=== PATIENT | male | born 1940 | race Caucasian/White ===

== ENCOUNTER 2019-01-26 14:21 | Observation (INO) | payer MEDICARE, OTHER, SELFPAY ==
[2019-01-26 14:22] VITALS: BP 138/77; PULSE 77; RESP 20; TEMP 36.6; O2SAT 98; BMI 31.6
--- NOTE | 2019-01-26 15:14 | EKG12_ITS ---
Test Reason : CP Blood Pressure : / mmHG Vent. Rate : 077 BPM Atrial Rate : 277 BPM P-R Int : 000 ms QRS Dur : 106 ms QT Int : 386 ms P-R-T Axes : 000 043 -46 degrees QTc Int : 436 ms Atrial fibrillation Nonspecific T wave abnormality Abnormal ECG Confirmed by JUANITA DIMAS, MAT ([id number]), editor in chief BRISSA WILLIS ([id number] on 01/30/2019 6:33:05 AM Referred By: CORA/WALTER Confirmed By:MAT GRANT MD
--- NOTE | 2019-01-26 15:14 | RAD_ITS ---
STUDY: X-RAY CHEST REASON FOR EXAM: Male, 78 years old. Chest pain. TECHNIQUE: Single frontal view of the chest. COMPARISON: None. FINDINGS: The lungs are hyperexpanded with bullous disease compatible with COPD. There is no demonstrated pleural abnormality. There is borderline cardiomegaly. Normal mediastinum and allison. Normal visualized pulmonary arteries. There is atherosclerotic calcification of the aortic arch with tortuosity. Normal visualized thoracic spine. Normal visualized ribs, clavicles, and shoulders. There is no demonstrated abnormality of the visualized soft tissue structures of the upper abdomen. RAD/Chest 1 View (Portable) IMPRESSION: Borderline cardiomegaly with COPD. No acute or active cardiopulmonary disease. Electronically Signed: Charles Alegre MD at 15:32 EDT , Service support ,
[2019-01-26 15:23] VITALS: BP 126/80; PULSE 86; RESP 17; O2SAT 99
[2019-01-26 15:24] LABS: Absolute Lymphocyte Count 1.61 X10^3/ul (0.83-4.51); Absolute Neutrophil Count 7.3 X10^3/uL (2.0-7.7); Basophil# 0.03 X10^3/uL; Basophil% 0.3 % (0-1); Eosinophil# 0.32 X10^3/uL; Eosinophils% 3.2 % (0-5); Hematocrit 41.9 % (40-54); Lymphocyte # 1.61 X10^3/ul (4.0); Lymphocyte % 15.9 % (19-41); Mean Corp Hgb Conc 33.4 g/gl (32-36); Mean Corpuscular Hgb 31.1 pg (27.0-32.0); Mean Corpuscular Volume 93.1 fL (80-94); Mean Platelet Vol. 10.5 fl (6.2-12.0); Monocyte# 0.87 X10^3/uL; Monocyte% 8.6 % (0-10); Neutrophil # 7.27 X10^3/uL (2.7-7.7); Neutrophil % 71.8 % (47-70); Platelet Count 200 K/mm3 (150-450); RBC Distribution Width CV 13.1 % (11.6-14.6); RBC Distribution Width SD 44.2 fl (35.1-43.9); White Blood Count 10.1 K/mm3 (4.4-11.0)
[2019-01-26 15:37] LABS: Anion Gap 7 (5-15); BUN 20 mg/dL (7-18); BUN/Creat Ratio 16.4 RATIO (10-20); Calcium,Total 8.9 mg/dL (8.5-10.1); Chloride 103 mmol/L (98-107); Creatinine, Serum 1.22 mg/dL (0.70-1.30); EST Glomerular Filtration Rate 61 mL/min (>60); Est Glom Filt Rate - Afr Amer 74 mL/min (>60); Estimated Creatinine Clearance 48.29 ml/min; Glucose 106 mg/dL (74-106); Sodium Level 141 mmol/L (136-145)
[2019-01-26 15:46] LABS: POSITIVE COUNT NO; POSITIVE DIFFERENTIAL NO; POSITIVE MORPHOLOGY NO
--- NOTE | 2019-01-26 16:13 | ED.DCSUM_ITS ---
- ER Visit Summary Date of Service: 01/26/19 Chief Complaint: Chest pain History of Present Illness: The patient is a 78 M with chest pain for the past 4 hours. It is intermittent last 30 seconds but even after they are gone he still feels like there is some ache in his chest, he took nitroglycerin and his pain improved he got aspirin in the squad and his pain is now gone. It was described as sharp stabbing but there is an aching component to. He has no shortness of breath no back pain or tearing sensation. Physical Examination: Not appear in acute distress. Moist mucous membranes, no obvious facial deformity No C-spine tenderness supple neck. Regular rate and rhythm without any obvious murmurs Clear lungs bilaterally speaking in full sentences without any obvious respiratory distress Abdomen soft and nontender no guarding or rebound Moves all extremities without any difficulty or pain. Skin does not show any obvious rashes or lesions, no trauma. Alert oriented ?3 with no gross focal deficit Emergency Department Course and Treatment: Patient has an unremarkable troponin, EKG is nonspecific atrial fibrillation. His heart score is 4-5 I will admit for further diagnostic testing. Disposition: Admit stable condition Impression: [Chest pain] This note was generated with [employer] dictation software. It may contain incorrect words, spelling, and punctuation that were not noted in review of the chart prior to signing ED Disposition - Plan for ED Patient: Referrals: Lefty Samson [Primary Care Provider] -
[2019-01-26 16:55] VITALS: BMI 30.6
[2019-01-26 16:55] LABS: International Normalized Ratio 2.6; Prothrombin Time (Protime)PT. 28.2 SECONDS (11.7-14.9)
[2019-01-26 17:00] VITALS: BP 145/76; PULSE 75; PULSE 77; RESP 16; TEMP 36.4; O2SAT 95
--- NOTE | 2019-01-26 17:12 | HP.PCM_ITS ---
<Rob Valencia - Last Filed: 01/26/19 17:07> Problem List (1) Chest pain Status: Acute (2) CAD (coronary artery disease) Status: Chronic (3) Atrial fibrillation Status: Chronic (4) HTN (hypertension) Status: Chronic (5) HLD (hyperlipidemia) Status: Chronic (6) Obesity (BMI 30.0-34.9) Status: Chronic History of Present Illness Date of Admission: 01/26/19 Chief Complaint: chest pain The patient is a 78 year old M with pmhx of CAD with a stent placed in 1995 and a reocclusion and subsequent re stenting in 2005, hx of pAfib, HTN, HLD, stage 1 colon cancer s/p resection of colon in remission, and obesity who presents to the ER with c/o chest pain. This began while driving at about 11 am. He had a sudden onset of about a minute and a half of moderate midsternal aching. No radiation, no aggrevating or alleviating factors at that time. It suddenly resolved, however it recurred in a similar fashion 2 more times. The last time he called the squad and took nitro which relieved his pain, then he was given 4 baby aspirin by EMS and had full relief of his pain. He currently has no pain. He also denies any SOB, LH, dizziness, LE edema, diaphoresis. He refuses to consider a stress test as his last one in 2005 was a false negative and insists that if he ever needs a cath again it will not be done by a electrical research engineer but by a surgeon with a surgical backup team at the [facility]. He is not sure what he wants us to do while here. His EKG shows Afib with no ischemic changes, troponin is negative, and CXR is negative. Former patient of Dr. Sheldon.[] Past Medical History Past Medical History (Chronic Problems): Chronic Problems CAD (coronary artery disease) (Chronic) Atrial fibrillation (Chronic) HTN (hypertension) (Chronic) HLD (hyperlipidemia) (Chronic) Obesity (BMI 30.0-34.9) (Chronic) Allergies No Known Allergies Allergy (Verified 01/26/19 14:29) Home Medications: Ambulatory Orders Medication Instructions Recorded Hydrochlorothiazide 12.5 mg PO DAILY 01/26/19 Lisinopril 20 mg PO DAILY 01/26/19 Melatonin/Pyridoxine HCl (B6) 1 each PO QHS 01/26/19 [Melatonin 3 mg Tablet] Metoprolol Succinate 12.5 mg PO DAILY 01/26/19 Simvastatin 20 mg PO DAILY 01/26/19 Warfarin Sodium 5 mg PO DAILY 01/26/19 Warfarin Sodium 6 mg PO QODAY 01/26/19 Surgical History: - - colon resection Psychiatric History: No pertinent psych hx Lives: Alone Smoking Status: Former smoker Tobacco Use: Non-smoker Alcohol: Occasional Drugs: None - *Family History Maternal History Items: No pertinent history Paternal History Items: No pertinent history Review of Systems Constitutional: Denies: Chills, Fever, Weight Change HEENT: Denies: Head Aches, Sinus Congestion, Sinus Drainage Cardiovascular: Reports: Chest Pain. Denies: Chest Pressure, Chest Tightness, Edema, Heaviness, Light Headedness, Orthopnea, Palpitations, Paroxysmal Noc. Dyspnea, Syncope Respiratory: Denies: Cough, Shortness of breath at rest, Sputum production Gastrointestinal: Denies: Abdominal Pain, Nausea, Vomiting Genitourinary: Denies: Dysuria Musculoskeletal: Denies: Joint Pain, Joint Tenderness Skin: Denies: Rash, Wounds Neurological: Denies: Numbness, Tingling, Focal weakness Psychiatric: Denies: Anxiety, Depression, Homicidal Ideations, Suicidal Ideations Hematologic/ Lymphatic: Denies: Easy Bruising, Easy Bleeding VTE Information - Inpt Only VTE Present on Admission: No VTE Mechan Device Prophylaxis: None VTE Pharm Prophylaxis ordered?: Yes Patient Problems: Active and Suspected Problems Chest pain (Acute) - Physical Exam General: Alert, Oriented x3, Cooperative HEENT: Atraumatic, PERRLA, EOMI, Normocephalic Neck: Supple, No JVD, Negative Carotid Bruits Lungs: Clear to auscultation, Normal air movement Cardiovascular: No murmurs, Irregular Rate Abdomen: Bowel Sounds Present, Soft, Non Tender Extremities: No edema, Capillary Refill Less than 3 Seconds Skin: No rashes, No breakdown Musculoskeletal: No Tenderness to Palpation of Joints or Extremities Neurological: Cranial nerves II-XII grossly intact Psych/Mental Status: Normal Affect, Appropriate Vital Signs Temp Pulse Resp BP Pulse Ox 97.8 F 86 17 126/80 H 99 01/26/19 14:22 01/26/19 15:23 01/26/19 15:23 01/26/19 15:23 01/26/19 15:23 Oxygen Flow Rate (L/min) 2 Oxygen Delivery Method Nasal Cannula Weight: 214 lb 8.156 oz Body Mass Index (BMI) 31.6 Laboratory Tests Past 24 Hrs 01/26/19 01/26/19 01/26/19 14:36 14:36 14:36 WBC 10.1 RBC 4.50 L Hgb 14.0 Hct 41.9 MCV 93.1 MCH 31.1 MCHC 33.4 RDW 13.1 RDW Differential 44.2 H Plt Count 200 MPV 10.5 Immature Gran % (Auto) 0.200 Neut % (Auto) 71.8 H Lymph % (Auto) 15.9 L Calloway % (Auto) 8.6 Eos % (Auto) 3.2 Baso % (Auto) 0.3 Absolute Neuts (auto) 7.3 Absolute Lymphs (auto) 1.61 Total Counted Not Reportable PT 28.2 H INR 2.6 Sodium 141 Potassium 4.0 Chloride 103 Carbon Dioxide 31.0 Anion Gap 7 BUN 20 H Creatinine 1.22 Estim Creat Clear Calc 48.29 Est GFR (MDRD) Af Amer 74 Est GFR (MDRD) Non-Af 61 BUN/Creatinine Ratio 16.4 Glucose 106 Calcium 8.9 Troponin I < 0.015 Assessment/Plan All Active Problems Chest pain (Acute) 1. Chest pain with hx CAD and prior stents - cycle enzymes, serial EKGs, maintain tele. Pt does not want stress as noted. He also states if he needs a cath he does not want it here but at [facility] by a surgeon. Trop, EKG, CXR, vitals, and routine labs appear without acute process. 2 prior stents. 2. pAfib - EKG with afib non tachy no ischemic changes. On warfarin and metoprolol. 3. HTN/HLD - home meds 4. hx colorectal cancer - in remission s/p colon resection 5. Psoriasis - no acute flare. DVT ppx: lovenox This patient was seen by Rob Valencia PA-C under the supervision of Dr. Chavez. <Venkat Chavez - Last Filed: 01/26/19 19:47> History of Present Illness The patient is a 78 year old M [] Past Medical History Allergies No Known Allergies Allergy (Verified 01/26/19 14:29) - Physical Exam Vital Signs Temp Pulse Resp BP Pulse Ox 97.6 F L 77 16 145/76 H 95 01/26/19 17:00 01/26/19 17:00 01/26/19 17:00 01/26/19 17:00 01/26/19 17:00 Oxygen Flow Rate (L/min) 2 Oxygen Delivery Method Room Air Weight: 207 lb 7.28 oz Body Mass Index (BMI) 30.6 Intake and Output for Last 24 Hours 01/24/19 01/25/19 01/26/19 23:59 23:59 23:59 Intake Total 300 / 300 Balance 300 / 300 Laboratory Tests Past 24 Hrs 01/26/19 01/26/19 01/26/19 14:36 14:36 14:36 WBC 10.1 RBC 4.50 L Hgb 14.0 Hct 41.9 MCV 93.1 MCH 31.1 MCHC 33.4 RDW 13.1 RDW Differential 44.2 H Plt Count 200 MPV 10.5 Immature Gran % (Auto) 0.200 Neut % (Auto) 71.8 H Lymph % (Auto) 15.9 L Calloway % (Auto) 8.6 Eos % (Auto) 3.2 Baso % (Auto) 0.3 Absolute Neuts (auto) 7.3 Absolute Lymphs (auto) 1.61 Total Counted Not Reportable PT 28.2 H INR 2.6 Sodium 141 Potassium 4.0 Chloride 103 Carbon Dioxide 31.0 Anion Gap 7 BUN 20 H Creatinine 1.22 Estim Creat Clear Calc 48.29 Est GFR (MDRD) Af Amer 74 Est GFR (MDRD) Non-Af 61 BUN/Creatinine Ratio 16.4 Glucose 106 Calcium 8.9 Troponin I < 0.015 01/26/19 18:10 WBC RBC Hgb Hct MCV MCH MCHC RDW RDW Differential Plt Count MPV Immature Gran % (Auto) Neut % (Auto) Lymph % (Auto) Calloway % (Auto) Eos % (Auto) Baso % (Auto) Absolute Neuts (auto) Absolute Lymphs (auto) Total Counted PT INR Sodium Potassium Chloride Carbon Dioxide Anion Gap BUN Creatinine Estim Creat Clear Calc Est GFR (MDRD) Af Amer Est GFR (MDRD) Non-Af BUN/Creatinine Ratio Glucose Calcium Troponin I < 0.015 Code Visit Addendum: Dr. Chavez I personally examined the patient and reviewed the chart. I agree with the above. 78-year-old male with a history of a 2 stents before 2005 presents with chest pain. He states this began when he was driving at around 11 AM he had a sudden onset of midsternal aching that did not radiate anywhere. In the ER his EKG was unremarkable other than his known A. fib and his initial troponin was negative. His chest x-ray was normal. He states that he does not want to have a stress test because the last time he had a stress test 3 weeks later he need to have a stent. Also if he were to need a cath he does not want to have it done here he would rather have it done at [facility] because he wants to have a cath done if necessary at a place that has surgical back-up in case something went wrong during the procedure. Therefore we discussed that if his troponins remain negative then tomorrow morning he can be discharged home and he can find a new electrical research engineer since his just retired on Saturday. OBSV E&M: [id number] Initial observation care L3
--- NOTE | 2019-01-26 17:23 | EKG12_ITS ---
Test Reason : CP ADMISSION Blood Pressure : / mmHG Vent. Rate : 065 BPM Atrial Rate : 093 BPM P-R Int : 000 ms QRS Dur : 098 ms QT Int : 404 ms P-R-T Axes : 000 035 -40 degrees QTc Int : 420 ms Atrial fibrillation Low voltage QRS Nonspecific T wave abnormality Abnormal ECG Confirmed by JUANITA DIMAS, MAT ([id number]), editor map BRISSA WILLIS ([id number]) on 01/30/2019 7:06:09 AM Referred By: KASI Confirmed By:MAT GRANT MD
[2019-01-26 18:17] VITALS: BMI 30.6
[2019-01-26 18:57] VITALS: PULSE 76
[2019-01-26 21:23] VITALS: BP 129/77; PULSE 83; RESP 16; TEMP 36.7; O2SAT 97
[2019-01-26] MEDS: Metoprolol(XL)Succ 25 MG Tablet 12.5 MG PO (21:23)
[2019-01-26] MEDS: Lisinopril 20 MG Tablet PO (21:23)
[2019-01-26] MEDS: Atorvastatin Calcium 10 MG Tablet PO (21:23)
[2019-01-26 23:00] VITALS: PULSE 75
[2019-01-27 03:07] VITALS: PULSE 73
[2019-01-27 03:20] VITALS: BP 117/57; PULSE 63; RESP 16; TEMP 36.4; O2SAT 92
[2019-01-27 05:59] LABS: Absolute Lymphocyte Count 1.46 X10^3/ul (0.83-4.51); Absolute Neutrophil Count 4.9 X10^3/uL (2.0-7.7); Basophil# 0.03 X10^3/uL; Basophil% 0.4 % (0-1); Eosinophil# 0.48 X10^3/uL; Eosinophils% 6.1 % (0-5); Hematocrit 41.8 % (40-54); Hemoglobin 13.9 g/dl (13.0-16.5); Lymphocyte # 1.46 X10^3/ul (4.0); Lymphocyte % 18.7 % (19-41); Mean Corp Hgb Conc 33.3 g/gl (32-36); Mean Corpuscular Hgb 30.5 pg (27.0-32.0); Mean Corpuscular Volume 91.9 fL (80-94); Mean Platelet Vol. 10.3 fl (6.2-12.0); Monocyte# 0.92 X10^3/uL; Monocyte% 11.8 % (0-10); Neutrophil # 4.92 X10^3/uL (2.7-7.7); Neutrophil % 62.9 % (47-70); Platelet Count 184 K/mm3 (150-450); Red Blood Count 4.55 M/mm3 (4.6-6.2); White Blood Count 7.8 K/mm3 (4.4-11.0)
[2019-01-27 06:06] LABS: POSITIVE COUNT NO; POSITIVE DIFFERENTIAL NO; POSITIVE MORPHOLOGY NO
[2019-01-27 06:13] LABS: International Normalized Ratio 2.7; Prothrombin Time (Protime)PT. 29.1 SECONDS (11.7-14.9)
[2019-01-27 06:15] LABS: Anion Gap 9 (5-15); BUN 18 mg/dL (7-18); BUN/Creat Ratio 15.7 RATIO (10-20); Calcium,Total 8.9 mg/dL (8.5-10.1); Chloride 106 mmol/L (98-107); Creatinine, Serum 1.15 mg/dL (0.70-1.30); EST Glomerular Filtration Rate 65 mL/min (>60); Est Glom Filt Rate - Afr Amer 79 mL/min (>60); Estimated Creatinine Clearance 51.23 ml/min; Glucose 112 mg/dL (74-106); Potassium 4.2 mmol/L (3.5-5.1); Sodium Level 144 mmol/L (136-145)
[2019-01-27 07:21] VITALS: PULSE 74
--- NOTE | 2019-01-27 09:17 | DCINST_ITS ---
- Discharge Diagnoses Current Active Problems: Current Active and Chronic Problems Chest pain (Acute) CAD (coronary artery disease) (Chronic) Atrial fibrillation (Chronic) HTN (hypertension) (Chronic) HLD (hyperlipidemia) (Chronic) Obesity (BMI 30.0-34.9) (Chronic) You will use the following diet at home:: Cardiac Your food should be the consistency of: Regular Your liquids should be the consistency of: Regular/Thin Discharge Activity: Return to Normal Activity Allergies/Adverse Reactions: Allergies No Known Allergies Allergy (Verified 01/26/19 14:29) Medications to take at Discharge Hydrochlorothiazide 12.5 mg PO DAILY 01/26/19 Lisinopril 20 mg PO DAILY 01/26/19 Melatonin/Pyridoxine HCl (B6) [Melatonin 3 mg Tablet] 1 each PO QHS 01/26/19 Metoprolol Succinate 12.5 mg PO DAILY 01/26/19 Simvastatin 20 mg PO DAILY 01/26/19 Warfarin Sodium 5 mg PO DAILY 01/26/19 Warfarin Sodium 6 mg PO QODAY 01/26/19 Primary Care Physician: Lefty Samson [Primary Care Provider] - Please follow up with your Primary Care Physician in: 1-2 weeks Test Results: Test results from this visit will be discussed in further detail at your follow- up appointment, if applicable. Please Follow Up With: Cardiology When: 1 week Proposed Discharge Date: 01/27/19
--- NOTE | 2019-01-27 09:32 | PHA.DC.MR ---
Pharmacy Service has performed discharge medication reconciliation for this patient. The patient's discharge medication list was reviewed for discrepancies and discrepancies were resolved. Home Medications Hydrochlorothiazide 12.5 mg PO DAILY 01/26/19 Lisinopril 20 mg PO DAILY 01/26/19 Melatonin/Pyridoxine HCl (B6) [Melatonin 3 mg Tablet] 1 each PO QHS 01/26/19 Metoprolol Succinate 12.5 mg PO DAILY 01/26/19 Simvastatin 20 mg PO DAILY 01/26/19 Warfarin Sodium 1 mg PO QODAY 01/26/19 Warfarin Sodium 5 mg PO DAILY 01/26/19
[2019-01-27] MEDS: hydroCHLOROthiazide 12.5mg 12.5 MG PO (09:51)
[2019-01-27 10:00] VITALS: BP 131/69; PULSE 71; RESP 16; TEMP 36.8; O2SAT 94
--- NOTE | 2019-01-27 15:22 | PCM.DC.SUM ---
<Rob Valencia - Last Filed: 01/27/19 15:22> Discharge Date and Diagnosis Date of Admission: 01/26/19 Date of Discharge: 01/27/19 - Primary Discharge Diagnosis Chest pain-musculoskeletal History of CAD with prior stent x2 Hypertension Hyperlipidemia Obesity pAfib/flutter - Secondary Discharge Diagnosis Chronic Problems CAD (coronary artery disease) (Chronic) Atrial fibrillation (Chronic) HTN (hypertension) (Chronic) HLD (hyperlipidemia) (Chronic) Obesity (BMI 30.0-34.9) (Chronic) Hospital Course and Treatment Imaging Results: RAD/Chest 1 View (Portable) IMPRESSION: Borderline cardiomegaly with COPD. No acute or active cardiopulmonary disease. Operations: None Procedures: None Summary of Care Provided: Hospital course: The patient is a 78 year old M with past medical history of CAD with stents placed in 1995 in 2005, formerly patient of Dr. Christian Carmen, who presented to the emergency room with complaints of chest pain. This pain began while he was driving suddenly the day of presentation. It was about a minute half of moderate midsternal aching with no radiation, no aggravating or alleviating factors. It recurred 2 more times in a similar fashion. He did take a nitroglycerin at home and did have relief of his chest pain. He came to the emergency room and was found to have a negative troponin, negative chest x-ray, negative EKG-for ischemic changes, did show his underlying paroxysmal atrial fibrillation. The patient was not interested in having a stress test as in the past he had a false negative stress test and he does not trust them. He also stated that if he were to need any sort of cardiac intervention that he would only do it somewhere where there was surgical back-up like the [facility]. He was not interested in seeing any board filler here, and was planning on finding a new [facility] board filler as an outpatient. We strongly advised him to consider a stress test, however he would not do this. We did get him to agree to staying overnight for monitoring on telemetry in the PCU, cycling enzymes, and repeating EKGs. This was done, he had no acute issues overnight, his repeat troponins were negative, and his repeat EKGs were negative. I advised him to follow-up with a board filler in 1 week. The patient felt that his symptoms were related to musculoskeletal pain and attributed it to recently changing his sleeping position as his had a surgery and had to switch sides of the bed with him. He has been sleeping on his left side and feels that this is similar to where his pain is. Regardless I advised him to take his chest pain seriously, and that he would likely need a stress test or further cardiac work-up to definitively rule out a cardiac etiology. Advised him to follow-up with his PCP in 1 to 2 weeks. This patient was seen by Rob Valencia PA-C under the supervision of Doctor Lety. [] - Physical Exam General: Alert, Oriented x3, Cooperative HEENT: Atraumatic, PERRLA, EOMI, Normocephalic Neck: Supple, No JVD, Negative Carotid Bruits Lungs: Clear to auscultation, Normal air movement Cardiovascular: Regular rate, No murmurs Abdomen: Bowel Sounds Present, Soft, Non Tender, Obese Extremities: No edema, Capillary Refill Less than 3 Seconds Skin: No rashes, No breakdown Musculoskeletal: No Tenderness to Palpation of Joints or Extremities Neurological: Cranial nerves II-XII grossly intact Psych/Mental Status: Normal Affect, Appropriate, Alert and oriented to time, place, person, mood and affect Vital Signs Temp Pulse Resp BP Pulse Ox 98.3 F 71 16 131/69 H 94 01/27/19 10:00 01/27/19 10:00 01/27/19 10:00 01/27/19 10:00 01/27/19 10:00 Oxygen Flow Rate (L/min) 2 Oxygen Delivery Method Room Air Weight: 207 lb 7.28 oz Body Mass Index (BMI) 30.6 Intake and Output for Last 24 Hours 01/25/19 01/26/19 01/27/19 23:59 23:59 23:59 Intake Total 540 / 540 120 / 120 Balance 540 / 540 120 / 120 Laboratory Tests Past 24 Hrs 01/26/19 01/26/19 01/26/19 14:36 14:36 14:36 WBC 10.1 RBC 4.50 L Hgb 14.0 Hct 41.9 MCV 93.1 MCH 31.1 MCHC 33.4 RDW 13.1 RDW Differential 44.2 H Plt Count 200 MPV 10.5 Immature Gran % (Auto) 0.200 Neut % (Auto) 71.8 H Lymph % (Auto) 15.9 L [place] % (Auto) 8.6 Eos % (Auto) 3.2 Baso % (Auto) 0.3 Absolute Neuts (auto) 7.3 Absolute Lymphs (auto) 1.61 Total Counted Not Reportable PT 28.2 H INR 2.6 Sodium 141 Potassium 4.0 Chloride 103 Carbon Dioxide 31.0 Anion Gap 7 BUN 20 H Creatinine 1.22 Estim Creat Clear Calc 48.29 Est GFR (MDRD) Af Amer 74 Est GFR (MDRD) Non-Af 61 BUN/Creatinine Ratio 16.4 Glucose 106 Calcium 8.9 Troponin I < 0.015 01/26/19 01/26/19 01/27/19 18:10 20:30 05:40 WBC 7.8 RBC 4.55 L Hgb 13.9 Hct 41.8 MCV 91.9 MCH 30.5 MCHC 33.3 RDW 13.0 RDW Differential 43.0 Plt Count 184 MPV 10.3 Immature Gran % (Auto) 0.100 Neut % (Auto) 62.9 Lymph % (Auto) 18.7 L [place] % (Auto) 11.8 H Eos % (Auto) 6.1 H Baso % (Auto) 0.4 Absolute Neuts (auto) 4.9 Absolute Lymphs (auto) 1.46 Total Counted Not Reportable PT INR Sodium Potassium Chloride Carbon Dioxide Anion Gap BUN Creatinine Estim Creat Clear Calc Est GFR (MDRD) Af Amer Est GFR (MDRD) Non-Af BUN/Creatinine Ratio Glucose Calcium Troponin I < 0.015 < 0.015 01/27/19 01/27/19 05:40 05:40 WBC RBC Hgb Hct MCV MCH MCHC RDW RDW Differential Plt Count MPV Immature Gran % (Auto) Neut % (Auto) Lymph % (Auto) [place] % (Auto) Eos % (Auto) Baso % (Auto) Absolute Neuts (auto) Absolute Lymphs (auto) Total Counted PT 29.1 H INR 2.7 Sodium 144 Potassium 4.2 Chloride 106 Carbon Dioxide 29.0 Anion Gap 9 BUN 18 Creatinine 1.15 Estim Creat Clear Calc 51.23 Est GFR (MDRD) Af Amer 79 Est GFR (MDRD) Non-Af 65 BUN/Creatinine Ratio 15.7 Glucose 112 H Calcium 8.9 Troponin I Discharge Diet: Low fat/ Low Cholesterol, 2000 mg Sodium Diet Discharge Activity: Return to Normal Activity Home Medications: Medications to take at Discharge Hydrochlorothiazide 12.5 mg PO DAILY 01/26/19 Lisinopril 20 mg PO DAILY 01/26/19 Melatonin/Pyridoxine HCl (B6) [Melatonin 3 mg Tablet] 1 each PO QHS 01/26/19 Metoprolol Succinate 12.5 mg PO DAILY 01/26/19 Simvastatin 20 mg PO DAILY 01/26/19 Warfarin Sodium 1 mg PO QODAY 01/26/19 Warfarin Sodium 5 mg PO DAILY 01/26/19 Primary Care Physician: Lefty Samson [Primary Care Provider] - Please follow up with your Primary Care Physician in: 1-2 weeks Please Follow Up With: Cardiology When: 1 week Disposition: Home Minutes spent on discharge:: 35 Patient Condition:: Stable Medical Necessity - Tobacco Use Smoking Status: Former smoker Tobacco Use: Non-smoker Meaningful Use Info Meaningful Use Diagnoses (Choose all that apply): None applicable <Isabel Davidson - Last Filed: 01/27/19 16:21> Discharge Date and Diagnosis - Secondary Discharge Diagnosis Chronic Problems CAD (coronary artery disease) (Chronic) Atrial fibrillation (Chronic) HTN (hypertension) (Chronic) HLD (hyperlipidemia) (Chronic) Obesity (BMI 30.0-34.9) (Chronic) Hospital Course and Treatment Summary of Care Provided: Patient seen by Rob Valencia PA-C under my supervision The patient is a 78 year old M with a past medical history as listed was admitted with a complaint of chest pain while driving. Troponins x3 were negative and EKG showed no acute ST changes. 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 Patient did not want any form of cardiac work-up done [facility] as he said he wanted to be in the [facility] system. He had been following up with his board filler at [facility] but board filler retired about 4 days ago. Patient has not establish care with any board filler since and states he does not know when [facility] will bring a board filler to [place]. Patient was also not willing to consider seeing a board filler either in [place] or any other town and wanted to see a board filler in [place] but would only prefer a [facility] physician. Patient was counseled strongly that in light of his cardiac history and chest pain, it was imperative that he would need follow-up with a board filler as soon as possible to establish care and also for continuity of care. Patient was not willing to consider seeing a board filler in [facility] and would not do a stress test either as he said if needed any procedure he would want to done in [facility] or any other [facility] because he wanted surgical facilities to be available in case he needed open heart surgery. Despite reassurances that he could have a cardiac intervention done here and could be safely transferred as needed, patient was not willing to entertain this and said he did not have confidence in the system in [place]. He therefore wanted to be discharged home to await posting of board filler by [facility] to start to establish follow-up. Patient was discharged home on 01/27/19, to follow up with his PCP. Patient seen and examined prior to discharge. Chest pain had resolved. Review of systems otherwise negative. Labs and vitals reviewed. o/e: Vital Signs Height 5 ft 9 in Weight: 207 lb 7.28 oz Weight in Pounds 207.5 lbs Pulse Ox 94 Temperature 98.3 F Pulse Rate 71 Respiratory Rate 16 Blood Pressure 131/69 Blood Pressure Position Sitting []General: Alert, Oriented x3, Cooperative HEENT: Atraumatic, PERRLA, EOMI, Normocephalic Neck: Supple, No JVD, Negative Carotid Bruits Lungs: Clear to auscultation, Normal air movement Cardiovascular: No murmurs, Irregular Rate Abdomen: Bowel Sounds Present, Soft, Non Tender Extremities: No edema, Capillary Refill Less than 3 Seconds Skin: No rashes, No breakdown Musculoskeletal: No Tenderness to Palpation of Joints or Extremities Neurological: Cranial nerves II-XII grossly intact Psych/Mental Status: Normal Affect, Appropriate Plan is to discharge home. Rest of management as per Rob Valencia PA-C's note, which I have reviewed and endorsed. - Physical Exam Vital Signs Temp Pulse Resp BP Pulse Ox 98.3 F 71 16 131/69 H 94 01/27/19 10:00 01/27/19 10:00 01/27/19 10:00 01/27/19 10:00 01/27/19 10:00 Oxygen Flow Rate (L/min) 2 Oxygen Delivery Method Room Air Weight: 207 lb 7.28 oz Body Mass Index (BMI) 30.6 Intake and Output for Last 24 Hours 01/25/19 01/26/19 01/27/19 23:59 23:59 23:59 Intake Total 540 / 540 120 / 120 Balance 540 / 540 120 / 120 Laboratory Tests Past 24 Hrs 01/26/19 01/26/19 01/26/19 14:36 18:10 20:30 WBC RBC Hgb Hct MCV MCH MCHC RDW RDW Differential Plt Count MPV Immature Gran % (Auto) Neut % (Auto) Lymph % (Auto) [place] % (Auto) Eos % (Auto) Baso % (Auto) Absolute Neuts (auto) Absolute Lymphs (auto) Total Counted PT 28.2 H INR 2.6 Sodium Potassium Chloride Carbon Dioxide Anion Gap BUN Creatinine Estim Creat Clear Calc Est GFR (MDRD) Af Amer Est GFR (MDRD) Non-Af BUN/Creatinine Ratio Glucose Calcium Troponin I < 0.015 < 0.015 01/27/19 01/27/19 01/27/19 05:40 05:40 05:40 WBC 7.8 RBC 4.55 L Hgb 13.9 Hct 41.8 MCV 91.9 MCH 30.5 MCHC 33.3 RDW 13.0 RDW Differential 43.0 Plt Count 184 MPV 10.3 Immature Gran % (Auto) 0.100 Neut % (Auto) 62.9 Lymph % (Auto) 18.7 L [place] % (Auto) 11.8 H Eos % (Auto) 6.1 H Baso % (Auto) 0.4 Absolute Neuts (auto) 4.9 Absolute Lymphs (auto) 1.46 Total Counted Not Reportable PT 29.1 H INR 2.7 Sodium 144 Potassium 4.2 Chloride 106 Carbon Dioxide 29.0 Anion Gap 9 BUN 18 Creatinine 1.15 Estim Creat Clear Calc 51.23 Est GFR (MDRD) Af Amer 79 Est GFR (MDRD) Non-Af 65 BUN/Creatinine Ratio 15.7 Glucose 112 H Calcium 8.9 Troponin I Code Visit Inpatient E&M: 66446 Disch Hosp
--- NOTE | 2019-01-27 15:26 | DS.PCM_ITS ---
<Rob Valencia - Last Filed: 01/27/19 15:22> Discharge Date and Diagnosis Date of Admission: 01/26/19 Date of Discharge: 01/27/19 - Primary Discharge Diagnosis Chest pain-musculoskeletal History of CAD with prior stent x2 Hypertension Hyperlipidemia Obesity pAfib/flutter - Secondary Discharge Diagnosis Chronic Problems CAD (coronary artery disease) (Chronic) Atrial fibrillation (Chronic) HTN (hypertension) (Chronic) HLD (hyperlipidemia) (Chronic) Obesity (BMI 30.0-34.9) (Chronic) Hospital Course and Treatment Imaging Results: RAD/Chest 1 View (Portable) IMPRESSION: Borderline cardiomegaly with COPD. No acute or active cardiopulmonary disease. Operations: None Procedures: None Summary of Care Provided: Hospital course: The patient is a 78 year old M with past medical history of CAD with stents placed in 1995 in 2005, formerly patient of Dr. Christian Carmen, who presented to the emergency room with complaints of chest pain. This pain began while he was driving suddenly the day of presentation. It was about a minute half of moderate midsternal aching with no radiation, no aggravating or alleviating factors. It recurred 2 more times in a similar fashion. He did take a nitroglycerin at home and did have relief of his chest pain. He came to the emergency room and was found to have a negative troponin, negative chest x-ray, negative EKG-for ischemic changes, did show his underlying paroxysmal atrial fibrillation. The patient was not interested in having a stress test as in the past he had a false negative stress test and he does not trust them. He also stated that if he were to need any sort of cardiac intervention that he would only do it somewhere where there was surgical back-up like the [facility]. He was not interested in seeing any life skills worker here, and was planning on finding a new [facility] life skills worker as an outpatient. We strongly advised him to consider a stress test, however he would not do this. We did get him to agree to staying overnight for monitoring on telemetry in the PCU, cycling enzymes, and repeating EKGs. This was done, he had no acute issues overnight, his repeat troponins were negative, and his repeat EKGs were negative. I advised him to follow-up with a life skills worker in 1 week. The eric guallpa felt that his symptoms were related to musculoskeletal pain and attributed it to recently changing his sleeping position as his had a surgery and had to switch sides of the bed with him. He has been sleeping on his left side and feels that this is similar to where his pain is. Regardless I advised him to take his chest pain seriously, and that he would likely need a stress test or further cardiac work-up to definitively rule out a cardiac etiology. Advised him to follow-up with his PCP in 1 to 2 weeks. This patient was seen by Rob Valencia PA-C under the supervision of Doctor Lety. [] - Physical Exam General: Alert, Oriented x3, Cooperative HEENT: Atraumatic, PERRLA, EOMI, Normocephalic Neck: Supple, No JVD, Negative Carotid Bruits Lungs: Clear to auscultation, Normal air movement Cardiovascular: Regular rate, No murmurs Abdomen: Bowel Sounds Present, Soft, Non Tender, Obese Extremities: No edema, Capillary Refill Less than 3 Seconds Skin: No rashes, No breakdown Musculoskeletal: No Tenderness to Palpation of Joints or Extremities Neurological: Cranial nerves II-XII grossly intact Psych/Mental Status: Normal Affect, Appropriate, Alert and oriented to time, place, person, mood and affect Vital Signs Temp Pulse Resp BP Pulse Ox 98.3 F 71 16 131/69 H 94 01/27/19 10:00 01/27/19 10:00 01/27/19 10:00 01/27/19 10:00 01/27/19 10:00 Oxygen Flow Rate (L/min) 2 Oxygen Delivery Method Room Air Weight: 207 lb 7.28 oz Body Mass Index (BMI) 30.6 Intake and Output for Last 24 Hours 01/25/19 01/26/19 01/27/19 23:59 23:59 23:59 Intake Total 540 / 540 120 / 120 Balance 540 / 540 120 / 120 Laboratory Tests Past 24 Hrs 01/26/19 01/26/19 01/26/19 14:36 14:36 14:36 WBC 10.1 RBC 4.50 L Hgb 14.0 Hct 41.9 MCV 93.1 MCH 31.1 MCHC 33.4 RDW 13.1 RDW Differential 44.2 H Plt Count 200 MPV 10.5 Immature Gran % (Auto) 0.200 Neut % (Auto) 71.8 H Lymph % (Auto) 15.9 L [place] % (Auto) 8.6 Eos % (Auto) 3.2 Baso % (Auto) 0.3 Absolute Neuts (auto) 7.3 Absolute Lymphs (auto) 1.61 Total Counted Not Reportable PT 28.2 H INR 2.6 Sodium 141 Potassium 4.0 Chloride 103 Carbon Dioxide 31.0 Anion Gap 7 BUN 20 H Creatinine 1.22 Estim Creat Clear Calc 48.29 Est GFR (MDRD) Af Amer 74 Est GFR (MDRD) Non-Af 61 BUN/Creatinine Ratio 16.4 Glucose 106 Calcium 8.9 Troponin I < 0.015 01/26/19 01/26/19 01/27/19 18:10 20:30 05:40 WBC 7.8 RBC 4.55 L Hgb 13.9 Hct 41.8 MCV 91.9 MCH 30.5 MCHC 33.3 RDW 13.0 RDW Differential 43.0 Plt Count 184 MPV 10.3 Immature Gran % (Auto) 0.100 Neut % (Auto) 62.9 Lymph % (Auto) 18.7 L [place] % (Auto) 11.8 H Eos % (Auto) 6.1 H Baso % (Auto) 0.4 Absolute Neuts (auto) 4.9 Absolute Lymphs (auto) 1.46 Total Counted Not Reportable PT INR Sodium Potassium Chloride Carbon Dioxide Anion Gap BUN Creatinine Estim Creat Clear Calc Est GFR (MDRD) Af Amer Est GFR (MDRD) Non-Af BUN/Creatinine Ratio Glucose Calcium Troponin I < 0.015 < 0.015 01/27/19 01/27/19 05:40 05:40 WBC RBC Hgb Hct MCV MCH MCHC RDW RDW Differential Plt Count MPV Immature Gran % (Auto) Neut % (Auto) Lymph % (Auto) [place] % (Auto) Eos % (Auto) Baso % (Auto) Absolute Neuts (auto) Absolute Lymphs (auto) Total Counted PT 29.1 H INR 2.7 Sodium 144 Potassium 4.2 Chloride 106 Carbon Dioxide 29.0 Anion Gap 9 BUN 18 Creatinine 1.15 Estim Creat Clear Calc 51.23 Est GFR (MDRD) Af Amer 79 Est GFR (MDRD) Non-Af 65 BUN/Creatinine Ratio 15.7 Glucose 112 H Calcium 8.9 Troponin I Discharge Diet: Low fat/ Low Cholesterol, 2000 mg Sodium Diet Discharge Activity: Return to Normal Activity Home Medications: Medications to take at Discharge Hydrochlorothiazide 12.5 mg PO DAILY 01/26/19 Lisinopril 20 mg PO DAILY 01/26/19 Melatonin/Pyridoxine HCl (B6) [Melatonin 3 mg Tablet] 1 each PO QHS 01/26/19 Metoprolol Succinate 12.5 mg PO DAILY 01/26/19 Simvastatin 20 mg PO DAILY 01/26/19 Warfarin Sodium 1 mg PO QODAY 01/26/19 Warfarin Sodium 5 mg PO DAILY 01/26/19 Primary Care Physician: Lefty Samson [Primary Care Provider] - Please follow up with your Primary Care Physician in: 1-2 weeks Please Follow Up With: Cardiology When: 1 week Disposition: Home Minutes spent on discharge:: 35 Patient Condition:: Stable Medical Necessity - Tobacco Use Smoking Status: Former smoker Tobacco Use: Non-smoker Meaningful Use Info Meaningful Use Diagnoses (Choose all that apply): None applicable <Isabel Davidson - Last Filed: 01/27/19 16:21> Discharge Date and Diagnosis - Secondary Discharge Diagnosis Chronic Problems CAD (coronary artery disease) (Chronic) Atrial fibrillation (Chronic) HTN (hypertension) (Chronic) HLD (hyperlipidemia) (Chronic) Obesity (BMI 30.0-34.9) (Chronic) Hospital Course and Treatment Summary of Care Provided: Patient seen by Rob Valencia PA-C under my supervision The patient is a 78 year old M with a past medical history as listed was admitted with a complaint of chest pain while driving. Troponins x3 were negative and EKG showed no acute ST changes. 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 Patient did not want any form of cardiac work-up done [facility] as he said he wanted to be in the [facility] system. He had been following up with his life skills worker at [facility] but life skills worker retired about 4 days ago. Patient has not establish care with any life skills worker since and states he does not know when [facility] will bring a life skills worker to [place]. Patient was also not willing to consider seeing a life skills worker either in [place] or any [facility] and wanted to see a life skills worker in [place] but would only prefer a [facility] physician. Patient was counseled strongly that in light of his cardiac history and chest pain, it was imperative that he would need follow-up with a life skills worker as soon as possible to establish care and also for continuity of care. Patient was not willing to consider seeing a life skills worker in [facility] and would not do a stress test either as he said if needed any procedure he would want to done in [facility] or any other [facility] because he wanted surgical facilities to be available in case he needed open heart surgery. Despite reassurances that he could have a cardiac intervention done here and could be safely transferred as needed, patient was not willing to entertain this and said he did not have confidence in the system in [place]. He therefore wanted to be discharged home to await posting of life skills worker by [facility] to start to establish follow-up. Patient was discharged home on 01/27/19, to follow up with his PCP. Patient seen and examined prior to discharge. Chest pain had resolved. Review of systems otherwise negative. Labs and vitals reviewed. o/e: Vital Signs Height 5 ft 9 in Weight: 207 lb 7.28 oz Weight in Pounds 207.5 lbs Pulse Ox 94 Temperature 98.3 F Pulse Rate 71 Respiratory Rate 16 Blood Pressure 131/69 Blood Pressure Position Sitting []General: Alert, Oriented x3, Cooperative HEENT: Atraumatic, PERRLA, EOMI, Normocephalic Neck: Supple, No JVD, Negative Carotid Bruits Lungs: Clear to auscultation, Normal air movement Cardiovascular: No murmurs, Irregular Rate Abdomen: Bowel Sounds Present, Soft, Non Tender Extremities: No edema, Capillary Refill Less than 3 Seconds Skin: No rashes, No breakdown Musculoskeletal: No Tenderness to Palpation of Joints or Extremities Neurological: Cranial nerves II-XII grossly intact Psych/Mental Status: Normal Affect, Appropriate Plan is to discharge home. Rest of management as per Rob Valencia PA-C's note, which I have reviewed and endorsed. - Physical Exam Vital Signs Temp Pulse Resp BP Pulse Ox 98.3 F 71 16 131/69 H 94 01/27/19 10:00 01/27/19 10:00 01/27/19 10:00 01/27/19 10:00 01/27/19 10:00 Oxygen Flow Rate (L/min) 2 Oxygen Delivery Method Room Air Weight: 207 lb 7.28 oz Body Mass Index (BMI) 30.6 Intake and Output for Last 24 Hours 01/25/19 01/26/19 01/27/19 23:59 23:59 23:59 Intake Total 540 / 540 120 / 120 Balance 540 / 540 120 / 120 Laboratory Tests Past 24 Hrs 01/26/19 01/26/19 01/26/19 14:36 18:10 20:30 WBC RBC Hgb Hct MCV MCH MCHC RDW RDW Differential Plt Count MPV Immature Gran % (Auto) Neut % (Auto) Lymph % (Auto) [place] % (Auto) Eos % (Auto) Baso % (Auto) Absolute Neuts (auto) Absolute Lymphs (auto) Total Counted PT 28.2 H INR 2.6 Sodium Potassium Chloride Carbon Dioxide Anion Gap BUN Creatinine Estim Creat Clear Calc Est GFR (MDRD) Af Amer Est GFR (MDRD) Non-Af BUN/Creatinine Ratio Glucose Calcium Troponin I < 0.015 < 0.015 01/27/19 01/27/19 01/27/19 05:40 05:40 05:40 WBC 7.8 RBC 4.55 L Hgb 13.9 Hct 41.8 MCV 91.9 MCH 30.5 MCHC 33.3 RDW 13.0 RDW Differential 43.0 Plt Count 184 MPV 10.3 Immature Gran % (Auto) 0.100 Neut % (Auto) 62.9 Lymph % (Auto) 18.7 L [place] % (Auto) 11.8 H Eos % (Auto) 6.1 H Baso % (Auto) 0.4 Absolute Neuts (auto) 4.9 Absolute Lymphs (auto) 1.46 Total Counted Not Reportable PT 29.1 H INR 2.7 Sodium 144 Potassium 4.2 Chloride 106 Carbon Dioxide 29.0 Anion Gap 9 BUN 18 Creatinine 1.15 Estim Creat Clear Calc 51.23 Est GFR (MDRD) Af Amer 79 Est GFR (MDRD) Non-Af 65 BUN/Creatinine Ratio 15.7 Glucose 112 H Calcium 8.9 Troponin I Code Visit Inpatient E&M: [id number] Disch Hosp
== END 2019-01-27 09:16 | disposition home or self-care (01) ==
LOC: ED 15:31 → PCU 16:20
PROVIDERS: Admitting Provider Family Medicine; Emergency Provider Emergency Medicine; Family Provider Family Medicine; Visit Provider Student in an Organized Health Care Education/Training Program
DX: R07.89 Other chest pain (principal); I25.10 Atherosclerotic heart disease of native coronary artery without angina pectoris; I10 Essential (primary) hypertension; E78.5 Hyperlipidemia, unspecified; I48.0 Paroxysmal atrial fibrillation; E66.9 Obesity, unspecified; Z68.30 Body mass index [BMI] 30.0-30.9, adult; Z71.3 Dietary counseling and surveillance; Z95.5 Presence of coronary angioplasty implant and graft; Z79.899 Other long term (current) drug therapy; Z79.01 Long term (current) use of anticoagulants; Z85.038 Personal history of other malignant neoplasm of large intestine; Z87.891 Personal history of nicotine dependence
CPT/HCPCS: 36415; 71045; 80048; 84484; 85025; 85610; 93005; 99218; 99285; J7030; A4216; G0378

== ENCOUNTER → 2019-04-28 12:49 | Outpatient (CLI) | payer MEDICARE, OTHER, SELFPAY | PROVIDERS: Family Provider Family Medicine; Referring Provider Physician Assistant; Visit Provider Physician Assistant | DX: Z95.5 Presence of coronary angioplasty implant and graft (principal); I20.8 Other forms of angina pectoris ==

== ENCOUNTER → 2019-05-26 08:24 | Outpatient (CLI) | payer MEDICARE, OTHER, SELFPAY ==
[2019-05-26 12:36] LABS: Absolute Lymphocyte Count 1.41 X10^3/uL (0.83-4.51); Absolute Neutrophil Count 4.8 X10^3/uL (2.0-7.7); Basophil# 0.06 X10^3/uL; Basophil% 0.8 % (0-1); Eosinophil# 0.38 X10^3/uL; Eosinophils% 5.1 % (0-5); Hematocrit 44.9 % (40-54); Hemoglobin 14.3 g/dL (13.0-16.5); Lymphocyte # 1.41 X10^3/ul (4.0); Mean Corp Hgb Conc 31.8 g/dL (32-36); Mean Corpuscular Hgb 30.6 pg (27.0-32.0); Mean Corpuscular Volume 96.1 fL (80-94); Mean Platelet Vol. 10.9 fl (6.2-12.0); Monocyte# 0.77 X10^3/uL; Monocyte% 10.4 % (0-10); NRBC Flagged by Analyzer 0 % (0-5); Neutrophil # 4.77 X10^3/uL (2.7-7.7); Neutrophil % 64.4 % (47-70); Platelet Count 183 K/mm3 (150-450); RBC Distribution Width CV 12.6 % (11.6-14.6); RBC Distribution Width SD 45.2 fl (35.1-43.9); Red Blood Count 4.67 M/mm3 (4.6-6.2); White Blood Count 7.4 K/mm3 (4.4-11.0)
[2019-05-26 12:57] LABS: AST(SGOT) 25 U/L (15-37); Alanine Aminotransfer ALT/SGPT 31 U/L (16-61); Albumin, Serum 3.9 g/dL (3.2-5.0); Alkaline Phosphatase 60 U/L (45-117); Bilirubin, Direct 0.17 mg/dL (0.00-0.30); Globulin 3.3 g/dL (2.2-4.2); Protein, Total 7.2 g/dL (6.4-8.2)
[2019-05-26 13:38] LABS: HIV - WCH Non-Reactive (Nonreactive); Hepatitis B Surface Antibody Non-Reactive; Hepatitis B Surface Antigen Non-Reactive (Nonreactive); Hepatitis C Antibody Non-Reactive (Nonreactive)
[2019-05-29 03:06] LABS: QNTFERON TB Mitogen Value > 10.00 IU/mL (.); QNTFERON TB Nil Value 0.02 IU/mL (.); QNTFERON TB1+ Ag Value 0.04 IU/mL (.)
[2019-05-29 12:47] LABS: Hepatitis B Core Ab Total Negative (Negative); QNTIFERON TB Positive Criteria Negative (Negative)
== END ==
PROVIDERS: Family Provider Family Medicine; Referring Provider Dermatology; Visit Provider Dermatology
DX: Z79.899 Other long term (current) drug therapy (principal); L40.0 Psoriasis vulgaris; D69.2 Other nonthrombocytopenic purpura; L57.8 Other skin changes due to chronic exposure to nonionizing radiation
CPT/HCPCS: 36415; 80076; 85025; 86480; 86703; 86704; 86706; 86803; 87340

== ENCOUNTER → 2019-10-20 13:31 | Outpatient (CLI) | payer MEDICARE, OTHER, SELFPAY ==
[2019-10-20 15:17] LABS: Absolute Lymphocyte Count 1.88 X10^3/uL (0.83-4.51); Absolute Neutrophil Count 5.3 X10^3/uL (2.0-7.7); Basophil# 0.06 X10^3/uL; Basophil% 0.7 % (0-1); Eosinophil# 0.45 X10^3/uL; Eosinophils% 5.2 % (0-5); Hematocrit 45.3 % (40-54); Hemoglobin 14.9 g/dL (13.0-16.5); Lymphocyte # 1.88 X10^3/ul (4.0); Lymphocyte % 21.7 % (19-41); Mean Corp Hgb Conc 32.9 g/dL (32-36); Mean Corpuscular Hgb 31.3 pg (27.0-32.0); Mean Corpuscular Volume 95.2 fL (80-94); Mean Platelet Vol. 10.7 fl (6.2-12.0); Monocyte# 0.89 X10^3/uL; Monocyte% 10.3 % (0-10); NRBC Flagged by Analyzer 0 % (0-5); Neutrophil # 5.33 X10^3/uL (2.7-7.7); Neutrophil % 61.6 % (47-70); Platelet Count 181 K/mm3 (150-450); RBC Distribution Width CV 12.6 % (11.6-14.6); RBC Distribution Width SD 44.2 fl (35.1-43.9); Red Blood Count 4.76 M/mm3 (4.6-6.2); White Blood Count 8.7 K/mm3 (4.4-11.0)
[2019-10-20 15:40] LABS: AST(SGOT) 27 U/L (15-37); Alanine Aminotransfer ALT/SGPT 36 U/L (16-61); Alkaline Phosphatase 60 U/L (45-117); Bilirubin, Direct 0.17 mg/dL (0.00-0.30); Globulin 3.4 g/dL (2.2-4.2); Protein, Total 7.4 g/dL (6.4-8.2)
== END ==
PROVIDERS: Referring Provider Dermatology; Visit Provider Dermatology
DX: Z79.899 Other long term (current) drug therapy (principal); L40.0 Psoriasis vulgaris; L29.8 Other pruritus
CPT/HCPCS: 36415; 80076; 85025

== ENCOUNTER 2020-04-13 09:22 | Emergency (ER) | payer MEDICARE, OTHER, SELFPAY ==
[2020-04-13 09:22] VITALS: BP 166/103; PULSE 82; RESP 20; TEMP 36.2; O2SAT 98; BMI 31.3
--- NOTE | 2020-04-13 10:13 | ED.VISSUMM ---
- ER Visit Summary Date of Service: 04/13/20 Chief Complaint: [Blood in the urine] History of Present Illness: The patient is a 79 M [ presents to the emergency department with blood in the urine that started yesterday. Patient had dysuria 2 days ago. He denies any back or abdomen pain. Has had no nausea or vomiting. Denies any fever. Patient had some blood work done yesterday. He had an INR performed this morning but does not have his results. Patient is on Coumadin for history of atrial fibrillation. He does not have history of hematuria. Patient has remote history of colon cancer with partial colectomy.] Physical Examination: [HEENT-PERRLA, EOMI. Cranial nerves II through XII grossly intact. TMs clear. Mucous membranes moist. No adenopathy. Cardiovascular-regular rate and rhythm without murmur or ectopy Lungs-clear to auscultation, chest wall stable without crepitus or subcu emphysema Abdomen-normoactive bowel sounds, soft, nontender, no rebound or rigidity, no peritoneal signs. exam-patient does have some blood on the front of his underwear. Patient was noted to have small amount of blood at the urethral meatus. No obvious tears noted. Extremities-intact ?4, normal range of motion, normal pulses, atraumatic] Test Results: [CBC with differential showed a white of 8.1, hemoglobin 14.6, hematocrit 44, plates 173. INR was 3.0. Urinalysis was normal.] CT scan of the abdomen pelvis with IV contrast showed a 1. 9 cm nodule in the right lung base for which they recommended follow-up CT. Emergency Department Course and Treatment: [Line was established on arrival.] Case was discussed with urology who asked that patient call the office for further follow-up. Treatment Plan: [Patient will discuss with Coumadin clinic holding his Coumadin for a couple of days. Patient will follow-up with urology. Patient advised to return if difficulty urinating, persistent hematuria, dizziness, or condition should worsen anyway.] Disposition: [Discharged home in stable condition] Impression: [Hematuria] This note was generated with i4.ms dictation software. It may contain incorrect words, spelling, and punctuation that were not noted in review of the chart prior to signing ED Disposition - Plan for ED Patient: Referrals: Lefty Samson [Primary Care Provider] -
[2020-04-13 10:46] LABS: Bacteria 0 SEEN /hpf (None Seen); Mucous, Urine 0 SEEN /hpf (<or=2+); Red Blood Cells-Urine 0 SEEN /hpf (0-5); White Blood Cells 0 SEEN /hpf (0-5)
[2020-04-13 10:52] LABS: Color, Urine Yellow (Yellow); Glucose, Dipstick Normal (Normal); Ketone-Dipstick Negative (Negative); Leukocyte Esterase-Dipstick Negative /ul (Negative); Nitrite-Dipstick Negative (Negative); Occult Blood-Urine Negative /ul (Negative); Protein-Dipstick Negative (Negative); Urine Bilirubin Dipstick Negative (Negative); Urine Clarity Sl. Cloudy (Clear); Urine Urobilinogen Normal (Normal)
[2020-04-13 10:57] LABS: Absolute Lymphocyte Count 1.33 X10^3/uL (0.83-4.51); Absolute Neutrophil Count 5.4 X10^3/uL (2.0-7.7); Basophil# 0.04 X10^3/uL; Basophil% 0.5 % (0-1); Eosinophil# 0.33 X10^3/uL; Eosinophils% 4.1 % (0-5); Hematocrit 43.8 % (40-54); Hemoglobin 14.6 g/dL (13.0-16.5); Lymphocyte # 1.33 X10^3/ul (4.0); Lymphocyte % 16.5 % (19-41); Mean Corp Hgb Conc 33.3 g/dL (32-36); Mean Corpuscular Hgb 31.7 pg (27.0-32.0); Mean Platelet Vol. 10.4 fl (6.2-12.0); Monocyte# 0.91 X10^3/uL; Monocyte% 11.3 % (0-10); NRBC Flagged by Analyzer 0 % (0-5); Neutrophil # 5.43 X10^3/uL (2.7-7.7); Neutrophil % 67.5 % (47-70); Platelet Count 173 K/mm3 (150-450); RBC Distribution Width CV 12.6 % (11.6-14.6); Red Blood Count 4.61 M/mm3 (4.6-6.2); White Blood Count 8.1 K/mm3 (4.4-11.0)
[2020-04-13 11:08] LABS: Prothrombin Time (Protime)PT. 30.9 SECONDS (11.7-14.9)
[2020-04-13 11:08] LABS: Squamous Epithelial Cells - UA 0-5 SEEN /hpf (0-5)
--- NOTE | 2020-04-13 12:32 | CT_ITS ---
STUDY: CT ABDOMEN AND PELVIS WITHOUT CONTRAST REASON FOR EXAM: Male, 79 years old. HEMATURIA SEVERAL DAYS, HX COLON CANCER RADIATION DOSAGE (If Supplied By Facility): CTDIvol = ( 20.72 ) mGy, DLP = ( 1094.49 ) mGycm TECHNIQUE: Transaxial images were obtained from the dome of the diaphragm to the symphysis pubis without oral contrast, and without intravenous contrast. Sagittal and coronal images were reconstructed. Individualized dose optimization techniques were used for this CT. COMPARISON: None. FINDINGS: There is a nonspecific subpleural nodule in the right lung base measures 1.[address] scan of the chest is recommended for better characterization. The visualized portions of the heart are within normal limits. Multiple cysts are seen about the largest measures 1.5 cm there is an segment #7. Normal gallbladder and extrahepatic biliary system. Normal spleen. Normal pancreas. Normal bilateral adrenal glands. Normal right kidney. There is left renal cyst measures 2.5 cm. Normal visualized stomach. Normal small intestine. Partial colectomy with ileocolic anastomosis. There is no evidence of bowel obstruction. There is diffuse atherosclerotic calcification of the abdominal aorta, without a demonstrated aneurysm. Normal inferior vena cava. Normal retroperitoneum. Normal urinary bladder. Normal abdominal wall. There are diffuse degenerative changes of the visualized lumbar spine. CT/Abdomen/Pelvis W IV Cont ONLY IMPRESSION: There is a nonspecific subpleural nodule in the right lung base measures 1.[address] scan of the chest is recommended for better characterization. There is no acute abnormality in the abdomen or the pelvis. Electronically Signed: Margarito Verdugo, at 14:16 EDT Tel , Service support ,
--- NOTE | 2020-04-13 14:42 | ED.DEP ---
ED Disposition - Plan for ED Patient: Instructions: ED Hematuria Referrals: Lefty Samson [Primary Care Provider] - Henrik Zaldivar MD [STAFF PHYSICIAN] - 3-5 Days
[2020-04-13 14:58] VITALS: BP 133/83
== END 2020-04-13 14:59 | disposition home or self-care (01) ==
LOC: ED 11:55
PROVIDERS: Emergency Provider Emergency Medicine
DX: R31.9 Hematuria, unspecified (principal); I48.91 Unspecified atrial fibrillation; Z79.01 Long term (current) use of anticoagulants
CPT/HCPCS: 74177; 81001; 85025; 85610; 99283; Q9967; A4216

== ENCOUNTER → 2020-07-07 20:49 | Outpatient (CLI) | payer MEDICARE, OTHER, SELFPAY | DX: G47.33 Obstructive sleep apnea (adult) (pediatric) (principal) | CPT/HCPCS: 95810 ==

== ENCOUNTER → 2020-08-23 14:23 | Outpatient (CLI) | payer MEDICARE, OTHER, SELFPAY ==
--- NOTE | 2020-08-23 14:00 | PET_ITS ---
EXAMINATION: FDG PET/CT INDICATIONS: An 79-year-old male with reported history of pulmonary nodularity. COMPARISON EXAMINATION: CT of the chest report dated 08/08/2020 INDEX LESION SIZE SUV INTERPRETATION Lower pelvis, rectum-rectal vault 35.8-mm (frame 34) 9.8 Warrants further investigation with digital examination-direct visualization Right lower posterior lung-right lower lobe 1.1 Quantitative criteria for viable neoplasm are not fulfilled, sequential radiologic investigation recommended NON-INDEX LESION SIZE SUV INTERPRETATION Right infrahilar region 1.4 Quantitative criteria for viable neoplasm are not fulfilled TECHNIQUE: Following the intravenous administration of 11.04 mCi of F-18 deoxyglucose via the left antecubital fossa, multiplanar image acquisitions of the neck, chest, abdomen and pelvis to level of mid thigh, obtained at one hour post radiopharmaceutical administration contemporaneously interpreted with the current CT of the neck, chest, abdomen and pelvis to level of mid thigh, dated 08/23/[address] of the chest report dated 08/08/2020 reveal: SERUM GLUCOSE LEVEL: 107 mg/dl. HEIGHT: 69 inches. WEIGHT: 205 lbs. FINDINGS: 1. Barely discernible increased FDG uptake is noted in the right lower posterior lung-right lower lobe generating a calculated maximal standard uptake value of 1.1. Quantitative criteria for viable neoplasm are not fulfilled. 2. Mild increased radiopharmaceutical concentration is defined in the right infrahilar region generating a calculated maximal standard uptake value of 1.4. Quantitative criteria for viable neoplasm are not fulfilled. 3. An intense focus of increased glucose metabolism is demonstrated in the lower pelvis, caudal to the urinary bladder in the distribution of the distal rectal vault approaching the anal verge. The calculated maximal standard uptake value is 9.8. The maximal axial diameter of the corresponding metabolic abnormality on review of CT of the abdomen and pelvis dated 08/23/2020 is 35.8-mm (AP). 4. Normal physiologic distribution of the radiopharmaceutical is apparent in the hepatic (2.9) and splenic parenchyma, both renal units, bladder and otherwise remaining visualized intestinal tract. The visualized portion of the cerebral cortex demonstrate symmetric and preserved glucose metabolism. Diffuse radiopharmaceutical concentration is noted in the remaining intestinal tract. There is prominent tracer uptake defined in the left ventricular myocardium commensurate with the [place]. Pertinent CT findings are as follows: CHEST: There is atherosclerotic calcification defined in the thoracic aorta without evidence of dilatation-aneurysm formation. Coronary arterial calcification is observed. Bilateral axillary and scattered mediastinal soft tissue is ametabolic. Emphysematous changes are noted in the bilateral upper-mid lung zones. ABDOMEN AND PELVIS: There is atherosclerotic calcification defined in the abdominal aorta without evidence of dilatation-aneurysm formation. Abdominal-pelvic arterial calcification is observed. A soft tissue nodule defined in the left upper abdomen in the posterior pararenal space reveals no evidence of increased tracer uptake. Dystrophic calcification is manifest within the prostate gland without evidence of increased tracer uptake. Right and left inguinal soft tissue densities with fatty hilus are ametabolic. Postsurgical changes appear evident in the anterior abdominal and pelvic wall. Calcified granuloma formation is observed in the splenic parenchyma. SKELETAL: Degenerative changes are noted in the cervical, thoracic and lumbar spine. PET/PET/CT Tumor Base -Thigh Init IMPRESSION: 1. The increase in FDG distribution noted in the distal rectal vault warrants further evaluation with direct visualization and/or digital examination secondary to the quantitative degree of uptake. (Dosaige et al, Journal of Nuclear Medicine, 30:S276, 2003). 2. Enhanced glucose metabolism manifest in the right lower posterior lung-right lower lobe does not fulfill quantitative criteria for viable neoplasm. (Finch et al, Annals of Internal Medicine, 138:724, 2003). 3. Metabolic and/or anatomic stability may be ensured in the right lower posterior lung-right lower lobe abnormality with repeat FDG PET study and/or CT of the thorax in 3-6 months. (Xiu, Journal of Nuclear Medicine 45:88, P2004 [facility], Seminars in Thoracic and Cardiovascular Surgery 14:292, 2002). 4. The increase in tracer uptake observed in the right infrahilar region does not fulfill quantitative criteria for malignant transformation. (Tashi et al, Journal of Clinical Oncology 16:2142, 1998). Electronic Signature Oscar Villanueva D.O. Accurate Quantification of SUVs for this report are calculated using the exclusive [employer]? Technology.??Exclusive [place].S. Patent [employer]uquan? Technology (U.S. Patent No. [phone] [phone]). Electronically Signed: Oscar Villanueva DO at 10:14 EST Tel , Service support ,
== END ==
PROVIDERS: Referring Provider Internal Medicine Pulmonary Disease; Visit Provider Internal Medicine Pulmonary Disease
DX: R91.1 Solitary pulmonary nodule (principal)
CPT/HCPCS: 78815; A9552

== ENCOUNTER → 2020-09-06 | Outpatient (CLI) | payer MEDICARE, OTHER, SELFPAY ==
--- NOTE | 2020-09-06 | MISC_PTH ---
PATIENT: TAO CLARK [facility] U[facility][id number] AGE/SX: 79/M ROOM: RE09/06/[address]: Dr. 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 See comment. GERMAN:kendell 09/07/2020 COMMENT Clinical correlation and appropriate follow up are necessary. Case has been reviewed in consultation with Dr. De Leon who concurs with the above diagnosis. IDC:AM MICROSCOPIC DESCRIPTION Slides are reviewed. GROSS DESCRIPTION Received in fixative is one container labeled with the patient's name and designated urethral biopsy. The specimen consists of a fragment of lawrence soft tissue measuring 0.5 x 0.3 x 0.1 cm. The specimen is totally submitted in one cassette. / SJ:kendell 09/06/20 TC:1 CPT: 58139
== END | disposition home or self-care (01) ==
LOC: LABSPEC 10:45
PROVIDERS: Referring Provider Urology; Visit Provider Urology
DX: R31.0 Gross hematuria (principal)
CPT/HCPCS: 88305

== ENCOUNTER 2020-09-15 11:00 | Outpatient (RCR) | payer MEDICARE, OTHER, SELFPAY | END 2020-09-15 23:59 | LOC: IMMUN 11:00 | PROVIDERS: Visit Provider Family Medicine | DX: Z23 Encounter for immunization (principal) | CPT/HCPCS: 0011A; 0012A; 91301 ==

== ENCOUNTER → 2020-10-17 15:57 | Outpatient (CLI) | payer MEDICARE, OTHER, SELFPAY ==
[2020-10-17 18:00] LABS: Absolute Lymphocyte Count 1.54 X10^3/uL (0.83-4.51); Absolute Neutrophil Count 5.3 X10^3/uL (2.0-7.7); Basophil# 0.07 X10^3/uL; Basophil% 0.8 % (0-1); Eosinophil# 0.57 X10^3/uL; Eosinophils% 6.7 % (0-5); Hematocrit 45.5 % (40-54); Hemoglobin 14.6 g/dL (13.0-16.5); Lymphocyte # 1.54 X10^3/ul (4.0); Mean Corp Hgb Conc 32.1 g/dL (32-36); Mean Corpuscular Volume 96.6 fL (80-94); Mean Platelet Vol. 10.8 fl (6.2-12.0); Monocyte# 1.07 X10^3/uL; Monocyte% 12.5 % (0-10); NRBC Flagged by Analyzer 0 % (0-5); Neutrophil % 61.9 % (47-70); Platelet Count 174 K/mm3 (150-450); RBC Distribution Width CV 12.9 % (11.6-14.6); RBC Distribution Width SD 46.3 fl (35.1-43.9); Red Blood Count 4.71 M/mm3 (4.6-6.2); White Blood Count 8.6 K/mm3 (4.4-11.0)
[2020-10-17 18:52] LABS: AST(SGOT) 37 U/L (15-37); Alanine Aminotransfer ALT/SGPT 41 U/L (16-61); Albumin, Serum 3.8 g/dL (3.2-5.0); Alkaline Phosphatase 66 U/L (45-117); Bilirubin, Direct 0.19 mg/dL (0.00-0.30); Globulin 3.4 g/dL (2.2-4.2); Protein, Total 7.2 g/dL (6.4-8.2)
[2020-10-20 20:07] LABS: QNTFERON TB Mitogen Value > 10.00 IU/mL (.); QNTFERON TB Nil Value 0.07 IU/mL (.); QNTFERON TB1+ Ag Value 0.07 IU/mL (.); QNTFERON TB2+ Ag Value 0.08 IU/mL (.)
[2020-10-20 20:22] LABS: QNTIFERON TB Positive Criteria Negative (Negative)
== END ==
PROVIDERS: Referring Provider Dermatology; Visit Provider Dermatology
DX: Z79.899 Other long term (current) drug therapy (principal); L40.0 Psoriasis vulgaris; L29.8 Other pruritus
CPT/HCPCS: 36415; 80076; 85025; 86480

== ENCOUNTER 2021-11-17 13:15 | Outpatient (CLI) | payer MEDICARE, OTHER, SELFPAY ==
[2021-11-17 15:33] LABS: Absolute Lymphocyte Count 1.34 X10^3/uL (0.83-4.51); Absolute Neutrophil Count 4.9 X10^3/uL (2.0-7.7); Basophil# 0.05 X10^3/uL; Basophil% 0.7 % (0-1); Eosinophil# 0.26 X10^3/uL; Eosinophils% 3.6 % (0-5); Hematocrit 43.3 % (40-54); Hemoglobin 15.1 g/dL (13.0-16.5); Lymphocyte # 1.34 X10^3/ul (0.83-4.51); Lymphocyte % 18.5 % (19-41); Mean Corp Hgb Conc 34.9 g/dL (32-36); Mean Corpuscular Hgb 32.8 pg (27.0-32.0); Mean Corpuscular Volume 93.9 fL (80-94); Mean Platelet Vol. 10.6 fl (6.2-12.0); Monocyte# 0.63 X10^3/uL; Monocyte% 8.7 % (0-10); NRBC Flagged by Analyzer 0 % (0-5); Neutrophil # 4.92 X10^3/uL (2.7-7.7); Neutrophil % 67.9 % (47-70); Platelet Count 178 K/mm3 (150-450); RBC Distribution Width CV 12.7 % (11.6-14.6); Red Blood Count 4.61 M/mm3 (4.6-6.2); White Blood Count 7.2 K/mm3 (4.4-11.0)
[2021-11-17 15:48] LABS: AST(SGOT) 29 U/L (15-37); Alanine Aminotransfer ALT/SGPT 30 U/L (16-61); Alkaline Phosphatase 80 U/L (45-117); Bilirubin, Direct 0.29 mg/dL (0.00-0.30); Globulin 2.8 g/dL (2.2-4.2); Protein, Total 6.8 g/dL (6.4-8.2)
[2021-11-19 21:07] LABS: QNTFERON TB Mitogen Value > 10.00 IU/mL (.); QNTFERON TB Nil Value 0.04 IU/mL (.); QNTFERON TB1+ Ag Value 0.05 IU/mL (.); QNTFERON TB2+ Ag Value 0.05 IU/mL (.)
[2021-11-20 08:21] LABS: QNTIFERON TB Positive Criteria Negative (Negative)
== END 2021-11-17 23:59 | disposition home or self-care (01) ==
LOC: MTLAB 13:17
PROVIDERS: Referring Provider Dermatology; Visit Provider Dermatology
DX: L40.0 Psoriasis vulgaris (principal); L29.8 Other pruritus; Z79.899 Other long term (current) drug therapy
CPT/HCPCS: 36415; 80076; 85025; 86480

== ENCOUNTER → 2022-08-24 | Outpatient (CLI) | payer MEDICARE, OTHER, SELFPAY ==
[2022-08-24 15:32] LABS: Absolute Lymphocyte Count 1.38 X10^3/uL (0.83-4.51); Absolute Neutrophil Count 5.2 X10^3/uL (2.0-7.7); Basophil# 0.06 X10^3/uL; Basophil% 0.8 % (0-1); Eosinophil# 0.25 X10^3/uL; Eosinophils% 3.2 % (0-5); Hemoglobin 14.6 g/dL (13.0-16.5); Lymphocyte # 1.38 X10^3/ul (0.83-4.51); Lymphocyte % 17.6 % (19-41); Mean Corp Hgb Conc 32.4 g/dL (32-36); Mean Corpuscular Hgb 31.5 pg (27.0-32.0); Mean Corpuscular Volume 97.2 fL (80-94); Mean Platelet Vol. 10.4 fl (6.2-12.0); Monocyte# 0.89 X10^3/uL; Monocyte% 11.4 % (0-10); NRBC Flagged by Analyzer 0 % (0-5); Neutrophil # 5.22 X10^3/uL (2.7-7.7); Neutrophil % 66.6 % (47-70); Platelet Count 187 K/mm3 (150-450); RBC Distribution Width CV 12.9 % (11.6-14.6); RBC Distribution Width SD 46.3 fl (35.1-43.9); Red Blood Count 4.63 M/mm3 (4.6-6.2); White Blood Count 7.8 K/mm3 (4.4-11.0)
[2022-08-24 16:09] LABS: AST(SGOT) 26 U/L (15-37); Alanine Aminotransfer ALT/SGPT 30 U/L (16-61); Albumin, Serum 3.8 g/dL (3.2-5.0); Alkaline Phosphatase 58 U/L (45-117); Bilirubin, Direct 0.23 mg/dL (0.00-0.30); Globulin 2.8 g/dL (2.2-4.2); Protein, Total 6.6 g/dL (6.4-8.2)
[2022-08-28 14:08] LABS: QNTFERON TB Mitogen Value > 10.00 IU/mL (.); QNTFERON TB Nil Value 0.03 IU/mL (.); QNTFERON TB1+ Ag Value 0.02 IU/mL (.); QNTFERON TB2+ Ag Value 0.04 IU/mL (.)
[2022-08-28 16:30] LABS: QNTIFERON TB Positive Criteria Negative (Negative)
== END | disposition home or self-care (01) ==
LOC: MTLAB 14:22
PROVIDERS: Referring Provider Dermatology; Visit Provider Dermatology
DX: Z79.899 Other long term (current) drug therapy (principal)
CPT/HCPCS: 36415; 80076; 85025; 86480

== ENCOUNTER 2022-09-16 05:13 | Emergency (ER) | payer MEDICARE, OTHER, SELFPAY ==
[2022-09-16 05:14] VITALS: BP 188/87; PULSE 60; RESP 16; TEMP 36.4; O2SAT 94; BMI 30.1
[2022-09-16 05:23] VITALS: O2SAT 93
--- NOTE | 2022-09-16 05:27 | EKG12_ITS ---
Test Reason : SOB Blood Pressure : / mmHG Vent. Rate : 075 BPM Atrial Rate : 000 BPM P-R Int : 000 ms QRS Dur : 094 ms QT Int : 396 ms P-R-T Axes : 000 034 -45 degrees QTc Int : 442 ms Atrial fibrillation Low voltage QRS ST & T wave abnormality, consider inferior ischemia Abnormal ECG Confirmed by HEBER DIMAS, RONNIE ([id number]), supervising editor news reel YONIS KINCAID ([id number]) on 09/17/2022 10:51:32 AM Referred By: Confirmed By:RONNIE BUCK MD
--- NOTE | 2022-09-16 05:28 | ED.VIS.DYS ---
HPI History of Present Illness Chief Complaint: Shortness of Breath Informant: patient Narrative Narrative: Brought in by EMS from home reports dyspnea worse with laying down for the past 4 days. He states with laying down he would cough. But not cough with sitting. Denies history of CHF. Denies any leg swelling. History of coronary disease no chest pains. He is on warfarin history of paroxysmal A. fib. Recent diagnosis adenocarcinoma right lower lung remote tobacco. States lesion found 2 years ago enlarging and changing last 6 months. He had a biopsy. Reported 4 days ago before symptoms had bronchoscopy at [facility] by Dr. Baker. He is followed by Dr. De Leon locally. He states worsening symptoms at night unable to sleep. He is use inhaler. He states he was wheezing. COVID vaccinated with boosters. EMS reported 90% room air on their arrival. No medications or treatments given. PFSH PFSH Home Medications hydrochlorothiazide 12.5 mg capsule 12.5 mg PO DAILY Blood Pressure 01/26/19 [History Last Taken 01/26/19] lisinopril 20 mg tablet 20 mg PO DAILY blood pressure 01/26/19 [History Last Taken 01/25/19] melatonin-pyridoxine HCl (vitamin B6) 3 mg-10 mg tablet 1 ea PO QHS sleep 01/26/19 [History Last Taken 01/25/19] metoprolol succinate 25 mg tablet,extended release 24 hr 12.5 mg PO DAILY blood pressure 01/26/19 [History Last Taken 01/25/19] simvastatin 20 mg tablet 20 mg PO DAILY Cholesterol 01/26/19 [History Last Taken 01/25/19] warfarin 1 mg tablet 1 mg PO QODAY blood thinner 01/26/19 [History Last Taken 01/25/19] warfarin 5 mg tablet 5 mg PO DAILY blood thinner 01/26/19 [History Last Taken 01/24/19] acidophilus 100 million cell-pectin, citrus 10 mg capsule 2 ea PO DAILY 04/13/20 [History Last Taken Unknown] apple cider vinegar 600 mg capsule 600 mg PO MOWEFR 04/13/20 [History Last Taken Unknown] ascorbic acid (vitamin C) 1,000 mg tablet,extended release 1,000 mg PO DAILY 04/13/20 [History Last Taken Unknown] bee pollen 550 mg capsule 1 tab PO DAILY 04/13/20 [History Last Taken Unknown] calcium citrate 315 mg calcium-vitamin D3 6.25 mcg (250 unit) tablet 1 ea PO DAILY 04/13/20 [History Last Taken Unknown] cinnamon bark 500 mg capsule 500 mg PO BID 04/13/20 [History Last Taken Unknown] coenzyme Q10 200 mg capsule 200 mg PO DAILY 04/13/20 [History Last Taken Unknown] cyanocobalamin (vitamin B-12) 1,000 mcg capsule 1,000 mcg PO DAILY 04/13/20 [History Last Taken Unknown] docosahexaenoic acid 450 mg capsule 450 mg PO BID 04/13/20 [History Last Taken Unknown] folic acid 1 mg tablet 1 mg PO DAILY 04/13/20 [History Last Taken Unknown] glucosamine 750 [id number] no1 644 mg-C 30 mg-dionte 1 mg tablet 2 ea PO DAILY 04/13/20 [History Last Taken Unknown] magnesium oxide 400 mg (241.3 mg magnesium) tablet 400 mg PO DAILY 04/13/20 [History Last Taken Unknown] multivitamin 1 ea PO MOWEFR 04/13/20 [History Last Taken Unknown] nitroglycerin 0.4 mg sublingual tablet 0.4 mg sublingual Q5M PRN Chest Pain 04/13/20 [History Last Taken Unknown] psyllium husk 3.4 gram/5.4 gram oral powder 660 gm PO DAILY 04/13/20 [History Last Taken Unknown] secukinumab 150 mg/mL subcutaneous syringe 300 mg SQ QMONTH 04/13/20 [History Last Taken Unknown] cefdinir 300 mg capsule 300 mg PO BID #13 caps 09/16/22 [Rx Last Taken Unknown] furosemide 20 mg tablet (Lasix) 20 mg PO DAILY #4 tabs 09/16/22 [Rx Last Taken Unknown] prednisone 20 mg tablet 40 mg PO DAILY #8 tabs 09/16/22 [Rx Last Taken Unknown] Allergy/AdvReac Type Severity Reaction Status Date / Time No Known Allergies Allergy Verified 01/26/19 14:29 Surgical History History of bronchoscopy Social History Smoking Status: Former smoker ROS ROS ED Constitutional Constitutional ED: Denies chills, fever(s) or sweats Eyes Eyes: Denies change in vision ENT ENT ED: Denies dysphagia or sore throat Cardiovascular Cardiovascular: Reports orthopnea; Denies chest pain, leg edema, palpitations or racing heartbeat Respiratory/Chest Respiratory/Chest: Reports cough, dyspnea and orthopnea; Denies dyspnea on exertion Gastrointestinal Gastrointestinal: Denies abdominal pain, diarrhea, nausea or vomiting Genitourinary Genitourinary ED: Denies dysuria, hematuria or urinary frequency Musculoskeletal Musculoskeletal: Denies back pain, extremity pain or neck pain Integumentary Denies rash or wounds Neurologic Neurologic: Denies headache(s), paresthesias or weakness EXAM Physical Exam Const Vital Signs: 09/16/22 05:14 09/16/22 05:23 Temperature 97.6 F L Temperature Source Temporal Pulse Rate 60 Respiratory Rate 16 Respiratory Effort Short of Breath Respiratory Depth Normal Respiratory Pattern Normal Blood Pressure 188/87 H Blood Pressure Mean 120 Pulse Ox 94 Oxygen Delivery Method Room Air Room Air Positive well nourished and well developed General Appearance ED: well developed and NAD HEENT Reports moist mucous membranes normocephalic and atraumatic Eyes PERRL, EOMs intact bilaterally and conjunctivae normal General Eye ED: Yes normal appearance of both eyes Neck no lymphadenopathy and supple General: Negative for tenderness Chest Wall Chest: Negative for tenderness Resp normal respiratory effort and normal air movement Effort and Inspection: symmetric chest movement; Negative for respiratory distress Cardio regular rate and no murmurs Rhythm: abnormal rhythm Peripheral Pulses: pulses 2+ throughout GI normal to inspection, nondistended, normoactive bowel sounds and non-tender Palpation: Negative for guarding or rebound tenderness present Back/Spine no CVA tenderness and no thoracic nor lumbar tenderness Extremity normal to inspection Extremity Narrative: Minimal lower extremity edema. General Extremety ED: Yes edema; Negative for tenderness General Extremity: edema Neuro oriented x3 and no sensory deficits noted Sensorium / Orientation: awake and alert Skin no rashes or lesions noted and no wounds MDM MDM MDM Narrative Medical decision making narrative: Patient presenting with dyspnea and orthopnea. Differential CHF, reports cough there for potential pneumonia. Also reports wheezing with reported history of COPD. Therefore COPD exacerbation also on the differential. He is status post bronchoscopy and clear biopsy he has symmetric breath sound therefore lower suspicion for pneumothorax. No chest pains for concerns for ACS. 94% on room air on arrival. No respiratory distress. There is minimal leg swelling. EKG is rate controlled A. fib with a chronic history of this. Labs obtained hemoglobin 14 white count 8.8 creatinine 1.05 potassium 3.6. BNP returned at 250. INR subtherapeutic at 1.4. Patient reports he is not on bridge therapy currently. He had his Coumadin held 5 days prior to procedure. D-dimer added for low risk Wells criteria for PE. Two-view chest x-ray interpreted by myself negative for pneumothorax, no pleural effusions. Infiltrative changes right lower lobe. In the interim I was able obtain records from [facility] through [employer], 4 days ago bronchoscopy with endobronchial ultrasound with transbronchial needle aspiration of lymph nodes. Confirm history of right lower lobe adenocarcinoma. Multiple biopsies of lymph nodes, BAL with brushing performed the right lower lobe. 0635: D-dimer negative for lower suspicion for PE. Elevated BNP of 250. Also report of wheezing. Could be multifactorial dyspnea with CHF and COPD exacerbation. Per radiology read concerns for superimposed patchy infiltrate. He does have a cough. Antibiotics will be started. He will be ambulated with a pulse ox prior to disposition. 0645: Patient ambulated down the horta and back, brief drop to 90% however not any lower no increasing dyspnea. Considered hospitalization however pulse ox above 90%. Patient will be treated with Lasix 20 mg, prednisone 40 mg and Omnicef 300 mg. Return precaution discussed. Otherwise follow-up with his PCP. All questions were answered. Lab Data Attestation: I reviewed the patient's lab results. Labs: Laboratory Results - last 24 hr 09/16/22 09/16/22 09/16/22 05:30 05:30 05:30 WBC 8.8 RBC 4.39 L Hgb 14.0 Hct 42.0 MCV 95.7 H MCH 31.9 MCHC 33.3 RDW Std Deviation 45.7 H RDW Coeff of Roslyn 12.9 Plt Count 173 MPV 9.9 Immature Gran % (Auto) 0.300 Neut % (Auto) 67.8 Lymph % (Auto) 15.3 L [place] % (Auto) 12.8 H Eos % (Auto) 3.2 Baso % (Auto) 0.6 Absolute Neuts (auto) 6.0 Absolute Lymphs (auto) 1.34 Nucleated RBC % 0 PT 16.9 H INR 1.4 D-Dimer Quant (PE/DVT) Sodium 141 Potassium 3.6 Chloride 106 Carbon Dioxide 27.0 Anion Gap 8 BUN 14 Creatinine 1.05 Estim Creat Clear Calc 53.31 Est GFR (MDRD) Af Amer 87 Est GFR (MDRD) Non-Af 72 BUN/Creatinine Ratio 13.3 Glucose 122 H Calcium 9.1 B-Natriuretic Peptide 09/16/22 09/16/22 05:30 05:30 WBC RBC Hgb Hct MCV MCH MCHC RDW Std Deviation RDW Coeff of Roslyn Plt Count MPV Immature Gran % (Auto) Neut % (Auto) Lymph % (Auto) [place] % (Auto) Eos % (Auto) Baso % (Auto) Absolute Neuts (auto) Absolute Lymphs (auto) Nucleated RBC % PT INR D-Dimer Quant (PE/DVT) 0.48 Sodium Potassium Chloride Carbon Dioxide Anion Gap BUN Creatinine Estim Creat Clear Calc Est GFR (MDRD) Af Amer Est GFR (MDRD) Non-Af BUN/Creatinine Ratio Glucose Calcium B-Natriuretic Peptide 250.1 H Radiography Diagnostic Testing: Clinical Impression(s) from Imaging Studies Chest X-Ray 09/16/22 05:40 IMPRESSION: Pulmonary emphysema. Superimposed patchy pneumonia in the right lower lobe. Electronically Signed: Jose Manuel Elizondo MD at 6:38 EST , EKG Initial EKG: Attestation: I personally reviewed and interpreted this EKG as follows: Comments: Rate controlled A. fib at 75, no ST changes. T wave version inferior leads. Similar from January 2019 Discharge Plan Triage Chief Complaint: Shortness of Breath ED Provider: Magen Braswell Dx/Rx/DC Orders Clinical Impression: Atrial fibrillation, CHF (congestive heart failure), RLL pneumonia, COPD exacerbation Instructions: ED AFIB, ED COPD Flare, ED Pneumonia (Adult), Heart Failure Prescriptions: New furosemide [Lasix] 20 mg tablet 20 mg PO DAILY Qty: 4 0RF Rx Instructions: Next dose 09/17/2022 prednisone 20 mg tablet 40 mg PO DAILY Qty: 8 0RF Rx Instructions: Next dose 09/17/2022 cefdinir 300 mg capsule 300 mg PO BID Qty: 13 0RF Rx Instructions: Next dose evening 09/16/2022 No Action lisinopril 20 MG tablet 20 mg PO DAILY simvastatin 20 MG tablet 20 mg PO DAILY warfarin 5 MG tablet 5 mg PO DAILY hydrochlorothiazide 12.5 MG capsule 12.5 mg PO DAILY metoprolol succinate 25 MG tablet extended release 24 hr 12.5 mg PO DAILY warfarin 1 MG tablet 1 mg PO QODAY Rx Instructions: take with 5mg to equal 6mg melatonin-pyridoxine HCl (B6) 1 EACH tablet 1 ea PO QHS multivitamin 1 EACH tablet 1 ea PO MOWEFR ascorbic acid (vitamin C) 1,000 MG tablet extended release 1,000 mg PO DAILY magnesium oxide 400 MG tablet 400 mg PO DAILY apple cider vinegar 600 MG capsule 600 mg PO MOWEFR nitroglycerin 0.4 MG tablet, sublingual 0.4 mg sublingual Q5M PRN (Reason: Chest Pain) folic acid 1 MG tablet 1 mg PO DAILY cinnamon bark 500 MG capsule 500 mg PO BID coenzyme Q10 200 MG capsule 200 mg PO DAILY calcium citrate-vitamin D3 1 EACH tablet 1 ea PO DAILY acidophilus-pectin, citrus 1 EACH capsule 2 ea PO DAILY docosahexaenoic acid 450 MG capsule 450 mg PO BID [id number] 1 EACH tablet 2 ea PO DAILY bee pollen 550 MG capsule 1 tab PO DAILY secukinumab 150 MG/ML syringe 300 mg SQ QMONTH psyllium husk 660 GM powder 660 gm PO DAILY cyanocobalamin (vitamin B-12) 1,000 MCG capsule 1,000 mcg PO DAILY Primary Care Provider: Lefty Samson Referrals: Lefty Samson MD [Primary Care Provider] - 3-5 Days Activity Restrictions/Additional Instructions: Chest x-ray right lower lobe infiltrate. Elevated BNP of 250. Subtherapeutic INR 1.4. Negative D-dimer. Take medications as prescribed, return if any worsening symptoms. Disposition Disposition: Home, Self Care
--- NOTE | 2022-09-16 05:40 | RAD_ITS ---
EXAM: XR CHEST, 2 VIEWS CLINICAL INDICATION: orthopnea TECHNIQUE: Frontal and lateral views of the chest. This report was created using [employer] report generation technology. COMPARISON: Previous chest radiograph of 01/26/2019. FINDINGS: LUNGS AND PLEURAL SPACES: Findings of pulmonary emphysema again noted with hyperlucency of the upper lungs and pruning of peripheral pulmonary vascular markings. Pulmonary interstitial markings remain mildly prominent in the lower lungs. The diffusion-weighted There is been development of patchy airspace disease in the right lower lobe, consistent with pneumonia. No pneumothorax or pleural effusion. HEART: Heart size is upper normal. Coronary artery stent material is present. There is pruning of the peripheral pulmonary vascular markings due to pulmonary emphysema. No pulmonary venous hypertension. MEDIASTINUM: Thoracic aorta remains calcific and minimally elongated. Trachea is midline. No mediastinal widening. BONES/JOINTS: Thoracic degenerative spurring. No acute osseous abnormality. SOFT TISSUES: Unremarkable. RAD/Chest PA and Lateral IMPRESSION: Pulmonary emphysema. Superimposed patchy pneumonia in the right lower lobe. Electronically Signed: Jose Manuel Elizondo MD at 6:38 EST ,
[2022-09-16 05:45] LABS: Absolute Lymphocyte Count 1.34 X10^3/uL (0.83-4.51); Basophil# 0.05 X10^3/uL; Basophil% 0.6 % (0-1); Eosinophil# 0.28 X10^3/uL; Eosinophils% 3.2 % (0-5); Lymphocyte # 1.34 X10^3/ul (0.83-4.51); Lymphocyte % 15.3 % (19-41); Mean Corp Hgb Conc 33.3 g/dL (32-36); Mean Corpuscular Hgb 31.9 pg (27.0-32.0); Mean Corpuscular Volume 95.7 fL (80-94); Mean Platelet Vol. 9.9 fl (6.2-12.0); Monocyte# 1.12 X10^3/uL; Monocyte% 12.8 % (0-10); NRBC Flagged by Analyzer 0 % (0-5); Neutrophil # 5.96 X10^3/uL (2.7-7.7); Neutrophil % 67.8 % (47-70); Platelet Count 173 K/mm3 (150-450); RBC Distribution Width CV 12.9 % (11.6-14.6); RBC Distribution Width SD 45.7 fl (35.1-43.9); Red Blood Count 4.39 M/mm3 (4.6-6.2); White Blood Count 8.8 K/mm3 (4.4-11.0)
[2022-09-16 05:58] LABS: Anion Gap 8 (5-15); BUN 14 mg/dL (7-18); BUN/Creat Ratio 13.3 RATIO (10-20); Calcium,Total 9.1 mg/dL (8.5-10.1); Chloride 106 mmol/L (98-107); Creatinine, Serum 1.05 mg/dL (0.70-1.30); EST Glomerular Filtration Rate 72 mL/min (>60); Est Glom Filt Rate - Afr Amer 87 mL/min (>60); Estimated Creatinine Clearance 53.31 ml/min; Glucose 122 mg/dL (74-106); Potassium 3.6 mmol/L (3.5-5.1); Sodium Level 141 mmol/L (136-145)
[2022-09-16 05:59] LABS: International Normalized Ratio 1.4; Prothrombin Time (Protime)PT. 16.9 SECONDS (11.7-14.9)
[2022-09-16 06:05] LABS: BNP,B-Type NATRIURETIC PEPTIDE 250.1 pg/mL (0-100)
[2022-09-16 06:26] LABS: D-Dimer Quantitative (DVT/PE) 0.48 FEU/ug/m (0.27-0.49)
[2022-09-16 06:28] VITALS: O2SAT 94
[2022-09-16] MEDS: Furosemide 20 MG Tablet PO (07:20)
[2022-09-16] MEDS: Cefdinir 300 MG Capsule PO (07:20)
[2022-09-16] MEDS: predniSONE 20 MG Tablet 40 MG PO (07:20)
[2022-09-16 07:25] VITALS: BP 158/76; PULSE 67; RESP 16; O2SAT 99
== END 2022-09-16 07:27 | disposition home or self-care (01) ==
PROVIDERS: Emergency Provider Emergency Medicine; PCP Family Medicine; Visit Provider Emergency Medicine
DX: I48.91 Unspecified atrial fibrillation (principal); J44.1 Chronic obstructive pulmonary disease with (acute) exacerbation; I50.9 Heart failure, unspecified; J18.9 Pneumonia, unspecified organism; Z87.891 Personal history of nicotine dependence
CPT/HCPCS: 71046; 80048; 83880; 85025; 85379; 85610; 87811; 93005; 99285; A4216

== ENCOUNTER 2023-01-24 08:43 | Emergency (ER) | payer MEDICARE, OTHER, SELFPAY ==
[2023-01-24 08:45] VITALS: BP 156/90; PULSE 73; RESP 25; TEMP 36.4; O2SAT 95; BMI 29.0
--- NOTE | 2023-01-24 09:22 | EDS_ITS ---
HPI History of Present Illness Chief Complaint: General Illness Informant: patient and friend Narrative Narrative: Patient just did not feel right this morning. Patient comes in. He he just did not feel right this morning. He states he has some coughing and mucus but that is chronic and completely unchanged. He does wonder if he has had it being more congestive heart failure but he denies being more short of breath than normal. He wonders if he is anemic. But he has not noticed any bleeding. He admits that he is really does not eating and drinking much. He states it is because he is lazy and does not like prepping food. His just a month ago and she used to do all the food prep. He admits to some depression. He states when he stood up quickly this morning he felt momentarily dizzy but it lasted for a's short moment and then resolved and he has been able to walk around and do what he needs to do. He did drink some coffee this morning but just did not bother to make food. He just feels a little bit tired. He has not had a fever. No abdominal pain chest pain. No weight change that he knows of. No urinary symptoms. PFSH PFSH Home Medications hydrochlorothiazide 12.5 mg capsule 12.5 mg PO DAILY Blood Pressure 01/26/19 [History Last Taken 01/26/19] lisinopril 20 mg tablet 20 mg PO DAILY blood pressure 01/26/19 [History Last Taken 01/25/19] melatonin-pyridoxine HCl (vitamin B6) 3 mg-10 mg tablet 1 ea PO QHS sleep 01/26/19 [History Last Taken 01/25/19] metoprolol succinate 25 mg tablet,extended release 24 hr 12.5 mg PO DAILY blood pressure 01/26/19 [History Last Taken 01/25/19] simvastatin 20 mg tablet 20 mg PO DAILY Cholesterol 01/26/19 [History Last Taken 01/25/19] warfarin 1 mg tablet 1 mg PO QODAY blood thinner 01/26/19 [History Last Taken 01/25/19] warfarin 5 mg tablet 5 mg PO DAILY blood thinner 01/26/19 [History Last Taken 01/24/19] acidophilus 100 million cell-pectin, citrus 10 mg capsule 2 ea PO DAILY 04/13/20 [History Last Taken Unknown] apple cider vinegar 600 mg capsule 600 mg PO MOWEFR 04/13/20 [History Last Taken Unknown] ascorbic acid (vitamin C) 1,000 mg tablet,extended release 1,000 mg PO DAILY 04/13/20 [History Last Taken Unknown] bee pollen 550 mg capsule 1 tab PO DAILY 04/13/20 [History Last Taken Unknown] calcium citrate 315 mg calcium-vitamin D3 6.25 mcg (250 unit) tablet 1 ea PO DAILY 04/13/20 [History Last Taken Unknown] cinnamon bark 500 mg capsule 500 mg PO BID 04/13/20 [History Last Taken Unknown] coenzyme Q10 200 mg capsule 200 mg PO DAILY 04/13/20 [History Last Taken Unknown] cyanocobalamin (vitamin B-12) 1,000 mcg capsule 1,000 mcg PO DAILY 04/13/20 [History Last Taken Unknown] docosahexaenoic acid 450 mg capsule 450 mg PO BID 04/13/20 [History Last Taken Unknown] folic acid 1 mg tablet 1 mg PO DAILY 04/13/20 [History Last Taken Unknown] glucosamine 750 [id number] no1 644 mg-C 30 mg-dionte 1 mg tablet 2 ea PO DAILY 04/13/20 [History Last Taken Unknown] magnesium oxide 400 mg (241.3 mg magnesium) tablet 400 mg PO DAILY 04/13/20 [History Last Taken Unknown] multivitamin 1 ea PO MOWEFR 04/13/20 [History Last Taken Unknown] nitroglycerin 0.4 mg sublingual tablet 0.4 mg sublingual Q5M PRN Chest Pain 04/13/20 [History Last Taken Unknown] psyllium husk 3.4 gram/5.4 gram oral powder 660 gm PO DAILY 04/13/20 [History Last Taken Unknown] secukinumab 150 mg/mL subcutaneous syringe 300 mg SQ QMONTH 04/13/20 [History Last Taken Unknown] cefdinir 300 mg capsule 300 mg PO BID #13 caps 09/16/22 [Rx Last Taken Unknown] furosemide 20 mg tablet (Lasix) 20 mg PO DAILY #4 tabs 09/16/22 [Rx Last Taken Unknown] prednisone 20 mg tablet 40 mg PO DAILY #8 tabs 09/16/22 [Rx Last Taken Unknown] Allergy/AdvReac Type Severity Reaction Status Date / Time No Known Allergies Allergy Verified 01/24/23 08:44 Surgical History History of bronchoscopy Social History Smoking Status: Former smoker ROS ROS ED ROS Narrative A complete review of systems was performed and is negative except as documented in the history of present illness. Some specific details below. Constitutional: No recent fevers or chills. Positive malaise. EYE: No discharge, visual complaints, or pain. ENT: No difficulty swallowing. No swelling. No pain. No reflux symptoms. CV: No chest pain or palpitations. He does have chronic A-fib. Respiratory: See history of present illness. No change in his baseline of symptoms though. GI: No abdominal pain. No nausea vomiting diarrhea. No blood in stool. : No frequency dysuria or hematuria. Musculoskeletal: No recent trauma. No pains. No swelling. Skin: No rash. Nondiaphoretic. Neuro: No weakness or numbness. Endocrine: No polyuria or polydipsia. EXAM Physical Exam Narrative Exam Narrative: CONSTITUTIONAL: Patient is nontoxic in appearance. The patient looks comfortable. Work of breathing looks normal. HEENT: No notable trauma. Mucous membranes are still moist. No sinus tenderness. No indication of pain with swallowing. EYES: No conjunctival injection. No proptosis. NECK:No JVD. No stridor. CARDIOVASCULAR: Regular rate. Irregular rhythm. No notable murmur. No JVD. RESPIRATORY: No respiratory distress. Breathing is unlabored. No wheezing. He may have a few dry crackles more toward his right base. But his saturations are normal at 95% on room air showing no hypoxia. GASTROINTESTINAL: Not distended. Bowel sounds are normal. No tenderness. No guarding. No rebound. No palpable mass. No bruit is heard. GENITOURINARY: No tenderness over the bladder. No CVA tenderness. MUSCULOSKELETAL: Atraumatic. No peripheral edema at all. No cord. No tenderness along the deep venous system. No asymmetry. No distended veins. NEUROLOGICAL: Patient is alert and appropriate. No focal deficit noted. SKIN: No noted rashes. No diaphoresis. PSYCHIATRIC: Patient is calm. Mood is appropriate. Const Vital Signs: 01/24/23 08:45 01/24/23 08:49 01/24/23 10:44 Temperature 97.6 F L Temperature Source Temporal Pulse Rate 73 Respiratory Rate 25 H Respiratory Effort Normal Non-Labored Respiratory Pattern Normal Blood Pressure 156/90 H 153/85 H Blood Pressure Mean 112 107 Pulse Ox 95 Oxygen Delivery Method Room Air MDM MDM MDM Narrative Medical decision making narrative: Patient CBC shows no acute abnormality. Patient's INR is therapeutic at 2.1. Patient's electrolytes show no marked abnormality. Patient's troponin is negative at 16 Patient's BNP is not significantly elevated at 206.9. My independent interpretation of his chest x-ray shows chronic appearing changes at the base but no sign of acute infiltrate pneumothorax. Final reading does show concern for left lower lobe infiltrate but he has no clinical symptoms of this. He is not febrile nor does he have a white count. He has no change in his chronic cough. We will hold antibiotics. Since dates his lungs everything looks normal he would like to go home. He thinks his symptoms are likely due to the loss of his and just not eating as much because he is lazy to make food. He and his friend are comfortable with him going home. I do not think this patient has any indication of being suicidal. He does have some mild depression which they are aware of. Lab Data Labs: Laboratory Results - last 24 hr 01/24/23 01/24/23 01/24/23 08:30 08:30 08:30 WBC 8.4 RBC 4.89 Hgb 16.1 Hct 47.2 MCV 96.5 H MCH 32.9 H MCHC 34.1 RDW Std Deviation 46.4 H RDW Coeff of Roslyn 13.0 Plt Count 181 MPV 10.1 Immature Gran % (Auto) 0.400 Neut % (Auto) 70.2 H Lymph % (Auto) 15.9 L [place] % (Auto) 10.3 H Eos % (Auto) 2.6 Baso % (Auto) 0.6 Absolute Neuts (auto) 5.9 Absolute Lymphs (auto) 1.33 Nucleated RBC % 0 PT 23.5 H INR 2.1 Sodium 140 Potassium 4.0 Chloride 105 Carbon Dioxide 28.0 Anion Gap 7 BUN 14 Creatinine 1.06 Estim Creat Clear Calc 51.88 Est GFR (MDRD) Af Amer 86 Est GFR (MDRD) Non-Af 71 BUN/Creatinine Ratio 13.2 Glucose 115 H Calcium 9.2 Troponin I High Sens 16 B-Natriuretic Peptide 01/24/23 08:30 WBC RBC Hgb Hct MCV MCH MCHC RDW Std Deviation RDW Coeff of [place] Plt Count MPV Immature Gran % (Auto) Neut % (Auto) Lymph % (Auto) [place] % (Auto) Eos % (Auto) Baso % (Auto) Absolute Neuts (auto) Absolute Lymphs (auto) Nucleated RBC % PT INR Sodium Potassium Chloride Carbon Dioxide Anion Gap BUN Creatinine Estim Creat Clear Calc Est GFR (MDRD) Af Amer Est GFR (MDRD) Non-Af BUN/Creatinine Ratio Glucose Calcium Troponin I High Sens B-Natriuretic Peptide 206.9 H Radiography Diagnostic Testing: Clinical Impression(s) from Imaging Studies Chest X-Ray 01/24/23 09:55 IMPRESSION: Early left lower lobe infiltrate should be ruled out. Mild residual increased markings at the right lung base suggestive of scarring. Findings suggestive of emphysematous changes of the upper lobes. Electronically Signed: Jermaine Garcia MD at 10:25 EDT , EKG Initial EKG: Comments: My independent interpretation the patient's EKG done for generalized malaise shows a atrial fibrillation which is chronic. Rate is controlled at 68. No ventricular ectopy. No acute ST elevation or depression. QRS duration and QTc normal. Discharge Plan Triage Chief Complaint: General Illness ED Provider: Govind Ag Dx/Rx/DC Orders Clinical Impression: Malaise and fatigue, History of CHF (congestive heart failure), History of atrial fibrillation, Warfarin-induced coagulopathy Instructions: ED Weakness (Uncertain Cause) Prescriptions: No Action lisinopril 20 MG tablet 20 mg PO DAILY simvastatin 20 MG tablet 20 mg PO DAILY warfarin 5 MG tablet 5 mg PO DAILY hydrochlorothiazide 12.5 MG capsule 12.5 mg PO DAILY metoprolol succinate 25 MG tablet extended release 24 hr 12.5 mg PO DAILY warfarin 1 MG tablet 1 mg PO QODAY Rx Instructions: take with 5mg to equal 6mg melatonin-pyridoxine HCl (B6) 1 EACH tablet 1 ea PO QHS multivitamin 1 EACH tablet 1 ea PO MOWEFR ascorbic acid (vitamin C) 1,000 MG tablet extended release 1,000 mg PO DAILY magnesium oxide 400 MG tablet 400 mg PO DAILY apple cider vinegar 600 MG capsule 600 mg PO MOWEFR nitroglycerin 0.4 MG tablet, sublingual 0.4 mg sublingual Q5M PRN (Reason: Chest Pain) folic acid 1 MG tablet 1 mg PO DAILY cinnamon bark 500 MG capsule 500 mg PO BID coenzyme Q10 200 MG capsule 200 mg PO DAILY calcium citrate-vitamin D3 1 EACH tablet 1 ea PO DAILY acidophilus-pectin, citrus 1 EACH capsule 2 ea PO DAILY docosahexaenoic acid 450 MG capsule 450 mg PO BID [id number] 1 EACH tablet 2 ea PO DAILY bee pollen 550 MG capsule 1 tab PO DAILY secukinumab 150 MG/ML syringe 300 mg SQ QMONTH psyllium husk 660 GM powder 660 gm PO DAILY cyanocobalamin (vitamin B-12) 1,000 MCG capsule 1,000 mcg PO DAILY furosemide [Lasix] 20 mg tablet 20 mg PO DAILY Qty: 4 0RF Rx Instructions: Next dose 09/17/2022 prednisone 20 mg tablet 40 mg PO DAILY Qty: 8 0RF Rx Instructions: Next dose 09/17/2022 cefdinir 300 mg capsule 300 mg PO BID Qty: 13 0RF Rx Instructions: Next dose evening 09/16/2022 Primary Care Provider: Lefty Samson Referrals: Lefty Samson MD [Primary Care Provider] - 3-5 Days Disposition Disposition: Home, Self Care Discharge Date/Time: 01/24/23 12:23
[2023-01-24 09:33] LABS: Absolute Lymphocyte Count 1.33 X10^3/uL (0.83-4.51); Absolute Neutrophil Count 5.9 X10^3/uL (2.0-7.7); Basophil# 0.05 X10^3/uL; Basophil% 0.6 % (0-1); Eosinophil# 0.22 X10^3/uL; Eosinophils% 2.6 % (0-5); Hematocrit 47.2 % (40-54); Hemoglobin 16.1 g/dL (13.0-16.5); Lymphocyte # 1.33 X10^3/ul (0.83-4.51); Lymphocyte % 15.9 % (19-41); Mean Corp Hgb Conc 34.1 g/dL (32-36); Mean Corpuscular Hgb 32.9 pg (27.0-32.0); Mean Corpuscular Volume 96.5 fL (80-94); Mean Platelet Vol. 10.1 fl (6.2-12.0); Monocyte# 0.86 X10^3/uL; Monocyte% 10.3 % (0-10); NRBC Flagged by Analyzer 0 % (0-5); Neutrophil # 5.88 X10^3/uL (2.7-7.7); Neutrophil % 70.2 % (47-70); Platelet Count 181 K/mm3 (150-450); RBC Distribution Width SD 46.4 fl (35.1-43.9); Red Blood Count 4.89 M/mm3 (4.6-6.2); White Blood Count 8.4 K/mm3 (4.4-11.0)
[2023-01-24 09:46] LABS: International Normalized Ratio 2.1; Prothrombin Time (Protime)PT. 23.5 SECONDS (11.7-14.9)
[2023-01-24 09:49] LABS: Anion Gap 7 (5-15); BUN 14 mg/dL (7-18); BUN/Creat Ratio 13.2 RATIO (10-20); Calcium,Total 9.2 mg/dL (8.5-10.1); Chloride 105 mmol/L (98-107); Creatinine, Serum 1.06 mg/dL (0.70-1.30); EST Glomerular Filtration Rate 71 mL/min (>60); Est Glom Filt Rate - Afr Amer 86 mL/min (>60); Estimated Creatinine Clearance 51.88 ml/min; Glucose 115 mg/dL (74-106); Sodium Level 140 mmol/L (136-145); Troponin-I HS 16 pg/mL (3.0-78.0)
[2023-01-24 09:55] LABS: BNP,B-Type NATRIURETIC PEPTIDE 206.9 pg/mL (0-100)
--- NOTE | 2023-01-24 09:55 | RAD_ITS ---
STUDY: X-RAY CHEST REASON FOR EXAM: Male, 82 years old. Cough and generalized illness. TECHNIQUE: Single AP portable view of the chest. COMPARISON: Comparison is made with prior study dated September 16, 2022. FINDINGS: EKG electrodes are seen. Mild increase in interstitial markings at the lung bases with areas of confluence in the left lower lobe. Early left lower lobe infiltrate should be ruled out. Decreased bronchovascular markings in the upper lobes suggestive of emphysematous changes. There is no demonstrated pleural abnormality. There is mild cardiac enlargement. Normal mediastinum and allison. Normal visualized pulmonary arteries. There is atherosclerotic calcification of the aortic arch with tortuosity. There are diffuse degenerative changes of the visualized thoracic spine. Normal visualized ribs, clavicles, and shoulders. There is no demonstrated abnormality of the visualized soft tissue structures of the upper abdomen. RAD/Chest 1 View (Portable) IMPRESSION: Early left lower lobe infiltrate should be ruled out. Mild residual increased markings at the right lung base suggestive of scarring. Findings suggestive of emphysematous changes of the upper lobes. Electronically Signed: Jermaine Garcia MD at 10:25 EDT ,
[2023-01-24 10:44] VITALS: BP 153/85
--- NOTE | 2023-01-24 11:09 | CM.ED ---
Social Work SW introduced self and role. SW discussed Advance Directives with patient who reports he has a HCPOA/Living will. SW requested patient bring in documents when able. Hannah Guthrie MSW, EPIC TRAINER
== END 2023-01-24 12:23 | disposition home or self-care (01) ==
PROVIDERS: Emergency Provider Emergency Medicine; PCP Family Medicine; Visit Provider Emergency Medicine
DX: R53.81 Other malaise (principal); I50.9 Heart failure, unspecified; I48.91 Unspecified atrial fibrillation; Z63.4 Disappearance and death of family member; Z79.01 Long term (current) use of anticoagulants; Z79.899 Other long term (current) drug therapy; Z87.891 Personal history of nicotine dependence
CPT/HCPCS: 71045; 80048; 83880; 84484; 85025; 85610; 87428; 93005; 99285

== ENCOUNTER 2023-08-05 11:07 | Inpatient (IN) | payer MEDICARE, OTHER, SELFPAY ==
[2023-08-05] VITALS (11 sets, daily range): BP systolic 107–140; BP diastolic 50–90; PULSE 76–148; RESP 15–25; TEMP 36.4–36.9; O2SAT 89–96; BMI 27.6; BMI 26.2
--- NOTE | 2023-08-05 11:24 | EKG12_ITS ---
Test Reason : Blood Pressure : / mmHG Vent. Rate : 093 BPM Atrial Rate : 000 BPM P-R Int : 000 ms QRS Dur : 084 ms QT Int : 352 ms P-R-T Axes : 000 010 -48 degrees QTc Int : 437 ms Atrial fibrillation T wave abnormality, consider inferior ischemia Abnormal ECG Confirmed by JERSON DIMAS, YA ([id number]), international editorial producer PENNIE COLIN ([id number]) on 08/12/2023 6:53:09 AM Referred By: Ken Mathew Confirmed By:MARTHA ARTHUR MD
--- NOTE | 2023-08-05 11:34 | CT_ITS ---
STUDY: CTA CHEST REASON FOR EXAM: Male, 82 years old. Hypoxia, rule out pe RADIATION DOSAGE (If Supplied By Facility): CTDIvol = ( 12.86 ) mGy, DLP = ( 400.64 ) mGycm TECHNIQUE: The examination was performed with the intravenous administration of IV 100mL [id number]-[id number]. Post-processing of the angiographic images was performed, with multiplanar reformation and 3D reconstruction. Individualized dose optimization techniques were used for this CT. COMPARISON: None. FINDINGS: Normal enhancement of the main pulmonary artery and right and left pulmonary arteries. Normal enhancement of the bilateral peripheral pulmonary arteries. There is no demonstrated pulmonary embolism. There is atherosclerotic calcification of the aortic arch with tortuosity. There is no demonstrated aortic dissection. There are calcifications of the coronary arteries. Normal mediastinum. Normal hilar regions. Normal visualized trachea and bronchi. Hyperinflation. Diffuse emphysematous changes with bullous formation worse in the upper lobes. Infiltration with bronchiectasis and multiple cystic changes in the peripheral aspect of the right upper lobe. Small right pleural effusion with right basilar infiltrate. Normal chest wall structures. There are degenerative changes of thoracic spine. There is a 4.2 mm calcified granuloma in the upper aspect of the spleen. 1.3 cm well-defined hypodensity in the posterior aspect of the inferior aspect of the right lobe of the liver. This is not a typical cyst. Correlation with ultrasound is recommended. CT/CTA Chest W/WO Contrast IMPRESSION: Diffuse emphysematous changes in the upper lobes worse on the right side with infiltration in the right upper lobe as well as at the right lung base with a small right pleural effusion. 4.2 mm calcified granuloma in the spleen. 1.3 cm well-defined hypodensity in the posterior aspect of the inferior aspect of the right lobe of the liver. Correlation with ultrasound is recommended. Electronically Signed: Jermaine Garcia MD at 13:11 EST ,
--- NOTE | 2023-08-05 11:36 | EX.ED.DYSGE1 ---
HPI <ROSA Morel - Last Filed: 08/05/23 13:46> History of Present Illness Chief Complaint: Shortness of Breath Narrative Narrative: 82-year-old male with PMH of HTN, HLD, CAD with stents, A-fib on Coumadin, history of lung cancer presents with shortness of breath that started this morning. He felt too short of breath and used Trelegy and albuterol checked his pulse ox and it was 84%. He does not wear home oxygen and was brought in by EMS. He reports 3 weeks of right-sided chest pain with taking a deep breath. He has a history of right-sided lung cancer and states he completed radiation in March 2023 and had a follow-up scan but does not know the results. He has had a minor cough recently. No fever or chills. No nausea, vomiting, abdominal pain or black or bloody stools PFSH <ROSA Morel - Last Filed: 08/05/23 13:46> [facility] Medical History (Updated 08/05/23 @ 14:[address] Kaylin Leonardo MD) Afib Atrial fibrillation CAD (coronary artery disease) CAD (coronary artery disease) HLD (hyperlipidemia) Lung cancer Home Medications hydrochlorothiazide 12.5 mg capsule 12.5 mg PO DAILY Blood Pressure 01/26/19 [History Last Taken 08/05/23] lisinopril 20 mg tablet 20 mg PO DAILY blood pressure 01/26/19 [History Last Taken 08/05/23] metoprolol succinate 25 mg tablet,extended release 24 hr 12.5 mg PO DAILY blood pressure 01/26/19 [History Last Taken 08/05/23] simvastatin 20 mg tablet 20 mg PO DAILY Cholesterol 01/26/19 [History Last Taken 08/05/23] warfarin 5 mg tablet 5 mg PO DAILY blood thinner 01/26/19 [History Last Taken 08/05/23] acidophilus 100 million cell-pectin, citrus 10 mg capsule 2 ea PO DAILY 04/13/20 [History Last Taken 08/05/23] apple cider vinegar 600 mg capsule 600 mg PO MOWEFR 04/13/20 [History Last Taken 08/02/23] ascorbic acid (vitamin C) 1,000 mg tablet,extended release 1,000 mg PO DAILY 04/13/20 [History Last Taken 08/05/23] bee pollen 550 mg capsule 1 tab PO DAILY 04/13/20 [History Last Taken 08/05/23] calcium citrate 315 mg calcium-vitamin D3 6.25 mcg (250 unit) tablet 1 ea PO DAILY 04/13/20 [History Last Taken 08/05/23] cinnamon bark 500 mg capsule 500 mg PO BID 04/13/20 [History Last Taken 08/05/23] coenzyme Q10 200 mg capsule 200 mg PO DAILY 04/13/20 [History Last Taken 08/05/23] cyanocobalamin (vitamin B-12) 1,000 mcg capsule 1,000 mcg PO DAILY 04/13/20 [History Last Taken 08/05/23] docosahexaenoic acid 450 mg capsule 450 mg PO BID 04/13/20 [History Last Taken 08/05/23] folic acid 1 mg tablet 1 mg PO DAILY 04/13/20 [History Last Taken 08/05/23] glucosamine 750 [id number] no1 644 mg-C 30 mg-dionte 1 mg tablet 2 ea PO DAILY 04/13/20 [History Last Taken 08/05/23] magnesium oxide 400 mg (241.3 mg magnesium) tablet 400 mg PO DAILY 04/13/20 [History Last Taken 08/05/23] multivitamin 1 ea PO MOWEFR 04/13/20 [History Last Taken 08/02/23] nitroglycerin 0.4 mg sublingual tablet 0.4 mg sublingual Q5M PRN Chest Pain 04/13/20 [History Last Taken Unknown] psyllium husk 3.4 gram/5.4 gram oral powder 660 gm PO DAILY 04/13/20 [History Last Taken 08/05/23] fluticasone fur. 100 mcg-umeclid 62.5 mcg-vilant 25 mcg inhalat.powder (Trelegy Ellipta) 1 inh inhalation BID 08/05/23 [History Last Taken 08/05/23] Allergy/AdvReac Type Severity Reaction Status Date / Time No Known Allergies Allergy Verified 08/05/23 11:12 Surgical History History of bronchoscopy Social History Smoking Status: Former smoker ROS <ROSA Morel - Last Filed: 08/05/23 13:46> ROS ED ROS Narrative Constitutional: Negative for fever, chills, malaise. CVS: Positive for chest pain. Negative for palpitations, syncope. Respiratory: Positive for shortness of breath, cough. GI: Negative for abdominal pain, nausea, vomiting, melena, hematochezia. EXAM <ROSA Morel - Last Filed: 08/05/23 13:46> Physical Exam Narrative Exam Narrative: CONST: Patient sitting in no acute distress. EYES: Normal inspection. NECK: Normal inspection. RESP: No respiratory distress, slight expiratory wheeze throughout.. CVS: Regular rate and rhythm, no murmur, no gallop. ABD: Soft and nontender, no guarding or rebound, nondistended. SKIN: Color normal, no rash, warm, dry, intact. EXTREMITIES: Normal appearance, no pedal edema. NEURO: Oriented x4. PSYCH: Normal affect. Const Vital Signs: 08/05/23 11:08 08/05/23 11:14 08/05/23 11:14 Temperature 97.6 F L Temperature Source Temporal Pulse Rate 88 Respiratory Rate 16 Respiratory Effort Short of Breath Respiratory Depth Normal Respiratory Pattern Tachypnea Blood Pressure 140/89 H Blood Pressure Mean 106 Pulse Ox 89 92 Oxygen Delivery Method Room Air Nasal Cannula Nasal Cannula Oxygen Flow Rate (L/min) 2 2 08/05/23 11:51 08/05/23 11:51 08/05/23 14:15 Temperature 98.2 F Temperature Source Pulse Rate 109 H 100 Respiratory Rate 19 H 19 H Respiratory Effort Respiratory Depth Respiratory Pattern Normal Blood Pressure 110/90 H Blood Pressure Mean 96 Pulse Ox 96 96 Oxygen Delivery Method Nasal Cannula Oxygen Flow Rate (L/min) 2 08/05/23 14:15 Temperature 98.2 F Temperature Source Oral Pulse Rate 101 H Respiratory Rate 19 H Respiratory Effort Respiratory Depth Respiratory Pattern Blood Pressure 122/69 H Blood Pressure Mean 86 Pulse Ox 96 Oxygen Delivery Method Nasal Cannula Oxygen Flow Rate (L/min) 3 <Dr. Ken Mathew MD - Last Filed: 08/06/23 07:21> Physical Exam Const Vital Signs: 08/05/23 11:08 08/05/23 11:14 08/05/23 11:14 Temperature 97.6 F L Temperature Source Temporal Pulse Rate 88 Respiratory Rate 16 Respiratory Effort Short of Breath Respiratory Depth Normal Respiratory Pattern Tachypnea Blood Pressure 140/89 H Blood Pressure Mean 106 Pulse Ox 89 92 Oxygen Delivery Method Room Air Nasal Cannula Nasal Cannula Oxygen Flow Rate (L/min) 2 2 08/05/23 11:51 08/05/23 11:51 08/05/23 14:15 Temperature 98.2 F Temperature Source Pulse Rate 109 H 100 Respiratory Rate 19 H 19 H Respiratory Effort Respiratory Depth Respiratory Pattern Normal Blood Pressure 110/90 H Blood Pressure Mean 96 Pulse Ox 96 96 Oxygen Delivery Method Nasal Cannula Oxygen Flow Rate (L/min) 2 08/05/23 14:15 Temperature 98.2 F Temperature Source Oral Pulse Rate 101 H Respiratory Rate 19 H Respiratory Effort Respiratory Depth Respiratory Pattern Blood Pressure 122/69 H Blood Pressure Mean 86 Pulse Ox 96 Oxygen Delivery Method Nasal Cannula Oxygen Flow Rate (L/min) 3 [facility] <ROSA Morel - Last Filed: 08/05/23 13:46> [facility] Narrative Medical decision making narrative: History gathered from: Patient and family member Patient has 3 weeks of right-sided chest pain and became short of breath this morning and was hypoxic and placed on 2 L O2. He does not wear home oxygen. The rest of his vital signs are stable. He is in chronic A-fib in the 80s. On exam he has faint expiratory wheezing I ordered a DuoNeb. White count is 15.8. Normal hemoglobin and platelets. Electrolytes and renal function are WNL. BNP 208. INR therapeutic at 2.6. EKG is A-fib with no acute ischemic changes and troponin is 17. Since he has a history of cancer and new hypoxia a CTA was ordered to assess for worsening neoplasm, pneumonia, or PE. CTA shows diffuse emphysematous changes in the right lung as well as a small right pleural effusion. No PE or pneumonia. There is a 1.3 cm hypodensity in the right lobe of the liver that will need further evaluation. COVID/influenza test is negative. To me his right side his CT changes look more like pneumonia and with a white count of 15.8 he was treated with IV Rocephin and Zithromax. Since he is requiring 2 L O2 will discuss the case with hospitalist for admission. I have personally performed a face to face assessment of the patient and have reviewed the JORGE Note. I performed a substantive portion of the visit including all aspects of the following. My brannon findings include: History is remarkable for right-sided chest pain and shortness of breath for the past 3 weeks. He does have a cough productive of white sputum. He denies hemoptysis. Denies history of PE or DVT. He denies leg pain, swelling discoloration. He denies headache, visual, ocular auditory symptoms. He denies pleuritic pain. He states she had a nodule right lower lobe. He declined surgery. He underwent radiation therapy. He is not on home oxygen. He is on Coumadin for atrial fibrillation. He denies orthopnea or PND. He denies leg pain or discoloration. Exam is remarkable for hypoxia, tachycardia and tachypnea. He is not febrile. Head is atraumatic normocephalic. Ears normal. Nares patent. Posterior pharynx is normal. Trachea is midline. There is no stridor. Patient has wheezing bilaterally. Wheezing is greater on the right. There is rales right base. Expiratory phase is slightly increased. Heart is rapid and irregular. Mild swelling of the feet. Radial pulses palpable and 2+ and symmetric. Abdomen is benign. Medical Decision Making differential diagnosis would include acute bronchitis with hyperactive airway disease, pneumonia, pulmonary embolus, CHF. EKG, imaging and appropriate blood work was obtained. Other additions or changes: [None] Lab Data Attestation: I reviewed the patient's lab results. Labs: Laboratory Results - last 24 hr 08/05/23 11:32 WBC 15.8 H RBC 4.27 L Hgb 13.4 Hct 42.1 MCV 98.6 H MCH 31.4 MCHC 31.8 L RDW Std Deviation 46.9 H RDW Coeff of Roslyn 13.1 Plt Count 288 MPV 9.2 Immature Gran % (Auto) 0.600 Neut % (Auto) 82.9 H Lymph % (Auto) 3.4 L Barton % (Auto) 11.7 H Eos % (Auto) 1.1 Baso % (Auto) 0.3 Absolute Neuts (auto) 13.1 H Absolute Lymphs (auto) 0.53 L Nucleated RBC % 0 Differential Comment SCANNED Diff Path Review December foll PT 28.2 H INR 2.6 Sodium 139 Potassium 3.8 Chloride 103 Carbon Dioxide 29.0 Anion Gap 7 BUN 24 H Creatinine 1.07 Estim Creat Clear Calc 51.39 Est GFR (MDRD) Af Amer 85 Est GFR (MDRD) Non-Af 70 BUN/Creatinine Ratio 22.4 H Glucose 120 H Calcium 9.0 Total Bilirubin 1.00 AST 22 ALT 23 Alkaline Phosphatase 66 Troponin I High Sens 17 B-Natriuretic Peptide 208.0 H Total Protein 6.6 Albumin 2.6 L Globulin 4.0 Albumin/Globulin Ratio 0.6 L Radiography Diagnostic Testing: Clinical Impression(s) from Imaging Studies Chest CTA 08/05/23 11:34 IMPRESSION: Diffuse emphysematous changes in the upper lobes worse on the right side with infiltration in the right upper lobe as well as at the right lung base with a small right pleural effusion. 4.2 mm calcified granuloma in the spleen. 1.3 cm well-defined hypodensity in the posterior aspect of the inferior aspect of the right lobe of the liver. Correlation with ultrasound is recommended. Electronically Signed: Jermaine Garcia MD at 13:11 EST , EKG Initial EKG: Attestation: I personally reviewed and interpreted this EKG as follows: Interpretation: No Acute Injury Pattern and Atrial Fibrillation Comments: A-fib at 93 bpm, no STEMI criteria <Dr. Ken Mathew MD - Last Filed: 08/06/23 07:21> [facility] Narrative Medical decision making narrative: History gathered from: Patient and family member Patient has 3 weeks of right-sided chest pain and became short of breath this morning and was hypoxic and placed on 2 L O2. He does not wear home oxygen. The rest of his vital signs are stable. He is in chronic A-fib in the 80s. On exam he has faint expiratory wheezing I ordered a DuoNeb. White count is 15.8. Normal hemoglobin and platelets. Electrolytes and renal function are WNL. BNP 208. INR therapeutic at 2.6. EKG is A-fib with no acute ischemic changes and troponin is 17. Since he has a history of cancer and new hypoxia a CTA was ordered to assess for worsening neoplasm, pneumonia, or PE. CTA shows diffuse emphysematous changes in the right lung as well as a small right pleural effusion. No PE or pneumonia. There is a 1.3 cm hypodensity in the right lobe of the liver that will need further evaluation. COVID/influenza test is negative. To me his right side his CT changes look more like pneumonia and with a white count of 15.8 he was treated with IV Rocephin and Zithromax. Since he is requiring 2 L O2 will discuss the case with hospitalist for admission. I have personally performed a face to face assessment of the patient and have reviewed the JORGE Note. I performed a substantive portion of the visit including all aspects of the following. My brannon findings include: History is remarkable for right-sided chest pain and shortness of breath for the past 3 weeks. He does have a cough productive of white sputum. He denies hemoptysis. Denies history of PE or DVT. He denies leg pain, swelling discoloration. He denies headache, visual, ocular auditory symptoms. He denies pleuritic pain. He states she had a nodule right lower lobe. He declined surgery. He underwent radiation therapy. He is not on home oxygen. He is on Coumadin for atrial fibrillation. He denies orthopnea or PND. He denies leg pain or discoloration. Exam is remarkable for hypoxia, tachycardia and tachypnea. He is not febrile. Head is atraumatic normocephalic. Ears normal. Nares patent. Posterior pharynx is normal. Trachea is midline. There is no stridor. Patient has wheezing bilaterally. Wheezing is greater on the right. There is rales right base. Expiratory phase is slightly increased. Heart is rapid and irregular. Mild swelling of the feet. Radial pulses palpable and 2+ and symmetric. Abdomen is benign. Medical Decision Making differential diagnosis would include acute bronchitis with hyperactive airway disease, pneumonia, pulmonary embolus, CHF. EKG, imaging and appropriate blood work was obtained. Other additions or changes: CT reveals pneumonia and COPD. Hospitalist been paged for admission. Lab Data Labs: Laboratory Results - last 24 hr 08/05/23 11:32 WBC 15.8 H RBC 4.27 L Hgb 13.4 Hct 42.1 MCV 98.6 H MCH 31.4 MCHC 31.8 L RDW Std Deviation 46.9 H RDW Coeff of Roslyn 13.1 Plt Count 288 MPV 9.2 Immature Gran % (Auto) 0.600 Neut % (Auto) 82.9 H Lymph % (Auto) 3.4 L Barton % (Auto) 11.7 H Eos % (Auto) 1.1 Baso % (Auto) 0.3 Absolute Neuts (auto) 13.1 H Absolute Lymphs (auto) 0.53 L Nucleated RBC % 0 Differential Comment SCANNED Diff Path Review December foll PT 28.2 H INR 2.6 Sodium 139 Potassium 3.8 Chloride 103 Carbon Dioxide 29.0 Anion Gap 7 BUN 24 H Creatinine 1.07 Estim Creat Clear Calc 51.39 Est GFR (MDRD) Af Amer 85 Est GFR (MDRD) Non-Af 70 BUN/Creatinine Ratio 22.4 H Glucose 120 H Calcium 9.0 Total Bilirubin 1.00 AST 22 ALT 23 Alkaline Phosphatase 66 Troponin I High Sens 17 B-Natriuretic Peptide 208.0 H Total Protein 6.6 Albumin 2.6 L Globulin 4.0 Albumin/Globulin Ratio 0.6 L Radiography Diagnostic Testing: Clinical Impression(s) from Imaging Studies Chest CTA 08/05/23 11:34 IMPRESSION: Diffuse emphysematous changes in the upper lobes worse on the right side with infiltration in the right upper lobe as well as at the right lung base with a small right pleural effusion. 4.2 mm calcified granuloma in the spleen. 1.3 cm well-defined hypodensity in the posterior aspect of the inferior aspect of the right lobe of the liver. Correlation with ultrasound is recommended. 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
[2023-08-05 11:41] LABS: Absolute Lymphocyte Count 0.53 X10^3/uL (0.83-4.51); Absolute Neutrophil Count 13.1 X10^3/uL (2.0-7.7); Basophil# 0.05 X10^3/uL; Basophil% 0.3 % (0-1); Eosinophil# 0.17 X10^3/uL; Eosinophils% 1.1 % (0-5); Hematocrit 42.1 % (40-54); Hemoglobin 13.4 g/dL (13.0-16.5); Lymphocyte # 0.53 X10^3/ul (0.83-4.51); Lymphocyte % 3.4 % (19-41); Mean Corp Hgb Conc 31.8 g/dL (32-36); Mean Corpuscular Hgb 31.4 pg (27.0-32.0); Mean Corpuscular Volume 98.6 fL (80-94); Mean Platelet Vol. 9.2 fl (6.2-12.0); Monocyte# 1.85 X10^3/uL; Monocyte% 11.7 % (0-10); NRBC Flagged by Analyzer 0 % (0-5); Neutrophil # 13.09 X10^3/uL (2.7-7.7); Neutrophil % 82.9 % (47-70); POSITIVE DIFFERENTIAL YES; Platelet Count 288 K/mm3 (150-450); RBC Distribution Width CV 13.1 % (11.6-14.6); RBC Distribution Width SD 46.9 fl (35.1-43.9); Red Blood Count 4.27 M/mm3 (4.6-6.2); White Blood Count 15.8 K/mm3 (4.4-11.0)
[2023-08-05] MEDS: Ipratropium/Albuterol Sulfate 3 ML AMPUL.NEB INHALATION ×3 (11:45→23:55)
[2023-08-05 11:47] LABS: Differential Indicated SCAN CRITERIA MET
[2023-08-05 11:53] LABS: International Normalized Ratio 2.6; Prothrombin Time (Protime)PT. 28.2 SECONDS (11.7-14.9)
[2023-08-05 11:57] LABS: ALB/GLOB Ratio 0.6 RATIO (0.9-2.4); AST(SGOT) 22 U/L (15-37); Alanine Aminotransfer ALT/SGPT 23 U/L (16-61); Albumin, Serum 2.6 g/dL (3.2-5.0); Alkaline Phosphatase 66 U/L (45-117); Anion Gap 7 (5-15); BUN 24 mg/dL (7-18); BUN/Creat Ratio 22.4 RATIO (10-20); Chloride 103 mmol/L (98-107); Creatinine, Serum 1.07 mg/dL (0.70-1.30); EST Glomerular Filtration Rate 70 mL/min (>60); Est Glom Filt Rate - Afr Amer 85 mL/min (>60); Estimated Creatinine Clearance 51.39 ml/min; Glucose 120 mg/dL (74-106); Potassium 3.8 mmol/L (3.5-5.1); Protein, Total 6.6 g/dL (6.4-8.2); Sodium Level 139 mmol/L (136-145); Troponin-I HS 17 pg/mL (3.0-78.0)
[2023-08-05 12:17] LABS: Differential Comment SCANNED
[2023-08-05] MEDS: Acetaminophen 325 MG Tablet 650 MG PO ×2 (12:53→23:04)
[2023-08-05] MEDS: Ceftriaxone 1 GM/50 ML BAG IV (14:12)
--- NOTE | 2023-08-05 14:26 | PCM.HP.STD ---
HPI - General General Date of Admission: 08/05/23 Date of Service: 08/05/23 Chief Complaint: Increased SOB and fatigue HPI Narrative TAO CLARK, is a 82-year-old male history of A-fib, lung cancer, coronary artery disease, COPD, hypertension presented to [facility] 08/05/2023 with shortness of breath since this morning. He used his trilogy and checked his pulse ox and it was 84% and does not wear home O2 so he presented to the ED. He additionally endorsed 3 weeks of right-sided inspiratory chest pain, has history of right-sided lung cancer and completed radiation March 2023. Minor cough. In ED patient 89% on room air at rest and 96% on 2 L, respiratory rate 19 with a heart rate of 109 as well as white blood cell count of 15.8. CTA in ED w/ diffuse emphasematous changes in upper lobes worse on right side with infiltration in right upper lobe as well as right lung base with small right pleural effusion. Patient was given neb treatment and CAP coverage and hospitalist contacted for admission due to his hypoxia. Patient evaluated at bedside, he reports of right-sided inspiratory sharp chest pain for 3 weeks and reports otherwise in his usual health and slept well last night but woke up and has been very tired and sluggish and more short of breath and was not able to use his incentive spirometer as well this morning. He did not improve through the day despite inhalers and had an oxygen saturation in the 80s at home prompting his visit to the ED. Reports he has felt some chills today, has intermittent cough off and on and denies hemoptysis, no new stuffy nose or sore throat, no swelling in extremities. Feels a little bit better in the ED after receiving nebs and antibiotics, O2 sat 93% on 3 L at time of exam. [facility] Medical History (Updated 08/05/23 @ 14:[address] Kaylin Leonardo MD) Afib Atrial fibrillation CAD (coronary artery disease) CAD (coronary artery disease) HLD (hyperlipidemia) Lung cancer Home Medications hydrochlorothiazide 12.5 mg capsule 12.5 mg PO DAILY Blood Pressure 01/26/19 [History Last Taken 08/05/23] lisinopril 20 mg tablet 20 mg PO DAILY blood pressure 01/26/19 [History Last Taken 08/05/23] metoprolol succinate 25 mg tablet,extended release 24 hr 12.5 mg PO DAILY blood pressure 01/26/19 [History Last Taken 08/05/23] simvastatin 20 mg tablet 20 mg PO DAILY Cholesterol 01/26/19 [History Last Taken 08/05/23] warfarin 5 mg tablet 5 mg PO DAILY blood thinner 01/26/19 [History Last Taken 08/05/23] acidophilus 100 million cell-pectin, citrus 10 mg capsule 2 ea PO DAILY 04/13/20 [History Last Taken 08/05/23] apple cider vinegar 600 mg capsule 600 mg PO MOWEFR 04/13/20 [History Last Taken 08/02/23] ascorbic acid (vitamin C) 1,000 mg tablet,extended release 1,000 mg PO DAILY 04/13/20 [History Last Taken 08/05/23] bee pollen 550 mg capsule 1 tab PO DAILY 04/13/20 [History Last Taken 08/05/23] calcium citrate 315 mg calcium-vitamin D3 6.25 mcg (250 unit) tablet 1 ea PO DAILY 04/13/20 [History Last Taken 08/05/23] cinnamon bark 500 mg capsule 500 mg PO BID 04/13/20 [History Last Taken 08/05/23] coenzyme Q10 200 mg capsule 200 mg PO DAILY 04/13/20 [History Last Taken 08/05/23] cyanocobalamin (vitamin B-12) 1,000 mcg capsule 1,000 mcg PO DAILY 04/13/20 [History Last Taken 08/05/23] docosahexaenoic acid 450 mg capsule 450 mg PO BID 04/13/20 [History Last Taken 08/05/23] folic acid 1 mg tablet 1 mg PO DAILY 04/13/20 [History Last Taken 08/05/23] glucosamine 750 [id number] no1 644 mg-C 30 mg-dionte 1 mg tablet 2 ea PO DAILY 04/13/20 [History Last Taken 08/05/23] magnesium oxide 400 mg (241.3 mg magnesium) tablet 400 mg PO DAILY 04/13/20 [History Last Taken 08/05/23] multivitamin 1 ea PO MOWEFR 04/13/20 [History Last Taken 08/02/23] nitroglycerin 0.4 mg sublingual tablet 0.4 mg sublingual Q5M PRN Chest Pain 04/13/20 [History Last Taken Unknown] psyllium husk 3.4 gram/5.4 gram oral powder 660 gm PO DAILY 04/13/20 [History Last Taken 08/05/23] fluticasone fur. 100 mcg-umeclid 62.5 mcg-vilant 25 mcg inhalat.powder (Trelegy Ellipta) 1 inh inhalation BID 08/05/23 [History Last Taken 08/05/23] Allergy/AdvReac Type Severity Reaction Status Date / Time No Known Allergies Allergy Verified 08/05/23 11:12 Surgical History History of bronchoscopy Social History (Reviewed 01/24/23 @ 09: by Dr. Govind Ag MD) Smoking Status: Former smoker ROS ROS Narrative General: [place] like he had some chills earlier today, very tired today HENT: Denies headache, denies stuffy nose, denies sore throat EYES: Denies changes in vision Resp: Intermittent cough, increased shortness of breath Cardiac: Denies chest pain GI: Denies abdominal pain, denies changes in bowel, denies nausea/vomiting : Denies changes in urination Extremity: Denies swelling MSK: [place] somewhat diffusely weak Neuro: Denies any numbness/tingling Heme: Denies any bleeding or bruising Skin: Denies rashes Psychiatric: No complaints voiced Vital Signs Vital Signs Vital Signs: 08/05/23 11:08 08/05/23 11:14 08/05/23 11:14 Temperature 97.6 F L Temperature Source Temporal Pulse Rate 88 Respiratory Rate 16 Respiratory Effort Short of Breath Respiratory Depth Normal Respiratory Pattern Tachypnea Blood Pressure 140/89 H Blood Pressure Mean 106 Pulse Ox 89 92 Oxygen Delivery Method Room Air Nasal Cannula Nasal Cannula Oxygen Flow Rate (L/min) 2 2 08/05/23 11:51 08/05/23 11:51 08/05/23 14:15 Temperature 98.2 F Temperature Source Pulse Rate 109 H 100 Respiratory Rate 19 H 19 H Respiratory Effort Respiratory Depth Respiratory Pattern Normal Blood Pressure 110/90 H Blood Pressure Mean 96 Pulse Ox 96 96 Oxygen Delivery Method Nasal Cannula Oxygen Flow Rate (L/min) 2 08/05/23 14:15 Temperature 98.2 F Temperature Source Oral Pulse Rate 101 H Respiratory Rate 19 H Respiratory Effort Respiratory Depth Respiratory Pattern Blood Pressure 122/69 H Blood Pressure Mean 86 Pulse Ox 96 Oxygen Delivery Method Nasal Cannula Oxygen Flow Rate (L/min) 3 Weight Weight: 85 kg Body Mass Index (BMI) 27.6 Physical Exam Narrative General: Alert, oriented, no apparent distress HEENT: Atraumatic, normocephalic Eyes: Anicteric, normal conjunctiva, extraocular movements grossly intact Neck: Supple Respiratory: Slight increased respiratory effort, scattered wheezes, right some coarse breath sounds greater than left Cardiovascular: Irregularly irregular GI: Soft, nontender, nondistended Extremities: No edema Musculoskeletal: Moving all extremities Neuro: No overt focal neurological deficits Skin: No rashes appreciated Psych: Cooperative Results Lab / Micro Data 08/05/23 11:32 08/05/23 11:32 Labs: Laboratory Results - last 24 hr 08/05/23 11:32: WBC 15.8 H, RBC 4.27 L, Hgb 13.4, Hct 42.1, MCV 98.6 H, MCH 31.4, MCHC 31.8 L, RDW Std Deviation 46.9 H, RDW Coeff of [place] 13.1, Plt Count 288, MPV 9.2, Immature Gran % (Auto) 0.600, Neut % (Auto) 82.9 H, Lymph % (Auto) 3.4 L, [place] % (Auto) 11.7 H, Eos % (Auto) 1.1, Baso % (Auto) 0.3, Absolute Neuts (auto) 13.1 H, Absolute Lymphs (auto) 0.53 L, Nucleated RBC % 0, Differential Comment SCANNED, Diff Path Review December, PT 28.2 H, INR 2.6, Sodium 139, Potassium 3.8, Chloride 103, Carbon Dioxide 29.0, Anion Gap 7, BUN 24 H, Creatinine 1.07, Estim Creat Clear Calc 51.39, Est GFR (MDRD) Af Amer 85, Est GFR (MDRD) Non-Af 70, BUN/Creatinine Ratio 22.4 H, Glucose 120 H, Calcium 9.0, Total Bilirubin 1.00, AST 22, ALT 23, Alkaline Phosphatase 66, Troponin I High Sens 17, B-Natriuretic Peptide 208.0 H, Total Protein 6.6, Albumin 2.6 L, Globulin 4.0, Albumin/Globulin Ratio 0.6 L Micro: Microbiology 08/05/23 12:55 Nasal Secretion SARS-CoV-2 & FLU Antigen (Rapid) - Final Imagaing Radiology Impression Chest CTA 08/05/23 11:34 IMPRESSION: Diffuse emphysematous changes in the upper lobes worse on the right side with infiltration in the right upper lobe as well as at the right lung base with a small right pleural effusion. 4.2 mm calcified granuloma in the spleen. 1.3 cm well-defined hypodensity in the posterior aspect of the inferior aspect of the right lobe of the liver. Correlation with ultrasound is recommended. Electronically Signed: Jermaine Garcia MD at 13:11 EST , Assessment & Plan Assessment/Plan (1) Hypoxia: (2) COPD exacerbation: (3) History of lung cancer: (4) Community acquired pneumonia: PLAN: Plan #Acute hypoxia on chronic COPD and CAP -CTA in ED w/ diffuse emphasematous changes in upper lobes worse on right side with infiltration in right upper lobe as well as right lung base with small right pleural effusion -Patient has intermittent cough, not necessarily worse than previously however has imaging changes with infiltration with increased shortness of breath, right-sided pleuritic pain, elevated white blood cell count and chills and feel CAP coverage is warranted -DuoNebs and as needed albuterol -Will add steroids -Sputum culture, COVID and flu negative, respiratory panel ordered -Urine antigens -Mucinex, I/S -Rocephin and azithromycin -Follows with Dr. De Leon at [facility] for pulm #Recent history of lung cancer -Diagnosed 3 years ago -Patient opted to not undergo surgery but underwent radiation in March and has been doing well -Follows with Dr. Salvador and Dr. Michelle at the [facility] #Chronic afib -On coumadin, INR 2.6 -Continue home meds -Monitor PT/INR #Liver hypodensity -CT demonstrated 1.3 cm well-defined hypodensity in the posterior aspect of the inferior aspect of the right lobe of the liver. Correlation with ultrasound is recommended. -US ordered #History of coronary artery disease -Continue statin, beta-yury, Coumadin #DVT ppx: Therapeutic on Coumadin Kaylin Leonardo MD Time spent in the patient's overall evaluation,decision-making process, review of diagnostic data, adjustment of management, discussion with other providers, nursing nursing and ancillary staff involved in patient's care documentation, 55 minutes Charges/Coding Visit Charges Inpatient E&M: 14655 Init Hosp L2
[2023-08-05] MEDS: Azithromycin 500 MG in Dextrose 5%-Water (250mL Bag) 250 ML 250 MG IV (14:56)
--- NOTE | 2023-08-05 16:49 | ED.RN ---
Pt adamantly refuses ultrasound, states he will discuss with oncology
[2023-08-05] MEDS: guaiFENesin 1,200 MG Tablet 1200 MG PO (22:56)
[2023-08-05] MEDS: Metoprolol(XL)Succ 25 MG Tablet 12.5 MG PO (22:57)
[2023-08-06] VITALS (12 sets, daily range): BP systolic 104–130; BP diastolic 47–75; PULSE 80–118; RESP 16–20; TEMP 36.3–36.8; O2SAT 85–97
[2023-08-06] MEDS: Ipratropium/Albuterol Sulfate 3 ML AMPUL.NEB INHALATION ×4 (03:30→20:26)
[2023-08-06 03:47] LABS: Absolute Lymphocyte Count 0.31 X10^3/uL (0.83-4.51); Absolute Neutrophil Count 12.2 X10^3/uL (2.0-7.7); Basophil# 0.03 X10^3/uL; Basophil% 0.2 % (0-1); Eosinophil# 0.03 X10^3/uL; Eosinophils% 0.2 % (0-5); Hematocrit 39.7 % (40-54); Hemoglobin 12.9 g/dL (13.0-16.5); Lymphocyte # 0.31 X10^3/ul (0.83-4.51); Lymphocyte % 2.4 % (19-41); Mean Corp Hgb Conc 32.5 g/dL (32-36); Mean Corpuscular Hgb 31.5 pg (27.0-32.0); Mean Corpuscular Volume 96.8 fL (80-94); Mean Platelet Vol. 9.5 fl (6.2-12.0); Monocyte# 0.35 X10^3/uL; Monocyte% 2.7 % (0-10); NRBC Flagged by Analyzer 0 % (0-5); Neutrophil % 93.8 % (47-70); POSITIVE DIFFERENTIAL YES; Platelet Count 280 K/mm3 (150-450); RBC Distribution Width CV 12.9 % (11.6-14.6); RBC Distribution Width SD 46.1 fl (35.1-43.9)
[2023-08-06 03:51] LABS: Differential Indicated SCAN CRITERIA MET
[2023-08-06 04:12] LABS: Anion Gap 8 (5-15); BUN 21 mg/dL (7-18); Calcium,Total 8.8 mg/dL (8.5-10.1); Chloride 103 mmol/L (98-107); Creatinine, Serum 0.96 mg/dL (0.70-1.30); EST Glomerular Filtration Rate 80 mL/min (>60); Est Glom Filt Rate - Afr Amer 96 mL/min (>60); Estimated Creatinine Clearance 59.14 ml/min; Glucose 155 mg/dL (74-106); Potassium 3.9 mmol/L (3.5-5.1); Sodium Level 136 mmol/L (136-145)
[2023-08-06 04:24] LABS: Differential Comment SCANNED
[2023-08-06 04:42] LABS: International Normalized Ratio 2.9; Prothrombin Time (Protime)PT. 30.7 SECONDS (11.7-14.9)
[2023-08-06] MEDS: Azithromycin 500 MG in Dextrose 5%-Water (250mL Bag) 250 ML 250 MG IV (09:48)
[2023-08-06] MEDS: Metoprolol(XL)Succ 25 MG Tablet 12.5 MG PO (09:48)
[2023-08-06] MEDS: Ceftriaxone 2 GM in 0.9% Normal Saline (50mL MB+) 50 ML IV (09:48)
[2023-08-06] MEDS: 0.9% Saline Lock 10 ML Syringe IV ×2 (09:49→21:25)
[2023-08-06] MEDS: hydroCHLOROthiazide 12.5mg 12.5 MG PO (09:49)
[2023-08-06] MEDS: Lisinopril 20 MG Tablet PO (09:49)
[2023-08-06] MEDS: guaiFENesin 1,200 MG Tablet 1200 MG PO ×2 (09:49→21:25)
--- NOTE | 2023-08-06 11:45 | CASEMGMT ---
RN CM Face to Face with patient for initial transition planning/care coordination assessment. RN CM introduced self and role at [facility]. Patient lying in bed, alert and oriented, son and daughter in law at bedside. Patient willing to participate in assessment and is able to answer all questions appropriately. Care providers, pharmacy, and demographics verified. Patient wishes to discharge home, denies need for home health at this time. Patient states he has no further needs or concerns at this time. CM to follow for discharge planning needs that may arise. PCP: Frederick Velazquez [facility] Specialists: Arpita De Leon, hand surgeon; Lalito, driving teacher; Zen, urologist Preferred Pharmacy: [facility] Insurance: [employer] Prescription Benefit: yes Living Will/HPOA: yes son Harry Nguyen LNOK: son, DIL Living Arrangements: Patient lives alone in a 2 story condo with bed and bath on first floor. Patient states he is independent at home. Transportation: self, son DME/HHC:Patient has raised toilet, cane, walker, grab bars at home. No previous HHC or SNF. Will monitor for home oxygen. Son voiced interest in MOWs, SW notified. Disposition Plan: Patient to discharge home with family support and follow-up plans in place. Gauri OCHOA, RN, CM
[2023-08-06 12:55] LABS: Pathologist Review Reviewed
--- NOTE | 2023-08-06 14:14 | CASEMGMT ---
Ear Nose And Throat Specialist mentioned patient was interested in home delivered meals. SW provided patient with a list of home delivered meal agencies. Ana PARKS
--- NOTE | 2023-08-06 18:11 | PN.HOSP_ITS ---
Reason for Visit Reason for Visit: Diagnoses Pneumonia, unspecified organism (08/05/23) Chronic obstructive pulmonary disease with (acute) exacerbation (08/05/23) Hypoxemia (08/05/23) Personal history of other malignant neoplasm of bronchus and lung (08/05/23) Subjective Subjective Patient admitted yesterday afternoon for worsening dyspnea on exertion with hypoxia. No acute events overnight. Patient seen at bedside this morning. Patient was sitting comfortably in bedside chair, conversing normally, in no acute distress. Patient was on room air at rest, had no increased work of breathing noted. Patient states that he was walking around the room this morning without oxygen and had no significant shortness of breath, feels improved from yesterday. Denies any significant cough or sputum production. Has been tolerating the steroids without issue. Patient is hoping to go home soon. Denies any other acute concerns at this time. Objective Data Objective Data Vital Signs: Vital Signs Temp Pulse Resp BP Pulse Ox O2 Del Method O2 Flow Rate 97.8 F 107 H 16 113/47 L 93 Room Air 2 08/06/23 15:00 08/06/23 15:00 08/06/23 15:00 08/06/23 15:00 08/06/23 15:00 08/06/23 15:00 08/06/23 14:30 FiO2 97 08/06/23 06:45 Oxygen Flow Rate (L/min) [ 2 AMBULATING with Oxygen #1] Oxygen Flow Rate (L/min) 3 Oxygen Delivery Method Room Air Weight: 84.9 kg Body Mass Index (BMI) 26.2 Intake & Output: Intake and Output for Last 24 Hours 08/04/23 08/05/23 08/06/23 23:59 23:59 23:59 Intake Total 305 / 305 305 / 305 Output Total 0 / 0 Balance 305 / 305 305 / 305 Lab / Micro Data 08/06/23 03:27 08/06/23 03:27 Labs: Laboratory Results - last 24 hr 08/05/23 11:32: Diff Path Review Reviewed 08/06/23 03:27: WBC 13.0 H, RBC 4.10 L, Hgb 12.9 L, Hct 39.7 L, MCV 96.8 H, MCH 31.5, MCHC 32.5, RDW Std Deviation 46.1 H, RDW Coeff of [place] 12.9, Plt Count 280, MPV 9.5, Immature Gran % (Auto) 0.700, Neut % (Auto) 93.8 H, Lymph % (Auto) 2.4 L, [place] % (Auto) 2.7, Eos % (Auto) 0.2, Baso % (Auto) 0.2, Absolute Neuts (auto) 12.2 H, Absolute Lymphs (auto) 0.31 L, Nucleated RBC % 0, Differential Comment SCANNED, PT 30.7 H, INR 2.9, Sodium 136, Potassium 3.9, Chloride 103, Carbon Dioxide 25.0, Anion Gap 8, BUN 21 H, Creatinine 0.96, Estim Creat Clear Calc 59.14, Est GFR (MDRD) Af Amer 96, Est GFR (MDRD) Non-Af 80, BUN/Creatinine Ratio 22.0 H, Glucose 155 H, Calcium 8.8 Micro: Microbiology 08/05/23 17:46 Mucosa - Nasopharyngeal Respiratory Panel (PCR) - Final 08/05/23 12:55 Nasal Secretion SARS-CoV-2 & FLU Antigen (Rapid) - Final Physical Exam Const alert, oriented x3, no apparent distress and average body habitus Constitutional Narrative: Pleasant elderly male, appears younger than stated age, sitting comfortably in bedside chair, conversing normally, no acute distress. General Appearance: cooperative and comfortable HEENT normocephalic, head/scalp atraumatic, hearing grossly normal bilaterally, nasal mucous membranes and turbinates normal and moist oral mucous membranes Eyes PERRL, EOMs intact bilaterally and conjunctivae normal Neck full ROM, no lymphadenopathy and supple Lymph Lymphatic: no lymphadenopathy noted Chest inspection of chest normal Resp Resp Narrative: Satting well on room air at rest, no increased work of breathing noted. Crackles noted throughout right lung, worst at lung base. Fairly clear lung sounds in left lung. No wheezing noted. Cardio regular rate, regular rhythm, no murmurs and peripheral pulses 2+ throughout GI normal to inspection, nondistended, normoactive bowel sounds, soft to palpation, non-tender and non-distended Back/Spine normal ROM Extremity normal to inspection, full ROM and no pedal edema Skin no rashes or lesions noted Neuro moves all extremities and no focal motor deficits Speech: speech normal Psych mental status grossly normal Assessment & Plan Assessment/Plan (1) Hypoxia: PLAN: Plan Patient is an 82-year-old male who presented to [facility] ED on 08/05/2023 with dyspnea on exertion and hypoxia. 1. Acute hypoxia, improving; Concern for radiation pneumonitis; Concern for community-acquired pneumonia with unknown organism; history of COPD CTA chest on admit showed diffuse emphysematous changes in the upper lobes worse on the right side with infiltration in the right upper lobe as well as the right lung base with a small right pleural effusion. WBC count 15.8 on admit, heart rate with A-fib in 90s to 100s, afebrile, blood pressure stable. Patient did report mild right-sided pleuritic pain and chills at home prior to admission. Patient was requiring 3 L nasal cannula on admit at rest to maintain oxygen saturations greater than 90%. COVID and flu negative, respiratory PCR panel negative. Unable to provide sputum sample. Notably follows with Dr. De Leon at [facility] for pulmonology. ? Patient was initiated on ceftriaxone, azithromycin, IV steroids on admission for presumed COPD exacerbation with CAP. Has had good improvement and oxygen saturations and symptoms since admission. Will continue antibiotics and IV steroids for now. Continue scheduled DuoNebs. Highest concern is for radiation pneumonitis but could have some degree of pneumonia as well. Pulmonology co nsulted for further recommendations. Patient failed ambulatory O2 testing on 08/06 afternoon, will need repeat testing prior to discharge. 2. Recent history of lung cancer Diagnosed 3 years ago, follows with Dr. Salvador and Dr. Michelle at [facility]. Patient opted to not undergo surgery but underwent radiation in 03/2023. Tolerated radiation well and had been doing well until this admission. ? Continue outpatient follow-up. 3. Liver hypodensity ? CT on admit demonstrated 1.3 cm well-defined hypodensity in the posterior aspect of the inferior right lobe of the liver. Correlation with ultrasound was recommended by radiology. However, patient refused ultrasound here, wishes to have ultrasound done in the outpatient setting if his oncologist recommends that he get this done. No further workup at this time. Chronic medical conditions: ? Chronic A-fib on Coumadin: INR at goal. Continue home Coumadin, monitor daily INR. ? History of CAD: Continue home statin, beta-yury, Coumadin. DVT prophylaxis: Coumadin CODE STATUS: Full code, verified Expected disposition: Home, tomorrow Total clinical time spent by myself addressing the patient's medical issues, reviewing all the data, and collaborating with patient's care team: 35 minutes. Charges/Coding Visit Charges Inpatient E&M: 07321 Subs Hosp L2
[2023-08-06] MEDS: Atorvastatin Calcium 10 MG Tablet PO (21:24)
[2023-08-07] VITALS (7 sets, daily range): BP systolic 103–107; BP diastolic 61–68; PULSE 81–97; RESP 16–18; TEMP 36.4–36.8; O2SAT 92–97
[2023-08-07] MEDS: Ipratropium/Albuterol Sulfate 3 ML AMPUL.NEB INHALATION ×4 (03:15→14:46)
[2023-08-07] MEDS: 0.9% Saline Lock 10 ML Syringe IV ×3 (05:45→15:29)
[2023-08-07 06:54] LABS: International Normalized Ratio 3.1; Prothrombin Time (Protime)PT. 32.4 SECONDS (11.7-14.9)
--- NOTE | 2023-08-07 07:31 | EX.PCM.CONCC ---
Assessment & Plan Assessment/Plan (1) COPD exacerbation: PLAN: Plan RECOMMENDATIONS: 1. Perform walking oximetry study prior to consideration for discharge home. 2. Continue antimicrobials to complete 7 days of therapy. 3. Okay to transition from IV steroids to prednisone 40 mg daily. Recommend 5-day burst at discharge. 4. Continue scheduled bronchodilator therapy. 5. Recommend outpatient follow-up with his primary pulmonary provider following discharge. 6. Given that the patient is clinically stable on room air, we will sign off from a pulmonary perspective. IMPRESSIONS: 1. Shortness of breath secondary to COPD exacerbation The patient presented to the hospital with shortness of breath in the setting of known COPD, followed by Dr. Lisa De Leon of pulmonary medicine at [facility]. The patient has been maintained on scheduled bronchodilators, steroids and antimicrobials to address the infiltrates noted on CT imaging of the chest. He is improving clinically. At this time, I have no new additional recommendations. I would plan to transition him to a p.o. antibiotic regimen to complete 7 days of therapy. He can also be transition from IV steroids to prednisone 40 mg daily, with plans for a 5-day burst at discharge. The patient should then follow-up with his primary pulmonary provider at [facility] following discharge. The patient is clinically stable and maintaining appropriate oxygen saturations on room air. 2. Known history of lung CA/atrial fibrillation on Coumadin/history of coronary artery disease Complicates care, management, recovery and prognosis. Continue home medications as indicated. This note was generated with [employer] dictation software. It may contain incorrect words, spelling, and punctuation that were not noted in checking the note before signing. HPI Consult Data Date of Consult: 08/07/23 HPI Narrative Reason for Consultation: Pneumonia HPI Narrative: The patient is an 82-year-old male, with a history as outlined below, who presented to the emergency department via EMS on August 05 with shortness of breath. The patient has a known history of COPD, lung cancer, coronary artery disease and hypertension. He routinely follows with Dr. Lisa De Leon of pulmonary medicine at [facility]. The patient reported that he utilizes Trelegy Ellipta at his baseline, but does not typically utilize supplemental O2. He did receive radiation treatment to his chest last summer. On presentation to the emergency department, the patient was documented to be afebrile and hemodynamically stable. He was initially saturating 89% on room air. Initial laboratory evaluation revealed a white blood cell count of 16,000. INR was noted to be 2.6. Chemistry profile was largely unrevealing. BNP was mildly elevated at 208. CTA chest showed no evidence for pulmonary embolism. However, diffuse bilateral eczematous changes were noted along with right upper lobe infiltration, right base infiltration and a small right pleural effusion. This morning, overall, the patient reported that he feels significantly better since admission. He is maintaining appropriate oxygen saturations on room air. The patient remains on scheduled bronchodilators, steroids and antibiotics. [facility] Medical History (Updated 08/05/23 @ 14:[address] Kaylin Leonardo MD) Afib Atrial fibrillation CAD (coronary artery disease) CAD (coronary artery disease) HLD (hyperlipidemia) Lung cancer Home Medications hydrochlorothiazide 12.5 mg capsule 12.5 mg PO DAILY Blood Pressure 01/26/19 [History Last Taken 08/05/23] lisinopril 20 mg tablet 20 mg PO DAILY blood pressure 01/26/19 [History Last Taken 08/05/23] metoprolol succinate 25 mg tablet,extended release 24 hr 12.5 mg PO DAILY blood pressure 01/26/19 [History Last Taken 08/05/23] simvastatin 20 mg tablet 20 mg PO DAILY Cholesterol 01/26/19 [History Last Taken 08/05/23] warfarin 5 mg tablet 5 mg PO DAILY blood thinner 01/26/19 [History Last Taken 08/05/23] acidophilus 100 million cell-pectin, citrus 10 mg capsule 2 ea PO DAILY 04/13/20 [History Last Taken 08/05/23] apple cider vinegar 600 mg capsule 600 mg PO MOWEFR 04/13/20 [History Last Taken 08/02/23] ascorbic acid (vitamin C) 1,000 mg tablet,extended release 1,000 mg PO DAILY 04/13/20 [History Last Taken 08/05/23] bee pollen 550 mg capsule 1 tab PO DAILY 04/13/20 [History Last Taken 08/05/23] calcium citrate 315 mg calcium-vitamin D3 6.25 mcg (250 unit) tablet 1 ea PO DAILY 04/13/20 [History Last Taken 08/05/23] cinnamon bark 500 mg capsule 500 mg PO BID 04/13/20 [History Last Taken 08/05/23] coenzyme Q10 200 mg capsule 200 mg PO DAILY 04/13/20 [History Last Taken 08/05/23] cyanocobalamin (vitamin B-12) 1,000 mcg capsule 1,000 mcg PO DAILY 04/13/20 [History Last Taken 08/05/23] docosahexaenoic acid 450 mg capsule 450 mg PO BID 04/13/20 [History Last Taken 08/05/23] folic acid 1 mg tablet 1 mg PO DAILY 04/13/20 [History Last Taken 08/05/23] glucosamine 750 [id number]-odl no1 644 mg-C 30 mg-dionte 1 mg tablet 2 ea PO DAILY 04/13/20 [History Last Taken 08/05/23] magnesium oxide 400 mg (241.3 mg magnesium) tablet 400 mg PO DAILY 04/13/20 [History Last Taken 08/05/23] multivitamin 1 ea PO MOWEFR 04/13/20 [History Last Taken 08/02/23] nitroglycerin 0.4 mg sublingual tablet 0.4 mg sublingual Q5M PRN Chest Pain 04/13/20 [History Last Taken Unknown] psyllium husk 3.4 gram/5.4 gram oral powder 660 gm PO DAILY 04/13/20 [History Last Taken 08/05/23] fluticasone fur. 100 mcg-umeclid 62.5 mcg-vilant 25 mcg inhalat.powder (Trelegy Ellipta) 1 inh inhalation BID 08/05/23 [History Last Taken 08/05/23] Allergy/AdvReac Type Severity Reaction Status Date / Time No Known Allergies Allergy Verified 08/05/23 11:12 Surgical History History of bronchoscopy Social History Smoking Status: Former smoker ROS ROS Narrative 10 systems were reviewed with pertinent positives as noted in the HPI above. Physical Exam Const alert and no apparent distress Constitutional Narrative: Sitting in bedside recliner. General Appearance: cooperative HEENT normocephalic, head/scalp atraumatic and moist oral mucous membranes Eyes PERRL, EOMs intact bilaterally and conjunctivae normal Neck supple General: trachea midline Chest inspection of chest normal Resp normal respiratory effort Resp Narrative: Faint basilar rales. Auscultation: diminished lung sounds Cardio regular rate and regular rhythm GI normal to inspection, nondistended, normoactive bowel sounds Extremity no clubbing, cyanosis or edema Skin no rashes or lesions noted Neuro oriented x3, CN's II-XII intact bilaterally, moves all extremities and no focal motor deficits Psych cooperative and affect normal Lab / Micro Data 08/06/23 03:27 08/06/23 03:27 Labs: Laboratory Results - last 24 hr 08/05/23 11:32: Diff Path Review Reviewed 08/07/23 05:55: PT 32.4 H, INR 3.1 Micro: Microbiology 08/06/23 21:15 Urine, Random Legionella Antigen - Final 08/06/23 21:15 Urine, Random Streptococcus pneumoniae Antigen (M - Final 08/05/23 17:46 Mucosa - Nasopharyngeal Respiratory Panel (PCR) - Final Charges/Coding Visit Charges Inpatient E&M: 89444 Init Hosp L3
[2023-08-07] MEDS: guaiFENesin 1,200 MG Tablet 1200 MG PO (09:56)
[2023-08-07] MEDS: Metoprolol(XL)Succ 25 MG Tablet 12.5 MG PO (09:56)
[2023-08-07] MEDS: hydroCHLOROthiazide 12.5mg 12.5 MG PO (09:56)
[2023-08-07] MEDS: Lisinopril 20 MG Tablet PO (09:56)
[2023-08-07] MEDS: Azithromycin 500 MG in Dextrose 5%-Water (250mL Bag) 250 ML 250 MG IV (09:57)
[2023-08-07] MEDS: Ceftriaxone 2 GM in 0.9% Normal Saline (50mL MB+) 50 ML IV (11:13)
--- NOTE | 2023-08-07 14:09 | DCINST_ITS ---
Discharge Instructions Diet Discharge Diet: No restrictions Activity Discharge Activity: Return to Normal Activity Follow Up Care Please Follow Up With: Lefty Samson MD When: As needed Test Results: Test results from this visit will be discussed in further detail at your follow- up appointment, if applicable. Pending Tests Upon Discharge: None Discharge Plan Admission Admit Date/Time: 08/05/23 14:26 Primary Reason for Your Visit: Worsening shortness of breath Attending Provider: Fredi Torres Primary Care Provider: Lefty Samson Consulting Providers: Kaylin Leonardo Instructions Additional Instructions / Restrictions: Please take the antibiotics and prednisone as indicated below. Follow-up with your primary care doctor as needed. Follow-up with your customer experience analyst in the next few weeks. Follow-up with your oncologist and discuss the need for a liver ultrasound to monitor the liver hypodensity seen on the CAT scan while you were here. Discharge Orders/Prescriptions Prescriptions: New prednisone 20 mg tablet 40 mg PO DAILY 3 Days Qty: 6 0RF amoxicillin-pot clavulanate 875-125 mg tablet 1 tab PO BID 5 Days Qty: 10 0RF Continued lisinopril 20 MG tablet 20 mg PO DAILY simvastatin 20 MG tablet 20 mg PO DAILY warfarin 5 MG tablet 5 mg PO DAILY Rx Instructions: 2.5MG MON & WED, 5MG ALL OTHER DAYS hydrochlorothiazide 12.5 MG capsule 12.5 mg PO DAILY metoprolol succinate 25 MG tablet extended release 24 hr 12.5 mg PO DAILY multivitamin 1 EACH tablet 1 ea PO MOWEFR ascorbic acid (vitamin C) 1,000 MG tablet extended release 1,000 mg PO DAILY magnesium oxide 400 MG tablet 400 mg PO DAILY apple cider vinegar 600 MG capsule 600 mg PO MOWEFR nitroglycerin 0.4 MG tablet, sublingual 0.4 mg sublingual Q5M PRN (Reason: Chest Pain) folic acid 1 MG tablet 1 mg PO DAILY cinnamon bark 500 MG capsule 500 mg PO BID coenzyme Q10 200 MG capsule 200 mg PO DAILY calcium citrate-vitamin D3 1 EACH tablet 1 ea PO DAILY acidophilus-pectin, citrus 1 EACH capsule 2 ea PO DAILY docosahexaenoic acid 450 MG capsule 450 mg PO BID [id number]-kaqi-[id number]-C-dionte-bosw 1 EACH tablet 2 ea PO DAILY bee pollen 550 MG capsule 1 tab PO DAILY psyllium husk 660 GM powder 660 gm PO DAILY cyanocobalamin (vitamin B-12) 1,000 MCG capsule 1,000 mcg PO DAILY Trelegy Ellipta 100-62.5-25 mcg blister with device 1 inh INHALATION BID Referrals / Follow Up: Lefty Samson MD [Primary Care Provider] - Disposition Disposition (needs filled in before D/C Order can be placed): Home, Self Care
--- NOTE | 2023-08-07 14:15 | PCM.DC.SUM ---
Providers Date of Admission: 08/05/23 Date of Discharge: 08/07/23 Primary Care Physician: Dr. Lefty Samson MD Consultations 08/06/23 14:16 Consult: Chairman And Chief Executive Officer / Pulmonary Medicine Routine Consulting Provider: Pulmonary Medicine [place] Reason for Consult: acute hypoxia, lung ca s/p radiation in 03/2023, pneumonitis vs cap? EMERGENT Consult: No MD Notified: Yes Date Notified: 08/06/23 Time Notified: 14:17 Method of Notification: Text Reason For Visit: HYPOXIA 2/2 CAP VS AECOPD Diagnosis Discharge Diagnosis (1) COPD exacerbation: Status: Chronic Code(s): J44.1 - Chronic obstructive pulmonary disease with (acute) exacerbation Medications at Discharge Home Medications hydrochlorothiazide 12.5 mg capsule 12.5 mg PO DAILY Blood Pressure 01/26/19 lisinopril 20 mg tablet 20 mg PO DAILY blood pressure 01/26/19 metoprolol succinate 25 mg tablet,extended release 24 hr 12.5 mg PO DAILY blood pressure 01/26/19 simvastatin 20 mg tablet 20 mg PO DAILY Cholesterol 01/26/19 warfarin 5 mg tablet 5 mg PO DAILY blood thinner 01/26/19 acidophilus 100 million cell-pectin, citrus 10 mg capsule 2 ea PO DAILY supplement 04/13/20 apple cider vinegar 600 mg capsule 600 mg PO MOWEFR supplement 04/13/20 ascorbic acid (vitamin C) 1,000 mg tablet,extended release 1,000 mg PO DAILY vitamin c 04/13/20 bee pollen 550 mg capsule 1 tab PO DAILY supplement 04/13/20 calcium citrate 315 mg calcium-vitamin D3 6.25 mcg (250 unit) tablet 1 ea PO DAILY vitamin 04/13/20 cinnamon bark 500 mg capsule 500 mg PO BID supplement 04/13/20 coenzyme Q10 200 mg capsule 200 mg PO DAILY supplement 04/13/20 cyanocobalamin (vitamin B-12) 1,000 mcg capsule 1,000 mcg PO DAILY vitamin 04/13/20 docosahexaenoic acid 450 mg capsule 450 mg PO BID supplement 04/13/20 folic acid 1 mg tablet 1 mg PO DAILY supplement 04/13/20 glucosamine 750 [id number]-eug no1 644 mg-C 30 mg-dionte 1 mg tablet 2 ea PO DAILY supplement 04/13/20 magnesium oxide 400 mg (241.3 mg magnesium) tablet 400 mg PO DAILY supplement 04/13/20 multivitamin 1 ea PO MOWEFR vitamin 04/13/20 nitroglycerin 0.4 mg sublingual tablet 0.4 mg sublingual Q5M PRN Chest Pain 04/13/20 psyllium husk 3.4 gram/5.4 gram oral powder 660 g PO DAILY supplement 04/13/20 fluticasone fur. 100 mcg-umeclid 62.5 mcg-vilant 25 mcg inhalat.powder (Trelegy Ellipta) 1 inh inhalation BID breathing 08/05/23 amoxicillin 875 mg-potassium clavulanate 125 mg tablet 1 tab PO BID 5 days #10 tabs 08/07/23 prednisone 20 mg tablet 40 mg (2 x 20 mg) PO DAILY 3 days #6 tabs 08/07/23 Hospital Course Operations None Procedures - (CTA chest ) Summary of Care Provided Minutes Spent on Discharge: 35 Hospital Course: Patient is an 82-year-old male who presented to [facility] ED on 08/05/2023 with dyspnea on exertion and hypoxia. Short hospital course as noted below. Patient ultimately was stable for discharge home without need for supplemental oxygen on 08/07. 1. Acute hypoxia, resolved; history of COPD; suspected community-acquired pneumonia with a degree of radiation pneumonitis CTA chest on admit showed diffuse emphysematous changes in the upper lobes worse on the right side with infiltration in the right upper lobe as well as the right lung base with a small right pleural effusion. WBC count 15.8 on admit, heart rate with A-fib in 90s to 100s, afebrile, blood pressure stable. Patient did report mild right-sided pleuritic pain and chills at home prior to admission. Patient was requiring 3 L nasal cannula on admit at rest to maintain oxygen saturations greater than 90%. COVID and flu negative, respiratory PCR panel negative. Unable to provide sputum sample. Notably follows with Dr. De Leon at [facility] for pulmonology. ? Pulmonology followed. Patient improved on IV steroids, ceftriaxone and azithromycin while inpatient. Transitioned to p.o. prednisone 40 mg daily with plan for 5-day course (stop date 08/09), and p.o. Augmentin with plan for 7-day course (stop date 08/11). Patient completed ambulatory O2 test on discharge, maintained oxygen saturations greater than 88% so did not require supplemental O2 on discharge. Recommend close outpatient follow-up with his associate program manager. Continue home long-acting inhaler and short acting inhaler as needed. 2. Recent history of lung cancer Diagnosed 3 years ago, follows with Dr. Salvador and Dr. Michelle at [facility]. Patient opted to not undergo surgery but underwent radiation in 03/2023. Tolerated radiation well and had been doing well until this admission. ? Continue outpatient follow-up. 3. Liver hypodensity ? CT on admit demonstrated 1.3 cm well-defined hypodensity in the posterior aspect of the inferior right lobe of the liver. Correlation with ultrasound was recommended by radiology. However, patient refused ultrasound here, wishes to have ultrasound done in the outpatient setting if his oncologist recommends that he get this done. Recommend completing this ultrasound when able. Chronic medical conditions managed during hospitalization: ? Chronic A-fib on Coumadin: Continued home Coumadin. ? History of CAD: Continue home statin, beta-yury, Coumadin. Total clinical time spent by myself addressing the patient's discharge needs: 35 minutes. Physical Exam Const alert, oriented x3, no apparent distress and average body habitus Constitutional Narrative: Pleasant elderly male, appears younger than stated age, sitting comfortably in bedside chair, conversing normally, no acute distress. General Appearance: cooperative and comfortable HEENT normocephalic, head/scalp atraumatic, hearing grossly normal bilaterally, nasal mucous membranes and turbinates normal and moist oral mucous membranes Eyes PERRL, EOMs intact bilaterally and conjunctivae normal Neck full ROM, no lymphadenopathy and supple Lymph Lymphatic: no lymphadenopathy noted Chest inspection of chest normal Resp Resp Narrative: Satting well on room air at rest, no increased work of breathing noted. Crackles noted throughout right lung, worst at lung base. Fairly clear lung sounds in left lung. No wheezing noted. Cardio regular rate, regular rhythm, no murmurs and peripheral pulses 2+ throughout GI normal to inspection, nondistended, normoactive bowel sounds, soft to palpation, non-tender and non-distended Back/Spine normal ROM Extremity normal to inspection, full ROM and no pedal edema Skin no rashes or lesions noted Neuro moves all extremities and no focal motor deficits Speech: speech normal Psych mental status grossly normal Weight / BMI Weight Weight: 84.9 kg Body Mass Index (BMI) 26.2 ABG / Lab / Microbiology Data 08/06/23 03:27 08/06/23 03:27 Laboratory: Laboratory Results - last 24 hr 08/07/23 05:55: PT 32.4 H, INR 3.1 Microbiology: Microbiology 08/05/23 14:00 Blood Culture (Wb) - Right Forearm Blood Culture - Preliminary No growth in 48 hours. 08/05/23 13:55 Blood Culture (Wb) - Anticubital Left Blood Culture - Preliminary No growth in 48 hours. 08/06/23 21:15 Urine, Random Legionella Antigen - Final 08/06/23 21:15 Urine, Random Streptococcus pneumoniae Antigen (M - Final 08/05/23 17:46 Mucosa - Nasopharyngeal Respiratory Panel (PCR) - Final 08/05/23 12:55 Nasal Secretion SARS-CoV-2 & FLU Antigen (Rapid) - Final D/C Instructions Discharge Diet: No restrictions Pending Tests Upon Discharge: None Please Follow Up With: Lefty Samson MD When: As needed Meaningful Use Info Meaningful Use Diagnoses (Choose all that apply): None applicable Discharge Plan Admission Admit Date/Time: 08/05/23 14:26 Primary Reason for Your Visit: Worsening shortness of breath Attending Provider: Fredi Torres Primary Care Provider: Lefty Samson Consulting Providers: Kaylin Loenardo Instructions Additional Instructions / Restrictions: Please take the antibiotics and prednisone as indicated below. Follow-up with your primary care doctor as needed. Follow-up with your associate program manager in the next few weeks. Follow-up with your oncologist and discuss the need for a liver ultrasound to monitor the liver hypodensity seen on the CAT scan while you were here. Discharge Orders/Prescriptions Prescriptions: New prednisone 20 mg tablet 40 mg PO DAILY 3 Days Qty: 6 0RF amoxicillin-pot clavulanate 875-125 mg tablet 1 tab PO BID 5 Days Qty: 10 0RF Continued lisinopril 20 MG tablet 20 mg PO DAILY simvastatin 20 MG tablet 20 mg PO DAILY warfarin 5 MG tablet 5 mg PO DAILY Rx Instructions: 2.5MG MON & WED, 5MG ALL OTHER DAYS hydrochlorothiazide 12.5 MG capsule 12.5 mg PO DAILY metoprolol succinate 25 MG tablet extended release 24 hr 12.5 mg PO DAILY multivitamin 1 EACH tablet 1 ea PO MOWEFR ascorbic acid (vitamin C) 1,000 MG tablet extended release 1,000 mg PO DAILY magnesium oxide 400 MG tablet 400 mg PO DAILY apple cider vinegar 600 MG capsule 600 mg PO MOWEFR nitroglycerin 0.4 MG tablet, sublingual 0.4 mg sublingual Q5M PRN (Reason: Chest Pain) folic acid 1 MG tablet 1 mg PO DAILY cinnamon bark 500 MG capsule 500 mg PO BID coenzyme Q10 200 MG capsule 200 mg PO DAILY calcium citrate-vitamin D3 1 EACH tablet 1 ea PO DAILY acidophilus-pectin, citrus 1 EACH capsule 2 ea PO DAILY docosahexaenoic acid 450 MG capsule 450 mg PO BID jhbsfllc-[id number]-[id number]-C-dionet-bosw 1 EACH tablet 2 ea PO DAILY bee pollen 550 MG capsule 1 tab PO DAILY psyllium husk 660 GM powder 660 g PO DAILY cyanocobalamin (vitamin B-12) 1,000 MCG capsule 1,000 mcg PO DAILY Trelegy Ellipta 100-62.5-25 mcg blister with device 1 inh INHALATION BID Referrals / Follow Up: Lefty Samson MD [Primary Care Provider] - Disposition Disposition (needs filled in before D/C Order can be placed): Home, Self Care Charges/Coding Visit Charges Inpatient E&M: 28309 Disch Hosp >30min
--- NOTE | 2023-08-07 15:31 | CASEMGMT ---
Patient has order for discharge. RN CM in to discuss needs at discharge. Patient denies needs or help at discharge, daughter in law at bedside. Patient had no futher question or concerns at this time.
--- NOTE | 2023-08-07 16:22 | PHA.DC_ITS ---
Pharmacy [place] Med Reconciliation Pharmacy Service has performed discharge medication reconciliation for this patient. Unable to vocational guidance counselor, meds reviewed. The patient's discharge medication list was reviewed for discrepancies and discrepancies were resolved. Medications at Discharge Home Medications hydrochlorothiazide 12.5 mg capsule 12.5 mg PO DAILY Blood Pressure 01/26/19 lisinopril 20 mg tablet 20 mg PO DAILY blood pressure 01/26/19 metoprolol succinate 25 mg tablet,extended release 24 hr 12.5 mg PO DAILY blood pressure 01/26/19 simvastatin 20 mg tablet 20 mg PO DAILY Cholesterol 01/26/19 warfarin 5 mg tablet 5 mg PO DAILY blood thinner 01/26/19 acidophilus 100 million cell-pectin, citrus 10 mg capsule 2 ea PO DAILY supplement 04/13/20 apple cider vinegar 600 mg capsule 600 mg PO MOWEFR supplement 04/13/20 ascorbic acid (vitamin C) 1,000 mg tablet,extended release 1,000 mg PO DAILY vitamin c 04/13/20 bee pollen 550 mg capsule 1 tab PO DAILY supplement 04/13/20 calcium citrate 315 mg calcium-vitamin D3 6.25 mcg (250 unit) tablet 1 ea PO DAILY vitamin 04/13/20 cinnamon bark 500 mg capsule 500 mg PO BID supplement 04/13/20 coenzyme Q10 200 mg capsule 200 mg PO DAILY supplement 04/13/20 cyanocobalamin (vitamin B-12) 1,000 mcg capsule 1,000 mcg PO DAILY vitamin 04/13/20 docosahexaenoic acid 450 mg capsule 450 mg PO BID supplement 04/13/20 folic acid 1 mg tablet 1 mg PO DAILY supplement 04/13/20 glucosamine 750 ml-cisjwrtfzsc-qne no1 644 mg-C 30 mg-dionte 1 mg tablet 2 ea PO DAILY supplement 04/13/20 magnesium oxide 400 mg (241.3 mg magnesium) tablet 400 mg PO DAILY supplement 04/13/20 multivitamin 1 ea PO MOWEFR vitamin 04/13/20 nitroglycerin 0.4 mg sublingual tablet 0.4 mg sublingual Q5M PRN Chest Pain 04/13/20 psyllium husk 3.4 gram/5.4 gram oral powder 660 g PO DAILY supplement 04/13/20 fluticasone fur. 100 mcg-umeclid 62.5 mcg-vilant 25 mcg inhalat.powder (Trelegy Ellipta) 1 inh inhalation BID breathing 08/05/23 amoxicillin 875 mg-potassium clavulanate 125 mg tablet 1 tab PO BID 5 days #10 tabs 08/07/23 prednisone 20 mg tablet 40 mg (2 x 20 mg) PO DAILY 3 days #6 tabs 08/07/23
== END 2023-08-07 16:42 | disposition home or self-care (01) | DRG 206 ==
LOC: ED 14:01 → PCU 15:53
PROVIDERS: Physician Assistant; Admitting Provider Internal Medicine; Emergency Provider Emergency Medicine; PCP Family Medicine; Referring Provider Emergency Medicine; Visit Provider Hospitalist
DX: J70.0 Acute pulmonary manifestations due to radiation (principal); I48.20 Chronic atrial fibrillation, unspecified; J44.1 Chronic obstructive pulmonary disease with (acute) exacerbation; J44.0 Chronic obstructive pulmonary disease with (acute) lower respiratory infection; I10 Essential (primary) hypertension; E78.5 Hyperlipidemia, unspecified; I25.10 Atherosclerotic heart disease of native coronary artery without angina pectoris; R09.02 Hypoxemia; R93.2 Abnormal findings on diagnostic imaging of liver and biliary tract; Z95.5 Presence of coronary angioplasty implant and graft; Z79.01 Long term (current) use of anticoagulants; Z79.51 Long term (current) use of inhaled steroids; Z85.118 Personal history of other malignant neoplasm of bronchus and lung; Z87.891 Personal history of nicotine dependence
CPT/HCPCS: 36415; 71275; 80048; 80053; 83880; 84484; 85025; 85610; 87040; 87428; 87449; 87633; 93005; 94640; 94668; 97802; 99252; 99285; J7030; J7040; Q9967; A4216; G0463; J0696

== ENCOUNTER 2024-08-12 13:38 | Inpatient (IN) | payer MEDICARE, OTHER, SELFPAY ==
[2024-08-12] VITALS (13 sets, daily range): BP systolic 111–180; BP diastolic 67–93; PULSE 62–90; RESP 16–22; TEMP 36.3–36.9; O2SAT 82–96; BMI 27.4; BMI 27.0
--- NOTE | 2024-08-12 13:58 | EKG12_ITS ---
Test Reason : Blood Pressure : */* mmHG Vent. Rate : 60 BPM Atrial Rate : * BPM P-R Int : * ms QRS Dur : 96 ms QT Int : 418 ms P-R-T Axes : * 35 -26 degrees QTcB Int : 418 ms Atrial fibrillation Abnormal QRS-T angle, consider primary T wave abnormality Abnormal ECG Confirmed by HEBER DIMAS, RONNIE ([id number]), editor trade journal YONIS KINCAID ([id number]) on 08/13/2024 10:58:44 AM Referred By: DELLA Confirmed By: RONNIE BUCK MD
--- NOTE | 2024-08-12 14:22 | EDS_ITS ---
HPI History of Present Illness Chief Complaint: Shortness of Breath Detail of Chief Complaint: Increasing shortness of breath over the past couple of days Informant: patient and family Onset/Context/Timing Onset: Days Context: Gradual Onset Timing: Continuous Quality: Dyspnea, dyspnea on exertion history of pleural effusion requiring thoracen Location: Pulmonary Current Severity: Mild Maximum Severity: Severe Worsened by: Minimal activity Relieved by: Nothing Associated Symptoms Associated Symptoms: Essentially nonproductive cough, sputum is clear Narrative Narrative: Patient is a 83-year-old male. He does not have a living will and CODE STATUS has not been defined. He has history of COPD, hyperlipidemia, hypertension, chronic atrial fibrillation on Coumadin, coronary disease and DVT lower EXTR per patient. He is a patient of Dr. Norbert Salvador and Dr. Michelle through the [facility]. He presents because of increasing shortness of breath and significant shortness of breath with minimal walking. He states after 5 to 10 feet he has to sit down. On presentation he was hypoxic. He is not on home oxygen. Patient was recently admitted for COPD exacerbation with hypoxia, approximately 1 week ago. He denies fever, chills night sweats. He denies abdominal pain. He denies nausea, vomiting or diarrhea. Denies black or maroon-colored stool. He denies dysuria, frequency, urgency or hematuria. Patient is on Coumadin. He states his level was last checked at the [facility] last week and was 2.7. Patient states he was diagnosed with the cancer 2 to 3 years ago. 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 Initially there was a nodule. He elected conservative therapy i.e. no therapy. Patient had a CT on admission that revealed a 1.3 cm well-defined hypodensity in the posterior aspect of the inferior right lobe of the liver. Radiologist recommended ultrasound for correlation. Patient refused. He states he would have this done through the [facility] since his doctors are affiliated with [facility]. Prior similar symptoms: Yes Recent Illness/Hospitalization: Yes [facility] Medical History History of lung cancer HLD (hyperlipidemia) Afib CAD (coronary artery disease) Lung cancer Atrial fibrillation CAD (coronary artery disease) Home Medications ?Medication ?Instructions ?Recorded ?Last Taken ?Type hydrochlorothiazide 12.5 mg capsule 12.5 mg PO DAILY Blood Pressure 01/26/19 08/05/23 History lisinopril 20 mg tablet 20 mg PO DAILY blood pressure 01/26/19 08/05/23 History metoprolol succinate 25 mg 12.5 mg PO DAILY blood pressure 01/26/19 08/05/23 History tablet,extended release 24 hr simvastatin 20 mg tablet 20 mg PO DAILY Cholesterol 01/26/19 08/05/23 History warfarin 5 mg tablet 5 mg PO DAILY blood thinner 01/26/19 08/05/23 History acidophilus 100 million 2 ea PO DAILY supplement 04/13/20 08/05/23 History cell-pectin, citrus 10 mg capsule apple cider vinegar 600 mg capsule 600 mg PO MOWEFR supplement 04/13/20 08/02/23 History ascorbic acid (vitamin C) 1,000 mg 1,000 mg PO DAILY vitamin c 04/13/20 08/05/23 History tablet,extended release bee pollen 550 mg capsule 1 tab PO DAILY supplement 04/13/20 08/05/23 History calcium 315 mg (as 1 ea PO DAILY vitamin 04/13/20 08/05/23 History citrate)-vitamin D3 6.25 mcg (250 unit) tablet cinnamon bark 500 mg capsule 500 mg PO BID supplement 04/13/20 08/05/23 History coenzyme Q10 200 mg capsule 200 mg PO DAILY supplement 04/13/20 08/05/23 History cyanocobalamin (vitamin B-12) 1,000 mcg PO DAILY vitamin 04/13/20 08/05/23 History 1,000 mcg capsule docosahexaenoic acid 450 mg capsule 450 mg PO BID supplement 04/13/20 08/05/23 History folic acid 1 mg tablet 1 mg PO DAILY supplement 04/13/20 08/05/23 History glucosamine 750 [id number] 2 ea PO DAILY supplement 04/13/20 08/05/23 History no1 644 mg-C 30 mg-dionte 1 mg tablet magnesium oxide 400 mg (241.3 mg 400 mg PO DAILY supplement 04/13/20 08/05/23 History magnesium) tablet multivitamin 1 ea PO MOWEFR vitamin 04/13/20 08/02/23 History nitroglycerin 0.4 mg sublingual 0.4 mg sublingual Q5M PRN Chest 04/13/20 Unknown History tablet Pain psyllium husk 3.4 gram/5.4 gram 660 g PO DAILY supplement 04/13/20 08/05/23 History oral powder fluticasone fur. 100 mcg-umeclid 1 inh inhalation BID breathing 08/05/23 08/05/23 History 62.5 mcg-vilant 25 mcg inhalat.powder (Trelegy Ellipta) amoxicillin 875 mg-potassium 1 tab PO BID 5 days #10 tabs 08/07/23 Unknown Rx clavulanate 125 mg tablet Allergy/AdvReac Type Severity Reaction Status Date / Time No Known Allergies Allergy Verified 08/05/23 11:12 Surgical History History of bronchoscopy Social History (Updated 08/12/24 @ 14:[address] Ken Mathew MD) household members: none Smoking Status: Former smoker ROS ROS ED Constitutional Constitutional ED: Reports weight loss; Denies chills, fever(s), subjective or sweats Eyes Eyes: Denies blurry vision or change in vision ENT ENT ED: Denies ear pain or rhinorrhea Cardiovascular Cardiovascular: Reports orthopnea; Denies chest pain, palpitations, paroxysmal nocturnal dyspnea or racing heartbeat Respiratory/Chest Respiratory/Chest: Reports cough, dyspnea, dyspnea on exertion, orthopnea, sputum and other Details: Sputum is clear. He has had orthopnea for some time with no significant change. ; Denies paroxysmal nocturnal dyspnea Gastrointestinal Gastrointestinal: Denies abdominal pain, constipation, diarrhea, melena, nausea or vomiting Genitourinary Genitourinary ED: Denies dysuria, hematuria or urinary frequency Musculoskeletal Musculoskeletal: Denies arthralgias Integumentary Denies rash Neurologic Neurologic: Reports weakness; Denies headache(s) or paresthesias Psychiatric Psychiatric: Denies anxiety or depression Hematologic/Lymphatic Hematologic/Lymphatic: Reports systems reviewed and no addt'l complaints, except as documented and easy bruising; Denies lymphadenopathy EXAM Physical Exam Const Vital Signs: 08/12/24 13:39 08/12/24 13:47 08/12/24 13:49 Temperature 97.6 F L Temperature Source Temporal Pulse Rate 90 Respiratory Rate 22 H Respiratory Effort Short of Breath Respiratory Depth Shallow Respiratory Pattern Tachypnea Blood Pressure 180/85 H Blood Pressure Mean 116 Pulse Ox 82 93 Oxygen Delivery Method Room Air Nasal Cannula Nasal Cannula Oxygen Flow Rate (L/min) 4 4 08/12/24 14:43 08/12/24 15:00 08/12/24 16:00 Temperature 97.5 F L 97.8 F 97.9 F Temperature Source Temporal Oral Temporal Pulse Rate 65 62 70 Respiratory Rate 18 16 22 H Respiratory Effort Respiratory Depth Respiratory Pattern Blood Pressure 111/77 143/68 H 150/79 H Blood Pressure Mean 88 93 102 Pulse Ox 95 96 94 Oxygen Delivery Method Nasal Cannula Nasal Cannula Nasal Cannula Oxygen Flow Rate (L/min) 4 4 Positive well nourished and well developed Constitutional Narrative: Patient is tachypneic. He has conversational dyspnea even with oxygen on. General Appearance ED: well developed and pallor; Negative for cyanotic, diaphoretic or NAD HEENT Reports dry mucous membranes HEENT Narrative: Head is atraumatic normocephalic. Ears normal. Nares patent. Posterior pharynx is normal. Mouth ED: Yes dry mucous membranes Mouth: dry mucous membranes Eyes PERRL and EOMs intact bilaterally General Eye ED: Yes pale conjunctiva; Negative for scleral icterus Neck no lymphadenopathy Chest Wall inspection of chest normal and palpation of chest normal Resp No normal respiratory effort and No clear to auscultation bilaterally Effort and Inspection: Negative for retractions or pain with movement Auscultation: rales right lower (Equivocal egophony) Cardio regular rate, S1 normal heart sound, S2 normal heart sound and no murmurs; Negative for regular rhythm Rhythm: abnormal rhythm irregularly irregular GI normal to inspection, nondistended, normoactive bowel sounds, non-tender, non- distended and no masses; Negative for hepatosplenomegaly Back/Spine no CVA tenderness Thoracic Spine / Upper Back: Negative for thoracic spinal tenderness Lumbar Spine / Lower Back: Negative for lumbar spinal tenderness Extremity Negative for normal to inspection Extremity Narrative: Edema is pitting in nature involving the right and left leg and feet. General Extremety ED: Yes edema General Extremity: edema Neuro oriented x3 and CN's II-XII intact bilaterally Sensorium / Orientation: alert Psych mental status grossly normal Skin no rashes or lesions noted, no wounds and No skin turgor normal General Skin Exam: pallor; Negative for elasticity normal MDM MDM MDM Narrative Medical decision making narrative: Differential diagnosis would be pneumonia, pleural effusion, congestive heart failure, pulmonary embolus. Cardiac ischemia is another consideration since he is complaining of orthopnea. Workup included EKG, chest x-ray and appropriate blood work. Prior records were reviewed. As noted he was recently admitted. History & Record Review Additional record(s) reviewed:: Prior inpatient record (Recent admission to the hospital August 05 through August 07, 2023. Patient was admitted for ex acerbation of COPD. Patient had hypoxia that resolved. There was concern for commune acquired pneumonia with the degree of radiation pneumonitis.), Prior ED visit and Prior labs Lab Data Attestation: I reviewed the patient's lab results. Lab results narrative: Patient CBC is unremarkable. INR is therapeutic at 3.1. Lactate is normal at 1.6. Comprehensive metabolic panel reveals an elevated BUN/creatinine of 24 and 1.12 with an estimated GFR of 66. Glucose is slightly evaded 121 with a normal CO2 anion gap. Transaminases are normal. Labs: Laboratory Results - last 24 hr 08/12/24 08/12/24 14:08 14:42 WBC 9.1 RBC 4.43 L Hgb 14.1 Hct 43.6 MCV 98.4 H MCH 31.8 MCHC 32.3 RDW Std Deviation 51.5 H RDW Coeff of [place] 14.0 Plt Count 159 MPV 10.2 Immature Gran % (Auto) 0.300 Neut % (Auto) 80.4 H Lymph % (Auto) 9.0 L [place] % (Auto) 9.1 Eos % (Auto) 0.8 Baso % (Auto) 0.4 Absolute Neuts (auto) 7.3 Absolute Lymphs (auto) 0.82 L Nucleated RBC % 0 PT 31.6 H INR 3.1 Sodium 139 Potassium 3.7 Chloride 105 Carbon Dioxide 31.0 Anion Gap 3 L BUN 24 H Creatinine 1.12 Estim Creat Clear Calc 49.79 Est GFR (MDRD) Af Amer 80 Est GFR (MDRD) Non-Af 66 BUN/Creatinine Ratio 21.4 H Glucose 121 H Lactic Acid 1.6 Calcium 9.3 Total Bilirubin 1.40 H AST 27 ALT 23 Alkaline Phosphatase 78 Total Protein 6.9 Albumin 3.7 Globulin 3.2 Albumin/Globulin Ratio 1.2 Radiography Chest X-Ray - ED: 2 View, Read by ED Physician, Heart, Lungs, Mediastinum, Bony Structures, Right Infiltrate, Right Effusion and - (These are changes since July 2023. There are no more recent images for comparison) Diagnostic Testing: Clinical Impression(s) from Imaging Studies Chest X-Ray 08/12/24 14:30 IMPRESSION: Right pleural effusion with underlying atelectasis at the right lung base superimposed on CHF. Cardiomegaly. Electronically Signed: Jermaine Garcia MD at 14:59 EST , EKG Initial EKG: Attestation: I personally reviewed and interpreted this EKG as follows: Interpretation: Atrial Fibrillation (Rate is 60. QRS complexes 96. QT duration is 418 ms. Jbphh is normal.) Management Discussion w/another healthcare provider: Hospitalist (Case discussed with Dr. Michael Torres. Full admit MedSurg. He will order a stat noncontrast CT of the chest to evaluate the effusion and abnormality noted in the right lower lobe. Since he has no infectious symptoms this may represent the malignancy with an effusion. He may also have right hear) Discharge Plan Triage Chief Complaint: Shortness of Breath ED Provider: Ken Mathew Dx/Rx/DC Orders Clinical Impression: Acute hypoxemic respiratory failure, HTN (hypertension), HLD (hyperlipidemia), Pleural effusion, right, Right lower lobe pulmonary infiltrate, History of COPD, History of lung cancer in adulthood Prescriptions: No Action lisinopril 20 MG tablet 20 mg PO DAILY simvastatin 20 MG tablet 20 mg PO DAILY warfarin 5 MG tablet 5 mg PO DAILY Rx Instructions: 2.5MG MON & FRI, 5MG ALL OTHER DAYS hydrochlorothiazide 12.5 MG capsule 12.5 mg PO DAILY metoprolol succinate 25 MG tablet extended release 24 hr 12.5 mg PO DAILY multivitamin 1 EACH tablet 1 ea PO MOWEFR ascorbic acid (vitamin C) 1,000 MG tablet extended release 1,000 mg PO DAILY magnesium oxide 400 MG tablet 400 mg PO DAILY apple cider vinegar 600 MG capsule 600 mg PO MOWEFR nitroglycerin 0.4 MG tablet, sublingual 0.4 mg sublingual Q5M PRN (Reason: Chest Pain) folic acid 1 MG tablet 1 mg PO DAILY cinnamon bark 500 MG capsule 500 mg PO BID coenzyme Q10 200 MG capsule 200 mg PO DAILY calcium citrate-vitamin D3 1 EACH tablet 1 ea PO DAILY acidophilus-pectin, citrus 1 EACH capsule 2 ea PO DAILY docosahexaenoic acid 450 MG capsule 450 mg PO BID [id number] 1 EACH tablet 2 ea PO DAILY bee pollen 550 MG capsule 1 tab PO DAILY psyllium husk 660 GM powder 660 g PO DAILY cyanocobalamin (vitamin B-12) 1,000 MCG capsule 1,000 mcg PO DAILY Trelegy Ellipta 100-62.5-25 mcg blister with device 1 inh INHALATION BID amoxicillin-pot clavulanate 875-125 mg tablet 1 tab PO BID 5 Days Qty: 10 0RF Primary Care Provider: Lefty Samson Referrals: Lefty Samson MD [Primary Care Provider] - Print Language: Croatian Disposition Disposition: Acute Care Hospital [facility]
[2024-08-12 14:25] LABS: Absolute Lymphocyte Count 0.82 X10^3/uL (0.83-4.51); Absolute Neutrophil Count 7.3 X10^3/uL (2.0-7.7); Basophil# 0.04 X10^3/uL; Basophil% 0.4 % (0-1); Eosinophil# 0.07 X10^3/uL; Eosinophils% 0.8 % (0-5); Hematocrit 43.6 % (40-54); Hemoglobin 14.1 g/dL (13.0-16.5); Lymphocyte # 0.82 X10^3/ul (0.83-4.51); Mean Corp Hgb Conc 32.3 g/dL (32-36); Mean Corpuscular Hgb 31.8 pg (27.0-32.0); Mean Corpuscular Volume 98.4 fL (80-94); Mean Platelet Vol. 10.2 fl (6.2-12.0); Monocyte# 0.83 X10^3/uL; Monocyte% 9.1 % (0-10); NRBC Flagged by Analyzer 0 % (0-5); Neutrophil # 7.34 X10^3/uL (2.7-7.7); Neutrophil % 80.4 % (47-70); Platelet Count 159 K/mm3 (150-450); RBC Distribution Width SD 51.5 fl (35.1-43.9); Red Blood Count 4.43 M/mm3 (4.6-6.2); White Blood Count 9.1 K/mm3 (4.4-11.0)
--- NOTE | 2024-08-12 14:30 | RAD_ITS ---
STUDY: X-RAY CHEST REASON FOR EXAM: Male, 83 years old. Dyspnea, hypoxia, rales RLL and ? Egophony TECHNIQUE: AP and lateral views of the chest. COMPARISON: Comparison is made with prior study January 24, 2023. FINDINGS: EKG electrodes are seen Small right pleural effusion with right basilar infiltration and/or atelectasis superimposed on CHF. There is mild cardiac enlargement. Normal mediastinum and allison. Normal visualized pulmonary arteries. There is atherosclerotic calcification of the aortic arch with tortuosity. There are diffuse degenerative changes of the visualized thoracic spine. Normal visualized ribs, clavicles, and shoulders. There is no demonstrated abnormality of the visualized soft tissue structures of the upper abdomen. RAD/Chest PA and Lateral IMPRESSION: Right pleural effusion with underlying atelectasis at the right lung base superimposed on CHF. Cardiomegaly. Electronically Signed: Jermaine Garcia MD at 14:59 EST ,
[2024-08-12 14:32] LABS: International Normalized Ratio 3.1; Prothrombin Time (Protime)PT. 31.6 SECONDS (11.7-14.9)
[2024-08-12 14:52] LABS: ALB/GLOB Ratio 1.2 RATIO (0.9-2.4); AST(SGOT) 27 U/L (15-37); Alanine Aminotransfer ALT/SGPT 23 U/L (16-61); Albumin, Serum 3.7 g/dL (3.2-5.0); Alkaline Phosphatase 78 U/L (45-117); Anion Gap 3 (5-15); BUN 24 mg/dL (7-18); BUN/Creat Ratio 21.4 RATIO (10-20); Calcium,Total 9.3 mg/dL (8.5-10.1); Chloride 105 mmol/L (98-107); Creatinine, Serum 1.12 mg/dL (0.70-1.30); EST Glomerular Filtration Rate 66 mL/min (>60); Est Glom Filt Rate - Afr Amer 80 mL/min (>60); Estimated Creatinine Clearance 49.79 ml/min; Globulin 3.2 g/dL (2.2-4.2); Glucose 121 mg/dL (74-106); Potassium 3.7 mmol/L (3.5-5.1); Protein, Total 6.9 g/dL (6.4-8.2); Sodium Level 139 mmol/L (136-145)
[2024-08-12 15:14] LABS: Lactic Acid 1.6 mmol/L (0.4-1.9)
--- NOTE | 2024-08-12 16:20 | PCM.HP.STD ---
HPI - General General Date of Admission: 08/12/24 Date of Service: 08/12/24 Chief Complaint: Worsening shortness of breath HPI Narrative TAO CLARK, is a 83 M who presented to [facility] ED on 08/12/2024 with worsening shortness of breath with exertion. [facility] to gather patient's history. Patient has history of lung cancer and follows with Dr. Salvador. He last saw Dr. Salvador in the office on 07/07. Noted at that time that patient does not want undergo any therapy due to potential risk involved with treatment with either chemotherapy or oral targeted therapy. Patient had radiation therapy done back in March 2023. He has had two thoracenteses done in the past several months. It appears that about 1000 mL were removed for each thoracentesis. Last thoracentesis was done at the beginning of May. Patient notes that he had been doing fairly well until the last several days when he developed worsening shortness of breath with exertion. Denied any cough or sputum production. Denied any fevers or chills. Denied any chest pain associated with the shortness of breath. In the ED patient was satting in the low 80s on room air and was placed on 4 L nasal cannula with improvement in saturations to the mid 90s. He otherwise was afebrile and hemodynamically stable. CBC and BMP were unremarkable. Had mildly elevated total bilirubin of 1.40, LFTs were otherwise normal. INR was 3.1 and patient notably is on Coumadin for chronic A-fib with goal INR 2-3. Chest x-ray showed a right pleural effusion with underlying atelectasis of the right lung base superimposed on CHF with cardiomegaly. CT chest without contrast showed moderate to large right-sided pleural effusion with worsening area of airspace consolidation at right lung base, as well as diffuse emphysematous changes throughout the remaining lung zones. Given these findings, hospitalist was contacted for admission. I saw the patient at bedside in the ED, and son were present. Patient was sitting up comfortably in bed, conversing normally, no acute distress. He was breathing comfortably on 4 L nasal cannula at rest. He currently denied any acute concerns. Will be admitted for further management. [facility] Medical History History of lung cancer HLD (hyperlipidemia) Afib CAD (coronary artery disease) Lung cancer Atrial fibrillation CAD (coronary artery disease) Home Medications ?Medication ?Instructions ?Recorded ?Last Taken ?Type hydrochlorothiazide 12.5 mg capsule 12.5 mg PO DAILY Blood Pressure 01/26/19 08/05/23 History lisinopril 20 mg tablet 20 mg PO DAILY blood pressure 01/26/19 08/05/23 History metoprolol succinate 25 mg 12.5 mg PO DAILY blood pressure 01/26/19 08/05/23 History tablet,extended release 24 hr simvastatin 20 mg tablet 20 mg PO DAILY Cholesterol 01/26/19 08/05/23 History warfarin 5 mg tablet 5 mg PO DAILY blood thinner 01/26/19 08/05/23 History acidophilus 100 million 2 ea PO DAILY supplement 04/13/20 08/05/23 History cell-pectin, citrus 10 mg capsule apple cider vinegar 600 mg capsule 600 mg PO MOWEFR supplement 04/13/20 08/02/23 History ascorbic acid (vitamin C) 1,000 mg 1,000 mg PO DAILY vitamin c 04/13/20 08/05/23 History tablet,extended release bee pollen 550 mg capsule 1 tab PO DAILY supplement 04/13/20 08/05/23 History calcium 315 mg (as 1 ea PO DAILY vitamin 04/13/20 08/05/23 History citrate)-vitamin D3 6.25 mcg (250 unit) tablet cinnamon bark 500 mg capsule 500 mg PO BID supplement 04/13/20 08/05/23 History coenzyme Q10 200 mg capsule 200 mg PO DAILY supplement 04/13/20 08/05/23 History cyanocobalamin (vitamin B-12) 1,000 mcg PO DAILY vitamin 04/13/20 08/05/23 History 1,000 mcg capsule docosahexaenoic acid 450 mg capsule 450 mg PO BID supplement 04/13/20 08/05/23 History folic acid 1 mg tablet 1 mg PO DAILY supplement 04/13/20 08/05/23 History glucosamine 750 os-kljajxevavn-zhn 2 ea PO DAILY supplement 04/13/20 08/05/23 History no1 644 mg-C 30 mg-dionte 1 mg tablet magnesium oxide 400 mg (241.3 mg 400 mg PO DAILY supplement 04/13/20 08/05/23 History magnesium) tablet multivitamin 1 ea PO MOWEFR vitamin 04/13/20 08/02/23 History nitroglycerin 0.4 mg sublingual 0.4 mg sublingual Q5M PRN Chest 04/13/20 Unknown History tablet Pain psyllium husk 3.4 gram/5.4 gram 660 g PO DAILY supplement 04/13/20 08/05/23 History oral powder fluticasone fur. 100 mcg-umeclid 1 inh inhalation BID breathing 08/05/23 08/05/23 History 62.5 mcg-vilant 25 mcg inhalat.powder (Trelegy Ellipta) amoxicillin 875 mg-potassium 1 tab PO BID 5 days #10 tabs 08/07/23 Unknown Rx clavulanate 125 mg tablet Allergy/AdvReac Type Severity Reaction Status Date / Time No Known Allergies Allergy Verified 08/05/23 11:12 Surgical History History of bronchoscopy Social History (Updated 08/12/24 @ 14:[address] Ken Mathew MD) household members: none Smoking Status: Former smoker ROS Constitutional Constitutional: Denies chills, fatigue, fever(s) or weakness Eyes Eyes: Denies change in vision Cardiovascular Cardiovascular: Reports dyspnea on exertion; Denies chest pain, edema, lightheadedness, palpitations or rapid heart rate Respiratory/Chest Respiratory/Chest: Reports shortness of breath with exertion; Denies cough, productive cough, shortness of breath at rest or wheezing Gastrointestinal Gastrointestinal: Denies abdominal pain Genitourinary Genitourinary: Denies dysuria Musculoskeletal Musculoskeletal: Denies arthralgias or myalgias Neurologic Neurologic: Denies dizziness or headache(s) Vital Signs Vital Signs Vital Signs: 08/12/24 13:39 08/12/24 13:47 08/12/24 13:49 Temperature 97.6 F L Temperature Source Temporal Pulse Rate 90 Respiratory Rate 22 H Respiratory Effort Short of Breath Respiratory Depth Shallow Respiratory Pattern Tachypnea Blood Pressure 180/85 H Blood Pressure Mean 116 Pulse Ox 82 93 Oxygen Delivery Method Room Air Nasal Cannula Nasal Cannula Oxygen Flow Rate (L/min) 4 4 08/12/24 14:43 08/12/24 15:00 08/12/24 16:00 Temperature 97.5 F L 97.8 F 97.9 F Temperature Source Temporal Oral Temporal Pulse Rate 65 62 70 Respiratory Rate 18 16 22 H Respiratory Effort Respiratory Depth Respiratory Pattern Blood Pressure 111/77 143/68 H 150/79 H Blood Pressure Mean 88 93 102 Pulse Ox 95 96 94 Oxygen Delivery Method Nasal Cannula Nasal Cannula Nasal Cannula Oxygen Flow Rate (L/min) 4 4 Weight Weight: 86.7 kg Body Mass Index (BMI) 27.4 Physical Exam Const alert, oriented x3, no apparent distress and average body habitus Constitutional Narrative: Pleasant elderly male, mildly fatigued appearing but otherwise sitting up comfortably in bed, conversing normally, in no acute distress. General Appearance: cooperative and comfortable HEENT normocephalic, head/scalp atraumatic, hearing grossly normal bilaterally, nasal mucous membranes and turbinates normal and moist oral mucous membranes Eyes PERRL, EOMs intact bilaterally and conjunctivae normal Neck full ROM Chest inspection of chest normal Resp normal respiratory effort and no use of accessory muscles Resp Narrative: Breathing comfortably on 4 L nasal cannula at rest. Significantly decreased breath sounds in right lung base with crackles noted in bilateral airways, no wheezing noted. Cardio regular rate, regular rhythm, no murmurs and peripheral pulses 2+ throughout GI normal to inspection, nondistended, normoactive bowel sounds, soft to palpation, non-tender and non-distended Back/Spine normal ROM Extremity Extremity Narrative: Trace lower extremity edema noted. Skin no rashes or lesions noted Psych mental status grossly normal Results Lab / Micro Data 08/12/24 14:08 08/12/24 14:08 Labs: Laboratory Results - last 24 hr 08/12/24 14:08: WBC 9.1, RBC 4.43 L, Hgb 14.1, Hct 43.6, MCV 98.4 H, MCH 31.8, MCHC 32.3, RDW Std Deviation 51.5 H, RDW Coeff of [place] 14.0, Plt Count 159, MPV 10.2, Immature Gran % (Auto) 0.300, Neut % (Auto) 80.4 H, Lymph % (Auto) 9.0 L, [place] % (Auto) 9.1, Eos % (Auto) 0.8, Baso % (Auto) 0.4, Absolute Neuts (auto) 7.3, Absolute Lymphs (auto) 0.82 L, Nucleated RBC % 0, PT 31.6 H, INR 3.1, Sodium 139, Potassium 3.7, Chloride 105, Carbon Dioxide 31.0, Anion Gap 3 L, BUN 24 H, Creatinine 1.12, Estim Creat Clear Calc 49.79, Est GFR (MDRD) Af Amer 80, Est GFR (MDRD) Non-Af 66, BUN/Creatinine Ratio 21.4 H, Glucose 121 H, Calcium 9.3, Total Bilirubin 1.40 H, AST 27, ALT 23, Alkaline Phosphatase 78, Total Protein 6.9, Albumin 3.7, Globulin 3.2, Albumin/Globulin Ratio 1.2 08/12/24 14:42: Lactic Acid 1.6 Imaging Radiology Impression Chest X-Ray 08/12/24 14:30 IMPRESSION: Right pleural effusion with underlying atelectasis at the right lung base superimposed on CHF. Cardiomegaly. Electronically Signed: Jermaine Garcia MD at 14:59 EST Reading Location ID and State: [facility] / [place] , Service support , Assessment & Plan Assessment/Plan (1) Hypoxia: (2) Pleural effusion, right: (3) History of COPD: PLAN: Plan Patient is an 83-year-old male who presented to [facility] ED on 08/12/2024 with worsening shortness of breath on exertion. 1. Acute hypoxia suspected secondary to recurrent right pleural effusion in setting of known lung cancer with concern for new CHF; history of COPD with emphysema ? Admit under inpatient status to [facility]. Known history of lung cancer with 2 prior right-sided thoracenteses, last one in May. CT chest on admit showed moderate to large right-sided pleural effusion with worsening area of airspace consolidation at right lung base, as well as diffuse emphysematous changes throughout the remaining lung zones. Suspect patient has borderline chronic hypoxia given his underlying COPD with emphysema and acutely worsened hypoxia secondary to pleural effusion. Patient had echo done in 12/2023 that showed normal EF and mild pulmonary hypertension but the study was noted to be technically difficult. Cannot rule out new CHF at this time. Echo ordered. Radiology consulted for diagnostic and therapeutic thoracentesis. Will hold home warfarin for now and give a dose of oral vitamin K 5 mg tonight. Monitor daily INR as noted below. Continue home inhalers. 2. Chronic A-fib on Coumadin ? INR 3.1 on admit, goal 2-3. In rate controlled A-fib on admit. Continue home Toprol. Managing warfarin for now as above. 3. History of nonobstructive CAD, hypertension, hyperlipidemia ? Stable. Continue home lisinopril, hydrochlorothiazide, Toprol and simvastatin. DVT prophylaxis: Not indicated, on Coumadin CODE STATUS: DNR CCA, okay to intubate Expected disposition: Home, 2 to 3 days Total clinical time spent by myself addressing the patient's medical issues, reviewing all the data, and collaborating with patient's care team: 55 minutes. Charges/Coding Visit Charges Inpatient E&M: 82740 Init Hosp L2
[2024-08-12] MEDS: Furosemide 20 MG/2 ML VIAL IV (16:35)
--- NOTE | 2024-08-12 16:49 | CT_ITS ---
INDICATION: further eval for R pnea vs effusion EXAMINATION: CT CHEST WITHOUT CONTRAST - CT Chest W/O Contrast Injection TECHNIQUE: Helically acquired images were obtained of the chest. A radiation dose optimization technique was used for this scan. IV Contrast dosage and agent: None. COMPARISON: Chest radiograph of 08/12/2024, chest CT of 08/05/2023. FINDINGS: LUNGS, PLEURA AND LARGE AIRWAYS: 1. There is significant area of worsening airspace consolidation at the RIGHT lung base with areas of significant alveolar consolidation and additional adjacent interstitial and groundglass infiltrate. Lymphangitic changes are present. There is a moderate to large RIGHT effusion. 2. There has been resolution of previous area of airspace density in the RIGHT upper lobe with mild residual scar and bullous changes noted. Significant pleural thickening and parenchymal distortion along the periphery of the RIGHT upper lobe. 3. Significant emphysematous change throughout the LEFT lung. There is however an area of pleural thickening versus posterior consolidation LEFT lower lobe. Small LEFT effusion is present. THYROID: No thyroid lesions. HEART AND PERICARDIUM: Heart size is moderately enlarged. No pericardial effusion. Coronary vascular calcifications are present. Additional valvular calcifications noted. VESSELS: Thoracic aorta is not dilated. Diffuse vascular calcification throughout the aorta. MEDIASTINUM AND MONI: No mediastinal or hilar adenopathy. Esophagus is unremarkable. No hiatal hernia. UPPER ABDOMEN: No acute pathology. There is a 1.3 cm low-density lesion in the RIGHT hepatic lobe without interval change. Stable granuloma in the spleen. BONES: No suspicious lytic or blastic abnormality. CT/Chest without Contrast IMPRESSION: 1. Worsening area of airspace consolidation/infiltrate at the RIGHT lung base. Moderate to large RIGHT effusion. 2. Improvement previous area of infiltrate in the RIGHT upper lobe however residual scarring and distortion of the RIGHT upper lobe. 3. Diffuse emphysematous changes throughout the remaining lung zones. 4. Coronary vascular calcifications and vascular calcifications. Borderline cardiomegaly is noted. 5. RIGHT hepatic lesion measuring 1.3 cm without significant change. Electronically Signed: Oscar De Leon MD at 18:06 EST ,
[2024-08-12 18:12] LABS: LDH 266 U/L (87-241)
--- NOTE | 2024-08-12 18:19 | ECHOCS_ITS ---
Reason For Study: CONGESTIVE HEART FAILURE Procedure This was a 2D Doppler, Color Flow transthoracic echocardiogram. The study was technically difficult. Contrast injection was performed. Exam performed portable in patient room. Left Ventricle Normal LV size. Left ventricular systolic function is normal. The left ventricular ejection fraction is 55 %. No regional wall motion abnormalities noted. Right Ventricle Normal RV size. Normal systolic function. Atria Normal left atrium. Normal right atrium. Mitral Valve Normal mitral valve. Tricuspid Valve Normal tricuspid valve. Moderate (2+) tricuspid valve insufficiency. Pulmonary artery systolic pressure is 66 mmHg. Aortic Valve Trisinus/trileaflet aortic valve. Moderate focal aortic valve calcification. Aortic sclerosis, no stenosis. Pulmonic Valve Normal pulmonic valve. Mild (1+) pulmonic valve insufficiency. Great Vessels Normal aortic root. The pulmonary artery is normal size. Inferior vena cava collapse with respiration. Pericardium/Pleural No pericardial effusion. Medication Diluted definity 2.5ml given slow IV push to enhance endocardial definition. MMode/2D Measurements & Calculations LVIDd: 4.4 cm IVSd: 1.6 cm LVOT diam: 2.0 cm LVIDs: 3.2 cm LVPWd: 1.4 cm RVDd: 4.2 cm FS: 27.3 % LVOT area: 3.0 cm2 asc Aorta Diam: 3.4 cm LAV(MOD-bp): 70.1 ml LVAd ap4: 27.1 cm2 LAV(MOD-bp) Indexed: 34.5 ml/m2 LVLd ap4: 7.9 cm LAV(MOD-sp2): 88.3 ml EDV(MOD-sp4): 78.4 ml LAV(MOD-sp4): 54.5 ml EDV(sp4-el): 78.9 ml LVAs ap4: 17.3 cm2 LVLs ap4: 6.5 cm ESV(MOD-sp4): 42.3 ml ESV(sp4-el): 39.1 ml EF(MOD-sp4): 46.0 % EF(sp4-el): 50.4 % LVAd ap2: 31.5 cm2 SV(MOD-sp4): 36.1 ml SV(MOD-sp2): 56.4 ml LVLd ap2: 7.9 cm SI(MOD-sp4): 17.7 ml/m2 SI(MOD-sp2): 27.7 ml/m2 EDV(MOD-sp2): 104.8 ml EDV(sp2-el): 105.9 ml LVAs ap2: 19.6 cm2 LVLs ap2: 6.9 cm ESV(MOD-sp2): 48.4 ml ESV(sp2-el): 47.1 ml EF(MOD-sp2): 53.8 % SV(sp4-el): 39.7 ml Ao sinus diam: 3.[address] Junction: 2.7 cm LA dimension(2D): 5.0 cm LA A4 area: 19.6 cm2 RA A4 area: 15.1 cm2 TAPSE: 1.4 cm Time Measurements MV dec time: 0.14 sec Doppler Measurements & Calculations MV E max sundeep: 92.7 cm/sec Lat Peak E' Sundeep: 10.5 cm/sec Med Peak E' Sundeep: 7.4 cm/sec E/E' lat: 8.8 E/E' med: 12.5 Ao V2 max: 160.9 cm/sec LV V1 max: 79.9 cm/sec SV(LVOT): 45.0 ml Ao max P.4 mmHg LV V1 max P.6 mmHg Ao V2 mean: 121.8 cm/sec LV V1 mean P.7 mmHg Ao mean P.4 mmHg LV V1 mean: 62.9 cm/sec Ao V2 VTI: 29.0 cm LV V1 VTI: 14.9 cm AV (velocity ratio): 0.51 LOCO(I,D): 1.5 cm2 LOCO(V,D): 1.5 cm2 PA V2 max: 75.5 cm/sec TR max sundeep: 387.9 cm/sec TR max P.2 mmHg ECHO/Echo Complete W/ Contrast Interpretation Summary Normal LV size. Left ventricular systolic function is normal. The left ventricular ejection fraction is 55 %. Moderate focal aortic valve calcification. Pulmonary artery systolic pressure is 66 mmHg. Contrast injection was performed. Ordering Physician: Fredi Torres Performed By: Veronica Davenport RDCS
[2024-08-12] MEDS: Budesonide Respules 0.5 MG/2 ML AMPUL.NEB. INHALATION (20:06)
[2024-08-12] MEDS: Ipratropium/Albuterol Sulfate 3 ML AMPUL.NEB INHALATION (20:07)
[2024-08-12 20:29] LABS: BNP,B-Type NATRIURETIC PEPTIDE 391.1 pg/mL (0-100)
[2024-08-12] MEDS: Acetaminophen 325 MG Tablet 650 MG PO (20:46)
[2024-08-12] MEDS: Phytonadione (Vit K1) 5 MG TABLET PO (20:48)
[2024-08-13] VITALS (17 sets, daily range): BP systolic 109–145; BP diastolic 66–80; PULSE 69–88; RESP 16–20; TEMP 36.1–36.6; O2SAT 88–98
[2024-08-13] MEDS: Ipratropium/Albuterol Sulfate 3 ML AMPUL.NEB INHALATION (06:46)
[2024-08-13] MEDS: Budesonide Respules 0.5 MG/2 ML AMPUL.NEB. INHALATION (06:47)
--- NOTE | 2024-08-13 07:00 | US_ITS ---
PROCEDURE: ULTRASOUND GUIDED THORACENTESIS. DATE: August 13, 2024. INDICATION: Male, 83 years old. Right thoracentesis. PHYSICIAN: Jermaine Garcia M.D. PROCEDURE: The risks, benefits, and alternatives to the procedure were explained to the ration. The specific risks of bleeding, infection, and pneumothorax requiring chest tube insertion were discussed and accepted. Written informed consent was obtained. Ultrasonographic evaluation of the right lower pleural space was carried out. An adequate pocket was identified. The patient was placed in the sitting, upright position. The overlying skin was prepped and draped in sterile fashion. 1% lidocaine was administered subcutaneously for local anesthesia. Under ultrasound guidance, a 5 Greek thoracentesis needle/catheter system was advanced into the right posterior lower pleural fluid collection. Approximately 1400 mL of west-colored fluid was drained. The catheter was removed, and a sterile dressing was applied. A specimen was collected and sent to the laboratory for analysis, as requested by the referring clinician. The patient tolerated the procedure well. A chest x-ray was ordered. US/Thoracentesis W US IMPRESSION: Ultrasound-guided right thoracentesis. Electronically Signed: Jermaine Garcia MD at 15:11 [facility] ,
[2024-08-13 07:01] LABS: Hematocrit 41.5 % (40-54); Hemoglobin 13.9 g/dL (13.0-16.5); Mean Corp Hgb Conc 33.5 g/dL (32-36); Mean Corpuscular Hgb 32.4 pg (27.0-32.0); Mean Corpuscular Volume 96.7 fL (80-94); Mean Platelet Vol. 10.2 fl (6.2-12.0); Platelet Count 153 K/mm3 (150-450); RBC Distribution Width CV 13.9 % (11.6-14.6); RBC Distribution Width SD 49.2 fl (35.1-43.9); Red Blood Count 4.29 M/mm3 (4.6-6.2); White Blood Count 9.7 K/mm3 (4.4-11.0)
[2024-08-13 07:38] LABS: Anion Gap 5 (5-15); BUN 23 mg/dL (7-18); BUN/Creat Ratio 23.6 RATIO (10-20); Calcium,Total 9.3 mg/dL (8.5-10.1); Chloride 104 mmol/L (98-107); Creatinine, Serum 0.97 mg/dL (0.70-1.30); EST Glomerular Filtration Rate 78 mL/min (>60); Est Glom Filt Rate - Afr Amer 94 mL/min (>60); Estimated Creatinine Clearance 57.49 ml/min; Glucose 117 mg/dL (74-106); Potassium 3.6 mmol/L (3.5-5.1); Sodium Level 138 mmol/L (136-145)
[2024-08-13 08:27] LABS: International Normalized Ratio 2.8; Prothrombin Time (Protime)PT. 29.6 SECONDS (11.7-14.9)
[2024-08-13] MEDS: Magnesium Chloride 64 MG Delay Rel.Tablet 128 MG PO (10:07)
[2024-08-13] MEDS: Atorvastatin Calcium 10 MG Tablet PO (10:07)
--- NOTE | 2024-08-13 13:33 | PN.HOSP_ITS ---
Reason for Visit Reason for Visit: Diagnoses Pleural effusion, not elsewhere classified (08/12/24) Hypoxemia (08/12/24) Personal history of other diseases of the respiratory system (08/12/24) Subjective Subjective Saw patient at bedside this morning. Patient was sitting comfortably in bedside chair, no acute distress. Was breathing comfortably on 4 L nasal cannula at rest. Patient had not had thoracentesis done yet when I saw him, is scheduled for this afternoon. Patient reports feeling similar to yesterday, denies any shortness of breath at rest but does have some shortness of breath exertion. Denies any fevers or chills. No other new concerns this morning. Objective Data Objective Data Vital Signs: Vital Signs Temp Pulse Resp BP Pulse Ox O2 Del Method O2 Flow Rate 97.9 F 71 20 H 118/69 96 Nasal Cannula 5 08/13/24 10:02 08/13/24 10:02 08/13/24 10:02 08/13/24 10:02 08/13/24 10:05 08/13/24 10:05 08/13/24 10:05 Oxygen Flow Rate (L/min) 5 Oxygen Delivery Method Nasal Cannula Weight: 85.531 kg Body Mass Index (BMI) 27.0 Intake & Output: Intake and Output for Last 24 Hours 08/11/24 08/12/24 08/13/24 23:59 23:59 23:59 Intake Total 520 / 520 Output Total 450 / 450 Balance 70 / 70 Lab / Micro Data 08/13/24 06:40 08/13/24 06:40 Labs: Laboratory Results - last 24 hr 08/12/24 14:08: WBC 9.1, RBC 4.43 L, Hgb 14.1, Hct 43.6, MCV 98.4 H, MCH 31.8, MCHC 32.3, RDW Std Deviation 51.5 H, RDW Coeff of [place] 14.0, Plt Count 159, MPV 10.2, Immature Gran % (Auto) 0.300, Neut % (Auto) 80.4 H, Lymph % (Auto) 9.0 L, [place] % (Auto) 9.1, Eos % (Auto) 0.8, Baso % (Auto) 0.4, Absolute Neuts (auto) 7.3, Absolute Lymphs (auto) 0.82 L, Nucleated RBC % 0, PT 31.6 H, INR 3.1, Sodium 139, Potassium 3.7, Chloride 105, Carbon Dioxide 31.0, Anion Gap 3 L, BUN 24 H, Creatinine 1.12, Estim Creat Clear Calc 49.79, Est GFR (MDRD) Af Amer 80, Est GFR (MDRD) Non-Af 66, BUN/Creatinine Ratio 21.4 H, Glucose 121 H, Calcium 9.3, Total Bilirubin 1.40 H, AST 27, ALT 23, Alkaline Phosphatase 78, Lactate Dehydrogenase 266 H, B-Natriuretic Peptide 391.1 H, Total Protein 6.9, Albumin 3.7, Globulin 3.2, Albumin/Globulin Ratio 1.2 08/12/24 14:42: Lactic Acid 1.6 08/13/24 06:40: WBC 9.7, RBC 4.29 L, Hgb 13.9, Hct 41.5, MCV 96.7 H, MCH 32.4 H, MCHC 33.5, RDW Std Deviation 49.2 H, RDW Coeff of [place] 13.9, Plt Count 153, MPV 10.2, PT 29.6 H, INR 2.8, Sodium 138, Potassium 3.6, Chloride 104, Carbon Dioxide 29.0, Anion Gap 5, BUN 23 H, Creatinine 0.97, Estim Creat Clear Calc 57.49, Est GFR (MDRD) Af Amer 94, Est GFR (MDRD) Non-Af 78, BUN/Creatinine Ratio 23.6 H, Glucose 117 H, Calcium 9.3 Radiography Diagnostic Testing: Radiology Impression Chest X-Ray 08/12/24 14:30 IMPRESSION: Right pleural effusion with underlying atelectasis at the right lung base superimposed on CHF. Cardiomegaly. Electronically Signed: Jermaine Garcia MD at 14:59 EST , Chest CT 08/12/24 16:49 IMPRESSION: 1. Worsening area of airspace consolidation/infiltrate at the RIGHT lung base. Moderate to large RIGHT effusion. 2. Improvement previous area of infiltrate in the RIGHT upper lobe however residual scarring and distortion of the RIGHT upper lobe. 3. Diffuse emphysematous changes throughout the remaining lung zones. 4. Coronary vascular calcifications and vascular calcifications. Borderline cardiomegaly is noted. 5. RIGHT hepatic lesion measuring 1.3 cm without significant change. Electronically Signed: Oscar De Leon MD at 18:06 EST , Echocardiogram 08/12/24 18:19 Interpretation Summary Normal LV size. Left ventricular systolic function is normal. The left ventricular ejection fraction is 55 %. Moderate focal aortic valve calcification. Pulmonary artery systolic pressure is 66 mmHg. Contrast injection was performed. Ordering Physician: Fredi Torres Performed By: Veronica Davenport RDCS Physical Exam Const alert, oriented x3, no apparent distress and average body habitus Constitutional Narrative: Pleasant elderly male, mildly fatigued appearing but otherwise sitting up comfortably in bed, conversing normally, in no acute distress. Stable. General Appearance: cooperative and comfortable HEENT normocephalic, head/scalp atraumatic, hearing grossly normal bilaterally, nasal mucous membranes and turbinates normal and moist oral mucous membranes Eyes PERRL, EOMs intact bilaterally and conjunctivae normal Neck full ROM Chest inspection of chest normal Resp normal respiratory effort and no use of accessory muscles Resp Narrative: Breathing comfortably on 4 L nasal cannula at rest. Significantly decreased breath sounds in right lung base with crackles noted in bilateral airways, no wheezing noted. Stable. Cardio regular rate, regular rhythm, no murmurs and peripheral pulses 2+ throughout GI normal to inspection, nondistended, normoactive bowel sounds, soft to palpation, non-tender and non-distended Back/Spine normal ROM Extremity Extremity Narrative: Trace lower extremity edema noted. Skin no rashes or lesions noted Psych mental status grossly normal Assessment & Plan Assessment/Plan (1) Hypoxia: (2) Pleural effusion, right: (3) History of COPD: PLAN: Plan Patient is an 83-year-old male who presented to [facility] ED on 08/12/2024 with worsening shortness of breath on exertion. 1. Acute hypoxia suspected secondary to recurrent right pleural effusion in setting of known lung cancer with concern for new CHF; history of COPD with emphysema ? Known history of lung cancer with 2 prior right-sided thoracenteses, last one in May. CT chest on admit showed moderate to large right-sided pleural effusion with worsening area of airspace consolidation at right lung base, as well as diffuse emphysematous changes throughout the remaining lung zones. Suspect patient has borderline chronic hypoxia given his underlying COPD with emphysema and acutely worsened hypoxia secondary to pleural effusion. Patient had echo done in 12/2023 that showed normal EF and mild pulmonary hypertension but the study was noted to be technically difficult. Cannot rule out new CHF at this time. Echo completed, read pending. Radiology planning for diagnostic and therapeutic thoracentesis with afternoon, will follow-up on result. Continue home inhalers. Continue to wean supplemental oxygen as able. 2. Chronic A-fib on Coumadin ? INR 3.1 on admit, goal 2-3. In rate controlled A-fib on admit. Continue home Toprol. Given dose of p.o. vitamin K 5 mg x 1 on day of admission for thoracentesis, repeat INR 2.8 on 08/13. Okay for thoracentesis if INR was less than 3.0. Will plan to continue home warfarin as normal after thoracentesis. 3. History of nonobstructive CAD, hypertension, hyperlipidemia ? Stable. Continue home lisinopril, hydrochlorothiazide, Toprol and simvastatin. DVT prophylaxis: Not indicated, on warfarin CODE STATUS: DNR CCA, okay to intubate Expected disposition: Home, 1 to 2 days Total clinical time spent by myself addressing the patient's medical issues, reviewing all the data, and collaborating with patient's care team: 35 minutes. Charges/Coding Visit Charges Inpatient E&M: 07220 Subs Hosp L2
--- NOTE | 2024-08-13 13:45 | RAD_ITS ---
STUDY: X-RAY CHEST REASON FOR EXAM: Male, 83 years old. Post thoracentesis TECHNIQUE: AP inspiration and expiration views. COMPARISON: None. FINDINGS: Status post right thoracentesis. No evidence of pneumothorax. RAD/Chest Insp/Exp 2 View IMPRESSION: No evidence of pneumothorax on the status post right thoracentesis images. Electronically Signed: Jermaine Garcia MD at 15:01 EST ,
--- NOTE | 2024-08-13 13:48 | FLU_PTH ---
PATIENT: TAO CLARK LOC: [facility] U#:[id number] AGE/SX: 83/M ROOM: MN324 RE08/12/[address]: Dr. Fredi Torres DO : 1940 BED: 1 DIS: 08/14/2024 SPEC #: [id number] RECD: 08/13/24 14:04 STATUS: DAYAN REJemima #: [id number] BRIT: 08/13/24 13:[address]: Fredi Torres DEPT: CYTOLOGY RECD BY: Shira Kiser ENTERED: 08/13/24 14:50 SP TYPE: Fluid OTHR DR: Dr. Lefty Samson MD Tissues: THORACIC FLUID Procedures: Special Stain Group II Surgery Specimen Level IV Cytospin Fluid HEADER OPERATION: Thoracentesis fluid PRE-OP DIAGNOSIS: Pleural effusion TISSUE SUBMITTED: Thoracentesis fluid for cytology DIAGNOSIS CYTOLOGY Thoracentesis fluid for cytology (cytospins and cellblock): Negative for malignant cells. See comment. 08/14/2024 COMMENT Clinical correlation and appropriate follow up are necessary. CYTOLOGY STUDY Slides are reviewed. CYTOLOGY GROSS Received is 90 ml of cloudy red fluid labeled with the patient's name and and designated per the requisition as Thoracentesis fluid. Submitted for cytology preparation including cell block. Mr 08/13/2024 TC:5 CPT: 39201,26204
[2024-08-13] MEDS: Lidocaine 2% (20 ml mdv) 20 ML Vial INFILT (13:51)
[2024-08-13 14:27] LABS: Body Fluid Mononuclear WBC # 0.831 10^3/uL; Body Fluid Mononuclear WBC % 90.2 %; Body Fluid Polynuclear WBC # 0.091 10^3/uL; Body Fluid Polynuclear WBC % 9.8 %; Body Fluid Total Cells Counted 1.018 10^3/ul; White Blood Count/Body Fluid 0.922 10^3/uL
[2024-08-13] MEDS: Acetaminophen 325 MG Tablet 650 MG PO (14:36)
[2024-08-13 14:56] LABS: LDH,Body Fluid 99 Units/L (Not Establ.); Protein, Body Fluid 3.2 g/dL (Not Establ.)
--- NOTE | 2024-08-13 15:31 | CASEMGMT ---
IGNACIO DORANTES Assessment ? Face to Face with patient for initial?transition planning/care coordination assessment. RN JAYNA introduced self and role at [facility], pt voices understanding. Pt is A&Ox4 and is resting comfortably in bed and is calm. Care providers, pharmacy, and demographics verified. ? Admitting dx: ?hypoxia LACE Strata: ?2 PCP: ?Lefty Samson Specialists: ?Lalito (cardio) Preferred Pharmacy: ?[facility] Insurance: ?Medicare A/B, [employer] commercial Prescription Benefit: ?yes LNOK: ?Harry Nguyen (son) Living Arrangements: ?patient lives alone in a two-story home with a first floor setup and one step to enter ADLs/IADLs:?independent. Patient states that he has a cleaning lady come once per month. Patient states that he also has a history of meals being delivered to his home but recently discontinued the service. Patient states that he still has the resources/contact info for this but also requests this hospital resources regarding delivered meals. Social work updated to provide information. Transportation: ?self, son DME: ?INR machine (pt takes warfarin at home), raised toilet seat, cane, front wheeled walker, grab bars. Patient is currently on additional oxygen and may qualify for home oxygen needs. A verbal list of local and network DME companies provided to the patient at this time, prefers [employer]. HHC/SNF: ?denies history or needs Pt?s goal:?return home. Plan: ?anticipate discharge home once medically ready. Six click score is 24. Follow for oxygen needs. Patient states that he feels safe at home alone and that he does not need or want any home healthcare or outpatient therapy set up. This channel business manager educated the patient about [facility]. Patient states that he may be interested 6 to 12 months from now.? Patient denies any current needs. Patient requests this channel business manager's business card. Card provided. Report given to [facility] channel business manager. Melissa Vazquez RN, CM
--- NOTE | 2024-08-13 15:49 | CASEMGMT ---
Social Work- SW spoke with son who reports that he will be gone tomorrow & pt will need transport. BEVERLY coordinated with physician who states pt will be d/c tomorrow. BEVERLY called [facility] transport and spoke with Anjelica who reports a 1pm open slot; BEVERLY secured slot for pt. Pt son to be called at d/c. BEVERLY remains available to follow. GLORIA Mir
[2024-08-13 15:53] LABS: Auto B Fluid Analyzer BKGD Ct COUNTS W/IN LIMITS (W/IN LIMITS); Source- Body Fluid THORACENTESIS
[2024-08-13 15:54] LABS: Appearance/Body Fluid CLOUDY; Color/Body Fluid YELLOW; Lymphocytes 57 %; Neutrophil (Segs) 13 %
[2024-08-13 15:55] LABS: Body Fluid QC Type(s) BF1Q; Macrophages 29 %; Mesothelial Cells 1 %
[2024-08-13] MEDS: 0.9% Saline Lock 10 ML Syringe IV (16:55)
[2024-08-13] MEDS: Furosemide 40 MG/4 ML Vial IV (16:55)
[2024-08-14] VITALS (9 sets, daily range): BP systolic 96–123; BP diastolic 44–61; PULSE 82–89; RESP 18–20; TEMP 36.4–36.8; O2SAT 84–95
[2024-08-14] MEDS: 0.9% Saline Lock 10 ML Syringe IV ×2 (04:10→11:14)
--- NOTE | 2024-08-14 07:50 | CPS ---
Pt says he doesn't want aerosols, RT will reach out to
[2024-08-14] MEDS: Magnesium Chloride 64 MG Delay Rel.Tablet 128 MG PO (11:14)
[2024-08-14] MEDS: Furosemide 40 MG/4 ML Vial IV (11:14)
[2024-08-14] MEDS: Atorvastatin Calcium 10 MG Tablet PO (11:14)
--- NOTE | 2024-08-14 11:14 | CASEMGMT ---
Social Work- confirmed transport with [facility]; transport time 13:30. RNCM, physician, and charge nurse notified. GLORIA Mir
--- NOTE | 2024-08-14 11:17 | DCINST_ITS ---
Discharge Instructions Diet Discharge Diet: 4000 mg Sodium Diet DC O2, CPAP, BIPAP needs RN Home O2 Qualification: Home O2 Qualification: Is the patient on home oxygen No 08/14/24 07:47 Home O2 Qualification: AT REST 1- Pulse Ox at rest 87 08/14/24 07:47 2- Pulse Ox at rest 89 08/14/24 07:47 2- Oxygen Flow Rate at rest 3 08/14/24 07:47 Home O2 Qualification: WITH AMBULATION 1- Pulse Ox with ambulation 89 08/14/24 07:47 1- Oxygen Flow Rate with 5 08/14/24 07:47 ambulation Home O2 Discharge instructions: Yes Type of respiratory needs?: Oxygen Oxygen frequency: Continuous Continuous oxygen liters per minute: 3 L at rest and With Ambulation Oxygen liters per minute during Ambulation: 5 L with exertion Dressing / Incision Discharge Activity: No Restrictions Follow Up Care Test Results: Test results from this visit will be discussed in further detail at your follow- up appointment, if applicable. Discharge Plan Admission Admit Date/Time: 08/12/24 16:45 Primary Reason for Your Visit: Worsening shortness of breath Attending Provider: Fredi Torres Primary Care Provider: Lefty Samson Instructions Additional Instructions / Restrictions: ? Please start taking Lasix 20 mg daily on discharge to keep fluid off of your lungs. ? Your blood pressures were running borderline low while in the hospital. Please hold off on taking hydrochlorothiazide and lisinopril at home for now until you follow-up with your primary care doctor in the office. ? We recommend that you wear 3 L nasal cannula at rest and 5 L with exertion for now. Your goal oxygen saturation is greater than 88%. Use your home pulse ox to monitor your oxygen level at least 1-2 times daily for the next few weeks. Discharge Orders/Prescriptions Prescriptions: New furosemide 20 mg Tablet 20 mg PO DAILY 30 Days Qty: 30 0RF albuterol sulfate 90 mcg/actuation HFA aerosol inhaler 1 inh inhalation Q6H PRN (Reason: shortness of breath or wheezing) Qty: 8.5 0RF Continued simvastatin 20 MG tablet 20 mg PO DAILY warfarin 5 MG tablet 5 mg PO DAILY Rx Instructions: 2.5MG MON & FRI, 5MG ALL OTHER DAYS metoprolol succinate 25 MG tablet extended release 24 hr 12.5 mg PO DAILY multivitamin 1 EACH tablet 1 ea PO MOWEFR ascorbic acid (vitamin C) 1,000 MG tablet extended release 1,000 mg PO DAILY magnesium oxide 400 MG tablet 400 mg PO DAILY apple cider vinegar 600 MG capsule 600 mg PO MOWEFR nitroglycerin 0.4 MG tablet, sublingual 0.4 mg sublingual Q5M PRN (Reason: Chest Pain) folic acid 1 MG tablet 1 mg PO DAILY cinnamon bark 500 MG capsule 500 mg PO BID coenzyme Q10 200 MG capsule 200 mg PO DAILY calcium citrate-vitamin D3 1 EACH tablet 1 ea PO DAILY acidophilus-pectin, citrus 1 EACH capsule 2 ea PO DAILY docosahexaenoic acid 450 MG capsule 450 mg PO BID [id number]-koiv-[id number]-[id number]-bosw 1 EACH tablet 2 ea PO DAILY bee pollen 550 MG capsule 1 tab PO DAILY psyllium husk 660 GM powder 660 g PO DAILY cyanocobalamin (vitamin B-12) 1,000 MCG capsule 1,000 mcg PO DAILY Trelegy Ellipta 100-62.5-25 mcg blister with device 1 inh INHALATION DAILY Held lisinopril 20 MG tablet 20 mg PO DAILY Hold Instructions: Resume on 08/24/24. Hold until follow-up with your primary care doctor. hydrochlorothiazide 12.5 MG capsule 12.5 mg PO DAILY Hold Instructions: Resume on 08/24/24. Hold until follow-up with your primary care doctor. Discontinued amoxicillin-pot clavulanate 875-125 mg tablet 1 tab PO BID 5 Days Qty: 10 0RF Referrals / Follow Up: Lefty Samson MD [Primary Care Provider] - Disposition Disposition (needs filled in before D/C Order can be placed): Home, Self Care
--- NOTE | 2024-08-14 11:22 | DS.PCM_ITS ---
Providers Date of Admission: 08/12/24 Date of Discharge: 08/14/24 Primary Care Physician: Dr. Lefty Samson MD Reason For Visit: HYPOXIA W/ R PLEURAL EFFUSION Diagnosis Discharge Diagnosis (1) Hypoxia: Status: Resolved Code(s): R09.02 - Hypoxemia (2) Pleural effusion, right: Status: Acute Code(s): J90 - Pleural effusion, not elsewhere classified (3) History of COPD: Status: Chronic Code(s): Z87.09 - Personal history of other diseases of the respiratory system Medications at Discharge Home Medications hydrochlorothiazide 12.5 mg capsule 12.5 mg PO DAILY Blood Pressure 01/26/19 lisinopril 20 mg tablet 20 mg PO DAILY blood pressure 01/26/19 metoprolol succinate 25 mg tablet,extended release 24 hr 12.5 mg PO DAILY blood pressure 01/26/19 simvastatin 20 mg tablet 20 mg PO DAILY Cholesterol 01/26/19 warfarin 5 mg tablet 5 mg PO DAILY blood thinner 01/26/19 acidophilus 100 million cell-pectin, citrus 10 mg capsule 2 ea PO DAILY supplement 04/13/20 apple cider vinegar 600 mg capsule 600 mg PO MOWEFR supplement 04/13/20 ascorbic acid (vitamin C) 1,000 mg tablet,extended release 1,000 mg PO DAILY vitamin c 04/13/20 bee pollen 550 mg capsule 1 tab PO DAILY supplement 04/13/20 calcium 315 mg (as citrate)-vitamin D3 6.25 mcg (250 unit) tablet 1 ea PO DAILY vitamin 04/13/20 cinnamon bark 500 mg capsule 500 mg PO BID supplement 04/13/20 coenzyme Q10 200 mg capsule 200 mg PO DAILY supplement 04/13/20 cyanocobalamin (vitamin B-12) 1,000 mcg capsule 1,000 mcg PO DAILY vitamin 04/13/20 docosahexaenoic acid 450 mg capsule 450 mg PO BID supplement 04/13/20 folic acid 1 mg tablet 1 mg PO DAILY supplement 04/13/20 glucosamine 750 fi-oapyplbhexd-seb no1 644 mg-C 30 mg-dionte 1 mg tablet 2 ea PO DAILY supplement 04/13/20 magnesium oxide 400 mg (241.3 mg magnesium) tablet 400 mg PO DAILY supplement 04/13/20 multivitamin 1 ea PO MOWEFR vitamin 04/13/20 nitroglycerin 0.4 mg sublingual tablet 0.4 mg sublingual Q5M PRN Chest Pain 04/13/20 psyllium husk 3.4 gram/5.4 gram oral powder 660 g PO DAILY supplement 04/13/20 fluticasone fur. 100 mcg-umeclid 62.5 mcg-vilant 25 mcg inhalat.powder (Trelegy Ellipta) 1 inh inhalation DAILY breathing 08/05/23 albuterol sulfate 90 mcg/actuation aerosol inhaler 1 inh inhalation Q6H PRN shortness of breath or wheezing #8.5 grams 08/14/24 furosemide 20 mg tablet 20 mg PO DAILY 30 days #30 tabs 08/14/24 Hospital Course Operations None Procedures EKG, Thoracentesis, Transthoracic echo and - (Chest x-ray x 2, CT chest without contrast) Summary of Care Provided Minutes Spent on Discharge: 35 Hospital Course: Patient is an 83-year-old male who presented to [facility] ED on 08/12/2024 with worsening shortness of breath on exertion. Hospital course as noted below. Patient discharged home with supplemental oxygen in stable condition on 08/14. 1. Acute hypoxia suspected secondary to recurrent right pleural effusion in setting of known lung cancer with new HFpEF with pulmonary hypertension; history of COPD with emphysema ? Known history of lung cancer with 2 prior right-sided thoracenteses, last one in May. Also, patient had echo done in 12/2023 that showed normal EF and mild pulmonary hypertension but the study was noted to be technically difficult. ? CT chest on admit showed moderate to large right-sided pleural effusion with worsening area of airspace consolidation at right lung base, as well as diffuse emphysematous changes throughout the remaining lung zones. ? Suspect patient has borderline chronic hypoxia given his underlying COPD with emphysema and acutely worsened hypoxia secondary to both pleural effusion and some degree of volume overload. ? BNP 366 on admit, slightly increased from previous. Echo 08/12 showed EF 55% with normal LV and RV size and function but did show worsened pulmonary artery systolic pressure of 66 mmHg consistent with moderate to severe pulmonary hypertension. ? S/p thoracentesis with radiology on 08/13. Had 1400 mL of west-colored fluid drained. Did not meet lights criteria and fluid was benign appearing, most consistent with fluid secondary to heart failure. ? Diuresed with 3 doses of IV Lasix 40 mg while inpatient with good urine output. Patient completed O2 testing on day of discharge and did require 3 L nasal cannula with rest and 5 L with exertion. Recommended to patient that we could keep keep him another day and give more IV diuretics but he was insistent on wanting to be discharged. Will start Lasix 20 mg daily on discharge and prescription signed for new oxygen requirements. Continue home inhalers on discharge. 2. Chronic A-fib on Coumadin ? INR 3.1 on admit, goal 2-3. In rate controlled A-fib on admit. Continue home Toprol. Given dose of p.o. vitamin K 5 mg x 1 on day of admission for thoracentesis, repeat INR 2.8 on 08/13. Completed thoracentesis on 08/13 as noted above. Continue home warfarin on discharge. 3. History of nonobstructive CAD, hypertension, hyperlipidemia ? Patient did have borderline low blood pressures while inpatient. Okay to continue home Toprol and statin, but will hold home hydrochlorothiazide and lisinopril on discharge. Recommend that patient follow-up with primary care doctor in the next few weeks to discuss timing of restarting these medications. Total clinical time spent by myself addressing the patient's medical issues, reviewing all the data, and collaborating with patient's care team: 35 minutes. Physical Exam Const alert, oriented x3, no apparent distress and average body habitus Constitutional Narrative: Pleasant elderly male, mildly fatigued appearing but otherwise sitting up comfortably in bedside chair, conversing normally, in no acute distress. Stable. General Appearance: cooperative and comfortable HEENT normocephalic, head/scalp atraumatic, hearing grossly normal bilaterally, nasal mucous membranes and turbinates normal and moist oral mucous membranes Eyes PERRL, EOMs intact bilaterally and conjunctivae normal Neck full ROM Chest inspection of chest normal Resp normal respiratory effort and no use of accessory muscles Resp Narrative: Breathing comfortably on 3 L nasal cannula at rest. Breath sounds in right lung base much improved from admission. Mild crackles noted in mid lungs bilaterally but otherwise good breath sounds throughout. No wheezing noted. Cardio regular rate, regular rhythm, no murmurs and peripheral pulses 2+ throughout GI normal to inspection, nondistended, normoactive bowel sounds, soft to palpation, non-tender and non-distended Back/Spine normal ROM Extremity normal to inspection and full ROM Extremity Narrative: No edema noted on discharge, improved from admission. Skin no rashes or lesions noted Psych mental status grossly normal Weight / BMI Weight Weight: 85.531 kg Body Mass Index (BMI) 27.0 ABG / Lab / Microbiology Data 08/13/24 06:40 08/13/24 06:40 Laboratory: Laboratory Results - last 24 hr 08/12/24 17:22: Fluid Total Protein 3.2, Fluid LDH 99 08/13/24 14:06: Fluid Source THORACENTESIS, Fluid Color YELLOW, Fluid Appearance CLOUDY, Fluid WBC 0.922, Fluid RBC 0.010, Fluid Tot Cell Count 1.018, Fld Polynuclear WBCs # 0.091, Fld Polynuclear WBCs % 9.8, Fluid Mononuclear WBCs 0.831, Fld Mononuclear WBCs % 90.2, Fluid Neutrophils 13, Fluid Lymphocytes 57, Fluid Macrophages 29, Fld Mesothelial Cells 1, Fl Pathologist Comment May follow, Fluid Comment 2 SEE COMMENT Radiography Diagnostic Testing: Radiology Impression Thoracentesis Ultrasound 08/13/24 07:00 IMPRESSION: Ultrasound-guided right thoracentesis. Electronically Signed: Jermaine Garcia MD at 15:11 EST , Chest X-Ray 08/13/24 13:45 IMPRESSION: No evidence of pneumothorax on the status post right thoracentesis images. Electronically Signed: Jermaine Garcia MD at 15:01 EST , D/C Instructions Discharge Diet: 4000 mg Sodium Diet DC O2, CPAP, BIPAP Needs RN Home O2 Qualification: Home O2 Qualification: Is the patient on home oxygen No 08/14/24 07:47 Home O2 Qualification: AT REST 1- Pulse Ox at rest 87 08/14/24 07:47 2- Pulse Ox at rest 89 08/14/24 07:47 2- Oxygen Flow Rate at rest 3 08/14/24 07:47 Home O2 Qualification: WITH AMBULATION 1- Pulse Ox with ambulation 89 08/14/24 07:47 1- Oxygen Flow Rate with 5 08/14/24 07:47 ambulation Home O2 Discharge instructions: Yes Type of respiratory needs?: Oxygen Oxygen frequency: Continuous Continuous oxygen liters per minute: 3 L at rest and With Ambulation Oxygen liters per minute during Ambulation: 5 L with exertion DC home with Oxygen: Yes Home O2 MD Review: I have reviewed the oxygen testing, and the patient qualifies for home oxygen equipment and portability. The patient is mobile in the home and the community. Meaningful Use Info Meaningful Use Meaningful Use Diagnoses (Choose all that apply): None applicable Ischemic Stroke Statin Dosing Therapy Reference: STATIN DOSE THERAPY REFERENCE: * Patients > 75 years receive moderate or high dose statin therapy. * Patients 75 years or YOUNGER should receive HIGH intensity statin dose unless contraindicated. You will be required to document reason for non-treatment if statin daily dose does not meet guidelines. HIGH DOSE STATIN THERAPY DAILY Atorvastatin > than or = to 40 mg Rosuvastatin > than or = to 20 mg Amlodipine + Atorvastatin > than or = to 2.5/40 mg Ezetimibe + Simvastatin 10/80 mg Simvastatin 80mg Discharge Plan Admission Admit Date/Time: 08/12/24 16:45 Primary Reason for Your Visit: Worsening shortness of breath Attending Provider: Fredi Torres Primary Care Provider: Lefty Samson Instructions Additional Instructions / Restrictions: ? Please start taking Lasix 20 mg daily on discharge to keep fluid off of your lungs. ? Your blood pressures were running borderline low while in the hospital. Please hold off on taking hydrochlorothiazide and lisinopril at home for now until you follow-up with your primary care doctor in the office. ? We recommend that you wear 3 L nasal cannula at rest and 5 L with exertion for now. Your goal oxygen saturation is greater than 88%. Use your home pulse ox to monitor your oxygen level at least 1-2 times daily for the next few weeks. Discharge Orders/Prescriptions Prescriptions: New furosemide 20 mg Tablet 20 mg PO DAILY 30 Days Qty: 30 0RF albuterol sulfate 90 mcg/actuation HFA aerosol inhaler 1 inh inhalation Q6H PRN (Reason: shortness of breath or wheezing) Qty: 8.5 0RF Continued simvastatin 20 MG tablet 20 mg PO DAILY warfarin 5 MG tablet 5 mg PO DAILY Rx Instructions: 2.5MG MON & FRI, 5MG ALL OTHER DAYS metoprolol succinate 25 MG tablet extended release 24 hr 12.5 mg PO DAILY multivitamin 1 EACH tablet 1 ea PO MOWEFR ascorbic acid (vitamin C) 1,000 MG tablet extended release 1,000 mg PO DAILY magnesium oxide 400 MG tablet 400 mg PO DAILY apple cider vinegar 600 MG capsule 600 mg PO MOWEFR nitroglycerin 0.4 MG tablet, sublingual 0.4 mg sublingual Q5M PRN (Reason: Chest Pain) folic acid 1 MG tablet 1 mg PO DAILY cinnamon bark 500 MG capsule 500 mg PO BID coenzyme Q10 200 MG capsule 200 mg PO DAILY calcium citrate-vitamin D3 1 EACH tablet 1 ea PO DAILY acidophilus-pectin, citrus 1 EACH capsule 2 ea PO DAILY docosahexaenoic acid 450 MG capsule 450 mg PO BID lialwcum-yqkw-muv1-C-dionte-bosw 1 EACH tablet 2 ea PO DAILY bee pollen 550 MG capsule 1 tab PO DAILY psyllium husk 660 GM powder 660 g PO DAILY cyanocobalamin (vitamin B-12) 1,000 MCG capsule 1,000 mcg PO DAILY Trelegy Ellipta 100-62.5-25 mcg blister with device 1 inh INHALATION DAILY Held lisinopril 20 MG tablet 20 mg PO DAILY Hold Instructions: Resume on 08/24/24. Hold until follow-up with your primary care doctor. hydrochlorothiazide 12.5 MG capsule 12.5 mg PO DAILY Hold Instructions: Resume on 08/24/24. Hold until follow-up with your primary care doctor. Discontinued amoxicillin-pot clavulanate 875-125 mg tablet 1 tab PO BID 5 Days Qty: 10 0RF Referrals / Follow Up: Lefty Samson MD [Primary Care Provider] - Disposition Disposition (needs filled in before D/C Order can be placed): Home, Self Care Charges/Coding Visit Charges Inpatient E&M: 59746 Disch Hosp >30min
[2024-08-14 13:57] LABS: Pathologist Comment/Body Fluid Reviewed
--- NOTE | 2024-08-14 14:16 | CASEMGMT ---
Pt qualified for O2 at OR. Sent order to [facility]. Obtained portable O2 tank from stock and provided to Pt. Pt denies questions or concerns at this time.
--- NOTE | 2024-08-14 15:57 | CASEMGMT ---
IGNACIO DORANTES received notice from [facility] to have Pt call number on pink slip on O2 tank. Called and left a VM for pt to see if they have called the number on the pink slip. Left a VM for pt to do so if they have not already.
== END 2024-08-14 13:28 | disposition home or self-care (01) | DRG 291 ==
LOC: ED 16:50 → MS3 17:45
PROVIDERS: Admitting Provider Hospitalist; Emergency Provider Emergency Medicine; PCP Family Medicine; Visit Provider Hospitalist
DX: I11.0 Hypertensive heart disease with heart failure (principal); I50.31 Acute diastolic (congestive) heart failure; J91.8 Pleural effusion in other conditions classified elsewhere; C34.90 Malignant neoplasm of unspecified part of unspecified bronchus or lung; I48.20 Chronic atrial fibrillation, unspecified; Z66 Do not resuscitate; I27.20 Pulmonary hypertension, unspecified; Z79.01 Long term (current) use of anticoagulants; E78.5 Hyperlipidemia, unspecified; I25.10 Atherosclerotic heart disease of native coronary artery without angina pectoris; Z86.718 Personal history of other venous thrombosis and embolism; Z87.891 Personal history of nicotine dependence; Z79.899 Other long term (current) drug therapy
CPT/HCPCS: 32555; 36415; 71046; 71250; 80048; 80053; 83605; 83615; 83880; 84157; 85025; 85027; 85610; 88108; 88305; 88313; 89050; 93005; 93306; 94640; 94668; 94762; 99285; Q9957; A4216; C8929; J1938

== ENCOUNTER → 2024-09-24 | Outpatient (CLI) | payer MEDICARE, OTHER, SELFPAY ==
--- NOTE | 2024-09-24 08:25 | RAD_ITS ---
PROCEDURE: CHEST INSP/EXP 2 VIEW REASON FOR EXAM: Post thoracentesis. TECHNIQUE: Three-view AP portable upright inspiratory and expiratory chest. COMPARISON: Chest x-ray of 08/13/2024. RAD/Chest Insp/Exp 2 View IMPRESSION: No interval osseous changes noted. Chronic lung changes are seen bilaterally, but no new or worsened pneumonic process is evident No pneumothorax is seen. A very small residual right pleural fluid collection is seen. No left pleural effusion is evident. The cardiomediastinal silhouette is unchanged, without evidence of cardiomegaly . Reading Location: [id number]
[2024-09-24 08:38] VITALS: BP 127/70; PULSE 74; RESP 18; TEMP 35.7; O2SAT 97
[2024-09-24 08:45] VITALS: BP 122/66; PULSE 84; RESP 18; O2SAT 99
--- NOTE | 2024-09-24 08:45 | FLU_PTH ---
PATIENT: TAO CLARK LOC: U#:[id number] AGE/SX: 83/M ROOM: RE09/24/[address]: Dr. Norbert Salvador DO : 1940 BED: DIS: 09/24/2024 SPEC #: [id number] RECD: 09/24/24 09:13 STATUS: DAYAN REJemima #: [id number] BRIT: 09/24/24 08:[address]: Norbert Salvador DEPT: CYTOLOGY RECD BY: Diya Rowland ENTERED: 09/24/24 10:50 SP TYPE: Fluid OTHR DR: Dr. Lefty Samson MD Tissues: Pleural fluid, NOS Procedures: Special Stain Group II Surgery Specimen Level IV Cytospin Fluid HEADER OPERATION: Thoracentesis fluid PRE-OP DIAGNOSIS: Pleural effusion TISSUE SUBMITTED: Thoracentesis fluid for cytology DIAGNOSIS CYTOLOGY Thoracentesis fluid for cytology (cytospins and cellblock): Negative for malignant cells. See comment. SJ.mr 09/25/2024 COMMENT Please make reference to previous specimen [id number] thoracentesis fluid for cytology with diagnosis of negative for malignant cells. Clinical correlation and appropriate follow up are necessary. CYTOLOGY STUDY Slides are reviewed. CYTOLOGY GROSS Received is 90 ml of orange-cloudy fluid labeled with the patient's name and and designated per the requisition as Thoracentesis fluid. Submitted for cytology preparation including cell block. Mr 09/24/2024 TC:5 CPT: 90743,45866
[2024-09-24] MEDS: Lidocaine 2% (20 ml mdv) 20 ML Vial INFILT (08:47)
[2024-09-24 08:53] VITALS: BP 122/68; PULSE 83; RESP 18; O2SAT 94
[2024-09-24 09:00] VITALS: BP 117/52; PULSE 74; RESP 18; O2SAT 95
--- NOTE | 2024-09-24 09:07 | PCM.OPRPT ---
Problems Associated Problem List Diagnoses (1) Pleural effusion: Multi Select Codes Radiology Radiology US Procedures: 86830 Thoracentesis Operative Report (Standard) Operative Information Date of Procedure: 09/24/24 Pre-Operative Diagnosis: Pleural effusion Post-Operative Diagnosis: Pleural effusion Surgery/Procedure Performed: Ultrasound-guided thoracentesis sales program manager: No Type of Anesthesia: Local Procedure Start Time: 08:43 Procedure Stop Time: 08:55 Select all DRAINS/GRAFTS/IMPLANTS that apply: None Estimated Blood Loss: 0 Specimen collected: Yes Description of specimen(s) removed: 100 cc collected for lab Description of surgery: PROCEDURE: Ultrasound Guided Thoracentesis ORDERING PROVIDER: Dr. Salvador INDICATION: Male, 83 years old. Pleural effusion. PROVIDER: Kathleen Powell CNP PROCEDURE: The risks, benefits, and alternatives to the procedure were explained to the patient. The specific risks of bleeding, infection, and pneumothorax requiring chest tube insertion were discussed and accepted. Written informed consent was obtained. The patient was placed in the sitting, upright position. Ultrasonographic evaluation of the bilateral lower pleural spaces was carried out. An adequate pocket was identified in the right lower lobe. The overlying skin was prepped with chlorhexidine and draped in sterile fashion. 2 % lidocaine was administered subcutaneously for local anesthesia. Under ultrasound guidance, a 5-[place] thoracentesis needle/catheter system was advanced into the right posterior lower pleural fluid collection. 1080 ml of clear dark yellow colored fluid was drained. The catheter was removed, and a sterile dressing was applied. The patient tolerated the procedure well. A chest x-ray was ordered. IMPRESSION: Successful ultrasound guided thoracentesis of right pleural effusion. Surgical Findings: None Complications Complications: No
[2024-09-24 09:08] VITALS: BP 102/48; PULSE 72; RESP 16; O2SAT 96
[2024-09-24 09:11] VITALS: BP 97/50; PULSE 92
== END | disposition home or self-care (01) ==
PROVIDERS: PCP Family Medicine; Referring Provider Internal Medicine Hematology & Oncology; Visit Provider Internal Medicine Hematology & Oncology
DX: J90 Pleural effusion, not elsewhere classified (principal); C34.91 Malignant neoplasm of unspecified part of right bronchus or lung
CPT/HCPCS: 32555; 71046; 88108; 88305; 88313

== ENCOUNTER → 2024-10-28 | Outpatient (CLI) | payer MEDICARE, OTHER, SELFPAY ==
--- NOTE | 2024-10-28 | FLU_PTH ---
PATIENT: TAO CLARK LOC: U#:[id number] AGE/SX: 84/M ROOM: RE10/28/[address]: Dr. Norbert Salvador DO : 1940 BED: DIS: 10/28/2024 SPEC #: [id number] RECD: 10/28/24 09:20 STATUS: DAYAN HANNA #: [id number] BRIT: 10/28/24 00:[address]: Norbert Salvador DEPT: CYTOLOGY RECD BY: Shira Kiser ENTERED: 10/28/24 11:04 SP TYPE: Fluid OTHR DR: Dr. Lefty Samson MD Tissues: THORACIC FLUID Procedures: Special Stain Group II Surgery Specimen Level IV Cytospin Fluid HEADER OPERATION: Right thoracentesis fluid PRE-OP DIAGNOSIS: Pleural effusion TISSUE SUBMITTED: Thoracentesis fluid for cytology DIAGNOSIS CYTOLOGY Right thoracentesis fluid, cytology and cell block:Negative for malignant cellsMesothelial cells and light mixed inflammation Sachin Joaquin MD, 11/05/2024 CYTOLOGY STUDY Slides are reviewed. CYTOLOGY GROSS Received is 85 ml of hazy-yellow fluid labeled with the patient's name and and designated per the requisition as Thoracentesis fluid. Submitted for cytology preparation including cell block. Mr 10/28/2024 CPT: 63811,74907, TC:4
--- NOTE | 2024-10-28 07:20 | RAD_ITS ---
PROCEDURE: AP PORTABLE UPRIGHT INSPIRATION CHEST REASON FOR EXAM: POST THORACENTESIS. TECHNIQUE: A single AP upright projection of the chest was obtained. COMPARISON: 09/24/2024 inspiration post thoracentesis chest. FINDINGS: Lungs: Chronic interstitial fibrotic changes are demonstrated. An element of chronic obstructive lung disease. Pleura: No pleural effusions, thickening, or pneumothorax. Heart: Mild cardiac enlargement Mediastinum/Ashleigh: Unremarkable. Great vessels: Aorta is atherosclerotic and tortuous. Bones/soft tissues: Unremarkable. RAD/Chest Insp/Exp 2 View IMPRESSION: Stable chest when compared to the earlier study of 09/24/2024. No signs of pneumothorax following thoracentesis. COPD. Reading Location: [place] [id number]
[2024-10-28 08:37] VITALS: BP 113/74; PULSE 82; RESP 18; O2SAT 98
[2024-10-28] MEDS: Lidocaine 2% (20 ml mdv) 20 ML Vial INFILT (08:43)
[2024-10-28 08:45] VITALS: BP 107/74; PULSE 85; RESP 18; O2SAT 100
[2024-10-28 08:53] VITALS: BP 123/63; PULSE 83; RESP 18; O2SAT 100
[2024-10-28 09:05] VITALS: BP 114/71; PULSE 83; RESP 18; O2SAT 96
[2024-10-28 09:15] VITALS: PULSE 84; RESP 18; O2SAT 96
--- NOTE | 2024-10-28 09:31 | PCM.OPRPT ---
Problems Associated Problem List Diagnoses (1) Pleural effusion: Multi Select Codes Radiology Radiology US Procedures: 57504 Thoracentesis Operative Report (Standard) Operative Information Date of Procedure: 10/28/24 Pre-Operative Diagnosis: Pleural Effusion Post-Operative Diagnosis: Pleural Effusion Surgery/Procedure Performed: Ultrasound-guided thoracentesis over hauler helper: No Type of Anesthesia: Local Procedure Start Time: 08:37 Procedure Stop Time: 08:45 Select all DRAINS/GRAFTS/IMPLANTS that apply: None Estimated Blood Loss: 0 Specimen collected: Yes Description of specimen(s) removed: 100 mL of cloudy west fluid sent for cytology Description of surgery: PROCEDURE: Ultrasound Guided Thoracentesis ORDERING PROVIDER: Dr. Salvador INDICATION: Male, 84 years old. Pleural Effusion. PROVIDER: FLORI Phan PROCEDURE: The risks, benefits, and alternatives to the procedure were explained to the patient. The specific risks of bleeding, infection, and pneumothorax requiring chest tube insertion were discussed and accepted. Written informed consent was obtained. The patient was placed in the sitting, upright position. Ultrasonographic evaluation of the bilateral lower pleural spaces was carried out. An adequate pocket was identified in the right lower pleural space. The overlying skin was prepped with chlorhexidine and draped in sterile fashion. 2 % lidocaine was administered subcutaneously for local anesthesia. Under ultrasound guidance, a 5-[place] thoracentesis needle/catheter system was advanced into the right posterior lower pleural fluid collection. 1000 ml of cloudy west colored fluid was drained. A sample was sent for cytology. The catheter was removed, and a sterile dressing was applied. The patient tolerated the procedure well. A chest x-ray was ordered. There was no evidence of pneumothorax. IMPRESSION: Successful ultrasound guided thoracentesis of right pleural effusion. Surgical Findings: none Complications Complications: No
== END | disposition home or self-care (01) ==
PROVIDERS: PCP Family Medicine; Referring Provider Internal Medicine Hematology & Oncology; Visit Provider Internal Medicine Hematology & Oncology
DX: J90 Pleural effusion, not elsewhere classified (principal); C34.91 Malignant neoplasm of unspecified part of right bronchus or lung
CPT/HCPCS: 32555; 71046; 88108; 88305; 88313

== ENCOUNTER 2024-10-29 15:29 | Emergency (ER) | payer MEDICARE, OTHER, SELFPAY ==
[2024-10-29] VITALS (35 sets, daily range): BP systolic 64–135; BP diastolic 45–95; PULSE 80–110; RESP 15–25; TEMP 36.1–36.9; O2SAT 79–94; BMI 26.6
[2024-10-29] MEDS: 0.9% Normal Saline (1000mL) 1,000 ML 1000 ML IV (16:04)
--- NOTE | 2024-10-29 16:04 | EX.ED.DYSGE1 ---
HPI History of Present Illness Chief Complaint: Syncope Narrative Narrative: 84-year-old male past medical history of right-sided pleural effusion had thoracentesis performed yesterday where they took off almost a liter of fluid. Afterwards, he states he went home yesterday and everything was going well but he developed lightheadedness and dizziness. He states he did eat lunch today and may have vomited a little. He denies any blood in his emesis. He is currently constipated and denies any GI bleeding or black stool. He was on the toilet today, and trying to have a bowel movement. While it was reported that he had a syncopal episode, he denies this, and states that he almost passed out. He states he feels very lightheaded and dizzy. No recent fevers or chills, no cough. He always wears oxygen per nasal cannula and denies any new shortness of breath. [facility] Medical History Bleeding tendency Anxiety Depression Sleep apnea Former smoker CPAP (continuous positive airway pressure) dependence Asthma COPD (chronic obstructive pulmonary disease) Myocardial infarct History of COPD History of lung cancer HLD (hyperlipidemia) Afib CAD (coronary artery disease) Lung cancer Atrial fibrillation CAD (coronary artery disease) Home Medications ?Medication ?Instructions ?Recorded ?Last Taken ?Type hydrochlorothiazide 12.5 mg capsule 12.5 mg PO DAILY Blood Pressure 01/26/19 08/12/24 History Held on 08/14/24. Instructions: Resume on 08/24/24. Hold until follow-up with your primary care doctor. lisinopril 20 mg tablet 20 mg PO DAILY blood pressure 01/26/19 08/12/24 History Held on 08/14/24. Instructions: Resume on 08/24/24. Hold until follow-up with your primary care doctor. metoprolol succinate 25 mg 12.5 mg PO DAILY blood pressure 01/26/19 08/12/24 History tablet,extended release 24 hr simvastatin 20 mg tablet 20 mg PO DAILY Cholesterol 01/26/19 08/12/24 History warfarin 5 mg tablet 5 mg PO DAILY blood thinner 01/26/19 08/12/24 History acidophilus 100 million 2 ea PO DAILY supplement 04/13/20 08/05/23 History cell-pectin, citrus 10 mg capsule apple cider vinegar 600 mg capsule 600 mg PO MOWEFR supplement 04/13/20 08/02/23 History ascorbic acid (vitamin C) 1,000 mg 1,000 mg PO DAILY vitamin c 04/13/20 08/05/23 History tablet,extended release bee pollen 550 mg capsule 1 tab PO DAILY supplement 04/13/20 08/05/23 History calcium 315 mg (as 1 ea PO DAILY vitamin 04/13/20 08/05/23 History citrate)-vitamin D3 6.25 mcg (250 unit) tablet cinnamon bark 500 mg capsule 500 mg PO BID supplement 04/13/20 08/05/23 History coenzyme Q10 200 mg capsule 200 mg PO DAILY supplement 04/13/20 08/05/23 History cyanocobalamin (vitamin B-12) 1,000 mcg PO DAILY vitamin 04/13/20 08/05/23 History 1,000 mcg capsule docosahexaenoic acid 450 mg capsule 450 mg PO BID supplement 04/13/20 08/05/23 History folic acid 1 mg tablet 1 mg PO DAILY supplement 04/13/20 08/05/23 History glucosamine 750 [id number] 2 ea PO DAILY supplement 04/13/20 08/05/23 History no1 644 mg-C 30 mg-dionte 1 mg tablet magnesium oxide 400 mg (241.3 mg 400 mg PO DAILY supplement 04/13/20 08/05/23 History magnesium) tablet multivitamin 1 ea PO MOWEFR vitamin 04/13/20 08/02/23 History nitroglycerin 0.4 mg sublingual 0.4 mg sublingual Q5M PRN Chest 04/13/20 Unknown History tablet Pain psyllium husk 3.4 gram/5.4 gram 660 g PO DAILY supplement 04/13/20 08/05/23 History oral powder fluticasone fur. 100 mcg-umeclid 1 inh inhalation DAILY breathing 08/05/23 08/12/24 History 62.5 mcg-vilant 25 mcg inhalat.powder (Trelegy Ellipta) albuterol sulfate 90 mcg/actuation 1 inh inhalation Q6H PRN shortness 08/14/24 Unknown Rx aerosol inhaler of breath or wheezing #8.5 grams furosemide 20 mg tablet 20 mg PO DAILY 30 days #30 tabs 08/14/24 Unknown Rx Allergy/AdvReac Type Severity Reaction Status Date / Time No Known Allergies Allergy Verified 10/29/24 15:39 Surgical History History of appendectomy History of bronchoscopy Social History household members: none Smoking Status: Former smoker ROS ROS ED ROS Narrative Constitutional: No fever, no chills. HEENT: No sore throat. No neck pain. No loss of vision. No rhinorrhea. Cardiovascular: No chest pain. No palpitations. No pedal edema. Respiratory: No cough, no shortness of breath. Abdominal: No abdominal pain. Small amount of nausea and vomiting today after lunch. No hematemesis. Constipation. No black stool. Genitourinary: No dysuria. No hematuria. Musculoskeletal: No myalgias. No arthralgias. Neurologic: No headaches. Positive lightheadedness and dizziness. Positive near syncope. Denies syncopal episode. Skin: No rash. No change in color. Psychiatric: No depression. No anxiety. EXAM Physical Exam Narrative Exam Narrative: Afebrile. Vital signs noted. Nontoxic-appearing. Cardiovascular examination initially reveals an irregularly irregular rhythm with intermittent tachycardia, lungs are clear to auscultation bilaterally. Abdomen is soft and nontender without guarding or rebound. Positive bowel sounds. He is awake, alert, and interactive. No noted pedal edema. Const Vital Signs: 10/29/24 15:32 10/29/24 15:39 10/29/24 15:43 Temperature 97 F L 97 F L Temperature Source Oral Oral Pulse Rate 100 99 106 H Respiratory Rate 23 H 16 20 H Respiratory Effort Respiratory Pattern Blood Pressure 85/48 L 85/48 L Blood Pressure Mean 60 60 Pulse Ox 93 91 Oxygen Delivery Method Nasal Cannula Nasal Cannula Oxygen Flow Rate (L/min) 2 2 10/29/24 15:45 10/29/24 16:00 10/29/24 16:11 Temperature Temperature Source Pulse Rate 88 110 H 93 Respiratory Rate 19 H 21 H 22 H Respiratory Effort Respiratory Pattern Blood Pressure 77/46 L 64/45 L 94/51 L Blood Pressure Mean 57 53 63 Pulse Ox Oxygen Delivery Method Oxygen Flow Rate (L/min) 10/29/24 16:15 10/29/24 16:30 10/29/24 16:35 Temperature Temperature Source Pulse Rate 88 93 82 Respiratory Rate 19 H 15 18 Respiratory Effort Respiratory Pattern Blood Pressure 87/67 L 107/70 Blood Pressure Mean 75 82 Pulse Ox 93 Oxygen Delivery Method Oxygen Flow Rate (L/min) 10/29/24 16:36 10/29/24 16:37 10/29/24 16:39 Temperature 97.8 F Temperature Source Oral Pulse Rate 102 H 97 Respiratory Rate 18 17 Respiratory Effort Normal Non-Labored Respiratory Pattern Normal Blood Pressure 107/70 107/70 Blood Pressure Mean 82 82 Pulse Ox 92 92 Oxygen Delivery Method Nasal Cannula Nasal Cannula Oxygen Flow Rate (L/min) 2 2 10/29/24 16:45 10/29/24 17:00 10/29/24 17:00 Temperature 97.5 F L Temperature Source Oral Pulse Rate 84 95 92 Respiratory Rate 16 20 H 25 H Respiratory Effort Respiratory Pattern Blood Pressure 99/61 99/56 L 94/48 L Blood Pressure Mean 73 70 62 Pulse Ox 88 91 92 Oxygen Delivery Method Nasal Cannula Oxygen Flow Rate (L/min) 2 10/29/24 17:05 10/29/24 17:15 10/29/24 18:00 Temperature 97.4 F L Temperature Source Oral Pulse Rate 80 88 104 H Respiratory Rate 18 16 18 Respiratory Effort Respiratory Pattern Blood Pressure 99/56 L 101/51 L 111/61 Blood Pressure Mean 70 66 77 Pulse Ox 94 94 Oxygen Delivery Method Nasal Cannula Oxygen Flow Rate (L/min) 3 10/29/24 18:50 10/29/24 19:22 10/29/24 19:35 Temperature 97.5 F L 98.4 F Temperature Source Oral Oral Pulse Rate 100 88 Respiratory Rate 21 H 17 Respiratory Effort Respiratory Pattern Blood Pressure 119/95 H 133/70 H Blood Pressure Mean 103 91 Pulse Ox 92 89 93 Oxygen Delivery Method Nasal Cannula Nasal Cannula Nasal Cannula Oxygen Flow Rate (L/min) 3 3 4 MDM MDM MDM Narrative Medical decision making narrative: Initial examination shows him to be hypotensive. Differential diagnosis would include dehydration versus third spacing of fluid versus intravascular volume depletion versus other electrolyte abnormality. Sepsis workup was pursued in the form of lactic acid as well as EKG, chest x-ray, CBC, CMP, and INR as the patient takes warfarin. I would be concerned about pneumonia as well status postthoracentesis. He may have a pneumothorax as well. EKG was obtained and interpreted by myself independently as atrial fibrillation that is rate controlled at [address] changes. No STEMI. He does have intermittent tachycardia at times. White count slightly elevated at 14.5, hemoglobin 9.6. Hematocrit low at 28.8. Platelet count normal at 172. INR is slightly supratherapeutic at 3.2. BUN is 35 and creatinine 1.83. Lactic acid is elevated at 5.3 but I think this may be secondary to dehydration. However, he has a normal sodium of 134 and potassium 4.3 with chloride 99. LFTs are grossly unremarkable. On my independent interpretation of his chest x-ray, there is reaccumulation of fluid and question of patchy infiltrates in the right lung. His pulse ox remains 94% on nasal cannula and he states he wears oxygen all the time. I did review his prior EMR and he did have a thoracentesis yesterday, and I reviewed the inspiratory expiratory chest x-ray afterwards which was clear. Do feel this is more of a rapid reaccumulation as he just had his procedure yesterday. With concern for hemothorax as he is on Coumadin and his INR is elevated at 3.2, and when compared to prior laboratories this is the lowest his hemoglobin has been at 9.6 with comparison to the last hemoglobin in July, it was normal at 13.9. Patient did show increase in his blood pressure to at least 101/51 and he is not currently tachycardic after initial fluid boluses. On my individual interpretation of his chest x-ray, there is no evidence of pneumothorax but there appears to be reaccumulation of fluid when compared to the inspiratory/expiratory chest x-ray that was taken yesterday after his thoracentesis was performed. Given the rapid reaccumulation of fluid, his INR slightly supratherapeutic at 3.2, and a significant drop in his hemoglobin to 9.6 today from July, my concern would be for hemothorax postprocedure. I obtained a CT of the chest with IV contrast. On my review of the radiology report, there is a groundglass nodule that measures 2.2 cm consistent with the patient telling me he has a history of adenocarcinoma of the lung that he did not want treated or have surgery on. There is moderate right hemothorax. There are patchy infiltrates consistent with either atelectasis or infiltrates. As there is no cardiothoracic surgery and here, I discussed transfer with the patient and he states he has been seen at [facility] In the past. I discussed patient with the transfer line who accepted him and made him an ED to ED transfer as he will most likely require chest tube. He was administered vitamin K for the elevated INR of 3.2. I do not feel that he requires emergent thoracostomy currently as he still has an elevated INR, and there is no cardiothoracic surgery backup here. He had already been hypotensive and mildly anemic. Disposition is transferred in stable condition. History & Record Review Discussion w/independent historian: Patient Lab Data Attestation: I reviewed the patient's lab results. Labs: Laboratory Results - last 24 hr 10/29/24 16:31 WBC 14.5 H RBC 2.90 L Hgb 9.6 L Hct 28.8 L MCV 99.3 H MCH 33.1 H MCHC 33.3 RDW Std Deviation 49.0 H RDW Coeff of [place] 13.4 Plt Count 172 MPV 10.3 Immature Gran % (Auto) 0.600 Neut % (Auto) 85.8 H Lymph % (Auto) 4.0 L [place] % (Auto) 9.4 Eos % (Auto) 0.1 Baso % (Auto) 0.1 Absolute Neuts (auto) 12.4 H Absolute Lymphs (auto) 0.58 L Nucleated RBC % 0 PT 33.5 H INR 3.2 Sodium 136 Potassium 4.3 Chloride 99 Carbon Dioxide 19.8 L Anion Gap 17 H BUN 35 H Creatinine 1.83 H Estim Creat Clear Calc 28.98 L Est GFR (MDRD) Non-Af 35 L BUN/Creatinine Ratio 19.1 Glucose 195 H Lactic Acid 5.3 H* Calcium 8.5 Total Bilirubin 0.90 AST 22 ALT 10 Alkaline Phosphatase 54 Total Protein 5.3 L Albumin 3.4 Globulin 1.9 L Albumin/Globulin Ratio 1.8 Radiography Chest X-Ray - ED: 1 View, Read by ED Physician and Read by Radiologist Diagnostic Testing: Clinical Impression(s) from Imaging Studies Chest X-Ray 10/29/24 16:20 IMPRESSION: Interval development of a moderate right pleural effusion and patchy infiltrates throughout the right lung. Reading Location: [facility] Chest CT 10/29/24 17:35 IMPRESSION: 1. Moderate right hemothorax. 2. Patchy right lower lobe airspace opacities which may relate to atelectasis and/or infiltrates. 3. Cardiomegaly, coronary artery disease and severe emphysema. 4. Ground-glass nodule in the left lower lobe measuring 2.2 cm. Continued follow-up recommended. One or more dose reduction techniques were used (e.g., Automated exposure control, adjustment of the mA and/or kV according to patient size, use of iterative reconstruction technique). [facility] T[facility] Chief Complaint: Syncope ED Provider: Michael Rosen Dx/Rx/DC Orders Clinical Impression: Hemothorax on right, Lactic acidosis, Acute kidney injury, Anemia Prescriptions: No Action lisinopril 20 MG tablet 20 mg PO DAILY simvastatin 20 MG tablet 20 mg PO DAILY warfarin 5 MG tablet 5 mg PO DAILY Rx Instructions: 2.5MG MON & FRI, 5MG ALL OTHER DAYS hydrochlorothiazide 12.5 MG capsule 12.5 mg PO DAILY metoprolol succinate 25 MG tablet extended release 24 hr 12.5 mg PO DAILY multivitamin 1 EACH tablet 1 ea PO MOWEFR ascorbic acid (vitamin C) 1,000 MG tablet extended release 1,000 mg PO DAILY magnesium oxide 400 MG tablet 400 mg PO DAILY apple cider vinegar 600 MG capsule 600 mg PO MOWEFR nitroglycerin 0.4 MG tablet, sublingual 0.4 mg sublingual Q5M PRN (Reason: Chest Pain) folic acid 1 MG tablet 1 mg PO DAILY cinnamon bark 500 MG capsule 500 mg PO BID coenzyme Q10 200 MG capsule 200 mg PO DAILY calcium citrate-vitamin D3 1 EACH tablet 1 ea PO DAILY acidophilus-pectin, citrus 1 EACH capsule 2 ea PO DAILY docosahexaenoic acid 450 MG capsule 450 mg PO BID [id number]-[id number] 1 EACH tablet 2 ea PO DAILY bee pollen 550 MG capsule 1 tab PO DAILY psyllium husk 660 GM powder 660 g PO DAILY cyanocobalamin (vitamin B-12) 1,000 MCG capsule 1,000 mcg PO DAILY Trelegy Ellipta 100-62.5-25 mcg blister with device 1 inh INHALATION DAILY furosemide 20 mg Tablet 20 mg PO DAILY 30 Days Qty: 30 0RF albuterol sulfate 90 mcg/actuation HFA aerosol inhaler 1 inh inhalation Q6H PRN (Reason: shortness of breath or wheezing) Qty: 8.5 0RF Primary Care Provider: Lefty Samson Referrals: Lefty Samson MD [Primary Care Provider] - Print Language: Hebrew Disposition Disposition: Acute Care Hospital
--- NOTE | 2024-10-29 16:20 | RAD_ITS ---
PROCEDURE: Chest radiograph REASON FOR EXAM: Shortness of breath TECHNIQUE: Frontal view of the chest. COMPARISON: 10/28/2024 FINDINGS: Unchanged cardiomediastinal silhouette. Interval development of a moderate circumferential right pleural effusion and patchy infiltrates throughout the right mid and lower lung zones. Left lung is relatively clear. No sizable pneumothorax. RAD/Chest 1 View (Portable) IMPRESSION: Interval development of a moderate right pleural effusion and patchy infiltrate s throughout the right lung. Reading Location: [facility]
[2024-10-29 16:41] LABS: Absolute Lymphocyte Count 0.58 X10^3/uL (0.83-4.51); Absolute Neutrophil Count 12.4 X10^3/uL (2.0-7.7); Basophil# 0.02 X10^3/uL; Basophil% 0.1 % (0-1); Eosinophil# 0.01 X10^3/uL; Eosinophils% 0.1 % (0-5); Hematocrit 28.8 % (40-54); Hemoglobin 9.6 g/dL (13.0-16.5); Lymphocyte # 0.58 X10^3/ul (0.83-4.51); Mean Corp Hgb Conc 33.3 g/dL (32-36); Mean Corpuscular Hgb 33.1 pg (27.0-32.0); Mean Corpuscular Volume 99.3 fL (80-94); Mean Platelet Vol. 10.3 fl (6.2-12.0); Monocyte# 1.37 X10^3/uL; Monocyte% 9.4 % (0-10); NRBC Flagged by Analyzer 0 % (0-5); Neutrophil # 12.44 X10^3/uL (2.7-7.7); Neutrophil % 85.8 % (47-70); POSITIVE DIFFERENTIAL YES; Platelet Count 172 K/mm3 (150-450); RBC Distribution Width CV 13.4 % (11.6-14.6); White Blood Count 14.5 K/mm3 (4.4-11.0)
[2024-10-29] MEDS: Acetaminophen 325 MG Tablet 650 MG PO (16:56)
[2024-10-29 17:00] LABS: International Normalized Ratio 3.2; Prothrombin Time (Protime)PT. 33.5 SECONDS (11.7-14.9)
[2024-10-29 17:05] LABS: ALB/GLOB Ratio 1.8 RATIO (0.9-2.4); AST(SGOT) 22 U/L (<=37); Alanine Aminotransfer ALT/SGPT 10 U/L (<=46); Albumin, Serum 3.4 g/dL (3.4-4.8); Alkaline Phosphatase 54 U/L (40-129); Anion Gap 17 (5-15); BUN 35 mg/dL (4-19); BUN/Creat Ratio 19.1 RATIO (10-20); Calcium,Total 8.5 mg/dL (7.6-11.0); Carbon Dioxide 19.8 mmol/L (21.0-32.0); Chloride 99 mmol/L (98-108); Creatinine, Serum 1.83 mg/dL (0.70-1.20); EST Glomerular Filtration Rate 35 (>60); Estimated Creatinine Clearance 28.98 ml/min (50-250); Globulin 1.9 g/dL (2.2-4.2); Glucose 195 mg/dL (70-99); Potassium 4.3 mmol/L (3.3-5.1); Protein, Total 5.3 g/dL (5.9-8.4); Sodium Level 136 mmol/L (133-145)
[2024-10-29] MEDS: 0.9% Normal Saline (1000mL) 1,000 ML 999 ML IV ×2 (17:14→18:48)
[2024-10-29 17:33] LABS: Lactic Acid 5.3 mmol/L (0.0-2.0)
--- NOTE | 2024-10-29 17:35 | CT_ITS ---
PROCEDURE: CT chest with IV contrast REASON FOR EXAM: Shortness of breath, syncope TECHNIQUE: Multiple contiguous axial images of the chest were obtained after the administration of intravenous contrast. Two-dimensional coronal and sagittal reformatted images were reconstructed. Low-dose imaging technique was utilized. COMPARISON: Same day radiographs FINDINGS: Mild/moderate cardiomegaly. Moderate LAD and right coronary artery calcifications. Aortic valve calcifications. No significant pericardial effusion. Calcified nonaneurysmal thoracic aorta. Enlarged central pulmonary arteries which can be seen with pulmonary hypertension. No central pulmonary embolism. No bulky adenopathy. No acute findings in the visualized upper abdomen. Superficial soft tissues are within normal limits. Central airways are patent. Moderate right pleural effusion with dependent hyperdense material consistent with hemothorax. Patchy right basilar airspace opacities which may relate to a combination of atelectasis and infiltrates. Mild right apical pulmonary parenchymal scarring. Severe emphysema. 2.2 cm ground-glass nodule in the left lower lobe. No definite acute osseous abnormality. Several subacute appearing anterolateral right rib fractures. CT/Chest WITH Contrast IMPRESSION: 1. Moderate right hemothorax. 2. Patchy right lower lobe airspace opacities which may relate to atelectasis a nd/or infiltrates. 3. Cardiomegaly, coronary artery disease and severe emphysema. 4. Ground-glass nodule in the left lower lobe measuring 2.2 cm. Continued foll ow-up recommended. One or more dose reduction techniques were used (e.g., Automated exposure contr ol, adjustment of the mA and/or kV according to patient size, use of iterative reconstruction technique). Reading Location: [facility]
[2024-10-29] MEDS: 0.9% Normal Saline (500mL Bag) 500 ML 999 ML IV (18:52)
--- NOTE | 2024-10-29 18:55 | ED.RN ---
This RN has been attempting to get a urine on the patient for an hour and a half now. The patient has been refusing and Dr Rosen stated that we could give the patient more time due to the patient being hypovolemic and having a low blood pressure. 3,000ML of NS has been ordered and the patient has about 300ml left of that total fluid order. The family has talked to the patient regarding the urine sample and the patient has agreed to a straight cath after the total fluid volume is in. Dr Rosen is aware and is okay with the antibiotics being delayed until then.
[2024-10-29] MEDS: Ceftriaxone 2 GM in 0.9% Normal Saline (50mL MB+) 50 ML IV (19:34)
[2024-10-29] MEDS: Phytonadione (Vit K) 5 MG in 0.9% Normal Saline (50mL Bag) 50 ML 150 MG IV (19:57)
[2024-10-29 19:58] LABS: Bacteria 0 SEEN /hpf (None Seen); Mucous, Urine 0 SEEN /hpf (<or=2+); White Blood Cells 0 SEEN /hpf (0-5)
[2024-10-29 20:00] LABS: Color, Urine Yellow (Yellow); Glucose, Dipstick Normal (Normal); Ketone-Dipstick Negative (Negative); Leukocyte Esterase-Dipstick Negative /ul (Negative); Nitrite-Dipstick Negative (Negative); Occult Blood-Urine 10 /ul (Negative); Protein-Dipstick 30 mg/dl (Negative); Specific Gravity, Urine 1.015 (1.002-1.030); Urine Bilirubin Dipstick Negative (Negative); Urine Clarity Clear (Clear); Urine Urobilinogen Normal (Normal)
[2024-10-29] MEDS: Doxycycline 100 MG in 0.9% Normal Saline (250mL Bag) 250 ML 250 MG IV (20:29)
[2024-10-29 20:34] LABS: Red Blood Cells-Urine 0-5 SEEN /hpf (0-5); Squamous Epithelial Cells - UA 0-5 SEEN /hpf (0-5)
--- NOTE | 2024-10-29 20:52 | ED.RN ---
This RN called report to [place] at [facility].
== END 2024-10-29 20:52 | disposition short-term general hospital (02) ==
PROVIDERS: Emergency Provider Emergency Medicine; PCP Family Medicine; Referring Provider Emergency Medicine; Visit Provider Emergency Medicine
DX: J94.2 Hemothorax (principal); J44.9 Chronic obstructive pulmonary disease, unspecified; N17.9 Acute kidney failure, unspecified; E78.5 Hyperlipidemia, unspecified; I25.10 Atherosclerotic heart disease of native coronary artery without angina pectoris; D64.9 Anemia, unspecified; I25.2 Old myocardial infarction; Z87.891 Personal history of nicotine dependence; Z79.899 Other long term (current) drug therapy
CPT/HCPCS: 71045; 71260; 80053; 81001; 83605; 85025; 85610; 87040; 87086; 93005; 96365; 96367; 99285; Q9967; A4216; J0696

== ENCOUNTER 2024-11-18 08:00 | Outpatient (RCR) | payer MEDICARE, OTHER, SELFPAY ==
[2024-11-11 08:14] VITALS: BP 144/60; PULSE 118; RESP 20; TEMP 36.6; BMI 25.7
--- NOTE | 2024-11-11 11:14 | PCM.WC.PN ---
History of Present Illness Date of Service: 11/11/24 Chief Complaint: Right chest wound from a thoracentesis 2 weeks ago History of Wound: 84-year-old white male with lung cancer that keeps filling up with fluid in his chest so they keep having to take the fluid off and he had a thoracentesis done about 2 weeks ago and the wound did not close it has been seeping and he still sounds like he is full of fluid. Patient states they want to put a catheter in but he wants this to heal first so. Progress of Wound: The wound is a chest wound from a chest tube it is an open area of full-thickness into the right lung area. Subjective Subjective Patient just wants the wound closed Objective Data Objective Data Open chest wound from thoracentesis nonhealing full-thickness no sign of infection. Vital Signs: Vital Signs Temp Pulse Resp BP 97.8 F 118 H 20 H 144/60 H 11/11/24 08:14 11/11/24 08:14 11/11/24 08:14 11/11/24 08:14 Weight: 174 lb 9.669 oz Body Mass Index (BMI) 25.7 Debridement Note Debridement Note Post-Debridement Measurements and Additional Note: Post-Debridement Measurements/Treatment - Nurse 1 - General Ulcer Assessment Start: 11/11/24 08:14 Freq: Status: Active Protocol: LORI Activity Type Activity Date Activity User E-sign Co-sign Detail Recorded Client Recorded Date Recorded By Document 11/11/24 08:14 DL [id number] 11/11/24 08:28 DL 11/11/24 08:14 - Today's Visit Information Type of service Initial Visit Arrival Mode Ambulatory,Cane Transfer Assistance None Patient Identification Verified (Name & Yes ) Patient Requires Transmission-Based No Precautions Height and Weight Height 5 ft 9 in Weight 174 lb 9.669 oz Weight in Pounds 174.6 lbs Weight Measurement Method Estimated by Patient Body Mass Index (BMI) 25.7 BMI Classification Overweight Vital Signs Temperature (97.8 F-99.1 F) 97.8 F Temperature Source Temporal Pulse Rate (60-100) 118 H Pulse Location Monitor Respiratory Rate (12-18) 20 H Respiratory rate source Observation Blood Pressure (90/60-120/80) 144/60 H Blood Pressure Mean (mm Hg) 88 Source Monitor History Since Last Visit- (Skip if this is Patient's initial visit) Left Footwear Regular Shoe Right Footwear Regular Shoe Pain Scale: 0-10 Numeric Is Patient Pain Free? Yes Communication Assessment Preferred language Swiss Drencher Required No Able to Read Yes Able to Write Yes Communication Tools None Visual Assistive Devices Glasses Teaching Assessment Preferences Verbal,Written, Demonstration Barriers to Learning None Willingness to Engage in Self Management Med Activies Readiness to Engage in Self Management Med Activities Anxiety Level Calm Cooperation Cooperative Perception Coherent Interest in Health Problem Asks Questions Education Importance Acknowledges Need Does Patient Smoke tobacco or other No substances Smoking Status Former smoker Is Patient Diabetic No Functional Assessment Recent Decline in Ability to Perform Denies Any Declines Culture/Sikh/[employer]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 Motel Food Service Supervisor to contact place of shinto No Teaching: Wound Center *Welcome to the Wound Center -Person Taught Patient WC - Nurse 1 - General Ulcer Measurement Start: 11/11/24 08:14 Freq: Status: Active Protocol: Activity Type Activity Date Activity User E-sign Co-sign Detail Recorded Client Recorded Date Recorded By Document 11/11/24 08:14 DL [id number] 11/11/24 08:28 DL 11/11/24 08:14 Wound Center Nurse 1 #1 R Chest Sup -Current Size (cm) - Length 0.2 -Current Size (cm) - Width 0.2 -Current Size (cm) - Depth 0.3 -Total Square Cm 0.04 -Photo Taken Yes -Exudate Amt None Present -Wound Margin Distinct, Outline Attached -Granulation Amt None Present (0 %) -Necrosis Amt Small (1-33%) -Necrotic Tissue Type Adherent Slough -Structure Exposed N/A -Texture (Tika-wound Skin Appearance) Scarring -Moisture (Tika-wound Skin Appearance) No Abnormality -Color (Tika-wound Skin Appearance) No Abnormality -Tenderness on Palpation (Tika-wound Yes Skin Appearance) -Ulcer Cleansing Soap and Water -Foul Odor after Cleansing No -Anesthetic Used 5% Lidocaine Gel #2 R Chest Inf -Current Size (cm) - Length 0.3 -Current Size (cm) - Width 1.2 -Current Size (cm) - Depth 0.4 -Total Square Cm 0.36 -Photo Taken Yes -Exudate Amt Small -Exudate Type Serosanguineous -Wound Margin Distinct, Outline Attached -Granulation Amt Small (1-33%) -Granulation Quality [place] -Necrosis Amt Small (1-33%) -Necrotic Tissue Type Adherent Slough -Structure Exposed N/A -Texture (Tika-wound Skin Appearance) Scarring -Moisture (Tika-wound Skin Appearance) No Abnormality -Color (Tika-wound Skin Appearance) No Abnormality -Temperature (Tika-wound Skin No Abnormality Appearance) (Pt Warm) -Tenderness on Palpation (Tika-wound No Skin Appearance) -Ulcer Cleansing Soap and Water -Foul Odor after Cleansing No -Anesthetic Used 5% Lidocaine Gel MARTÍN - Nurse 2 - General Ulcer CM Notes Start: 11/11/24 08:14 Freq: Status: Active Protocol: Activity Type Activity Date Activity User E-sign Co-sign Detail Recorded Client Recorded Date Recorded By Document 11/11/24 08:47 [facility] [id number] 11/11/24 08:58 [facility] 11/11/24 08:47 Wound Center Nurse 2 -Time 08:47 -Correct Patient Yes -Correct Side, Site, Position Yes -Correct Procedure Yes -Procedure Performed Yes -Type of Procedure Debridement -Clinical Debridement Subcutaneous -Tissue Removed Subcutaneous -Post Debridement (cm) - Length 1.3 -Post Debridement (cm) - Width 0.3 -Post Debridement (cm) - Depth 0.6 -Total Square (Post) (cm) 0.39 -Area of Debridement (cm) - Length 1.3 -Area of Debridement (cm) - Width 0.3 -Total Square (Area) (cm) 0.39 -Tunneling No -Undermining/Tunneling No -Circular Undermining No -Wound/Ulcer Outcome Not Healed -Ulcer Cleansing Rinsed/ Irrigated with Saline -Foul Odor after Cleansing No -Bioengineered Tissue No -Bleeding Controlled with Pressure -Debridement - Subq, 1st 20sq cm Yes Pain Scale: 0-10 Numeric Is Patient Pain Free? Yes - Nurse 3 - General Ulcer D/C NN Start: 11/11/24 08:14 Freq: Status: Active Protocol: Activity Type Activity Date Activity User E-sign Co-sign Detail Recorded Client Recorded Date Recorded By Document 11/11/24 09:08 [facility] [id number] 11/11/24 09:09 [facility] 11/11/24 09:08 Wound Care Center Nurse 3 #2 R Chest Inf -Ulcer Cleansing Rinsed/ Irrigated with Saline -Foul Odor after Cleansing No -Primary Dressing Applied Aquacel Extra, Silicone Border Foam 4x4 -Aquacel Extra 2 -Silicone Border Foam 4x4 2 Treatment Response Procedure Tolerated Well Pain Scale: 0-10 Numeric Is Patient Pain Free? Yes WC - Visit Discharge Discharge Condition Stable Ambulatory Status Ambulatory Transportation [facility] Facility Type Home Health Notes: PT THINKS [facility] IS TO BE STARTING SOON
--- NOTE | 2024-11-11 11:52 | PCM.WC.HP ---
History of Present Illness Date of Service: 11/11/24 Chief Complaint: Follow-up on a chest wound History of Wound: 84-year-old white male with history of lung cancer and keeps filling up with fluid in his lungs had thoracentesis done 2 weeks ago. The wound is not healed and patient is concerned because it keeps draining. Was seen by his family doctor and they referred him here to the wound center. Patient states that the thoracic surgeon wants to put a catheter in but does not want to do it until this is healed. Progress of Wound: The wound is a chest wound from a chest tube it is an open area of full-thickness into the right lung area. [facility] Medical History Bleeding tendency Anxiety Depression Sleep apnea Former smoker CPAP (continuous positive airway pressure) dependence Asthma COPD (chronic obstructive pulmonary disease) Myocardial infarct History of COPD History of lung cancer HLD (hyperlipidemia) Afib CAD (coronary artery disease) Lung cancer Atrial fibrillation CAD (coronary artery disease) Home Medications ?Medication ?Instructions ?Recorded ?Last Taken ?Type metoprolol succinate 25 mg 12.5 mg PO DAILY blood pressure 01/26/19 08/12/24 History tablet,extended release 24 hr simvastatin 20 mg tablet 20 mg PO DAILY Cholesterol 01/26/19 08/12/24 History acidophilus 100 million 2 ea PO DAILY supplement 04/13/20 08/05/23 History cell-pectin, citrus 10 mg capsule apple cider vinegar 600 mg capsule 600 mg PO MOWEFR supplement 04/13/20 08/02/23 History ascorbic acid (vitamin C) 1,000 mg 1,000 mg PO DAILY vitamin c 04/13/20 08/05/23 History tablet,extended release bee pollen 550 mg capsule 1 tab PO DAILY supplement 04/13/20 08/05/23 History calcium 315 mg (as 1 ea PO DAILY vitamin 04/13/20 08/05/23 History citrate)-vitamin D3 6.25 mcg (250 unit) tablet cinnamon bark 500 mg capsule 500 mg PO BID supplement 04/13/20 08/05/23 History coenzyme Q10 200 mg capsule 200 mg PO DAILY supplement 04/13/20 08/05/23 History cyanocobalamin (vitamin B-12) 1,000 mcg PO DAILY vitamin 04/13/20 08/05/23 History 1,000 mcg capsule docosahexaenoic acid 450 mg capsule 450 mg PO BID supplement 04/13/20 08/05/23 History folic acid 1 mg tablet 1 mg PO DAILY supplement 04/13/20 08/05/23 History glucosamine 750 hu-iozpcehurfp-svs 2 ea PO DAILY supplement 04/13/20 08/05/23 History no1 644 mg-C 30 mg-dionte 1 mg tablet magnesium oxide 400 mg (241.3 mg 400 mg PO DAILY supplement 04/13/20 08/05/23 History magnesium) tablet multivitamin 1 ea PO MOWEFR vitamin 04/13/20 08/02/23 History nitroglycerin 0.4 mg sublingual 0.4 mg sublingual Q5M PRN Chest 04/13/20 Unknown History tablet Pain psyllium husk 3.4 gram/5.4 gram 660 g PO DAILY supplement 04/13/20 08/05/23 History oral powder fluticasone fur. 100 mcg-umeclid 1 inh inhalation DAILY breathing 08/05/23 08/12/24 History 62.5 mcg-vilant 25 mcg inhalat.powder (Trelegy Ellipta) albuterol sulfate 90 mcg/actuation 1 inh inhalation Q6H PRN shortness 08/14/24 Unknown Rx aerosol inhaler of breath or wheezing #8.5 grams furosemide 20 mg tablet 20 mg PO DAILY 30 days #30 tabs 08/14/24 Unknown Rx apixaban 2.5 mg tablet (Eliquis) 2.5 mg PO BID 11/11/24 Unknown History Allergy/AdvReac Type Severity Reaction Status Date / Time No Known Allergies Allergy Verified 11/11/24 08:31 Surgical History History of appendectomy History of bronchoscopy Social History household members: none Smoking Status: Former smoker ROS Constitutional Constitutional: Reports systems reviewed and no addt'l complaints, except as documented Eyes Eyes: Reports systems reviewed and no addt'l complaints, except as documented ENT HEENT: Reports systems reviewed and no addt'l complaints, except as documented Cardiovascular Cardiovascular: Reports systems reviewed and no addt'l complaints, except as documented Respiratory/Chest Respiratory/Chest: Reports systems reviewed and no addt'l complaints, except as documented Gastrointestinal Gastrointestinal: Reports systems reviewed and no addt'l complaints, except as documented Genitourinary Genitourinary: Reports systems reviewed and no addt'l complaints, except as documented Musculoskeletal Musculoskeletal: Reports systems reviewed and no addt'l complaints, except as documented Integumentary Integumentary: Reports wounds and other Details: Right chest wall wound open with some serous drainage Neurologic Neurologic: Reports systems reviewed and no addt'l complaints, except as documented Psychiatric Psychiatric: Reports systems reviewed and no addt'l complaints, except as documented Endocrine Endocrinology: Reports systems reviewed and no addt'l complaints, except as documented Hematologic/Lymphatic Hematologic/Lymphatic: Reports systems reviewed and no addt'l complaints, except as documented Allergic/Immunologic Allergic/Immunologic: Reports systems reviewed and no addt'l complaints, except as documented Vital Signs Vital Signs Vital Signs: 11/11/24 08:14 Temperature 97.8 F Temperature Source Temporal Pulse Rate 118 H Respiratory Rate 20 H Blood Pressure 144/60 H Blood Pressure Mean 88 Blood Pressure Source Monitor Weight Weight: 174 lb 9.669 oz Body Mass Index (BMI) 25.7 Physical Exam Const oriented x3 General Appearance: cooperative Exam Limitations: no limitations HEENT normocephalic Eyes General Eye: normal appearance of both eyes Neck General: normal visual inspection Chest Negative for inspection of chest normal Chest Narrative: Open wound right chest wall from thoracentesis Resp normal respiratory effort Effort and Inspection: able to speak in complete sentences, decreased respiratory effort and actively coughing Auscultation: clear to auscultation bilaterally, crackles, rhonchi and diminished lung sounds Cardio regular rate and regular rhythm Palpation: normal PMI Rate: regular rate Rhythm: regular rhythm GI Palpation: soft and no hepatosplenomegaly Extremity normal to inspection Skin no rashes or lesions noted Neuro oriented x3 Psych Appearance: grossly normal Speech: normal speech Thought Content: normal thought content Judgement: judgement good Debridement Note Debridement Note Wound debrided: Right chest wall surgical wound Type of Debridement: Excisional debridement Anesthesia Used: 5% Lidocaine Gel Depth: in the subcutaneous layer Percentage of wound debrided: 100 Instrument Used: 3mm curette Tissue Removed: Fibrin Severity: Fat Layer Exposed Amount of bleeding with debridement: Mild Bleeding Controlled with: Compression and gauze Patient tolerated procedure: Patient tolerated procedure well Post-Debridement Measurements and Additional Note: Post-Debridement Measurements/Treatment MARTÍN - Nurse 1 - General Ulcer Assessment Start: 11/11/24 08:14 Freq: Status: Active Protocol: LORI Activity Type Activity Date Activity User E-sign Co-sign Detail Recorded Client Recorded Date Recorded By Document 11/11/24 08:14 DL [id number] 11/11/24 08:28 DL 11/11/24 08:14 WC - Today's Visit Information Type of service Initial Visit Arrival Mode Ambulatory,Cane Transfer Assistance None Patient Identification Verified (Name & Yes ) Patient Requires Transmission-Based No Precautions Height and Weight Height 5 ft 9 in Weight 174 lb 9.669 oz Weight in Pounds 174.6 lbs Weight Measurement Method Estimated by Patient Body Mass Index (BMI) 25.7 BMI Classification Overweight Vital Signs Temperature (97.8 F-99.1 F) 97.8 F Temperature Source Temporal Pulse Rate (60-100) 118 H Pulse Location Monitor Respiratory Rate (12-18) 20 H Respiratory rate source Observation Blood Pressure (90/60-120/80) 144/60 H Blood Pressure Mean 88 Source Monitor History Since Last Visit- (Skip if this is Patient's initial visit) Left Footwear Regular Shoe Right Footwear Regular Shoe Pain Scale: 0-10 Numeric Is Patient Pain Free? Yes Communication Assessment Preferred language [place] Sales Record Clerk Required No Able to Read Yes Able to Write Yes Communication Tools None Visual Assistive Devices Glasses Teaching Assessment Preferences Verbal,Written, Demonstration Barriers to Learning None Willingness to Engage in Self Management Med Activies Readiness to Engage in Self Management Med Activities Anxiety Level Calm Cooperation Cooperative Perception Coherent Interest in Health Problem Asks Questions Education Importance Acknowledges Need Does Patient Smoke tobacco or other No substances Smoking Status Former smoker Is Patient Diabetic No Functional Assessment Recent Decline in Ability to Perform Denies Any Declines Culture/Episcopal/Land Use Planner Cultural/Episcopal Needs that may affect No Treatment Plan Would you allow our hospital bottom brusher to No meet you for the purpose of spiritual/ emotional support? Land Use Planner to contact place of hoahaoism No Teaching: Wound Center *Welcome to the Wound Center -Person Taught Patient MARTÍN - Nurse 1 - General Ulcer Measurement Start: 11/11/24 08:14 Freq: Status: Active Protocol: Activity Type Activity Date Activity User E-sign Co-sign Detail Recorded Client Recorded Date Recorded By Document 11/11/24 08:14 DL [id number] 11/11/24 08:28 DL 11/11/24 08:14 Wound Center Nurse 1 #1 R Chest Sup -Current Size (cm) - Length 0.2 -Current Size (cm) - Width 0.2 -Current Size (cm) - Depth 0.3 -Total Square Cm 0.04 -Photo Taken Yes -Exudate Amt None Present -Wound Margin Distinct, Outline Attached -Granulation Amt None Present (0 %) -Necrosis Amt Small (1-33%) -Necrotic Tissue Type Adherent Slough -Structure Exposed N/A -Texture (Tika-wound Skin Appearance) Scarring -Moisture (Tika-wound Skin Appearance) No Abnormality -Color (Tika-wound Skin Appearance) No Abnormality -Tenderness on Palpation (Tika-wound Yes Skin Appearance) -Ulcer Cleansing Soap and Water -Foul Odor after Cleansing No -Anesthetic Used 5% Lidocaine Gel #2 R Chest Inf -Current Size (cm) - Length 0.3 -Current Size (cm) - Width 1.2 -Current Size (cm) - Depth 0.4 -Total Square Cm 0.36 -Photo Taken Yes -Exudate Amt Small -Exudate Type Serosanguineous -Wound Margin Distinct, Outline Attached -Granulation Amt Small (1-33%) -Granulation Quality [place] -Necrosis Amt Small (1-33%) -Necrotic Tissue Type Adherent Slough -Structure Exposed N/A -Texture (Tika-wound Skin Appearance) Scarring -Moisture (Tika-wound Skin Appearance) No Abnormality -Color (Tika-wound Skin Appearance) No Abnormality -Temperature (Tika-wound Skin No Abnormality Appearance) (Pt Warm) -Tenderness on Palpation (Tika-wound No Skin Appearance) -Ulcer Cleansing Soap and Water -Foul Odor after Cleansing No -Anesthetic Used 5% Lidocaine Gel WC - Nurse 2 - General Ulcer CM Notes Start: 11/11/24 08:14 Freq: Status: Active Protocol: Activity Type Activity Date Activity User E-sign Co-sign Detail Recorded Client Recorded Date Recorded By Document 11/11/24 08:47 [facility] [id number] 11/11/24 08:58 [facility] 11/11/24 08:47 Wound Center Nurse 2 -Time 08:47 -Correct Patient Yes -Correct Side, Site, Position Yes -Correct Procedure Yes -Procedure Performed Yes -Type of Procedure Debridement -Clinical Debridement Subcutaneous -Tissue Removed Subcutaneous -Post Debridement (cm) - Length 1.3 -Post Debridement (cm) - Width 0.3 -Post Debridement (cm) - Depth 0.6 -Total Square (Post) (cm) 0.39 -Area of Debridement (cm) - Length 1.3 -Area of Debridement (cm) - Width 0.3 -Total Square (Area) (cm) 0.39 -Tunneling No -Undermining/Tunneling No -Circular Undermining No -Wound/Ulcer Outcome Not Healed -Ulcer Cleansing Rinsed/ Irrigated with Saline -Foul Odor after Cleansing No -Bioengineered Tissue No -Bleeding Controlled with Pressure -Debridement - Subq, 1st 20sq cm Yes Pain Scale: 0-10 Numeric Is Patient Pain Free? Yes - Nurse 3 - General Ulcer D/C NN Start: 11/11/24 08:14 Freq: Status: Active Protocol: Activity Type Activity Date Activity User E-sign Co-sign Detail Recorded Client Recorded Date Recorded By Document 11/11/24 09:08 [facility] [id number] 11/11/24 09:09 [facility] 11/11/24 09:08 Wound Care Center Nurse 3 #2 R Chest Inf -Ulcer Cleansing Rinsed/ Irrigated with Saline -Foul Odor after Cleansing No -Primary Dressing Applied Aquacel Extra, Silicone Border Foam 4x4 -Aquacel Extra 2 -Silicone Border Foam 4x4 2 Treatment Response Procedure Tolerated Well Pain Scale: 0-10 Numeric Is Patient Pain Free? Yes WC - Visit Discharge Discharge Condition Stable Ambulatory Status Ambulatory Transportation Private [facility] Facility Type Home Health Notes: PT THINKS [facility] TO [facility] SOON Assessment/Plan Assessment/Plan (1) History of thoracentesis: CODE(S): Z98.890 - Other specified postprocedural states (2) Nonhealing surgical wound: CODE(S): T81.89XA - Other complications of procedures, not elsewhere classified, initial encounter QUALIFIERS: Encounter type: initial encounter Qualified Code(s): T81.89XA - Other complications of procedures, not elsewhere classified, initial encounter (3) Open wound of chest (wall), without mention of complication: CODE(S): S21.109A - Unspecified open wound of unspecified front wall of thorax without penetration into thoracic cavity, initial encounter QUALIFIERS: Encounter type: initial encounter Laterality: right Qualified Code(s): S21.101A - Unspecified open wound of right front wall of thorax without penetration into thoracic cavity, initial encounter PLAN: Wash wound with antibacterial soap and water and pack with Aquacel extra then cover with [place] SAP every other day Patient to get home health care to help and maybe family to help with wound care Follow-up in 1 week
--- NOTE | 2024-11-12 08:19 | WC ---
PHOTO 11/11/24 RIGHT CHEST
--- NOTE | 2024-11-12 08:24 | WC ---
PHOTO 11/11/24 RIGHT CHEST SUP
[2024-11-13 08:30] VITALS: BP 102/57; PULSE 104; RESP 18; TEMP 35.9; BMI 25.7
[2024-11-16 08:23] VITALS: RESP 18; TEMP 36.6; BMI 25.7
[2024-11-18 08:21] VITALS: BP 127/92; PULSE 85; RESP 18; TEMP 36.4; BMI 25.7
--- NOTE | 2024-11-18 09:41 | PN.PCM_ITS ---
History of Present Illness Date of Service: 11/18/24 Chief Complaint: Follow-up on a chest wound History of Wound: 84-year-old white male with history of lung cancer and keeps filling up with fluid in his lungs had thoracentesis done 2 weeks ago. The wound is not healed and patient is concerned because it keeps draining. Was seen by his family doctor and they referred him here to the wound center. Patient states that the thoracic surgeon wants to put a catheter in but does not want to do it until this is healed. Progress of Wound: The wound is a chest wound from a chest tube it is an open area of full- thickness into the right lung area. Appears bigger this week and also is more red around the circumference of the wound. Patient denies any chest pains or shortness of breath or any pus coming out. Wound care has been Saturday and we have been trying to get his family and he did not have family come in this last week and because he did not think it need to be done but we told him it yes it needs to be done on weekends also. Subjective Subjective Patient is agreeable to all plans with no issues Objective Data Objective Data Were going to change up and he had iodoform 1 inch gauze to the wound and cover with an absorbent dressing Vital Signs: Vital Signs Temp Pulse Resp BP O2 Del Method O2 Flow Rate 97.5 F L 85 18 127/92 H Nasal Cannula 3 11/18/24 08:21 11/18/24 08:21 11/18/24 08:21 11/18/24 08:21 11/16/24 08:23 11/13/24 08:30 Oxygen Flow Rate (L/min) 3 Oxygen Delivery Method Nasal Cannula Weight: 174 lb 9.669 oz Body Mass Index (BMI) 25.7 Lab / Micro Data Attestation: I reviewed the patient's lab results. Lab results narrative: Patient is showing a 14,000 white count and some anemia and some renal insufficiency. Albumin appears to be okay but we did not get a prealbumin on him. Patient's lactic acid seems to be elevated also Physical Exam Const oriented x3 General Appearance: cooperative Exam Limitations: no limitations HEENT normocephalic Eyes General Eye: normal appearance of both eyes Neck General: normal visual inspection Chest Negative for inspection of chest normal Chest Narrative: Open wound right chest wall from thoracentesis Resp normal respiratory effort Effort and Inspection: able to speak in complete sentences, decreased respiratory effort and actively coughing Auscultation: clear to auscultation bilaterally, crackles, rhonchi and diminished lung sounds Cardio regular rate and regular rhythm Palpation: normal PMI Rate: regular rate Rhythm: regular rhythm GI Palpation: soft and no hepatosplenomegaly Extremity normal to inspection Skin no rashes or lesions noted Neuro oriented x3 Psych Appearance: grossly normal Speech: normal speech Thought Content: normal thought content Judgement: judgement good Debridement Note Debridement Note Wound debrided: Right chest wall surgical wound Laterality: Right Type of Debridement: Excisional debridement Anesthesia Used: 5% Lidocaine Gel Depth: in the subcutaneous layer Percentage of wound debrided: 100 Instrument Used: 5mm curette Tissue Removed: Fibrin Severity: Fat Layer Exposed Amount of bleeding with debridement: Mild Bleeding Controlled with: Compression and gauze Patient tolerated procedure: Patient tolerated procedure well Post-Debridement Measurements and Additional Note: Post-Debridement Measurements/Treatment - Nurse 1 - General Ulcer Assessment Start: 11/11/24 08:14 Freq: Status: Active Protocol: LORI Activity Type Activity Date Activity User E-sign Co-sign Detail Recorded Client Recorded Date Recorded By Document 11/11/24 08:14 DL [id number] 11/11/24 08:28 DL Document 11/13/24 08:30 RB WOUND 11/13/24 08:35 RB Document 11/16/24 08:23 [facility] [id number] 11/16/24 08:31 BMF Document 11/18/24 08:21 DL [id number] 11/18/24 08:28 DL 11/11/24 11/13/24 11/16/24 08:14 08:30 08:23 - Today's Visit Information Type of service Initial Visit Nurse-only Nurse-only Visit Visit Arrival Mode Ambulatory,Cane Ambulatory,Cane Ambulatory,Cane Transfer Assistance None Manual None Patient Identification Verified (Name & Yes Yes Yes ) Patient Requires Transmission-Based No No No Precautions Height and Weight Height 5 ft 9 in Weight 174 lb 9.669 oz Weight in Pounds 174.6 lbs Weight Measurement Method Estimated by Patient Body Mass Index (BMI) 25.7 25.7 25.7 BMI Classification Overweight Overweight Overweight Vital Signs Temperature (97.8 F-99.1 F) 97.8 F 96.7 F L 97.8 F Temperature Source Temporal Temporal Temporal Pulse Rate (60-100) 118 H 104 H Pulse Location Monitor Monitor Monitor Respiratory Rate (12-18) 20 H 18 18 Respiratory rate source Observation Observation Observation Oxygen Delivery Method Nasal Cannula O2 L/MIN (L/min) 3 Blood Pressure (90/60-120/80) 144/60 H 102/57 L Blood Pressure Mean (mm Hg) 88 72 Source Monitor Monitor Monitor Position Semi-Fowlers Sitting Blood Pressure Location Left Arm Right Arm History Since Last Visit- (Skip if this is Patient's initial visit) Have you changed medications since your No No last visit? Any new allergies or adverse reactions No No Had a fall/change in ADL's that may No No increase risk of falls Signs or symptoms of abuse and/or No No neglect since last visit Have you been in the hospital since your No No last visit? Has dressing in place as prescribed Yes Yes Has compression in place as prescribed N/A N/A Has offloadiing in place as prescribed N/A N/A Experienced any changes in pain level or No No management Left Footwear Regular Shoe Regular Shoe Right Footwear Regular Shoe Regular Shoe Pain Scale: 0-10 Numeric Is Patient Pain Free? Yes Yes Yes Communication Assessment Preferred language Liberian Bead Inspector Required No Able to Read Yes Able to Write Yes Communication Tools None Visual Assistive Devices Glasses Teaching Assessment Preferences Verbal,Written, Demonstration Barriers to Learning None Willingness to Engage in Self Management Med Activies Readiness to Engage in Self Management Med Activities Anxiety Level Calm Cooperation Cooperative Perception Coherent Interest in Health Problem Asks Questions Education Importance Acknowledges Need Does Patient Smoke tobacco or other No substances Smoking Status Former smoker Is Patient Diabetic No Functional Assessment Recent Decline in Ability to Perform Denies Any Declines Culture/Latter-Day/Metallurgical Engineering Teacher Cultural/Latter-Day Needs that may affect No Treatment Plan Would you allow our hospital vaccinator to No meet you for the purpose of spiritual/ emotional support? Metallurgical Engineering Teacher to contact place of caodaism No Teaching: Wound Center *Welcome to the Wound Center -Person Taught Patient 11/18/24 08:21 WC - Today's Visit Information Type of service Follow-up Visit (Physician/HIRED HELP ) Arrival Mode Ambulatory Transfer Assistance None Patient Identification Verified (Name & Yes ) Patient Requires Transmission-Based No Precautions Height and Weight Height Weight Weight in Pounds Weight Measurement Method Body Mass Index (BMI) 25.7 BMI Classification Overweight Vital Signs Temperature (97.8 F-99.1 F) 97.5 F L Temperature Source Temporal Pulse Rate (60-100) 85 Pulse Location Monitor Respiratory Rate (12-18) 18 Respiratory rate source Observation Oxygen Delivery Method O2 L/MIN (L/min) Blood Pressure (90/60-120/80) 127/92 H Blood Pressure Mean (mm Hg) 103 Source Monitor Position Blood Pressure Location History Since Last Visit- (Skip if this is Patient's initial visit) Have you changed medications since your No last visit? Any new allergies or adverse reactions No Had a fall/change in ADL's that may No increase risk of falls Signs or symptoms of abuse and/or No neglect since last visit Have you been in the hospital since your No last visit? Has dressing in place as prescribed Yes Has compression in place as prescribed N/A Has offloadiing in place as prescribed N/A Experienced any changes in pain level or No management Left Footwear Right Footwear Pain Scale: 0-10 Numeric Is Patient Pain Free? Yes Communication Assessment Preferred speech and language clinician Required Able to Read Able to Write Communication Tools Visual Assistive Devices Teaching Assessment Preferences Barriers to Learning Willingness to Engage in Self Management Activies Readiness to Engage in Self Management Activities Anxiety Level Cooperation Perception Interest in Health Problem Education Importance Does Patient Smoke tobacco or other substances Smoking Status Is Patient Diabetic Functional Assessment Recent Decline in Ability to Perform Culture/Latter-Day/Metallurgical Engineering Teacher Cultural/Latter-Day Needs that may affect Treatment Plan Would you allow our hospital vaccinator to meet you for the purpose of spiritual/ emotional support? Metallurgical Engineering Teacher to contact place of caodaism Teaching: Wound Center *Welcome to the Wound Center -Person Taught WC - Nurse 1 - General Ulcer Measurement Start: 11/11/24 08:14 Freq: Status: Active Protocol: Activity Type Activity Date Activity User E-sign Co-sign Detail Recorded Client Recorded Date Recorded By Document 11/11/24 08:14 DL [id number] 11/11/24 08:28 DL Document 11/13/24 08:30 RB WOUND 11/13/24 08:35 RB Document 11/16/24 08:23 BMF [id number] 11/16/24 08:31 BMF Document 11/18/24 08:21 DL [id number] 11/18/24 08:28 DL 11/11/24 11/13/24 11/16/24 08:14 08:30 08:23 Wound Center Nurse 1 #1 R Chest Sup -Current Size (cm) - Length 0.2 -Current Size (cm) - Width 0.2 -Current Size (cm) - Depth 0.3 -Total Square Cm 0.04 -Photo Taken Yes -Exudate Amt None Present -Wound Margin Distinct, Outline Attached -Granulation Amt None Present (0 %) -Necrosis Amt Small (1-33%) -Necrotic Tissue Type Adherent Slough -Structure Exposed N/A -Texture (Tika-wound Skin Appearance) Scarring -Moisture (Tika-wound Skin Appearance) No Abnormality -Color (Tika-wound Skin Appearance) No Abnormality -Tenderness on Palpation (Tika-wound Yes Skin Appearance) -Ulcer Cleansing Soap and Water -Foul Odor after Cleansing No -Anesthetic Used 5% Lidocaine Gel #2 R Chest -Combined with other wound No -Current Size (cm) - Length 0.3 -Current Size (cm) - Width 1.2 -Current Size (cm) - Depth 0.4 -Total Square Cm 0.36 -Date of Last Picture (Recall this field) -Photo Taken Yes -Tunneling No -Undermining/Tunneling No -Undermining/Tunneling Starts (O'clock ) -Undermining/Tunneling Ends (O'clock) -Maximum Distance (cm) -Circular Undermining No -Exudate Amt Small Large Medium -Exudate Type Serosanguineous Serosanguineous Serosanguineous -Wound Margin Distinct, Thickened & Distinct, Outline Rolled Under Outline Attached Attached -Granulation Amt Small (1-33%) Medium (34-66%) Large (67-100%) -Granulation Quality [place] Red -Slough/Fibrin Yes No -Necrosis Amt Small (1-33%) Small (1-33%) None Present (0 %) -Necrotic Tissue Type Adherent Slough Adherent Slough -Structure Exposed N/A N/A -Texture (Tika-wound Skin Appearance) Scarring Assessed, Assessed, Scarring Scarring -Moisture (Tika-wound Skin Appearance) No Abnormality Assessed Assessed -Color (Tika-wound Skin Appearance) No Abnormality Assessed Assessed -Temperature (Tika-wound Skin No Abnormality No Abnormality No Abnormality Appearance) (Pt Warm) (Pt Warm) (Pt Warm) -Tenderness on Palpation (Tika-wound No No No Skin Appearance) -Ulcer Cleansing Soap and Water Wound Cleanser Soap and Water -Foul Odor after Cleansing No No No -Anesthetic Used 5% Lidocaine Gel 11/18/24 08:21 Wound Center Nurse 1 #1 R Chest Sup -Current Size (cm) - Length -Current Size (cm) - Width -Current Size (cm) - Depth -Total Square Cm -Photo Taken -Exudate Amt -Wound Margin -Granulation Amt -Necrosis Amt -Necrotic Tissue Type -Structure Exposed -Texture (Tika-wound Skin Appearance) -Moisture (Tika-wound Skin Appearance) -Color (Tika-wound Skin Appearance) -Tenderness on Palpation (Tika-wound Skin Appearance) -Ulcer Cleansing -Foul Odor after Cleansing -Anesthetic Used #2 R Chest -Combined with other wound No -Current Size (cm) - Length 0.5 -Current Size (cm) - Width 1.2 -Current Size (cm) - Depth 1 -Total Square Cm 0.60 -Date of Last Picture (Recall this 11/18/24 field) -Photo Taken Yes -Tunneling -Undermining/Tunneling Yes -Undermining/Tunneling Starts (O'clock 11 ) -Undermining/Tunneling Ends (O'clock) 5 -Maximum Distance (cm) 0.6 -Circular Undermining No -Exudate Amt Medium -Exudate Type Serosanguineous -Wound Margin Distinct, Outline Attached -Granulation Amt Small (1-33%) -Granulation Quality Red -Slough/Fibrin Yes -Necrosis Amt Large (67-100%) -Necrotic Tissue Type Adherent Slough -Structure Exposed -Texture (Tika-wound Skin Appearance) Assessed, Scarring -Moisture (Tika-wound Skin Appearance) Assessed -Color (Tika-wound Skin Appearance) Assessed -Temperature (Tika-wound Skin No Abnormality Appearance) (Pt Warm) -Tenderness on Palpation (Tika-wound No Skin Appearance) -Ulcer Cleansing Rinsed/ Irrigated with Saline -Foul Odor after Cleansing No -Anesthetic Used 5% Lidocaine Gel WC - Nurse 2 - General Ulcer CM Notes Start: 11/11/24 08:14 Freq: Status: Active Protocol: Activity Type Activity Date Activity User E-sign Co-sign Detail Recorded Client Recorded Date Recorded By Document 11/11/24 08:47 [facility] [id number] 11/11/24 08:58 BM Document 11/18/24 08:33 BMF [id number] 11/18/24 08:40 [facility] 11/11/24 11/18/24 08:47 08:33 Wound Center Nurse 2 #2 R Chest -Time 08:47 08:33 -Correct Patient Yes Yes -Correct Side, Site, Position Yes Yes -Correct Procedure Yes Yes -Procedure Performed Yes Yes -Type of Procedure Debridement Debridement -Clinical Debridement Subcutaneous -Tissue Removed Subcutaneous -Post Debridement (cm) - Length 1.3 0.3 -Post Debridement (cm) - Width 0.3 1.3 -Post Debridement (cm) - Depth 0.6 1 -Total Square (Post) (cm) 0.39 0.39 -Area of Debridement (cm) - Length 1.3 0.3 -Area of Debridement (cm) - Width 0.3 1.3 -Total Square (Area) (cm) 0.39 0.39 -Tunneling No No -Undermining/Tunneling No -Circular Undermining No No -Wound/Ulcer Outcome Not Healed Not Healed -Ulcer Cleansing Rinsed/ Rinsed/ Irrigated with Irrigated with Saline Saline -Foul Odor after Cleansing No No -Bioengineered Tissue No No -Bleeding Controlled with Pressure Pressure -Treatment Response Procedure Tolerated Well -Debridement - Subq, 1st 20sq cm Yes Yes Pain Scale: 0-10 Numeric Is Patient Pain Free? Yes Yes WC - Nurse 3 - General Ulcer D/C NN Start: 11/11/24 08:14 Freq: Status: Active Protocol: Activity Type Activity Date Activity User E-sign Co-sign Detail Recorded Client Recorded Date Recorded By Document 11/11/24 09:08 [facility] [id number] 11/11/24 09:09 [facility] Document 11/13/24 08:30 RB WOUND 11/13/24 08:35 RB Document 11/16/24 08:23 [facility] [id number] 11/16/24 08:31 [facility] Document 11/18/24 08:44 [facility] [id number] 11/18/24 08:44 [facility] 11/11/24 11/13/24 11/16/24 09:08 08:30 08:23 Wound Care Center Nurse 3 #2 R Chest -Ulcer Cleansing Rinsed/ Wound Cleanser Soap and Water Irrigated with Saline -Foul Odor after Cleansing No No -Primary Dressing Applied Aquacel Extra, Silicone Border Aquacel AG 4x4, Silicone Border Foam 4x4 Silicone Border Foam 4x4 Foam 4x4 -Other Dressing aquacel extra -Aquacel Extra 2 -Aquacel AG 4x4 1 -Nugauze, Iodoform 1in -Silicone Border Foam 4x4 2 1 1 Treatment Response Procedure Procedure Procedure Tolerated Well Tolerated Well Tolerated Well Pain Scale: 0-10 Numeric Is Patient Pain Free? Yes Yes Yes WC - Visit Discharge Discharge Condition Stable Stable Stable Ambulatory Status Ambulatory Ambulatory,Cane Ambulatory,Cane Transportation Private Auto Private Auto Private Auto Medication Reconcilliation completed & No provided to patient/care provider Clinical Summary of Care Provided Yes Facility Type [facility] Notes: PT THINKS [facility] HH IS TO BE STARTING SOON 11/18/24 08:44 Wound Care Center Nurse 3 #2 R Chest -Ulcer Cleansing Rinsed/ Irrigated with Saline -Foul Odor after Cleansing No -Primary Dressing Applied Nugauze, Iodoform 1in, Silicone Border Foam 4x4 -Other Dressing -Aquacel Extra -Aquacel AG 4x4 -Nugauze, Iodoform 1in 1 -Silicone Border Foam 4x4 1 Treatment Response Procedure Tolerated Well Pain Scale: 0-10 Numeric Is Patient Pain Free? Yes WC - Visit Discharge Discharge Condition Stable Ambulatory Status Ambulatory,Cane Transportation Private Auto Medication Reconcilliation completed & provided to patient/care provider Clinical Summary of Care Provided Facility Type [facility] Notes: Assessment/Plan Assessment/Plan (1) History of thoracentesis: CODE(S): Z98.890 - Other specified postprocedural states (2) Nonhealing surgical wound: CODE(S): T81.89XA - Other complications of procedures, not elsewhere classified, initial encounter QUALIFIERS: Encounter type: initial encounter Qualified Code(s): T81.89XA - Other complications of procedures, not elsewhere classified, initial encounter (3) Open wound of chest (wall), without mention of complication: CODE(S): S21.109A - Unspecified open wound of unspecified front wall of thorax without penetration into thoracic cavity, initial encounter QUALIFIERS: Encounter type: initial encounter Laterality: right Qualified Code(s): S21.101A - Unspecified open wound of right front wall of thorax without penetration into thoracic cavity, initial encounter PLAN: Wash wound with antibacterial soap and water and pack with iodoform packing 1 inch then cover with [place] SAP every other day Patient to get home health care to help and maybe family to help with wound care Follow-up in 1 week Will notify his thoracic surgeon about his labs.
--- NOTE | 2024-11-18 15:02 | WC ---
PHOTO 11/18/24 RIGHT CHEST
--- NOTE | 2024-11-20 14:06 | WC ---
Isabelle [facility], called to confirm acceptance for in home wound care. Will have Saturday and Saturday visits for 4 weeks.
== END 2024-11-23 23:59 | disposition home or self-care (01) ==
LOC: WC 08:00
PROVIDERS: PCP Family Medicine; Referring Provider Clinical Nurse Specialist Adult Health; Visit Provider Nurse Practitioner
DX: T81.89XA Other complications of procedures, not elsewhere classified, initial encounter (principal); J44.9 Chronic obstructive pulmonary disease, unspecified; I48.91 Unspecified atrial fibrillation; S21.109A Unspecified open wound of unspecified front wall of thorax without penetration into thoracic cavity, initial encounter; I25.10 Atherosclerotic heart disease of native coronary artery without angina pectoris; E78.5 Hyperlipidemia, unspecified; I25.2 Old myocardial infarction; Z79.01 Long term (current) use of anticoagulants; Z79.51 Long term (current) use of inhaled steroids; Z79.899 Other long term (current) drug therapy; Z85.118 Personal history of other malignant neoplasm of bronchus and lung; Z87.891 Personal history of nicotine dependence; Z98.890 Other specified postprocedural states
CPT/HCPCS: 11042; 87070; 87075; 87205; 99212; 99213; G0463

== ENCOUNTER 2024-12-09 08:00 | Outpatient (RCR) | payer MEDICARE, OTHER, SELFPAY ==
[2024-11-24 00:35] VITALS: BP 127/92; PULSE 85; RESP 18; TEMP 36.4; BMI 25.7
[2024-11-25 08:11] VITALS: BP 106/57; PULSE 87; RESP 18; TEMP 36; BMI 25.7
--- NOTE | 2024-11-25 09:18 | PCM.WC.PN ---
History of Present Illness Date of Service: 11/25/24 Chief Complaint: Follow-up on a chest wound History of Wound: 84-year-old white male with history of lung cancer and keeps filling up with fluid in his lungs had thoracentesis done 2 weeks ago. The wound is not healed and patient is concerned because it keeps draining. Was seen by his family doctor and they referred him here to the wound center. Patient states that the thoracic surgeon wants to put a catheter in but does not want to do it until this is healed. Progress of Wound: The cultures came back negative and the hole in his right chest is much smaller than it has been last week. Redness around the area is less patient feels good denies any pain. We have him set up with home health and his family members have been very good about changing the dressing. Even the depth is about half the size it was it was. Subjective Subjective Patient is very pleased with outcomes and care Objective Data Objective Data Very pleased with cultures being negative and that the site looks better and that it is healing getting much smaller I we were packing with a 1 inch iodoform we will have to change that to 1/4 inch iodoform. Vital Signs: Vital Signs Temp Pulse Resp BP O2 Flow Rate 96.8 F L 87 18 106/57 L 3 11/25/24 08:11 11/25/24 08:11 11/25/24 08:11 11/25/24 08:11 11/24/24 00:35 Oxygen Flow Rate (L/min) 3 Weight: 174 lb 9.669 oz Body Mass Index (BMI) 25.7 Lab / Micro Data Attestation: I reviewed the patient's lab results. Lab results narrative: Discussed cultures with patient Physical Exam Const oriented x3 General Appearance: cooperative Exam Limitations: no limitations HEENT normocephalic Eyes General Eye: normal appearance of both eyes Neck General: normal visual inspection Chest Negative for inspection of chest normal Chest Narrative: Open wound right chest wall from thoracentesis Resp normal respiratory effort Effort and Inspection: able to speak in complete sentences, decreased respiratory effort and actively coughing Auscultation: clear to auscultation bilaterally, crackles, rhonchi and diminished lung sounds Cardio regular rate and regular rhythm Palpation: normal PMI Rate: regular rate Rhythm: regular rhythm GI Palpation: soft and no hepatosplenomegaly Extremity normal to inspection Skin no rashes or lesions noted Neuro oriented x3 Psych Appearance: grossly normal Speech: normal speech Thought Content: normal thought content Judgement: judgement good Debridement Note Debridement Note Wound debrided: Right chest wall surgical wound Laterality: Right Type of Debridement: Excisional debridement Anesthesia Used: 5% Lidocaine Gel Depth: in the subcutaneous layer Percentage of wound debrided: 100 Instrument Used: 3mm curette Tissue Removed: Fibrin Severity: Fat Layer Exposed Amount of bleeding with debridement: Mild Bleeding Controlled with: Compression and gauze Patient tolerated procedure: Patient tolerated procedure well Post-Debridement Measurements and Additional Note: Post-Debridement Measurements/Treatment WC - Nurse 1 - General Ulcer Assessment Start: 11/25/24 08:11 Freq: Status: Active Protocol: LORI Activity Type Activity Date Activity User E-sign Co-sign Detail Recorded Client Recorded Date Recorded By Document 11/25/24 08:11 DL [id number] 11/25/24 08:16 DL 11/25/24 08:11 WC - Today's Visit Information Type of service 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 ) Arrival Mode Ambulatory Transfer Assistance None Patient Identification Verified (Name & Yes ) Patient Requires Transmission-Based No Precautions Height and Weight Body Mass Index (BMI) 25.7 BMI Classification Overweight Vital Signs Temperature (97.8 F-99.1 F) 96.8 F L Temperature Source Temporal Pulse Rate (60-100) 87 Pulse Location Monitor Respiratory Rate (12-18) 18 Respiratory rate source Ausculation Blood Pressure (90/60-120/80) 106/57 L Blood Pressure Mean (mm Hg) 73 Source Monitor Position Semi-Fowlers Blood Pressure Location Left Arm History Since Last Visit- (Skip if this is Patient's initial visit) Have you changed medications since your No last visit? Any new allergies or adverse reactions No Had a fall/change in ADL's that may No increase risk of falls Signs or symptoms of abuse and/or No neglect since last visit Have you been in the hospital since your No last visit? Has dressing in place as prescribed Yes Has compression in place as prescribed N/A Has offloadiing in place as prescribed N/A Experienced any changes in pain level or No management Pain Scale: 0-10 Numeric Is Patient Pain Free? Yes - Nurse 1 - General Ulcer Measurement Start: 11/25/24 08:11 Freq: Status: Active Protocol: Activity Type Activity Date Activity User E-sign Co-sign Detail Recorded Client Recorded Date Recorded By Document 11/25/24 08:11 [id number] 11/25/24 08:16 DL 11/25/24 08:11 Wound Center Nurse 1 #2 R Chest -Combined with other wound No -Current Size (cm) - Length 0.4 -Current Size (cm) - Width 0.2 -Current Size (cm) - Depth 0.4 -Total Square Cm 0.08 -Photo Taken Yes -Tunneling Yes -Tunneling Position (O'clock) 9 -Tunneling Distance (cm) 0.4 -Undermining/Tunneling No -Circular Undermining No -Exudate Amt Medium -Exudate Type Sanguineous -Wound Margin Thickened & Rolled Under -Granulation Amt Medium (34-66%) -Granulation Quality [place],Red -Slough/Fibrin Yes -Necrosis Amt Small (1-33%) -Necrotic Tissue Type Adherent Slough -Structure Exposed N/A -Texture (Tika-wound Skin Appearance) Assessed, Scarring -Moisture (Tika-wound Skin Appearance) Assessed -Color (Tika-wound Skin Appearance) Assessed -Temperature (Tika-wound Skin No Abnormality Appearance) (Pt Warm) -Tenderness on Palpation (Tika-wound No Skin Appearance) -Ulcer Cleansing Wound Cleanser -Foul Odor after Cleansing No -Anesthetic Used 5% Lidocaine Gel WC - Nurse 2 - General Ulcer CM Notes Start: 11/25/24 08:11 Freq: Status: Active Protocol: Activity Type Activity Date Activity User E-sign Co-sign Detail Recorded Client Recorded Date Recorded By Document 11/25/24 08:21 [facility] [id number] 11/25/24 08:26 [facility] 11/25/24 08:21 Wound Center Nurse 2 -Time 08:22 -Correct Patient Yes -Correct Side, Site, Position Yes -Correct Procedure Yes -Procedure Performed Yes -Type of Procedure Debridement -Clinical Debridement Subcutaneous -Tissue Removed Subcutaneous -Post Debridement (cm) - Length 0.2 -Post Debridement (cm) - Width 0.6 -Post Debridement (cm) - Depth 0.8 -Total Square (Post) (cm) 0.12 -Area of Debridement (cm) - Length 0.2 -Area of Debridement (cm) - Width 0.6 -Total Square (Area) (cm) 0.12 -Tunneling No -Undermining/Tunneling No -Circular Undermining No -Wound/Ulcer Outcome Not Healed -Ulcer Cleansing Rinsed/ Irrigated with Saline -Foul Odor after Cleansing No -Bioengineered Tissue No -Bleeding Controlled with Pressure -Treatment Response Procedure Tolerated Well -Debridement - Subq, 1st 20sq cm Yes Pain Scale: 0-10 Numeric Is Patient Pain Free? Yes - Nurse 3 - General Ulcer D/C NN Start: 11/25/24 08:11 Freq: Status: Active Protocol: Activity Type Activity Date Activity User E-sign Co-sign Detail Recorded Client Recorded Date Recorded By Document 11/25/24 08:26 [facility] [id number] 11/25/24 08:28 [facility] 11/25/24 08:26 Wound Care Center Nurse 3 #2 R Chest -Ulcer Cleansing Rinsed/ Irrigated with Saline -Foul Odor after Cleansing No -Primary Dressing Applied Nugauze, Iodoform 1/4in, Silicone Border Foam 4x4 -Nugauze, Iodoform 1/4 1 -Silicone Border Foam 4x4 1 Treatment Response Procedure Tolerated Well Pain Scale: 0-10 Numeric Is Patient Pain Free? Yes - Visit Discharge Discharge Condition Stable Ambulatory Status Ambulatory Transportation Private [facility] Facility Type Home Health Assessment/Plan Assessment/Plan (1) History of thoracentesis: CODE(S): Z98.890 - Other specified postprocedural states (2) Nonhealing surgical wound: CODE(S): T81.89XA - Other complications of procedures, not elsewhere classified, initial encounter QUALIFIERS: Encounter type: initial encounter Qualified Code(s): T81.89XA - Other complications of procedures, not elsewhere classified, initial encounter (3) Open wound of chest (wall), without mention of complication: CODE(S): S21.109A - Unspecified open wound of unspecified front wall of thorax without penetration into thoracic cavity, initial encounter QUALIFIERS: Encounter type: initial encounter Laterality: right Qualified Code(s): S21.101A - Unspecified open wound of right front wall of thorax without penetration into thoracic cavity, initial encounter PLAN: Wash wound with antibacterial soap and water and pack with iodoform packing 1/4 inch then cover with [place] SAP every other day Patient to get home health care to help and maybe family to help with wound care Follow-up in 1 week Cultures negative Will notify his thoracic surgeon about his labs.
--- NOTE | 2024-11-26 09:56 | WC ---
PHOTO 11/25/24 RIGHT CHEST
[2024-12-02 07:56] VITALS: BP 113/56; PULSE 86; RESP 18; TEMP 35.8; BMI 25.7
--- NOTE | 2024-12-02 10:56 | PN.PCM_ITS ---
History of Present Illness Date of Service: 12/02/24 Chief Complaint: Follow-up on a chest wound History of Wound: 84-year-old white male with history of lung cancer and keeps filling up with fluid in his lungs had thoracentesis done 2 weeks ago. The wound is not healed and patient is concerned because it keeps draining. Was seen by his family doctor and they referred him here to the wound center. Patient states that the thoracic surgeon wants to put a catheter in but does not want to do it until this is healed. Progress of Wound: The cultures came back negative and the hole in his right chest is much smaller than it has been last week. It is now a small pinhole on the left we gave him #1 curette to push the iodoform gauze down in there his son said he could not get it down there so we will try using that patient was not happy but it still draining so I he is going to open again if we do not get this under control he sees the doctor for the other thoracentesis this week so they can make a decision to if they want. Subjective Subjective Patient very unhappy that he has to still come back and has to have home health help him. Objective Data Objective Data The site looks great it is just how tiny but it still can be pushed down in there and we did do it for him to show that is how to do it and. Vital Signs: Vital Signs Temp Pulse Resp BP O2 Flow Rate 96.4 F L 86 18 113/56 L 3 12/02/24 07:56 12/02/24 07:56 12/02/24 07:56 12/02/24 07:56 11/24/24 00:35 Oxygen Flow Rate (L/min) 3 Weight: 174 lb 9.669 oz Body Mass Index (BMI) 25.7 Lab / Micro Data Attestation: I reviewed the patient's lab results. Physical Exam Const oriented x3 General Appearance: cooperative Exam Limitations: no limitations HEENT normocephalic Eyes General Eye: normal appearance of both eyes Neck General: normal visual inspection Chest Negative for inspection of chest normal Chest Narrative: Open wound right chest wall from thoracentesis Resp normal respiratory effort Effort and Inspection: able to speak in complete sentences, decreased respiratory effort and actively coughing Auscultation: clear to auscultation bilaterally, crackles, rhonchi and diminished lung sounds Cardio regular rate and regular rhythm Palpation: normal PMI Rate: regular rate Rhythm: regular rhythm GI Palpation: soft and no hepatosplenomegaly Extremity normal to inspection Skin no rashes or lesions noted Neuro oriented x3 Psych Appearance: grossly normal Speech: normal speech Thought Content: normal thought content Judgement: judgement good Debridement Note Debridement Note Wound debrided: Right chest wall surgical wound Laterality: Right Type of Debridement: Excisional debridement Anesthesia Used: 5% Lidocaine Gel Depth: in the subcutaneous layer Percentage of wound debrided: 100 Instrument Used: 3mm curette Tissue Removed: Fibrin Severity: Fat Layer Exposed Amount of bleeding with debridement: Mild Bleeding Controlled with: Compression and gauze Patient tolerated procedure: Patient tolerated procedure well Post-Debridement Measurements and Additional Note: Post-Debridement Measurements/Treatment - Nurse 1 - General Ulcer Assessment Start: 11/25/24 08:11 Freq: Status: Active Protocol: MARTÍN.KODAK Activity Type Activity Date Activity User E-sign Co-sign Detail Recorded Client Recorded Date Recorded By Document 11/25/24 08:11 DL [id number] 11/25/24 08:16 DL Document 12/02/24 07:56 DL [id number] 12/02/24 08:09 DL 11/25/24 12/02/24 08:11 07:56 - Today's Visit Information Type of service Follow-up Visit 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-up Visit (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/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 (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/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 ) ) Arrival Mode Ambulatory Ambulatory Transfer Assistance None None Patient Identification Verified (Name & Yes Yes ) Patient Requires Transmission-Based No No Precautions Height and Weight Body Mass Index (BMI) 25.7 25.7 BMI Classification Overweight Overweight Vital Signs Temperature (97.8 F-99.1 F) 96.8 F L 96.4 F L Temperature Source Temporal Temporal Pulse Rate (60-100) 87 86 Pulse Location Monitor Monitor Respiratory Rate (12-18) 18 18 Respiratory rate source Ausculation Observation Blood Pressure (90/60-120/80) 106/57 L 113/56 L Blood Pressure Mean (mm Hg) 73 75 Source Monitor Monitor Position Semi-Fowlers Blood Pressure Location Left Arm History Since Last Visit- (Skip if this is Patient's initial visit) Have you changed medications since your No No last visit? Any new allergies or adverse reactions No No Had a fall/change in ADL's that may No No increase risk of falls Signs or symptoms of abuse and/or No No neglect since last visit Have you been in the hospital since your No last visit? Has dressing in place as prescribed Yes Yes Has compression in place as prescribed N/A N/A Has offloadiing in place as prescribed N/A N/A Experienced any changes in pain level or No No management Pain Scale: 0-10 Numeric Is Patient Pain Free? Yes Yes WC - Nurse 1 - General Ulcer Measurement Start: 11/25/24 08:11 Freq: Status: Active Protocol: Activity Type Activity Date Activity User E-sign Co-sign Detail Recorded Client Recorded Date Recorded By Document 11/25/24 08:11 DL [id number] 11/25/24 08:16 DL Document 12/02/24 07:56 DL [id number] 12/02/24 08:09 DL 11/25/24 12/02/24 08:11 07:56 Wound Center Nurse 1 #2 R Chest -Combined with other wound No -Current Size (cm) - Length 0.4 0.1 -Current Size (cm) - Width 0.2 0.1 -Current Size (cm) - Depth 0.4 0.1 -Total Square Cm 0.08 0.01 -Photo Taken Yes Yes -Tunneling Yes -Tunneling Position (O'clock) 9 -Tunneling Distance (cm) 0.4 -Undermining/Tunneling No -Circular Undermining No -Exudate Amt Medium None Present -Exudate Type Sanguineous -Wound Margin Thickened & Flat & Intact Rolled Under -Granulation Amt Medium (34-66%) Large (67-100%) -Granulation Quality [place] -Slough/Fibrin Yes -Necrosis Amt Small (1-33%) None Present (0 %) -Necrotic Tissue Type Adherent Slough -Structure Exposed N/A N/A -Texture (Tika-wound Skin Appearance) Assessed, Scarring Scarring -Moisture (Tika-wound Skin Appearance) Assessed No Abnormality -Color (Tika-wound Skin Appearance) Assessed No Abnormality -Temperature (Tika-wound Skin No Abnormality No Abnormality Appearance) (Pt Warm) (Pt Warm) -Tenderness on Palpation (Tika-wound No No Skin Appearance) -Ulcer Cleansing Wound Cleanser Soap and Water -Foul Odor after Cleansing No No -Anesthetic Used 5% Lidocaine 5% Lidocaine Gel Gel MARTÍN - Nurse 2 - General Ulcer CM Notes Start: 11/25/24 08:11 Freq: Status: Active Protocol: Activity Type Activity Date Activity User E-sign Co-sign Detail Recorded Client Recorded Date Recorded By Document 11/25/24 08:21 [facility] [id number] 11/25/24 08:26 [facility] Document 12/02/24 08:14 [facility] [id number] 12/02/24 08:22 [facility] 11/25/24 12/02/24 08:21 08:14 Wound Center Nurse 2 #2 R Chest -Time 08:22 08:14 -Correct Patient Yes Yes -Correct Side, Site, Position Yes Yes -Correct Procedure Yes Yes -Procedure Performed Yes Yes -Type of Procedure Debridement Debridement -Clinical Debridement Subcutaneous Subcutaneous -Tissue Removed Subcutaneous Subcutaneous -Post Debridement (cm) - Length 0.2 0.1 -Post Debridement (cm) - Width 0.6 0.2 -Post Debridement (cm) - Depth 0.8 0.3 -Total Square (Post) (cm) 0.12 0.02 -Area of Debridement (cm) - Length 0.2 0.1 -Area of Debridement (cm) - Width 0.6 0.2 -Total Square (Area) (cm) 0.12 0.02 -Tunneling No No -Undermining/Tunneling No No -Circular Undermining No No -Wound/Ulcer Outcome Not Healed Not Healed -Ulcer Cleansing Rinsed/ Rinsed/ Irrigated with Irrigated with Saline Saline -Foul Odor after Cleansing No No -Bioengineered Tissue No No -Bleeding Controlled with Pressure Pressure -Treatment Response Procedure Procedure Tolerated Well Tolerated Well -Debridement - Subq, 1st 20sq cm Yes Yes Pain Scale: 0-10 Numeric Is Patient Pain Free? Yes Yes WC - Nurse 3 - General Ulcer D/C NN Start: 11/25/24 08:11 Freq: Status: Active Protocol: Activity Type Activity Date Activity User E-sign Co-sign Detail Recorded Client Recorded Date Recorded By Document 11/25/24 08:26 [facility] [id number] 11/25/24 08:28 [facility] Document 12/02/24 08:24 [facility] [id number] 12/02/24 08:24 [facility] 11/25/24 12/02/24 08:26 08:24 Wound Care Center Nurse 3 #2 R Chest -Ulcer Cleansing Rinsed/ Rinsed/ Irrigated with Irrigated with Saline Saline -Foul Odor after Cleansing No No -Primary Dressing Applied Nugauze, Nugauze, Iodoform 1/4in, Iodoform 1/4in, Silicone Border Silicone Border Foam 4x4 Foam 4x4 -Nugauze, Iodoform 1/4 1 1 -Silicone Border Foam 4x4 1 1 Treatment Response Procedure Tolerated Well Pain Scale: 0-10 Numeric Is Patient Pain Free? Yes Yes WC - Visit Discharge Discharge Condition Stable Stable Ambulatory Status Ambulatory Ambulatory Transportation Private Auto Private Auto Facility Type Home Health Assessment/Plan Assessment/Plan (1) History of thoracentesis: CODE(S): Z98.890 - Other specified postprocedural states (2) Nonhealing surgical wound: CODE(S): T81.89XA - Other complications of procedures, not elsewhere classified, initial encounter QUALIFIERS: Encounter type: initial encounter Qualified Code(s): T81.89XA - Other complications of procedures, not elsewhere classified, initial encounter (3) Open wound of chest (wall), without mention of complication: CODE(S): S21.109A - Unspecified open wound of unspecified front wall of thorax without penetration into thoracic cavity, initial encounter QUALIFIERS: Encounter type: initial encounter Laterality: right Qualified Code(s): S21.101A - Unspecified open wound of right front wall of thorax without penetration into thoracic cavity, initial encounter PLAN: Wash wound with antibacterial soap and water and pack with iodoform packing 1/4 inch then cover with [place] SAP every other day Patient to get home health care to help and maybe family to help with wound care Follow-up in 1 week Cultures negative Will notify his thoracic surgeon about his labs.
[2024-12-09 08:08] VITALS: BP 109/54; PULSE 89; RESP 18; TEMP 36.1; BMI 25.7
--- NOTE | 2024-12-09 08:32 | PCM.WC.PN ---
History of Present Illness Date of Service: 12/09/24 Chief Complaint: Follow-up on a chest wound History of Wound: 84-year-old white male with history of lung cancer and keeps filling up with fluid in his lungs had thoracentesis done 2 weeks ago. The wound is not healed and patient is concerned because it keeps draining. Was seen by his family doctor and they referred him here to the wound center. Patient states that the thoracic surgeon wants to put a catheter in but does not want to do it until this is healed. Progress of Wound: The right chest wound is healed today he just has a small divot in the in the scar of the well-approximated wound. We will finish him off with some Promogran that he can just do on his own he is close but it still looks like it could be open and to alleviate that we will try to get the skin to close better on the scar with Promogran. Patient can have that applied every other day with his home health until it heals or just for another week. Subjective Subjective Patient states he is scheduled for another third thoracentesis tomorrow and that he needs to be healed and he is so he is very pleased with the outcomes he is willing to do that little dressing change every other day with home health he does not need to return here. Objective Data Objective Data Well-approximated well-healed right chest wound Vital Signs: Vital Signs Temp Pulse Resp BP O2 Flow Rate 97 F L 89 18 109/54 L 3 12/09/24 08:08 12/09/24 08:08 12/09/24 08:08 12/09/24 08:08 11/24/24 00:35 Oxygen Flow Rate (L/min) 3 Weight: 174 lb 9.669 oz Body Mass Index (BMI) 25.7 Lab / Micro Data Attestation: I reviewed the patient's lab results. Physical Exam Const oriented x3 General Appearance: cooperative Exam Limitations: no limitations HEENT normocephalic Eyes General Eye: normal appearance of both eyes Neck General: normal visual inspection Chest Negative for inspection of chest normal Chest Narrative: Open wound right chest wall from thoracentesis Resp normal respiratory effort Effort and Inspection: able to speak in complete sentences, decreased respiratory effort and actively coughing Auscultation: clear to auscultation bilaterally, crackles, rhonchi and diminished lung sounds Cardio regular rate and regular rhythm Palpation: normal PMI Rate: regular rate Rhythm: regular rhythm GI Palpation: soft and no hepatosplenomegaly Extremity normal to inspection Skin no rashes or lesions noted Neuro oriented x3 Psych Appearance: grossly normal Speech: normal speech Thought Content: normal thought content Judgement: judgement good Debridement Note Debridement Note No debridement was completed: No debridement was completed today Post-Debridement Measurements and Additional Note: Post-Debridement Measurements/Treatment - Nurse 1 - General Ulcer Assessment Start: 11/25/24 08:11 Freq: Status: Active Protocol: LORI Activity Type Activity Date Activity User E-sign Co-sign Detail Recorded Client Recorded Date Recorded By Document 11/25/24 08:11 DL [id number] 11/25/24 08:16 DL Document 12/02/24 07:56 DL [id number] 12/02/24 08:09 DL Document 12/09/24 08:08 DL [id number] 12/09/24 08:18 DL 11/25/24 12/02/24 12/09/24 08:11 07:56 08:08 - Today's Visit Information Type of service Follow-up Visit Follow-up Visit Follow-up Visit (Physician/CONTOUR GRINDER (Physician/CONTOUR GRINDER (Physician/CONTOUR GRINDER ) ) ) Arrival Mode Ambulatory Ambulatory Ambulatory Transfer Assistance None None None Patient Identification Verified (Name & Yes Yes Yes ) Patient Requires Transmission-Based No No No Precautions Height and Weight Body Mass Index (BMI) 25.7 25.7 25.7 BMI Classification Overweight Overweight Overweight Vital Signs Temperature (97.8 F-99.1 F) 96.8 F L 96.4 F L 97 F L Temperature Source Temporal Temporal Temporal Pulse Rate (60-100) 87 86 89 Pulse Location Monitor Monitor Monitor Respiratory Rate (12-18) 18 18 18 Respiratory rate source Ausculation Observation Observation Blood Pressure (90/60-120/80) 106/57 L 113/56 L 109/54 L Blood Pressure Mean (mm Hg) 73 75 72 Source Monitor Monitor Monitor Position Semi-Fowlers Blood Pressure Location Left Arm History Since Last Visit- (Skip if this is Patient's initial visit) Have you changed medications since your No No No last visit? Any new allergies or adverse reactions No No No Had a fall/change in ADL's that may No No No increase risk of falls Signs or symptoms of abuse and/or No No No neglect since last visit Have you been in the hospital since your No No last visit? Has dressing in place as prescribed Yes Yes Yes Has compression in place as prescribed N/A N/A N/A Has offloadiing in place as prescribed N/A N/A N/A Experienced any changes in pain level or No No No management Pain Scale: 0-10 Numeric Is Patient Pain Free? Yes Yes Yes WC - Nurse 1 - General Ulcer Measurement Start: 11/25/24 08:11 Freq: Status: Active Protocol: Activity Type Activity Date Activity User E-sign Co-sign Detail Recorded Client Recorded Date Recorded By Document 11/25/24 08:11 DL [id number] 11/25/24 08:16 DL Document 12/02/24 07:56 DL [id number] 12/02/24 08:09 DL Document 12/09/24 08:08 DL [id number] 12/09/24 08:18 DL 11/25/24 12/02/24 12/09/24 08:11 07:56 08:08 Wound Center Nurse 1 #2 R Chest -Combined with other wound No No -Current Size (cm) - Length 0.4 0.1 0.2 -Current Size (cm) - Width 0.2 0.1 0.2 -Current Size (cm) - Depth 0.4 0.1 0.2 -Total Square Cm 0.08 0.01 0.04 -Photo Taken Yes Yes -Epithelialization Small 1-33% -Tunneling Yes No -Tunneling Position (O'clock) 9 -Tunneling Distance (cm) 0.4 -Undermining/Tunneling No No -Circular Undermining No No -Exudate Amt Medium None Present Medium -Exudate Type Sanguineous Serosanguineous -Wound Margin Thickened & Flat & Intact Distinct, Rolled Under Outline Attached -Granulation Amt Medium (34-66%) Large (67-100%) Large (67-100%) -Granulation Quality [place]Red [place] Red -Slough/Fibrin Yes No -Necrosis Amt Small (1-33%) None Present (0 None Present (0 %) %) -Necrotic Tissue Type Adherent Slough -Structure Exposed N/A N/A -Texture (Tika-wound Skin Appearance) Assessed, Scarring Assessed Scarring -Moisture (Tika-wound Skin Appearance) Assessed No Abnormality Assessed -Color (Tika-wound Skin Appearance) Assessed No Abnormality Assessed -Temperature (Tika-wound Skin No Abnormality No Abnormality No Abnormality Appearance) (Pt Warm) (Pt Warm) (Pt Warm) -Tenderness on Palpation (Tika-wound No No No Skin Appearance) -Ulcer Cleansing Wound Cleanser Soap and Water Soap and Water -Foul Odor after Cleansing No No No -Anesthetic Used 5% Lidocaine 5% Lidocaine 5% Lidocaine Gel Gel Gel WC - Nurse 2 - General Ulcer CM Notes Start: 11/25/24 08:11 Freq: Status: Active Protocol: Activity Type Activity Date Activity User E-sign Co-sign Detail Recorded Client Recorded Date Recorded By Document 11/25/24 08:21 [facility] [id number] 11/25/24 08:26 [facility] Document 12/02/24 08:14 [facility] [id number] 12/02/24 08:22 BM Document 12/09/24 08:20 BM [id number] 12/09/24 08:26 BMF 11/25/24 12/02/24 12/09/24 08:21 08:14 08:20 Wound Center Nurse 2 #2 R Chest -Time 08:22 08:14 08:20 -Correct Patient Yes Yes -Correct Side, Site, Position Yes Yes -Correct Procedure Yes Yes -Procedure Performed Yes Yes No -Type of Procedure Debridement Debridement -Clinical Debridement Subcutaneous Subcutaneous -Tissue Removed Subcutaneous Subcutaneous -Post Debridement (cm) - Length 0.2 0.1 0 -Post Debridement (cm) - Width 0.6 0.2 0 -Post Debridement (cm) - Depth 0.8 0.3 0 -Total Square (Post) (cm) 0.12 0.02 0 -Area of Debridement (cm) - Length 0.2 0.1 0 -Area of Debridement (cm) - Width 0.6 0.2 0 -Total Square (Area) (cm) 0.12 0.02 0 -Tunneling No No No -Undermining/Tunneling No No No -Circular Undermining No No No -Wound/Ulcer Outcome Not Healed Not Healed Healed- Epithelialized -Ulcer Cleansing Rinsed/ Rinsed/ Rinsed/ Irrigated with Irrigated with Irrigated with Saline Saline Saline -Foul Odor after Cleansing No No No -Bioengineered Tissue No No No -Bleeding Controlled with Pressure Pressure NA -Treatment Response Procedure Procedure Procedure Tolerated Well Tolerated Well Tolerated Well -Debridement - Subq, 1st 20sq cm Yes Yes Pain Scale: 0-10 Numeric Is Patient Pain Free? Yes Yes Yes - Nurse 3 - General Ulcer D/C NN Start: 11/25/24 08:11 Freq: Status: Active Protocol: Activity Type Activity Date Activity User E-sign Co-sign Detail Recorded Client Recorded Date Recorded By Document 11/25/24 08:26 [facility] [id number] 11/25/24 08:28 [facility] Document 12/02/24 08:24 [facility] [id number] 12/02/24 08:24 [facility] Document 12/09/24 08:26 [facility] [id number] 12/09/24 08:27 [facility] 11/25/24 12/02/24 12/09/24 08:26 08:24 08:26 Wound Care Center Nurse 3 #2 R Chest -Ulcer Cleansing Rinsed/ Rinsed/ Rinsed/ Irrigated with Irrigated with Irrigated with Saline Saline Saline -Foul Odor after Cleansing No No No -Primary Dressing Applied Nugauze, Nugauze, Promogran, Iodoform 1/4in, Iodoform 1/4in, Silicone Border Silicone Border Silicone Border Foam 4x4 Foam 4x4 Foam 4x4 -Nugauze, Iodoform 1/4 1 1 -Promogran 1 -Silicone Border Foam 4x4 1 1 1 Treatment Response Procedure Procedure Tolerated Well Tolerated Well Pain Scale: 0-10 Numeric Is Patient Pain Free? Yes Yes Yes - Visit Discharge Discharge Condition Stable Stable Stable Ambulatory Status Ambulatory Ambulatory Ambulatory Transportation Private Auto Private Auto Private Auto Facility Type Home Health Home Health Assessment/Plan Assessment/Plan (1) History of thoracentesis: CODE(S): Z98.890 - Other specified postprocedural states (2) Nonhealing surgical wound: CODE(S): T81.89XA - Other complications of procedures, not elsewhere classified, initial encounter QUALIFIERS: Encounter type: initial encounter Qualified Code(s): T81.89XA - Other complications of procedures, not elsewhere classified, initial encounter (3) Open wound of chest (wall), without mention of complication: CODE(S): S21.109A - Unspecified open wound of unspecified front wall of thorax without penetration into thoracic cavity, initial encounter QUALIFIERS: Encounter type: initial encounter Laterality: right Qualified Code(s): S21.101A - Unspecified open wound of right front wall of thorax without penetration into thoracic cavity, initial encounter PLAN: Wash wound with antibacterial soap and water and use the Promogran in the little divot for the next week patient is closed and is considered healed this is more for cosmetic purpose. Patient is considered healed and is discharged from the wound center I can follow-up as needed.
== END 2024-12-23 23:59 | disposition home or self-care (01) ==
LOC: WC 08:00
PROVIDERS: PCP Family Medicine; Referring Provider Clinical Nurse Specialist Adult Health; Visit Provider Nurse Practitioner
DX: T81.89XA Other complications of procedures, not elsewhere classified, initial encounter (principal); S21.109A Unspecified open wound of unspecified front wall of thorax without penetration into thoracic cavity, initial encounter; L90.5 Scar conditions and fibrosis of skin; X58.XXXA Exposure to other specified factors, initial encounter; Z85.118 Personal history of other malignant neoplasm of bronchus and lung; J81.1 Chronic pulmonary edema
CPT/HCPCS: 11042; 99212; 99213; G0463

== ENCOUNTER 2024-12-21 08:53 | Inpatient (IN) | payer MEDICARE, OTHER, SELFPAY ==
[2024-12-21] VITALS (15 sets, daily range): BP systolic 117–149; BP diastolic 45–86; PULSE 60–90; RESP 13–25; TEMP 36.5–36.8; O2SAT 92–99; BMI 25.9; BMI 22.7
--- NOTE | 2024-12-21 09:11 | EKG12_ITS ---
Test Reason : Blood Pressure : */* mmHG Vent. Rate : 67 BPM Atrial Rate : * BPM P-R Int : * ms QRS Dur : 96 ms QT Int : 398 ms P-R-T Axes : * 34 -46 degrees QTcB Int : [address] & T wave abnormality, consider inferior ischemia Abnormal ECG Confirmed by JERSON DIMAS, YA ([id number]), supervising editor trailer PENNIE COLIN ([id number]) on 12/23/2024 11:48:18 AM Referred By: Venkat Chavez Confirmed By: YA ARTHUR MD
--- NOTE | 2024-12-21 09:23 | EDS_ITS ---
HPI History of Present Illness Chief Complaint: Shortness of Breath Informant: patient and EMS Narrative Narrative: 84-year-old male with a history of lung cancer following with [facility] oncology presenting to the emergency room with continued shortness of breath. Patient states whenever he goes to do anything he gets increased shortness of breath and his oxygen levels decreased. He chronically wears 3 L nasal cannula. States that he has had a pleural effusion on the right. I see that earlier this month he has thoracentesis and status postthoracentesis had rapid accumulation. He was transferred back to [facility] Out of concern for hemothorax. He states that they were unable to drain it because it was of a different for capacity. Patient states that he is supposed to see pulmonology as an outpatient (has not seen for several years per patient). He denies any cough or fever. He is reportedly currently on Eliquis. [facility] Medical History Bleeding tendency Anxiety Depression Sleep apnea Former smoker CPAP (continuous positive airway pressure) dependence Asthma COPD (chronic obstructive pulmonary disease) Myocardial infarct History of COPD History of lung cancer HLD (hyperlipidemia) Afib CAD (coronary artery disease) Lung cancer Atrial fibrillation CAD (coronary artery disease) Home Medications ?Medication ?Instructions ?Recorded ?Last Taken ?Type metoprolol succinate 25 mg 12.5 mg PO DAILY blood pres sure 01/26/19 08/12/24 History tablet,extended release 24 hr simvastatin 20 mg tablet 20 mg PO DAILY Cholesterol 0 01/26/19 08/12/24 History acidophilus 100 million 2 ea PO DAILY supplement 08/05/23 History cell-pectin, citrus 10 mg capsule apple cider vinegar 600 mg capsule 600 mg PO MOWEFR wong pplement 04/13/20 08/02/23 History ascorbic acid (vitamin C) 1,000 mg 1,000 mg PO DAILY v itamin c 04/13/20 08/05/23 History tablet,extended release bee pollen 550 mg capsule 1 tab PO DAILY supplement 08/05/23 History calcium 315 mg (as 1 ea PO DAILY vitamin 08/05/23 History citrate)-vitamin D3 6.25 mcg (250 unit) tablet cinnamon bark 500 mg capsule 500 mg PO BID supplement 04/13/20 08/05/23 History coenzyme Q10 200 mg capsule 200 mg PO DAILY supplement 04/13/20 08/05/23 History cyanocobalamin (vitamin B-12) 1,000 mcg PO DAILY vitam in 04/13/20 08/05/23 History 1,000 mcg capsule docosahexaenoic acid 450 mg capsule 450 mg PO BID supp lement 04/13/20 08/05/23 History folic acid 1 mg tablet 1 mg PO DAILY supplement 08/05/23 History glucosamine 750 [id number] 2 ea PO DAILY suppl ement 04/13/20 08/05/23 History no1 644 mg-C 30 mg-dionte 1 mg tablet magnesium oxide 400 mg (241.3 mg 400 mg PO DAILY suppl ement 04/13/20 08/05/23 History magnesium) tablet multivitamin 1 ea PO MOWEFR vitamin 04/1308/02/23 History nitroglycerin 0.4 mg sublingual 0.4 mg sublingual Q5M PRN Chest 04/13/20 Unknown History tablet Pain psyllium husk 3.4 gram/5.4 gram 660 g PO DAILY supplem ent 04/13/20 08/05/23 History oral powder fluticasone fur. 100 mcg-umeclid 1 inh inhalation LUKE Y breathing 08/05/23 08/12/24 History 62.5 mcg-vilant 25 mcg inhalat.powder (Trelegy Ellipta) albuterol sulfate 90 mcg/actuation 1 inh inhalation Q6 H PRN shortness 08/14/24 Unknown Rx aerosol inhaler of breath or wheezing #8.5 g jen apixaban 2.5 mg tablet (Eliquis) 2.5 mg PO BID 5 Unknown History furosemide 20 mg tablet 20 mg PO QODAY 12/21/24 Unkn own History furosemide 40 mg tablet 40 mg PO QODAY 12/21/24 Unkn own History Allergy/AdvReac Type Severity Reaction Status Date / Time No Known Allergies Allergy Verified 12/21/24 08:58 Surgical History History of appendectomy History of bronchoscopy Social History household members: none Smoking Status: Former smoker ROS ROS ED Constitutional Constitutional ED: Denies chills, fever(s) or weight loss Eyes Eyes: Denies change in vision or diplopia ENT ENT ED: Denies ear pain, rhinorrhea or sore throat Cardiovascular Cardiovascular: Denies chest pain, orthopnea, palpitations or racing heartbeat Respiratory/Chest Respiratory/Chest: Reports cough, dyspnea and dyspnea on exertion; Denies orthopnea Gastrointestinal Gastrointestinal: Denies abdominal pain, diarrhea, nausea or vomiting Genitourinary Genitourinary ED: Denies dysuria, hematuria or urinary frequency Musculoskeletal Musculoskeletal: Denies arthralgias or myalgias Integumentary Denies abscess or rash Neurologic Neurologic: Denies headache(s) or weakness Psychiatric Psychiatric: Denies anxiety, depression, suicidal ideation or suicidal thoughts Endocrine Endocrinology: Denies polydipsia, polyphagia or polyuria Allergic/Immunologic Allergic/Immunologic ED: Denies mouth swelling, tongue swelling or urticaria EXAM Physical Exam Const Vital Signs: 12/21/24 08:54 12/21/24 08:56 12/21/24 09:16 Temperature 98.0 F 98.0 F Temperature Source Oral Oral Pulse Rate 69 60 Respiratory Rate 22 H 22 H Respiratory Effort Normal Non-Labored Respiratory Depth Normal Respiratory Pattern Tachypnea Blood Pressure 149/76 H 149/76 H Blood Pressure Mean 100 100 Pulse Ox 97 98 Oxygen Delivery Method Nasal Cannula Nasal Cannula Nasal Cannula Oxygen Flow Rate (L/min) 4 4 4 12/21/24 09:53 12/21/24 10:00 12/21/24 11:00 Temperature Temperature Source Pulse Rate 74 72 81 Respiratory Rate 19 H 13 25 H Respiratory Effort Respiratory Depth Respiratory Pattern Blood Pressure 117/73 117/73 143/45 H Blood Pressure Mean 87 87 77 Pulse Ox 94 93 96 Oxygen Delivery Method Room Air Nasal Cannula Nasal Cannula Oxygen Flow Rate (L/min) 4 12/21/24 12:10 12/21/24 13:41 12/21/24 15:32 Temperature Temperature Source Pulse Rate 75 74 88 Respiratory Rate 22 H 19 H 18 Respiratory Effort Respiratory Depth Respiratory Pattern Blood Pressure 146/54 H 141/72 H 146/76 H Blood Pressure Mean 84 95 99 Pulse Ox 96 94 94 Oxygen Delivery Method Room Air Nasal Cannula Nasal Cannula Oxygen Flow Rate (L/min) 3 3 Positive well nourished and well developed General Appearance ED: well developed and NAD HEENT Reports normocephalic, head/scalp atraumatic and moist mucous membranes Eyes PERRL and EOMs intact bilaterally Neck no lymphadenopathy, supple and no JVD Resp normal respiratory effort and clear to auscultation bilaterally Auscultation: rales bilateral and diminished lung sounds right lower Cardio regular rhythm and no murmurs Rhythm: abnormal rhythm irregularly irregular GI normal to inspection, nondistended, normoactive bowel sounds and non-tender Palpation: soft Back/Spine no CVA tenderness and normal ROM Extremity normal to inspection General Extremety ED: Negative for edema General Extremity: Negative for edema Neuro oriented x3 and CN's II-XII intact bilaterally Sensorium / Orientation: alert Motor Exam: strength 5/5 throughout Psych mental status grossly normal Mood & Affect: Negative for depressed or tearful Skin no rashes or lesions noted and no wounds MDM MDM MDM Narrative Medical decision making narrative: Differential diagnosis includes but not limited to pneumonia CHF pleural effusion pneumothorax anemia acute coronary pulmonary embolism My independent interpretation of the chest x-ray is pleural effusion on the right with possible atelectatic versus infiltrative changes. Chronic changes of emphysema noted. Patient's white count 6.5 hemoglobin 11.7 platelet count of 158. Troponin [address] of the chest with IV contrast was obtained. Please see radiologist read. I was able to obtain some old medical records from [facility]. 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 Earlier this month he had thoracentesis. Because of the anticoagulation he ended up with hemothorax and was admitted to [facility] Where underwent tube thoracostomy. He is supposed to see cardiothoracic surgery tomorrow to talk about a possible placement of a drain for the recurrent effusion. Patient states that at 1 point after the chest tube he underwent another thoracentesis but they are unable to do it and he states that the tube hit a brick wall and they were unable to drain any fluid. With ambulation the patient decreases to 82% on his 3 L and is symptomatic. I gave him 60 of Lasix and he has had good urinary output. Because of the hypoxia I will speak with the hospitalist regarding staying the night for continued diuresis. He has had an echocardiogram in July with a normal ejection fraction. I suspect this is some combination of his emphysema lung cancer pleural effusion and possible pulmonary edema. History & Record Review Discussion w/independent historian: Patient and Family Additional record(s) reviewed:: Prior inpatient record, Prior outpatient record, Prior ED visit and Prior labs Lab Data Attestation: I reviewed the patient's lab results. Labs: Laboratory Results - last 24 hr 12/21/24 12/21/24 09:25 13:06 WBC 6.5 RBC 3.70 L Hgb 11.7 L Hct 35.9 L MCV 97.0 H MCH 31.6 MCHC 32.6 RDW Std Deviation 53.9 H RDW Coeff of Roslyn 15.1 H Plt Count 158 MPV 9.9 Immature Gran % (Auto) 0.300 Neut % (Auto) 71.1 H Lymph % (Auto) 14.2 L Glynn % (Auto) 13.3 H Eos % (Auto) 0.8 Baso % (Auto) 0.3 Absolute Neuts (auto) 4.6 Absolute Lymphs (auto) 0.92 Nucleated RBC % 0 PT 16.1 H INR 1.3 APTT 35.0 Sodium 138 Potassium 3.6 Chloride 100 Carbon Dioxide 27.7 Anion Gap 11 BUN 20 H Creatinine 0.98 Estim Creat Clear Calc 54.11 Est GFR (MDRD) Non-Af 75 BUN/Creatinine Ratio 20.1 H Glucose 105 H Calcium 8.9 Troponin T High Sens 42 H NT pro BNP II 2377 H Radiography Diagnostic Testing: Clinical Impression(s) from Imaging Studies Chest X-Ray 12/21/24 09:55 IMPRESSION: 1. Grossly similar [id number]-[id number] RIGHT pleural effusion and adjacent airspace disease which could reflect atelectasis and/or pneumonia. Given emphysema and previous CT findings, follow-up is again recommended. 2. Additional description as above. Reading Location: [id number] Chest CTA 12/21/24 10:47 IMPRESSION: 1. No pulmonary embolism identified. 2. Grossly similar irregular opacities in the RIGHT lower lobe with associated volume loss and adjacent ground-glass. Findings are indeterminate for residual/recurrent neoplasm, posttreatment changes, and/or superimposed pneumonia. Clinical/oncologic follow-up recommended. 3. Multiple new/enlarging predominantly ground-glass nodules as above, largest 3.2 cm in the superior segment of the LEFT lower lobe, suspicious for neoplasm given enlargement although others may be infectious/inflammatory. Continued follow-up recommended. 4. Decreasing now small to moderate complex RIGHT pleural effusion including high-density versus enhancing nodular components. This is indeterminate for hemothorax versus neoplastic involvement of the pleural surfaces/space. Continued attention on follow-up recommended. Correlation with pleural fluid analysis to include cytology could be helpful, as indicated. 5. New RIGHT hilar and mediastinal lymphadenopathy, nonspecific and potentially reactive although alisson metastasis is certainly possible given the context. Attention on follow-up. 6. Cardiomegaly with findings suggestive of RIGHT heart dysfunction. 7. Additional description as above. Reading Location: [facility] EKG Initial EKG: Attestation: I personally reviewed and interpreted this EKG as follows: Comments: Atrial fibrillation ventricular rate of 67 bpm Management Discussion w/another healthcare provider: Hospitalist (Dr Chavez) Discharge Plan Triage Chief Complaint: Shortness of Breath ED Provider: Ari Gaytan Dx/Rx/DC Orders Prescriptions: No Action simvastatin 20 MG tablet 20 mg PO DAILY metoprolol succinate 25 MG tablet extended release 24 hr 12.5 mg PO DAILY multivitamin 1 EACH tablet 1 ea PO MOWEFR ascorbic acid (vitamin C) 1,000 MG tablet extended release 1,000 mg PO DAILY magnesium oxide 400 MG tablet 400 mg PO DAILY apple cider vinegar 600 MG capsule 600 mg PO MOWEFR nitroglycerin 0.4 MG tablet, sublingual 0.4 mg sublingual Q5M PRN (Reason: Chest Pain) folic acid 1 MG tablet 1 mg PO DAILY cinnamon bark 500 MG capsule 500 mg PO BID coenzyme Q10 200 MG capsule 200 mg PO DAILY calcium citrate-vitamin D3 1 EACH tablet 1 ea PO DAILY acidophilus-pectin, citrus 1 EACH capsule 2 ea PO DAILY docosahexaenoic acid 450 MG capsule 450 mg PO BID [id number]-[id number]-bosw 1 EACH tablet 2 ea PO DAILY bee pollen 550 MG capsule 1 tab PO DAILY psyllium husk 660 GM powder 660 g PO DAILY cyanocobalamin (vitamin B-12) 1,000 MCG capsule 1,000 mcg PO DAILY Trelegy Ellipta 100-62.5-25 mcg blister with device 1 inh INHALATION DAILY Eliquis 2.5 mg tablet 2.5 mg PO BID furosemide 40 mg tablet 40 mg PO QODAY furosemide 20 mg Tablet 20 mg PO QODAY albuterol sulfate 90 mcg/actuation HFA aerosol inhaler 1 inh inhalation Q6H PRN (Reason: shortness of breath or wheezing) Qty: 8.5 0RF Primary Care Provider: Lefty Samson Referrals: Lefty Samson MD [Primary Care Provider] - Print Language: Bermudian
[2024-12-21 09:38] LABS: Absolute Lymphocyte Count 0.92 X10^3/uL (0.83-4.51); Absolute Neutrophil Count 4.6 X10^3/uL (2.0-7.7); Basophil# 0.02 X10^3/uL; Basophil% 0.3 % (0-1); Eosinophil# 0.05 X10^3/uL; Eosinophils% 0.8 % (0-5); Hematocrit 35.9 % (40-54); Hemoglobin 11.7 g/dL (13.0-16.5); Lymphocyte # 0.92 X10^3/ul (0.83-4.51); Lymphocyte % 14.2 % (19-41); Mean Corp Hgb Conc 32.6 g/dL (32-36); Mean Corpuscular Hgb 31.6 pg (27.0-32.0); Mean Platelet Vol. 9.9 fl (6.2-12.0); Monocyte# 0.86 X10^3/uL; Monocyte% 13.3 % (0-10); NRBC Flagged by Analyzer 0 % (0-5); Neutrophil % 71.1 % (47-70); Platelet Count 158 K/mm3 (150-450); RBC Distribution Width CV 15.1 % (11.6-14.6); RBC Distribution Width SD 53.9 fl (35.1-43.9); White Blood Count 6.5 K/mm3 (4.4-11.0)
--- NOTE | 2024-12-21 09:55 | RAD_ITS ---
PROCEDURE: CHEST 1 VIEW (PORTABLE) (RADCXPA_P), 12/21/2024 REASON FOR EXAM: PLEURAL EFFUSION TECHNIQUE: A single portable AP view of the chest was obtained. COMPARISON: 10/29/2024 FINDINGS: Heart: Partially obscured, grossly unremarkable. Mediastinum: Atherosclerosis. Lungs/pleura: Emphysema. Kmeoh-xk-hgrusjpw RIGHT pleural effusion and adjacent airspace disease, grossly similar to 10/29/2024. No visible pneumothorax. Bones: Thoracic dextroscoliosis. Demineralization suspected. Lines and support devices: None. Other: None. RAD/Chest 1 View (Portable) IMPRESSION: 1. Grossly similar ocivf-aj-ibexmcwp RIGHT pleural effusion and adjacent airspa ce disease which could reflect atelectasis and/or pneumonia. Given emphysema and previous CT findings, follow-up is again recomm ended. 2. Additional description as above. Reading Location: [id number]
[2024-12-21 10:04] LABS: International Normalized Ratio 1.3; Prothrombin Time (Protime)PT. 16.1 SECONDS (11.7-14.9)
[2024-12-21 10:26] LABS: Anion Gap 11 (5-15); BUN 20 mg/dL (4-19); BUN/Creat Ratio 20.1 RATIO (10-20); Calcium,Total 8.9 mg/dL (7.6-11.0); Carbon Dioxide 27.7 mmol/L (21.0-32.0); Chloride 100 mmol/L (98-108); Creatinine, Serum 0.98 mg/dL (0.70-1.20); EST Glomerular Filtration Rate 75 (>60); Estimated Creatinine Clearance 54.11 ml/min (50-250); Glucose 105 mg/dL (70-99); Potassium 3.6 mmol/L (3.3-5.1); Sodium Level 138 mmol/L (133-145)
--- NOTE | 2024-12-21 10:47 | CT_ITS ---
PROCEDURE: CTA CHEST W/WO CONTRAST 12/21/2024 REASON FOR EXAM: HYPOXIA LUNG CANCER PLEURAL EFFUSION TECHNIQUE: CTA chest was performed with IV contrast. Multiplanar reformats and MIP reconstructions were generated. PATIENT PREPARATION: Per protocol CONTRAST: Isovue 370 VOLUME: 100 mL One or more dose reduction techniques were used (e.g., Automated exposure control, adjustment of the mA and/or kV according to patient size, use of iterative reconstruction technique). RADIATION DOSE SUMMARY: CTDlvol: 14.25+ 11.04 mGy DLP: 457.18 mGycm COMPARISON: 10/29/2024 FINDINGS: Heart/pericardium: Cardiomegaly with disproportionate enlargement of the LEFT [id number]-[id number]-RIGHT atria. Reflux of contrast into the IVC and hepatic veins. Advanced multivessel coronary atherosclerosis and/or stents. Aortic and mitral annular calcification. Aorta: Moderate to advanced atherosclerosis.. Pulmonary arteries: Similarly enlarged central pulmonary arteries which may indicate pulmonary arterial hypertension. No definite pulmonary embolism is identified. Lymph nodes: Subcarinal node, 16 mm short axis, previously 8 mm. RIGHT hilar node, 19 mm short axis, previously 10 mm. Paratracheal nodes up to 13 mm short axis, previously 8 mm. Lungs/pleura: Advanced emphysema. Decreased now wycgq-kp-vslnhhff complex RIGHT pleural effusion including high-density versus enhancing nodular components. Pleural thickening/enhancement is suggested posteriorly on the RIGHT, slightly more conspicuous. Grossly similar irregular opacities in the RIGHT lower lobe with adjacent ground-glass, vaguely nodular in some areas. Grossly similar RIGHT lower lobe volume loss. Biapical pleural/parenchymal scarring. Enlarging ground-glass nodule in the superior segment of the LEFT lower lobe, difficult to measure, roughly 3.2 x 2.7 cm, previously roughly 1.9 cm. New irregular ground-glass vaguely nodular opacity in the slightly more inferior LEFT lower lobe measures 3.7 x 1.8 cm. Numerous ground-glass nodular lesions in the RIGHT upper lobe may have been obscured previously by airspace disease or are new, up to 1.7 x 2.3 cm. Airways: Calcifications of the tracheobronchial tree. Scattered foci of peripheral airway mucous plugging and/or minor endobronchial debris with bronchial wall thickening.. Chest wall: Unremarkable. Upper abdomen: Similar small RIGHT lobe hepatic cyst. Splenic granulomas. Similar mild thickening of the bilateral adrenal glands without discrete nodule, typically hyperplasia. Partially imaged presumed LEFT renal cyst operative changes of the anterior abdominal wall with multifocal small fat containing presumably incisional ventral hernias. Musculoskeletal: Demineralization. Multilevel spondylosis. Mild thoracic dextroscoliosis. Subacute to chronic appearing ununited RIGHT rib fractures.. CT/CTA Chest W/WO Contrast IMPRESSION: 1. No pulmonary embolism identified. 2. Grossly similar irregular opacities in the RIGHT lower lobe with associated volume loss and adjacent ground-glass. Findings are indeterminate for residual/recurrent neoplasm, posttreatment changes, and/o r superimposed pneumonia. Clinical/oncologic follow-up recommended. 3. Multiple new/enlarging predominantly ground-glass nodules as above, largest 3.2 cm in the superior segment of the LEFT lower lobe, suspicious for neoplasm given enlargement although others may be infectio us/inflammatory. Continued follow-up recommended. 4. Decreasing now small to moderate complex RIGHT pleural effusion including hi gh-density versus enhancing nodular components. This is indeterminate for hemothorax versus neoplastic involvement of the pleur al surfaces/space. Continued attention on follow-up recommended. Correlation with pleural fluid analysis to include cyto logy could be helpful, as indicated. 5. New RIGHT hilar and mediastinal lymphadenopathy, nonspecific and potentially reactive although alisson metastasis is certainly possible given the context. Attention on follow-up. 6. Cardiomegaly with findings suggestive of RIGHT heart dysfunction. 7. Additional description as above. Reading Location: [id number]
[2024-12-21 14:08] LABS: Pro- Brain NATRIURETIC PEPTIDE 2377 pg/mL (<=1800); Troponin T High Sensitivity 42 ng/L (<=22)
[2024-12-21] MEDS: Furosemide 100 MG/10 ML Vial 60 MG IV (14:35)
--- NOTE | 2024-12-21 16:34 | PCM.HP.STD ---
HPI - General General Date of Admission: 12/21/24 HPI Narrative TAO CLARK, is a 84 M who presents to the hospital for increasing shortness of breath and dyspnea on exertion. He has a history of lung cancer that he says has never been definitively treated and that they are currently watching it. CTA of the chest in the ER demonstrates enlargement of his masses and is managed by the [facility] oncology. He has had thoracentesis in the past for a right pleural effusion which does appear to be improved per radiology, this unfortunate led to a complication of a hemothorax and currently the visualization of the fluid around his right lower lobe looks somewhat consolidative. He did have improvement with some Lasix in the ER so this will be continued but he also had some wheezing with obvious signs of COPD and emphysema on his CT scan. Currently on 3 L nasal cannula, which is his baseline, but he gets significantly short of breath and hypoxic with ambulation. [facility] Medical History (Updated 12/21/24 @ 17:37 by Montse Bush) On home oxygen therapy Bleeding tendency Anxiety Depression Sleep apnea Former smoker CPAP (continuous positive airway pressure) dependence Asthma COPD (chronic obstructive pulmonary disease) Myocardial infarct History of COPD History of lung cancer HLD (hyperlipidemia) Afib CAD (coronary artery disease) Lung cancer Atrial fibrillation CAD (coronary artery disease) Home Medications ?Medication ?Instructions ?Recorded ?Last Taken ?Type metoprolol succinate 25 mg 12.5 mg PO DAILY blood pressure 01/26/19 08/12/24 History tablet,extended release 24 hr simvastatin 20 mg tablet 20 mg PO DAILY Cholesterol 01/26/19 08/12/24 History acidophilus 100 million 2 ea PO DAILY supplement 04/13/20 08/05/23 History cell-pectin, citrus 10 mg capsule apple cider vinegar 600 mg capsule 600 mg PO MOWEFR supplement 04/13/20 08/02/23 History ascorbic acid (vitamin C) 1,000 mg 1,000 mg PO DAILY vitamin c 04/13/20 08/05/23 History tablet,extended release bee pollen 550 mg capsule 1 tab PO DAILY supplement 04/13/20 08/05/23 History calcium 315 mg (as 1 ea PO DAILY vitamin 04/13/20 08/05/23 History citrate)-vitamin D3 6.25 mcg (250 unit) tablet cinnamon bark 500 mg capsule 500 mg PO BID supplement 04/13/20 08/05/23 History coenzyme Q10 200 mg capsule 200 mg PO DAILY supplement 04/13/20 08/05/23 History cyanocobalamin (vitamin B-12) 1,000 mcg PO DAILY vitamin 04/13/20 08/05/23 History 1,000 mcg capsule docosahexaenoic acid 450 mg capsule 450 mg PO BID supplement 04/13/20 08/05/23 History folic acid 1 mg tablet 1 mg PO DAILY supplement 04/13/20 08/05/23 History glucosamine 750 ut-dtblyhowlau-btr 2 ea PO DAILY supplement 04/13/20 08/05/23 History no1 644 mg-C 30 mg-dionte 1 mg tablet magnesium oxide 400 mg (241.3 mg 400 mg PO DAILY supplement 04/13/20 08/05/23 History magnesium) tablet multivitamin 1 ea PO MOWEFR vitamin 04/13/20 08/02/23 History nitroglycerin 0.4 mg sublingual 0.4 mg sublingual Q5M PRN Chest 04/13/20 Unknown History tablet Pain psyllium husk 3.4 gram/5.4 gram 660 g PO DAILY supplement 04/13/20 08/05/23 History oral powder fluticasone fur. 100 mcg-umeclid 1 inh inhalation DAILY breathing 08/05/23 08/12/24 History 62.5 mcg-vilant 25 mcg inhalat.powder (Trelegy Ellipta) albuterol sulfate 90 mcg/actuation 1 inh inhalation Q6H PRN shortness 08/14/24 Unknown Rx aerosol inhaler of breath or wheezing #8.5 grams apixaban 2.5 mg tablet (Eliquis) 2.5 mg PO BID 11/11/24 Unknown History furosemide 20 mg tablet 20 mg PO QODAY 12/21/24 Unknown History furosemide 40 mg tablet 40 mg PO QODAY 12/21/24 Unknown History Allergy/AdvReac Type Severity Reaction Status Date / Time No Known Allergies Allergy Verified 12/21/24 08:58 Family History (Updated 12/21/24 @ 18:[address] Venkat Chavez MD) Other Heart disease Hypertension Surgical History History of appendectomy History of bronchoscopy Social History household members: none Smoking Status: Former smoker ROS Constitutional Constitutional: Denies chills, fatigue, fever(s) or malaise Eyes Eyes: Denies blurry vision ENT HEENT: Denies headache(s) or nasal discharge Cardiovascular Cardiovascular: Reports dyspnea on exertion; Denies chest pain or syncope Respiratory/Chest Respiratory/Chest: Reports cough; Denies shortness of breath at rest or shortness of breath with exertion Gastrointestinal Gastrointestinal: Denies constipation, diarrhea, nausea or vomiting Genitourinary Genitourinary: Denies dysuria Neurologic Neurologic: Denies focal weakness, numbness or tremor(s) Psychiatric Psychiatric: Denies anxiety or depression Vital Signs Vital Signs Vital Signs: 12/21/24 08:54 12/21/24 08:56 12/21/24 09:16 Temperature 98.0 F 98.0 F Temperature Source Oral Oral Pulse Rate 69 60 Respiratory Rate 22 H 22 H Respiratory Effort Normal Non-Labored Respiratory Depth Normal Respiratory Pattern Tachypnea Blood Pressure 149/76 H 149/76 H Blood Pressure Mean 100 100 Pulse Ox 97 98 Oxygen Delivery Method Nasal Cannula Nasal Cannula Nasal Cannula Oxygen Flow Rate (L/min) 4 4 4 12/21/24 09:53 12/21/24 10:00 12/21/24 11:00 Temperature Temperature Source Pulse Rate 74 72 81 Respiratory Rate 19 H 13 25 H Respiratory Effort Respiratory Depth Respiratory Pattern Blood Pressure 117/73 117/73 143/45 H Blood Pressure Mean 87 87 77 Pulse Ox 94 93 96 Oxygen Delivery Method Room Air Nasal Cannula Nasal Cannula Oxygen Flow Rate (L/min) 4 12/21/24 12:10 12/21/24 13:41 12/21/24 15:32 Temperature Temperature Source Pulse Rate 75 74 88 Respiratory Rate 22 H 19 H 18 Respiratory Effort Respiratory Depth Respiratory Pattern Blood Pressure 146/54 H 141/72 H 146/76 H Blood Pressure Mean 84 95 99 Pulse Ox 96 94 94 Oxygen Delivery Method Room Air Nasal Cannula Nasal Cannula Oxygen Flow Rate (L/min) 3 3 Weight Weight: 175 lb 7.807 oz Body Mass Index (BMI) 25.9 Physical Exam Narrative General: Alert, Oriented x3, Cooperative, No apparent distress HEENT: Atraumatic, PERRLA, EOMI, Normocephalic Oral: Moist Mucosa Neck: Supple, No JVD Lungs: Diminished right base, Normal air movement, No rhonchi, wheeze, No rales Cardiovascular: Regular rate, Regular Rhythm, Normal S1, Normal S2, No murmurs Abdomen: Soft, Non Tender, Non-Distended, No Hepato-splenomegaly Extremities: Edema, Capillary Refill Less than 3 Seconds Skin: No rashes, No breakdown Musculoskeletal: No Tenderness to Palpation of Joints or Extremities Neurological: No focal neurological deficits, moves all extremities Psych/Mental Status: Normal Affect, Appropriate Results Lab / Micro Data 12/21/24 09:25 12/21/24 09:25 Labs: Laboratory Results - last 24 hr 12/21/24 09:25: WBC 6.5, RBC 3.70 L, Hgb 11.7 L, Hct 35.9 L, MCV 97.0 H, MCH 31.6, MCHC 32.6, RDW Std Deviation 53.9 H, RDW Coeff of Roslyn 15.1 H, Plt Count 158, MPV 9.9, Immature Gran % (Auto) 0.300, Neut % (Auto) 71.1 H, Lymph % (Auto) 14.2 L, [place]ill % (Auto) 13.3 H, Eos % (Auto) 0.8, Baso % (Auto) 0.3, Absolute Neuts (auto) 4.6, Absolute Lymphs (auto) 0.92, Nucleated RBC % 0, PT 16.1 H, INR 1.3, APTT 35.0, Sodium 138, Potassium 3.6, Chloride 100, Carbon Dioxide 27.7, Anion Gap 11, BUN 20 H, Creatinine 0.98, Estim Creat Clear Calc 54.11, Est GFR (MDRD) Non-Af 75, BUN/Creatinine Ratio 20.1 H, Glucose 105 H, Calcium 8.9 12/21/24 13:06: Troponin T High Sens 42 H, NT pro BNP II 2377 H Imaging Radiology Impression Chest X-Ray 12/21/24 09:55 IMPRESSION: 1. Grossly similar ykykq-td-ipydmlpr RIGHT pleural effusion and adjacent airspace disease which could reflect atelectasis and/or pneumonia. Given emphysema and previous CT findings, follow-up is again recommended. 2. Additional description as above. Reading Location: [id number] Chest CTA 12/21/24 10:47 IMPRESSION: 1. No pulmonary embolism identified. 2. Grossly similar irregular opacities in the RIGHT lower lobe with associated volume loss and adjacent ground-glass. Findings are indeterminate for residual/recurrent neoplasm, posttreatment changes, and/or superimposed pneumonia. Clinical/oncologic follow-up recommended. 3. Multiple new/enlarging predominantly ground-glass nodules as above, largest 3.2 cm in the superior segment of the LEFT lower lobe, suspicious for neoplasm given enlargement although others may be infectious/inflammatory. Continued follow-up recommended. 4. Decreasing now small to moderate complex RIGHT pleural effusion including high-density versus enhancing nodular components. This is indeterminate for hemothorax versus neoplastic involvement of the pleural surfaces/space. Continued attention on follow-up recommended. Correlation with pleural fluid analysis to include cytology could be helpful, as indicated. 5. New RIGHT hilar and mediastinal lymphadenopathy, nonspecific and potentially reactive although alisson metastasis is certainly possible given the context. Attention on follow-up. 6. Cardiomegaly with findings suggestive of RIGHT heart dysfunction. 7. Additional description as above. Reading Location: [facility] Assessment & Plan Assessment/Plan (1) CHF (congestive heart failure): (2) Pleural effusion: PLAN: Plan 1. Acute hypoxic respiratory insufficiency with ambulation due to pleural effusion and possible COPD exacerbation/lung cancer ? Will continue with Lasix as there is some signs of CHF with some peripheral edema as well as an elevation in his BNP ? Will also continue with breathing treatments and put him on steroids ? Based on the volume on the CT scan and how it appears to be more of a complex effusion I do not think that this will be amenable to thoracentesis ? She will need outpatient follow-up with oncology on discharge ? She is on Trelegy at baseline 2. CAD/essential HTN/HLD/A-fib ? Continue with Eliquis ? Continue with his home blood pressure medications ? Will monitor make adjustments as necessary ? He had an echo on 08/12/2024 with an EF of 55% and a PASP of 66 mmHg, will continue with Lasix ? Continue with statin ? Continue with Eliquis DVT: Eliquis 75 minutes was spent on direct patient care, including documentation as well as chart review and collaboration with colleagues Charges/Coding Visit Charges Inpatient E&M: 72997 Init Hosp L3
[2024-12-21] MEDS: Ipratropium/Albuterol Sulfate 3 ML AMPUL.NEB INHALATION (17:41)
[2024-12-21] MEDS: Furosemide 40 MG/4 ML Vial IV (18:21)
[2024-12-21] MEDS: predniSONE 20 MG Tablet 40 MG PO (18:21)
[2024-12-21] MEDS: Potassium Chloride Oral Tablet 20 MEQ 40 MEQ PO (18:21)
[2024-12-21] MEDS: APIXABAN 2.5 MG TABLET (WCH) PO (22:31)
[2024-12-21] MEDS: Acetaminophen 325 MG Tablet 650 MG PO (23:20)
[2024-12-22] VITALS (7 sets, daily range): BP systolic 101–140; BP diastolic 64–72; PULSE 50–117; RESP 16–20; TEMP 36.4–36.6; O2SAT 92–94; BMI 22.6
[2024-12-22 04:19] LABS: Absolute Lymphocyte Count 0.64 X10^3/uL (0.83-4.51); Absolute Neutrophil Count 4.2 X10^3/uL (2.0-7.7); Basophil# 0.01 X10^3/uL; Basophil% 0.2 % (0-1); Hematocrit 39.2 % (40-54); Hemoglobin 12.6 g/dL (13.0-16.5); Lymphocyte # 0.64 X10^3/ul (0.83-4.51); Lymphocyte % 12.5 % (19-41); Mean Corp Hgb Conc 32.1 g/dL (32-36); Mean Corpuscular Hgb 30.9 pg (27.0-32.0); Mean Corpuscular Volume 96.1 fL (80-94); Mean Platelet Vol. 10.1 fl (6.2-12.0); Monocyte# 0.25 X10^3/uL; Monocyte% 4.9 % (0-10); NRBC Flagged by Analyzer 0 % (0-5); Neutrophil # 4.21 X10^3/uL (2.7-7.7); Platelet Count 190 K/mm3 (150-450); RBC Distribution Width CV 14.8 % (11.6-14.6); RBC Distribution Width SD 52.2 fl (35.1-43.9); Red Blood Count 4.08 M/mm3 (4.6-6.2); White Blood Count 5.1 K/mm3 (4.4-11.0)
[2024-12-22 04:54] LABS: Anion Gap 13 (5-15); BUN 22 mg/dL (4-19); BUN/Creat Ratio 18.1 RATIO (10-20); Calcium,Total 9.5 mg/dL (7.6-11.0); Carbon Dioxide 29.7 mmol/L (21.0-32.0); Chloride 97 mmol/L (98-108); Creatinine, Serum 1.23 mg/dL (0.70-1.20); EST Glomerular Filtration Rate 57 (>60); Estimated Creatinine Clearance 42.44 ml/min (50-250); Glucose 161 mg/dL (70-99); Sodium Level 140 mmol/L (133-145)
[2024-12-22] MEDS: Ipratropium/Albuterol Sulfate 3 ML AMPUL.NEB INHALATION ×3 (06:53→23:44)
--- NOTE | 2024-12-22 07:26 | PCM.PN.HOSP ---
Reason for Visit Reason for Visit: Diagnoses Heart failure, unspecified (12/21/24) Pleural effusion, not elsewhere classified (12/21/24) Subjective Subjective Patient is an 84-year-old gentleman with history of lung CA who presented to the emergency department with progressive shortness of breath and hypoxia whilst on his baseline home oxygen 3 L flow per minute. Imaging studies obtained demonstrated small to moderate right-sided pleural effusion and adjacent airspace disease. Objective Data Objective Data Vital Signs: Vital Signs Temp Pulse Resp BP Pulse Ox O2 Del Method O2 Flow Rate 97.5 F L 90 17 140/70 H 93 Nasal Cannula 6 12/22/24 05:50 12/22/24 05:50 12/22/24 05:50 12/22/24 05:50 12/22/24 05:50 12/22/24 05:50 12/22/24 05:50 Oxygen Flow Rate (L/min) 6 Oxygen Delivery Method Nasal Cannula Weight: 69.6 kg Body Mass Index (BMI) 22.6 Lab / Micro Data 12/22/24 03:40 12/22/24 03:40 Labs: Laboratory Results - last 24 hr 12/21/24 09:25: WBC 6.5, RBC 3.70 L, Hgb 11.7 L, Hct 35.9 L, MCV 97.0 H, MCH 31.6, MCHC 32.6, RDW Std Deviation 53.9 H, RDW Coeff of Roslyn 15.1 H, Plt Count 158, MPV 9.9, Immature Gran % (Auto) 0.300, Neut % (Auto) 71.1 H, Lymph % (Auto) 14.2 L, Hood % (Auto) 13.3 H, Eos % (Auto) 0.8, Baso % (Auto) 0.3, Absolute Neuts (auto) 4.6, Absolute Lymphs (auto) 0.92, Nucleated RBC % 0, PT 16.1 H, INR 1.3, APTT 35.0, Sodium 138, Potassium 3.6, Chloride 100, Carbon Dioxide 27.7, Anion Gap 11, BUN 20 H, Creatinine 0.98, Estim Creat Clear Calc 54.11, Est GFR (MDRD) Non-Af 75, BUN/Creatinine Ratio 20.1 H, Glucose 105 H, Calcium 8.9 12/21/24 13:06: Troponin T High Sens 42 H, NT pro BNP II 2377 H 12/22/24 03:40: WBC 5.1, RBC 4.08 L, Hgb 12.6 L, Hct 39.2 L, MCV 96.1 H, MCH 30.9, MCHC 32.1, RDW Std Deviation 52.2 H, RDW Coeff of Roslyn 14.8 H, Plt Count 190, MPV 10.1, Immature Gran % (Auto) 0.400, Neut % (Auto) 82.0 H, Lymph % (Auto) 12.5 L, Hood % (Auto) 4.9, Eos % (Auto) 0.0, Baso % (Auto) 0.2, Absolute Neuts (auto) 4.2, Absolute Lymphs (auto) 0.64 L, Nucleated RBC % 0, Sodium 140, Potassium 5.0, Chloride 97 L, Carbon Dioxide 29.7, Anion Gap 13, BUN 22 H, Creatinine 1.23 H, Estim Creat Clear Calc 42.44 L, Est GFR (MDRD) Non-Af 57 L, BUN/Creatinine Ratio 18.1, Glucose 161 H, Calcium 9.5 Radiography Diagnostic Testing: Radiology Impression Chest X-Ray 12/21/24 09:55 IMPRESSION: 1. Grossly similar suonx-lp-fncameut RIGHT pleural effusion and adjacent airspace disease which could reflect atelectasis and/or pneumonia. Given emphysema and previous CT findings, follow-up is again recommended. 2. Additional description as above. Reading Location: [facility] Chest CTA 12/21/24 10:47 IMPRESSION: 1. No pulmonary embolism identified. 2. Grossly similar irregular opacities in the RIGHT lower lobe with associated volume loss and adjacent ground-glass. Findings are indeterminate for residual/recurrent neoplasm, posttreatment changes, and/or superimposed pneumonia. Clinical/oncologic follow-up recommended. 3. Multiple new/enlarging predominantly ground-glass nodules as above, largest 3.2 cm in the superior segment of the LEFT lower lobe, suspicious for neoplasm given enlargement although others may be infectious/inflammatory. Continued follow-up recommended. 4. Decreasing now small to moderate complex RIGHT pleural effusion including high-density versus enhancing nodular components. This is indeterminate for hemothorax versus neoplastic involvement of the pleural surfaces/space. Continued attention on follow-up recommended. Correlation with pleural fluid analysis to include cytology could be helpful, as indicated. 5. New RIGHT hilar and mediastinal lymphadenopathy, nonspecific and potentially reactive although alisson metastasis is certainly possible given the context. Attention on follow-up. 6. Cardiomegaly with findings suggestive of RIGHT heart dysfunction. 7. Additional description as above. Reading Location: [facility] Physical Exam Narrative GENERAL: cooperative HEENT: Atraumatic; normocephalic EYES; Anicteric, Normal Conjunctiva NECK; supple, normal thyroid, RESPIRATORY: Diminished to auscultation CARDIOVASCULAR: Regular S1 S2, GI: soft, normoactive bowel sounds, : No Renal angle tenderness; EXTREMITIES: No edema, no clubbing, MUSCULOSKELETAL: no muscle wasting NEURO: Awake; no lateralizing signs. SKIN: No Rash PSYCH; Flat affect Assessment & Plan Assessment/Plan (1) CHF (congestive heart failure): (2) Pleural effusion: PLAN: Plan Patient is an 84-year-old gentleman with history of lung CA who presented to the emergency department with progressive shortness of breath and hypoxia whilst on his baseline home oxygen 3 L flow per minute. Imaging studies obtained demonstrated small to moderate right-sided pleural effusion and adjacent airspace disease. 1. Acute on chronic hypoxic respiratory insufficiency ? Multifactorial including congestive heart failure, COPD, lung CA as well as pleural effusion admitted to a monitored bed for treatment of the underlying etiology 2. Acute on chronic congestive heart failure with preserved ejection fraction ?echo on 08/12/2024 demonstrated an EF of 55% and a PASP of 66 mmHg, treatment initiated with strict input and output, daily weights, low-sodium diet, fluid restriction as well as diuretic therapy with furosemide 3. Pulmonary hypertension ? With PASP of 66 mmHg complicating care 4. COPD ? Did continue patient bronchodilator treatment regimen 5.Lungs CTA ? Diagnosed 3 years prior. Patient is followed by Dr. Ludwig treated with radiation therapy 6. Paroxysmal atrial fibrillation ? Rate controlled on systemic anticoagulation with apixaban continued. Patient heart rate now well-controlled. Patient is on metoprolol XL 12.5 did increase the dose to 25 mg daily 7. Dyslipidemia ? Patient is on simvastatin did continue 8.Coronary artery disease ? Patient is on guideline directed medical therapy 9. Hypertension ? Blood pressure controlled, home medications continued with dose adjustment as needed 10. DVT prophylaxis ? On apixaban Time spent in the patient's overall evaluation,decision-making process, review of diagnostic data, adjustment of management, discussion with other providers, nursing nursing and ancillary staff involved in patient's care documentation, 53 Minutes Charges/Coding Visit Charges Inpatient E&M: 51531 [facility] [[email or web address]] Hosp L3
--- NOTE | 2024-12-22 07:45 | RAD_ITS ---
PROCEDURE: CHEST PA AND LATERAL 12/22/2024 REASON FOR EXAM: RIGHT PLEURAL EFFUSION TECHNIQUE: Frontal and lateral views of the chest. PA and 2 lateral views, 3 total images COMPARISON: 12/21/2024 FINDINGS: Small right pleural effusion. Asymmetric bilateral hqywz-kdtjqqc-jihg-left patchy ill-defined airspace opacities not significantly changed in appearance. Appearance of background of emphysematous change with degree of hyperinflation. Atherosclerotic changes at the aortic arch again noted. Cardiac silhouette is within limits for size. Previous ventral mesh hernia repair. RAD/Chest PA and Lateral IMPRESSION: Small right pleural effusion. Asymmetric bilateral sdcfy-zcjhbvy-ksxe-left patchy ill-defined airspace opacit ies not significantly changed in appearance. Reading Location: [id number]
[2024-12-22] MEDS: predniSONE 20 MG Tablet 40 MG PO (08:15)
[2024-12-22] MEDS: APIXABAN 2.5 MG TABLET (WCH) PO ×2 (09:06→20:08)
[2024-12-22] MEDS: Atorvastatin Calcium 10 MG Tablet PO (09:09)
[2024-12-22] MEDS: Furosemide 40 MG/4 ML Vial IV ×2 (09:09→17:36)
[2024-12-22] MEDS: Magnesium Chloride 64 MG Delay Rel.Tablet 128 MG PO (09:14)
[2024-12-22] MEDS: Cyanocobalamin 500 MCG Tablet 1000 MCG PO (09:14)
[2024-12-22] MEDS: Metoprolol(XL)Succ 25 MG Tablet PO (09:14)
[2024-12-22] MEDS: Psyllium 1 PACKET PO (09:14)
[2024-12-22] MEDS: Folic Acid 1 MG Tablet PO (09:22)
--- NOTE | 2024-12-22 11:15 | CASEMGMT ---
Addendum entered by Kina Alvarado 12/22/24 11:57: Discussed Palliative Care with pt and son, questions answered, and info provided. They are not interested in referral at this time. They were made aware to f/u with PCP or movement assembly final inspector if they decide would like a referral in the future. Pt states, he feels a lot better benefit when receiving aerosol tx's vs inhalers and inquired if he will be going home on aerosol tx's. IGNACIO DORANTES informed him this is not known at this time. Pt and son state, if he does dc home on aerosal tx's, to get nebulizer from [facility]. Original Note: RN CM Assessment ? RN CM to room to meet with patient for initial?transition planning/care coordination assessment. IGNACIO DORANTES introduced self and role at [facility], pt voices understanding. Pt is A&O and is sitting up in bed. SonHarry, @ bedside. Care providers, pharmacy, and demographics verified. ? LACE Strata: 3 PCP: ?Dr Lefty Samson Specialists: ?Dr Starkey-cardio, Dr Salvador-onc/hem, Dr Lisa De Leon-pulm. Pt has an appt w/FIXED INCOME MANAGER, Kathleen Valdivia, @ Dr Lisa De Leon's office this Sat. After pt had discussion w/son, they decided they would like to see Dr Deven De Leon @ [facility] and requested assistance w/getting an appt there. Call placed to [facility]. First available appt is January 05 @ 0945, arrive @ 0930. Pt and son both agreeable to this date and would like this scheduled. Appt scheduled and added to pt's dc plan. Pt and son also requested appt w/FIXED INCOME MANAGER @ Dr Lisa De Leon's office on Sat to be cancelled. Call placed and this was done. Preferred Pharmacy: ?[facility] Insurance: ?Medicare A/B, [employer] commercial Prescription Benefit: ?yes HCPOA/LW: Pt has these documents and states sonHarry, is his HCPOA. Pt and son both made aware documents are not on-file @ [facility] and asked if these could be brought into [facility] to be placed on pt's chart. LNOK: ?Harry Nguyen (son). Pt has 2 daughters. Living Arrangements: ?Patient lives alone in a loft-condo w/one step to enter. [employer]. Independent w/ADL's and IADL's. Drives to grocery store and prepares his own meals. Hires a cleaning lady once a month. Pt has had home-delivered meals in the past and may be interested again. He is not sure where the info is to contact them again and would like new info. Hazel PAUL, made aware. Transportation: ?self, son. Pt would like to utilize [facility] Van to take him home @ dc, if available. Son works during the day, split-shifts, and is not sure what his availability will be. DME: ?INR machine, but does not use now that he is on Eliquis. Pt has a raised toilet seat, cane (uses occasionally), grab bars, and pulse ox. Pt has a FWW available, but does not use. Pt has home O2 through [facility]. He has a concentrator and portable O2 tanks and one is in his room to go home on. He is interested in getting a POC. Questions answered about this and advised to f/u with pulmonology re: this. He has a CPAP. but has not been using it. He plans to f/u with pulmonology about this as well, as he is interested in starting using this again and is aware he may need repeat sleep studies. HHC/SNF: Pt has had [facility] HHC in the past. No SNF hx. Pt inquired about HHC. Discussed [facility]'s criteria of being homebound. Pt and son both state pt is not homebound at this time and aware pt does not meet criteria/voice understanding. Pt wishes to return home and states has no concerns with going home at time of discharge.? CM?to follow for any increase in home oxygen needs and any further discharge planning/needs.? Pt and son voice no further concerns/needs at this time.? Advised them to ask for?CM?if any further questions/concerns/needs arise.? They voice understanding. Plan: Home Follow for any increase in home O2 needs. Navi ALCAZARN RN CM
--- NOTE | 2024-12-22 14:19 | CASEMGMT ---
Social Work SW met with pt and provided with list of home delivered meal options. Pt appreciative of information and made aware of how to reach SW if he has additional questions. GLORIA Bloom
--- NOTE | 2024-12-22 16:17 | CHAPLAIN ---
Type of Pastoral Visit _x__ Initial Visit ___ Follow-up Visit ___ On-call Visit ___ General Patient Visit ___ Spiritual Assessment ___ Family Conference ___ Bereavement ___ Rapid Response ___ Code Blue ___ Other (describe below) Pastoral Care Referral From _x__ Patient ___ Family ___ Nurse ___ Physician ___ Director Emergency Department ___ [place] Operator ___ Other (describe below) Sacrament/Intervention _x__ Active listening ___ Anointing ___ Mu-Ism ___ Bereavement ___ Communion _x__ Maki exploration ___ _x__ Life review _x__ Prayer ___ Reconciliation ___ Sacrament of Sick _x__ Supportive presence ___ Wedding ___ Other (describe below) Pastoral Comments patient is welcoming and states this is the first time that I've asked for a covering machine operator helper/clergy to visit me; pt states that he is a disconnected Faith that has had some difficulty with the Congregational, and is now more concerned since the of the [place]; patient is a whose was a Orthodox and whose children have made their own decisions on mormon which are all different from one another; pt says that he has some spiritual concerns and questions which were given time to explore and to process; pt asked to hear of perspective of this covering machine operator helper and said that it was helpful to him; pt acknowledges that he has regrets in life and needs to find his peace before he dies; pt welcomed support and prayer; pt also gave some legacy background of family and maki; pt welcomes this covering machine operator helper for future visits if possible
[2024-12-22] MEDS: 0.9% Saline Lock 10 ML Syringe IV (17:36)
[2024-12-23] VITALS (7 sets, daily range): BP systolic 107–108; BP diastolic 69–76; PULSE 75–87; RESP 18–20; TEMP 36.5–37.2; O2SAT 89–98; BMI 23.4
[2024-12-23 04:36] LABS: Absolute Lymphocyte Count 0.95 X10^3/uL (0.83-4.51); Basophil# 0.01 X10^3/uL; Basophil% 0.1 % (0-1); Eosinophil# 0.01 X10^3/uL; Eosinophils% 0.1 % (0-5); Hemoglobin 11.4 g/dL (13.0-16.5); Lymphocyte # 0.95 X10^3/ul (0.83-4.51); Lymphocyte % 9.5 % (19-41); Mean Corp Hgb Conc 32.6 g/dL (32-36); Mean Corpuscular Hgb 31.1 pg (27.0-32.0); Mean Corpuscular Volume 95.6 fL (80-94); Mean Platelet Vol. 9.9 fl (6.2-12.0); Monocyte# 0.96 X10^3/uL; Monocyte% 9.6 % (0-10); NRBC Flagged by Analyzer 0 % (0-5); Neutrophil # 7.99 X10^3/uL (2.7-7.7); Neutrophil % 80.1 % (47-70); Platelet Count 199 K/mm3 (150-450); RBC Distribution Width CV 14.7 % (11.6-14.6); Red Blood Count 3.66 M/mm3 (4.6-6.2)
[2024-12-23 05:51] LABS: Magnesium 2.6 mg/dL (1.5-2.2); Phosphorus 4.1 mg/dL (2.7-4.5)
[2024-12-23 06:13] LABS: Anion Gap 14 (5-15); BUN 37 mg/dL (4-19); BUN/Creat Ratio 32.9 RATIO (10-20); Calcium,Total 9.1 mg/dL (7.6-11.0); Chloride 98 mmol/L (98-108); Creatinine, Serum 1.12 mg/dL (0.70-1.20); EST Glomerular Filtration Rate 64 (>60); Estimated Creatinine Clearance 47.34 ml/min (50-250); Glucose 126 mg/dL (70-99); Potassium 3.8 mmol/L (3.3-5.1); Sodium Level 137 mmol/L (133-145)
[2024-12-23] MEDS: Ipratropium/Albuterol Sulfate 3 ML AMPUL.NEB INHALATION ×2 (06:48→11:02)
--- NOTE | 2024-12-23 07:31 | PN.HOSP_ITS ---
Reason for Visit Reason for Visit: Diagnoses Heart failure, unspecified (12/22/24) Pleural effusion, not elsewhere classified (12/22/24) Subjective Subjective Patient seen back to his baseline 3 L of oxygen at rest. He was net negative fluid balance of 1.2 L over the past 24 hours. Given the slight bump in his kidney function did decrease his Lasix dose. Objective Data Objective Data Vital Signs: Vital Signs Temp Pulse Resp BP Pulse Ox O2 Del Method O2 Flow Rate 97.7 F L 83 18 108/69 94 Nasal Cannula 3 12/23/24 03:00 12/23/24 03:00 12/23/24 03:00 12/23/24 03:00 12/23/24 03:00 12/23/24 03:00 12/23/24 03:00 Oxygen Flow Rate (L/min) 3 Oxygen Delivery Method Nasal Cannula Weight: 72 kg Body Mass Index (BMI) 23.4 Intake & Output: Intake and Output for Last 24 Hours 12/21/24 12/22/24 12/23/24 23:59 23:59 23:59 Output Total 400 / 1200 800 / 800 Balance -400 / -1200 -800 / -800 Lab / Micro Data 12/23/24 04:15 12/23/24 04:15 Labs: Laboratory Results - last 24 hr 12/23/24 04:15: WBC 10.0, RBC 3.66 L, Hgb 11.4 L, Hct 35.0 L, MCV 95.6 H, MCH 31.1, MCHC 32.6, RDW Std Deviation 52.0 H, RDW Coeff of [place] 14.7 H, Plt Count 199, MPV 9.9, Immature Gran % (Auto) 0.600, Neut % (Auto) 80.1 H, Lymph % (Auto) 9.5 L, [place] % (Auto) 9.6, Eos % (Auto) 0.1, Baso % (Auto) 0.1, Absolute Neuts (auto) 8.0 H, Absolute Lymphs (auto) 0.95, Nucleated RBC % 0, Sodium 137, Potassium 3.8, Chloride 98, Carbon Dioxide 25.0, Anion Gap 14, BUN 37 H, Creatinine 1.12, Estim Creat Clear Calc 47.34 L, Est GFR (MDRD) Non-Af 64, B UN/Creatinine Ratio 32.9 H, Glucose 126 H, Calcium 9.1, Phosphorus 4.1, M agnesium 2.6 H Radiography Diagnostic Testing: Radiology Impression Chest X-Ray 12/22/24 07:45 IMPRESSION: Small right pleural effusion. Asymmetric bilateral iochr-ojotwbp-[id number]-left patchy ill-defined airspace opacities not significantly changed in appearance. Reading Location: [facility] Physical Exam Narrative GENERAL: cooperative HEENT: Atraumatic; normocephalic EYES; Anicteric, Normal Conjunctiva NECK; supple, normal thyroid, RESPIRATORY: Diminished to auscultation CARDIOVASCULAR: Regular S1 S2, GI: soft, normoactive bowel sounds, : No Renal angle tenderness; EXTREMITIES: No edema, no clubbing, MUSCULOSKELETAL: no muscle wasting NEURO: Awake; no lateralizing signs. SKIN: No Rash PSYCH; Flat affect Assessment & Plan Assessment/Plan (1) CHF (congestive heart failure): (2) Pleural effusion: PLAN: Plan Patient is an 84-year-old gentleman with history of lung CA who presented to the emergency department with progressive shortness of breath and hypoxia whilst on his baseline home oxygen 3 L flow per minute. Imaging studies obtained demonstrated small to moderate right-sided pleural effusion and adjacent airspace disease. 1. Acute on chronic hypoxic respiratory insufficiency ? Multifactorial including congestive heart failure, COPD, lung CA as well as pleural effusion admitted to a monitored bed for treatment of the underlying etiology. ? 12/23/2024; patient back to his baseline 3 L flow per minute 2. Acute on chronic congestive heart failure with preserved ejection fraction ?echo on 08/12/2024 demonstrated an EF of 55% and a PASP of 66 mmHg, treatment initiated with strict input and output, daily weights, low-sodium diet, fluid restriction as well as diuretic therapy with furosemide - 12/23/2024; patient seen back to his baseline 3 L of oxygen at rest. He was net negative fluid balance of 1.2 L over the past 24 hours. Given the slight bump in his kidney function did decrease his Lasix dose. 3. Pulmonary hypertension ? With PASP of 66 mmHg complicating care 4. COPD ? Did continue patient bronchodilator treatment regimen 5.Lungs CA ? Diagnosed 3 years prior. Patient is followed by Dr. Earl treated with radiation therapy 6. Paroxysmal atrial fibrillation ? Rate controlled on systemic anticoagulation with apixaban continued. Patient heart rate now well-controlled. Patient is on metoprolol XL 12.5 did increase the dose to 25 mg daily 7. Dyslipidemia ? Patient is on simvastatin did continue 8.Coronary artery disease ? Patient is on guideline directed medical therapy 9. Hypertension ? Blood pressure controlled, home medications continued with dose adjustment as needed 10. DVT prophylaxis ? On apixaban Time spent in the patient's overall evaluation,decision-making process, review of diagnostic data, adjustment of management, discussion with other providers, nursing nursing and ancillary staff involved in patient's care documentation, 38 Minutes Charges/Coding Visit Charges Inpatient E&M: 40534 Subs Hosp L2
[2024-12-23] MEDS: predniSONE 20 MG Tablet 40 MG PO (10:05)
[2024-12-23] MEDS: Folic Acid 1 MG Tablet PO (10:05)
[2024-12-23] MEDS: APIXABAN 2.5 MG TABLET (WCH) PO (10:05)
[2024-12-23] MEDS: Furosemide 40 MG Tablet PO (10:05)
[2024-12-23] MEDS: Atorvastatin Calcium 10 MG Tablet PO (10:06)
[2024-12-23] MEDS: Metoprolol(XL)Succ 25 MG Tablet PO (10:07)
[2024-12-23] MEDS: Cyanocobalamin 500 MCG Tablet 1000 MCG PO (10:08)
--- NOTE | 2024-12-23 11:37 | PCM.DC.SUM ---
Providers Date of Admission: 12/22/24 Date of Discharge: 12/23/24 Primary Care Physician: Dr. Lefty Samson MD Reason For Visit: INCREASED SOB Diagnosis Discharge Diagnosis (1) CHF (congestive heart failure): Status: Acute Code(s): I50.9 - Heart failure, unspecified (2) Pleural effusion: Status: Acute Code(s): J90 - Pleural effusion, not elsewhere classified Plan Patient is an 84-year-old gentleman with history of lung CA who presented to the emergency department with progressive shortness of breath and hypoxia whilst on his baseline home oxygen 3 L flow per minute. Imaging studies obtained demonstrated small to moderate right-sided pleural effusion and adjacent airspace disease. 1. Acute on chronic hypoxic respiratory insufficiency ? Multifactorial including congestive heart failure, COPD, lung CA as well as pleural effusion admitted to a monitored bed for treatment of the underlying etiology. ? 12/23/2024; patient back to his baseline 3 L flow per minute 2. Acute on chronic congestive heart failure with preserved ejection fraction ?echo on 08/12/2024 demonstrated an EF of 55% and a PASP of 66 mmHg, treatment initiated with strict input and output, daily weights, low-sodium diet, fluid restriction as well as diuretic therapy with furosemide - 12/23/2024; patient seen back to his baseline 3 L of oxygen at rest. He was net negative fluid balance of 1.2 L over the past 24 hours. Given the slight bump in his kidney function did decrease his Lasix dose. 3. Pulmonary hypertension ? With PASP of 66 mmHg complicating care 4. COPD ? Did continue patient bronchodilator treatment regimen 5.Lungs CA ? Diagnosed 3 years prior. Patient is followed by Dr. Earl treated with radiation therapy 6. Paroxysmal atrial fibrillation ? Rate controlled on systemic anticoagulation with apixaban continued. Patient heart rate now well-controlled. Patient is on metoprolol XL 12.5 did increase the dose to 25 mg daily 7. Dyslipidemia ? Patient is on simvastatin did continue 8.Coronary artery disease ? Patient is on guideline directed medical therapy 9. Hypertension ? Blood pressure controlled, home medications continued with dose adjustment as needed 10. DVT prophylaxis ? On apixaban Time spent in the patient's overall evaluation,decision-making process, review of diagnostic data, adjustment of management, discussion with other providers, nursing nursing and ancillary staff involved in patient's care documentation, 38 Minutes Medications at Discharge Home Medications metoprolol succinate 25 mg tablet,extended release 24 hr 12.5 mg PO DAILY blood pressure 01/26/19 simvastatin 20 mg tablet 20 mg PO DAILY Cholesterol 01/26/19 acidophilus 100 million cell-pectin, citrus 10 mg capsule 2 ea PO DAILY supplement 04/13/20 ascorbic acid (vitamin C) 1,000 mg tablet,extended release 1,000 mg PO DAILY vitamin c 04/13/20 calcium 315 mg (as citrate)-vitamin D3 6.25 mcg (250 unit) tablet 1 ea PO DAILY vitamin 04/13/20 coenzyme Q10 200 mg capsule 200 mg PO DAILY supplement 04/13/20 cyanocobalamin (vitamin B-12) 1,000 mcg capsule 1,000 mcg PO DAILY vitamin 04/13/20 docosahexaenoic acid 450 mg capsule 450 mg PO BID supplement 04/13/20 folic acid 1 mg tablet 1 mg PO DAILY supplement 04/13/20 glucosamine 750 [id number]-gwx no1 644 mg-C 30 mg-dionte 1 mg tablet 2 ea PO DAILY supplement 04/13/20 magnesium oxide 400 mg (241.3 mg magnesium) tablet 400 mg PO DAILY supplement 04/13/20 multivitamin 1 ea PO MOWEFR vitamin 04/13/20 nitroglycerin 0.4 mg sublingual tablet 0.4 mg sublingual Q5M PRN Chest Pain 04/13/20 psyllium husk 3.4 gram/5.4 gram oral powder 660 g PO DAILY supplement 04/13/20 fluticasone fur. 100 mcg-umeclid 62.5 mcg-vilant 25 mcg inhalat.powder (Trelegy Ellipta) 1 inh inhalation DAILY breathing 08/05/23 albuterol sulfate 90 mcg/actuation aerosol inhaler 1 inh inhalation Q6H PRN shortness of breath or wheezing #8.5 grams 08/14/24 apixaban 2.5 mg tablet (Eliquis) 2.5 mg PO BID blood thinner 11/11/24 furosemide 40 mg tablet 60 mg (1.5 x 40 mg) PO DAILY #90 tabs 12/23/24 prednisone 20 mg tablet 40 mg (2 x 20 mg) PO BREAKFAST #10 tabs 12/23/24 Physical Exam Narrative GENERAL: cooperative HEENT: Atraumatic; normocephalic EYES; Anicteric, Normal Conjunctiva NECK; supple, normal thyroid, RESPIRATORY: Diminished to auscultation CARDIOVASCULAR: Regular S1 S2, GI: soft, normoactive bowel sounds, : No Renal angle tenderness; EXTREMITIES: No edema, no clubbing, MUSCULOSKELETAL: no muscle wasting NEURO: Awake; no lateralizing signs. SKIN: No Rash PSYCH; Flat affect Weight / BMI Weight Weight: 72 kg Body Mass Index (BMI) 23.4 ABG / Lab / Microbiology Data 12/23/24 04:15 12/23/24 04:15 Laboratory: Laboratory Results - last 24 hr 12/23/24 04:15: WBC 10.0, RBC 3.66 L, Hgb 11.4 L, Hct 35.0 L, MCV 95.6 H, MCH 31.1, MCHC 32.6, RDW Std Deviation 52.0 H, RDW Coeff of [place] 14.7 H, Plt Count 199, MPV 9.9, Immature Gran % (Auto) 0.600, Neut % (Auto) 80.1 H, Lymph % (Auto) 9.5 L, [place] % (Auto) 9.6, Eos % (Auto) 0.1, Baso % (Auto) 0.1, Absolute Neuts (auto) 8.0 H, Absolute Lymphs (auto) 0.95, Nucleated RBC % 0, Sodium 137, Potassium 3.8, Chloride 98, Carbon Dioxide 25.0, Anion Gap 14, BUN 37 H, Creatinine 1.12, Estim Creat Clear Calc 47.34 L, Est GFR (MDRD) Non-Af 64, BUN/Creatinine Ratio 32.9 H, Glucose 126 H, Calcium 9.1, Phosphorus 4.1, Magnesium 2.6 H D/C Instructions Discharge Diet: No restrictions Discharge Activity: Return to Normal Activity Call your doctor if you observe: Fever of 101 or Higher, Shortness of breath, Fainting spells and Chest pain DC O2, CPAP, BIPAP Needs Home O2 Discharge instructions: Yes Type of respiratory needs?: Oxygen (3) Oxygen frequency: Continuous Continuous oxygen liters per minute: 3l DC home with Oxygen: Yes Home O2 MD Review: I have reviewed the oxygen testing, and the patient qualifies for home oxygen equipment and portability. The patient is mobile in the home and the community. Meaningful Use Info Meaningful Use Meaningful Use Diagnoses (Choose all that apply): CHF CHF SUKHI/ARB ordered at discharge?: No Reason SUKHI/ARB not ordered?: Not indicated Documented LVEF (%): 55 Ischemic Stroke Statin Dosing Therapy Reference: STATIN DOSE THERAPY REFERENCE: * Patients > 75 years receive moderate or high dose statin therapy. * Patients 75 years or YOUNGER should receive HIGH intensity statin dose unless contraindicated. You will be required to document reason for non-treatment if statin daily dose does not meet guidelines. HIGH DOSE STATIN THERAPY DAILY Atorvastatin > than or = to 40 mg Rosuvastatin > than or = to 20 mg Amlodipine + Atorvastatin > than or = to 2.5/40 mg Ezetimibe + Simvastatin 10/80 mg Simvastatin 80mg Discharge Plan Admission Admit Date/Time: 12/22/24 09:59 Attending Provider: Emir Berrios Primary Care Provider: Lefty Samson Consulting Providers: Venkat Chavez Discharge Orders/Prescriptions Prescriptions: New prednisone 20 mg Tablet 40 mg PO BREAKFAST Qty: 10 0RF furosemide 40 mg tablet 60 mg PO DAILY Qty: 90 0RF Continued simvastatin 20 MG tablet 20 mg PO DAILY metoprolol succinate 25 MG tablet extended release 24 hr 12.5 mg PO DAILY multivitamin 1 EACH tablet 1 ea PO MOWEFR ascorbic acid (vitamin C) 1,000 MG tablet extended release 1,000 mg PO DAILY magnesium oxide 400 MG tablet 400 mg PO DAILY nitroglycerin 0.4 MG tablet, sublingual 0.4 mg sublingual Q5M PRN (Reason: Chest Pain) folic acid 1 MG tablet 1 mg PO DAILY coenzyme Q10 200 MG capsule 200 mg PO DAILY calcium citrate-vitamin D3 1 EACH tablet 1 ea PO DAILY acidophilus-pectin, citrus 1 EACH capsule 2 ea PO DAILY docosahexaenoic acid 450 MG capsule 450 mg PO BID gviqvrug-epec-[id number]-dionte-bosw 1 EACH tablet 2 ea PO DAILY psyllium husk 660 GM powder 660 g PO DAILY cyanocobalamin (vitamin B-12) 1,000 MCG capsule 1,000 mcg PO DAILY Trelegy Ellipta 100-62.5-25 mcg blister with device 1 inh INHALATION DAILY Eliquis 2.5 mg tablet 2.5 mg PO BID albuterol sulfate 90 mcg/actuation HFA aerosol inhaler 1 inh inhalation Q6H PRN (Reason: shortness of breath or wheezing) Qty: 8.5 0RF Discontinued apple cider vinegar 600 MG capsule 600 mg PO MOWEFR cinnamon bark 500 MG capsule 500 mg PO BID bee pollen 550 MG capsule 1 tab PO DAILY furosemide 40 mg tablet 40 mg PO QODAY furosemide 20 mg Tablet 20 mg PO QODAY Referrals / Follow Up: Deven De Leon DO [Med Staff - Active Staff] - 01/05/25 9:45 am (Please arrive @ 9:30 AM to complete paperwork. ) Lefty Samson MD [Primary Care Provider] - Within 2 Weeks Disposition Disposition (needs filled in before D/C Order can be placed): Home Health Service Charges/Coding Visit Charges Inpatient E&M: 08551 Disch Hosp >30min
--- NOTE | 2024-12-23 12:15 | CASEMGMT ---
Patient has order for discharge. Patient is maintaining on his baseline oxygen. RN CM in to discuss needs at discharge, son at bedside. Patient and son deny needs or help at discharge. Patient and son had no further questions or concern.
--- NOTE | 2024-12-23 12:39 | NURSING ---
Pt and son given discharge instructions including medications, follow up appointments and all other discharge instructions. telemetry removed and placed at nurses station. Iv removed by nursing resident, catheter intact, clean dry dressing applied, pt tolerated well. Pt and Son Deny any Further questions or needs at this time. teacher of gifted students to wheel pt out to sons waiting vehicle and pick and shovel worker medications from the pharmacy on the way out.
== END 2024-12-23 12:44 | disposition home or self-care (01) | DRG 291 ==
LOC: ED 16:16 → PCU 16:48
PROVIDERS: Admitting Provider Family Medicine; Emergency Provider Emergency Medicine; PCP Family Medicine; Referring Provider Family Medicine; Visit Provider Internal Medicine
DX: I11.0 Hypertensive heart disease with heart failure (principal); I50.33 Acute on chronic diastolic (congestive) heart failure; C34.90 Malignant neoplasm of unspecified part of unspecified bronchus or lung; J96.11 Chronic respiratory failure with hypoxia; I27.20 Pulmonary hypertension, unspecified; Z79.01 Long term (current) use of anticoagulants; J44.9 Chronic obstructive pulmonary disease, unspecified; I48.0 Paroxysmal atrial fibrillation; I25.10 Atherosclerotic heart disease of native coronary artery without angina pectoris; E78.5 Hyperlipidemia, unspecified; G47.30 Sleep apnea, unspecified; I25.2 Old myocardial infarction; Z79.51 Long term (current) use of inhaled steroids; Z79.899 Other long term (current) drug therapy; Z87.891 Personal history of nicotine dependence
CPT/HCPCS: 36415; 71045; 71046; 71275; 80048; 83735; 83880; 84100; 84484; 85025; 85610; 85730; 93005; 94640; 94668; 99252; 99285; Q9967; A4216; G0463; J1940

== ENCOUNTER 2024-12-31 09:22 | Emergency (ER) | payer MEDICARE, OTHER, SELFPAY ==
[2024-12-31 09:23] VITALS: BP 126/64; PULSE 64; RESP 18; TEMP 36.7; O2SAT 98; BMI 24.8
[2024-12-31 10:29] LABS: Absolute Neutrophil Count 11.3 X10^3/uL (2.0-7.7); Basophil# 0.01 X10^3/uL; Basophil% 0.1 % (0-1); Eosinophil# 0.09 X10^3/uL; Eosinophils% 0.6 % (0-5); Hematocrit 42.6 % (40-54); Hemoglobin 13.7 g/dL (13.0-16.5); Lymphocyte % 7.2 % (19-41); Mean Corp Hgb Conc 32.2 g/dL (32-36); Mean Corpuscular Hgb 30.6 pg (27.0-32.0); Mean Corpuscular Volume 95.3 fL (80-94); Mean Platelet Vol. 10.3 fl (6.2-12.0); Monocyte# 1.38 X10^3/uL; NRBC Flagged by Analyzer 0 % (0-5); Neutrophil # 11.29 X10^3/uL (2.7-7.7); Neutrophil % 81.5 % (47-70); Platelet Count 262 K/mm3 (150-450); RBC Distribution Width CV 14.4 % (11.6-14.6); RBC Distribution Width SD 50.7 fl (35.1-43.9); Red Blood Count 4.47 M/mm3 (4.6-6.2); White Blood Count 13.9 K/mm3 (4.4-11.0)
[2024-12-31 10:33] LABS: Mucous, Urine 0 SEEN /hpf (<or=2+); Red Blood Cells-Urine 0 SEEN /hpf (0-5)
[2024-12-31 10:46] LABS: Color, Urine Yellow (Yellow); Glucose, Dipstick Normal (Normal); Ketone-Dipstick Negative (Negative); Leukocyte Esterase-Dipstick Negative /ul (Negative); Nitrite-Dipstick Negative (Negative); Occult Blood-Urine Negative /ul (Negative); Protein-Dipstick 30 mg/dl (Negative); Urine Bilirubin Dipstick Negative (Negative); Urine Clarity Clear (Clear); Urine Urobilinogen Normal (Normal)
[2024-12-31 10:53] LABS: Anion Gap 11 (5-15); BUN 41 mg/dL (4-19); Calcium,Total 9.1 mg/dL (7.6-11.0); Carbon Dioxide 31.4 mmol/L (21.0-32.0); Chloride 100 mmol/L (98-108); Creatinine, Serum 1.13 mg/dL (0.70-1.20); EST Glomerular Filtration Rate 63 (>60); Estimated Creatinine Clearance 46.92 ml/min (50-250); Glucose 114 mg/dL (70-99); Potassium 3.6 mmol/L (3.3-5.1); Sodium Level 142 mmol/L (133-145)
[2024-12-31 11:03] LABS: Bacteria RARE /hpf (None Seen); Squamous Epithelial Cells - UA 0-5 SEEN /hpf (0-5); White Blood Cells 0-5 SEEN /hpf (0-5)
[2024-12-31 11:04] LABS: Hyaline Cast 0-5 SEEN /lpf (0-5)
[2024-12-31 11:23] VITALS: BP 134/78; PULSE 64; RESP 18; O2SAT 97
[2024-12-31 12:00] VITALS: BP 139/71; PULSE 72; RESP 14; TEMP 37.1; O2SAT 99
--- NOTE | 2024-12-31 12:06 | EX.ED.DYSGE1 ---
HPI History of Present Illness Chief Complaint: General Illness Narrative Narrative: History of lung cancer no treatment being followed by Dr. Salvador. Diagnosed 2 years ago. He is on chronic oxygenation. He has had recurrent pleural effusions requiring thoracentesis however would not want any currently. He is on Eliquis twice a day for history of paroxysmal A-fib. He has heart failure, he states currently being managed for fluid overload as he did not want any continued thoracentesis. He was on 40 mg of Lasix a week ago increased to 60 mg a day. He states decreased urine output over the past week. No abdominal distention. No dysuria. Son is currently present reported patient's brother went to similar that because organ damage leading to kidney failure. [facility] Medical History (Updated 12/31/24 @ 11:[address] Magen Braswell DO) On home oxygen therapy Bleeding tendency Anxiety Depression Sleep apnea Former smoker CPAP (continuous positive airway pressure) dependence Asthma COPD (chronic obstructive pulmonary disease) Myocardial infarct History of COPD History of lung cancer HLD (hyperlipidemia) Afib CAD (coronary artery disease) Lung cancer Atrial fibrillation CAD (coronary artery disease) Home Medications ?Medication ?Instructions ?Recorded ?Last Taken ?Type metoprolol succinate 25 mg 12.5 mg PO DAILY blood pressure 01/26/19 12/30/24 History tablet,extended release 24 hr simvastatin 20 mg tablet 20 mg PO DAILY Cholesterol 01/26/19 12/30/24 History acidophilus 100 million 2 ea PO DAILY supplement 04/13/20 12/30/24 History cell-pectin, citrus 10 mg capsule ascorbic acid (vitamin C) 1,000 mg 1,000 mg PO DAILY vitamin c 04/13/20 12/30/24 History tablet,extended release calcium 315 mg (as 1 ea PO DAILY vitamin 04/13/20 12/30/24 History citrate)-vitamin D3 6.25 mcg (250 unit) tablet coenzyme Q10 200 mg capsule 200 mg PO DAILY supplement 04/13/20 12/30/24 History cyanocobalamin (vitamin B-12) 1,000 mcg PO DAILY vitamin 04/13/20 12/30/24 History 1,000 mcg capsule docosahexaenoic acid 450 mg capsule 450 mg PO BID supplement 04/13/20 12/30/24 History folic acid 1 mg tablet 1 mg PO DAILY supplement 04/13/20 12/30/24 History glucosamine 750 fn-xmryzofiikg-mbx 2 ea PO DAILY supplement 04/13/20 12/30/24 History no1 644 mg-C 30 mg-dionte 1 mg tablet magnesium oxide 400 mg (241.3 mg 400 mg PO MOFR supplement 04/13/20 12/28/24 History magnesium) tablet multivitamin 1 ea PO MOFR vitamin 04/13/20 12/28/24 History nitroglycerin 0.4 mg sublingual 0.4 mg sublingual Q5M PRN Chest 04/13/20 Unknown History tablet Pain psyllium husk 3.4 gram/5.4 gram 660 g PO DAILY supplement 04/13/20 12/30/24 History oral powder fluticasone fur. 100 mcg-umeclid 1 inh inhalation DAILY breathing 08/05/23 12/30/24 History 62.5 mcg-vilant 25 mcg inhalat.powder (Trelegy Ellipta) albuterol sulfate 90 mcg/actuation 1 inh inhalation Q6H PRN shortness 08/14/24 Unknown Rx aerosol inhaler of breath or wheezing #8.5 grams apixaban 2.5 mg tablet (Eliquis) 2.5 mg PO BID blood thinner 11/11/24 12/30/24 History furosemide 40 mg tablet 60 mg (1.5 x 40 mg) PO DAILY #90 12/23/24 12/30/24 Rx tabs furosemide 20 mg tablet 20 mg PO DAILY 12/31/24 12/30/24 History Allergy/AdvReac Type Severity Reaction Status Date / Time No Known Allergies Allergy Verified 12/21/24 08:58 Family History (Updated 12/21/24 @ 18:[address] Venkat Chavez MD) Other Heart disease Hypertension Surgical History History of appendectomy History of bronchoscopy Social History household members: none Smoking Status: Former smoker ROS ROS ED Constitutional Constitutional ED: Denies chills, fever(s) or sweats ENT ENT ED: Denies sore throat Cardiovascular Cardiovascular: Denies chest pain, leg edema, palpitations or racing heartbeat Respiratory/Chest Respiratory/Chest: Denies cough, dyspnea or dyspnea on exertion Gastrointestinal Gastrointestinal: Denies abdominal pain, diarrhea, nausea or vomiting Genitourinary Genitourinary ED: Reports other Details: Decreased urine output ; Denies dysuria, hematuria or urinary frequency Musculoskeletal Musculoskeletal: Denies back pain, extremity pain or neck pain Integumentary Denies rash or wounds Neurologic Neurologic: Denies headache(s), paresthesias or weakness EXAM Physical Exam Const Vital Signs: 12/31/24 09:23 12/31/24 09:48 12/31/24 11:23 Temperature 98.0 F Temperature Source Oral Pulse Rate 64 64 Respiratory Rate 18 18 Respiratory Effort Normal Respiratory Pattern Normal Blood Pressure 126/64 H 134/78 H Blood Pressure Mean 84 96 Pulse Ox 98 97 Oxygen Delivery Method Nasal Cannula Room Air Oxygen Flow Rate (L/min) 3 Positive well nourished and well developed Constitutional Narrative: 3 L nasal cannula no respiratory distress. General Appearance ED: well developed and NAD HEENT Reports moist mucous membranes normocephalic and atraumatic Eyes General Eye ED: Yes normal appearance of both eyes Neck full ROM Chest Wall Chest: Negative for tenderness Resp normal respiratory effort and normal air movement Effort and Inspection: symmetric chest movement; Negative for respiratory distress Cardio regular rate, regular rhythm and no murmurs Peripheral Pulses: pulses 2+ throughout GI normal to inspection, nondistended, normoactive bowel sounds and non-tender GI Narrative: No distention no pain. Palpation: Negative for guarding or rebound tenderness present Extremity normal to inspection General Extremety ED: Negative for edema or tenderness General Extremity: Negative for edema Neuro oriented x3 and no sensory deficits noted Sensorium / Orientation: awake and alert Skin no rashes or lesions noted and no wounds MDM MDM MDM Narrative Medical decision making narrative: Interventions / MDM: Differential diagnosis: Decreased urine output, chronic oxygenation, history of lung cancer Diagnosis considered but do not suspect: Renal failure however labs normal. Urine obstruction however bladder ultrasound negative. My EKG interpretation: N/A Imaging independently reviewed and interpreted by myself: N/A External documents reviewed: N/A Test considered but not ordered:N/A ED course: Patient nontoxic vital stable. Chronic 3 L nasal cannula. Concerns for decreased urine output with diuretic use. Bladder ultrasound negative urine was collected sent night for infection. Creatinine returned at 1.13. Stable from previous. Patient reassured on findings. He will continue his fluid restrictions and his diuretics. He will follow-up with his PCP. All questions were answered. Re-evaluation: stable Disposition discussed with patient/family/significant other: Patient and son Case discussed with consulting clinician: N/A This note was generated with Authentic Response dictation software. It may contain incorrect words, spelling, and punctuation that were not noted in checking the note before signing. Lab Data Attestation: I reviewed the patient's lab results. Labs: Laboratory Results - last 24 hr 12/31/24 12/31/24 09:55 10:01 WBC 13.9 H RBC 4.47 L Hgb 13.7 Hct 42.6 MCV 95.3 H MCH 30.6 MCHC 32.2 RDW Std Deviation 50.7 H RDW Coeff of [place] 14.4 Plt Count 262 MPV 10.3 Immature Gran % (Auto) 0.600 Neut % (Auto) 81.5 H Lymph % (Auto) 7.2 L [place] % (Auto) 10.0 Eos % (Auto) 0.6 Baso % (Auto) 0.1 Absolute Neuts (auto) 11.3 H Absolute Lymphs (auto) 1.00 Nucleated RBC % 0 Sodium 142 Potassium 3.6 Chloride 100 Carbon Dioxide 31.4 Anion Gap 11 BUN 41 H Creatinine 1.13 Estim Creat Clear Calc 46.92 L Est GFR (MDRD) Non-Af 63 BUN/Creatinine Ratio 36.0 H Glucose 114 H Calcium 9.1 Urine Color Yellow Urine Clarity Clear Urine pH 5.0 Ur Specific [place] 1.020 Urine Protein 30 H Urine Glucose (UA) Normal Urine Ketones Negative Urine Occult Blood Negative Urine Nitrite Negative Urine Bilirubin Negative Urine Urobilinogen Normal Ur Leukocyte Esterase Negative Urine RBC 0 SEEN Urine WBC 0-5 SEEN Ur Squamous Epith Cells 0-5 SEEN Urine Bacteria RARE Hyaline Casts 0-5 SEEN Urine Mucus 0 SEEN Discharge Plan Triage Chief Complaint: General Illness ED Provider: Magen Braswell Dx/Rx/DC Orders Clinical Impression: Decreased urine output, History of lung cancer in adulthood Prescriptions: No Action simvastatin 20 MG tablet 20 mg PO DAILY metoprolol succinate 25 MG tablet extended release 24 hr 12.5 mg PO DAILY multivitamin 1 EACH tablet 1 ea PO MOFR ascorbic acid (vitamin C) 1,000 MG tablet extended release 1,000 mg PO DAILY magnesium oxide 400 MG tablet 400 mg PO MOFR nitroglycerin 0.4 MG tablet, sublingual 0.4 mg sublingual Q5M PRN (Reason: Chest Pain) folic acid 1 MG tablet 1 mg PO DAILY coenzyme Q10 200 MG capsule 200 mg PO DAILY calcium citrate-vitamin D3 1 EACH tablet 1 ea PO DAILY acidophilus-pectin, citrus 1 EACH capsule 2 ea PO DAILY docosahexaenoic acid 450 MG capsule 450 mg PO BID [id number]-zgww-[id number]-C-dionte-bosw 1 EACH tablet 2 ea PO DAILY psyllium husk 660 GM powder 660 g PO DAILY cyanocobalamin (vitamin B-12) 1,000 MCG capsule 1,000 mcg PO DAILY Trelegy Ellipta 100-62.5-25 mcg blister with device 1 inh INHALATION DAILY Eliquis 2.5 mg tablet 2.5 mg PO BID furosemide 40 mg tablet 60 mg PO DAILY Qty: 90 0RF Patient Comments: PT VERIFIES HE TAKES A 40MG TAB AND A 20MG TAB ONCE DAILY. albuterol sulfate 90 mcg/actuation HFA aerosol inhaler 1 inh inhalation Q6H PRN (Reason: shortness of breath or wheezing) Qty: 8.5 0RF furosemide 20 mg tablet 20 mg PO DAILY Patient Comments: PT TAKES A 40MG AND 20MG TAB ONCE DAILY Primary Care Provider: Lefty Samson Referrals: Lefty Samson MD [Primary Care Provider] - Activity Restrictions/Additional Instructions: . Urine negative for infection your creatinine 1.13. Continue your fluid restriction as directed by your doctors. Print Language: Lao Disposition Disposition: Home, Self Care
== END 2024-12-31 12:32 | disposition home or self-care (01) ==
PROVIDERS: Emergency Provider Emergency Medicine; PCP Family Medicine; Visit Provider Emergency Medicine
DX: R39.9 Unspecified symptoms and signs involving the genitourinary system (principal); I50.9 Heart failure, unspecified; J44.9 Chronic obstructive pulmonary disease, unspecified; I48.0 Paroxysmal atrial fibrillation; I25.10 Atherosclerotic heart disease of native coronary artery without angina pectoris; I25.2 Old myocardial infarction; G47.30 Sleep apnea, unspecified; Z79.51 Long term (current) use of inhaled steroids; Z79.01 Long term (current) use of anticoagulants; Z87.891 Personal history of nicotine dependence; Z79.899 Other long term (current) drug therapy
CPT/HCPCS: 80048; 81001; 85025; 99284

== ENCOUNTER 2025-01-19 11:51 | Inpatient (IN) | payer MEDICARE, OTHER, SELFPAY ==
[2025-01-19] VITALS (11 sets, daily range): BP systolic 95–137; BP diastolic 49–88; PULSE 69–123; RESP 16–20; TEMP 36.4–37; O2SAT 94–99; BMI 25.3; BMI 22.9
--- NOTE | 2025-01-19 12:14 | CT_ITS ---
PROCEDURE: SPINE CERVICAL WITHOUT CONTRAS 01/19/2025 REASON FOR EXAM: FALL/INJURY TECHNIQUE: Cervical spine CT without contrast. Coronal and Sagittal reconstruction series were provided. One or more dose reduction techniques were used (e.g., Automated exposure control, adjustment of the mA and/or kV according to patient size, use of iterative reconstruction technique RADIATION DOSE SUMMARY: DLP: 1230.05 mGycm COMPARISON: None FINDINGS: Alignment: There is grade 1 retrolisthesis at C4-5, 0.2 cm. Vertebrae: Vertebral body height is maintained. Soft Tissues: Prevertebral soft tissues are within normal limits. There is loss of disc height at each level. There is moderate bilateral foraminal narrowing from C3-6. The facets are aligned. There is no visible fracture. The lung apices show emphysema. There is postsurgical change in the mastoid air cells on the right. There is fluid density within a portion of the left mastoid air cells. Mucosal thickening is noted in the sphenoid sinus. Vascular calcifications are visible. CT/Spine Cervical without Contras IMPRESSION: The lung apices show emphysema. There is postsurgical change in the mastoid air cells on the right. There is fluid density within a portion of the left mastoid air cells. Mucosal thickening is noted in the sphenoid sinus. There is no visible acute traumatic injury. Reading Location: [facility]
--- NOTE | 2025-01-19 12:14 | CT_ITS ---
PROCEDURE: BRAIN/HEAD WITHOUT CONTRAST 01/19/2025 REASON FOR EXAM: FALL/INJURY, ON ELIQUIS TECHNIQUE: Head CT without intravenous contrast. Coronal and Sagittal reconstruction series were provided. One or more dose reduction techniques were used (e.g., Automated exposure control, adjustment of the mA and/or kV according to patient size, use of iterative reconstruction technique. RADIATION DOSE SUMMARY: CTDlvol: 44.99 mGy DLP: 829.85 mGycm COMPARISON: None FINDINGS: Brain: Low density in the periventricular white matter suggests mild chronic small vessel ischemic changes. CSF Spaces: Mild generalized cerebral atrophy Sinuses/Mastoids: Partial opacification of the right maxillary sinus. Bones: No fracture seen. CT/Brain/Head without Contrast IMPRESSION: CHRONIC CHANGES. NO ACUTE FINDINGS. Partial opacification of the right maxillary sinus. Reading Location: [place] [id number]
--- NOTE | 2025-01-19 12:15 | EKG12_ITS ---
Test Reason : WEAKNESS Blood Pressure : */* mmHG Vent. Rate : 91 BPM Atrial Rate : * BPM P-R Int : * ms QRS Dur : 96 ms QT Int : 390 ms P-R-T Axes : * 57 -75 degrees QTcB Int : [address] & T wave abnormality, consider inferior ischemia Abnormal ECG Confirmed by Jermaine Glass ([id number]), editorial project manager PENNIE COLIN ([id number]) on 01/25/2025 11:26:50 AM Referred By: Confirmed By: Jermaine Glass
--- NOTE | 2025-01-19 12:17 | ED.VIS.FALL ---
HPI HPI - Fall History of Present Illness Chief Complaint: Fall Informant: patient, family and EMS Narrative Narrative: 84-year-old male slipped on a throw rug and fell in his bathroom this morning, injuring his left hip unable to get up laid on his back for about 5 hours until his son came home and found him awake on his back unable to get up. He is on Eliquis. He thinks he hit his head, he denies any loss of consciousness or headache or vision trouble or focal neurologic symptoms. He states his back is a little sore from laying on it, but he denies any other major injuries. [facility] Medical History (Updated 01/19/25 @ 16:01 by Natalie Mesa) Injury of head and neck Dyspnea Hearing loss, right Cancer On home oxygen therapy Bleeding tendency Anxiety Depression Sleep apnea Former smoker CPAP (continuous positive airway pressure) dependence Asthma COPD (chronic obstructive pulmonary disease) Myocardial infarct History of COPD History of lung cancer HLD (hyperlipidemia) Afib CAD (coronary artery disease) Lung cancer Atrial fibrillation CAD (coronary artery disease) Home Medications ?Medication ?Instructions ?Recorded ?Last Taken ?Type metoprolol succinate 25 mg 12.5 mg PO DAILY blood pressure 01/26/19 01/18/25 History tablet,extended release 24 hr simvastatin 20 mg tablet 20 mg PO DAILY Cholesterol 01/26/19 01/18/25 History acidophilus 100 million 2 ea PO DAILY supplement 04/13/20 01/18/25 History cell-pectin, citrus 10 mg capsule ascorbic acid (vitamin C) 1,000 mg 1,000 mg PO DAILY vitamin c 04/13/20 01/18/25 History tablet,extended release calcium 315 mg (as 1 ea PO DAILY vitamin 04/13/20 01/18/25 History citrate)-vitamin D3 6.25 mcg (250 unit) tablet coenzyme Q10 200 mg capsule 200 mg PO DAILY supplement 04/13/20 01/18/25 History cyanocobalamin (vitamin B-12) 1,000 mcg PO DAILY vitamin 04/13/20 01/18/25 History 1,000 mcg capsule docosahexaenoic acid 450 mg capsule 450 mg PO BID supplement 04/13/20 01/18/25 History folic acid 1 mg tablet 1 mg PO DAILY supplement 04/13/20 01/18/25 History glucosamine 750 fn-[id number] 2 ea PO DAILY supplement 04/13/20 01/18/25 History no1 644 mg-C 30 mg-dionte 1 mg tablet magnesium oxide 400 mg (241.3 mg 400 mg PO MOFR supplement 04/13/20 01/18/25 History magnesium) tablet multivitamin 1 ea PO MOFR vitamin 04/13/20 01/18/25 History nitroglycerin 0.4 mg sublingual 0.4 mg sublingual Q5M PRN Chest 04/13/20 Unknown History tablet Pain psyllium husk 3.4 gram/5.4 gram 660 g PO DAILY supplement 04/13/20 01/18/25 History oral powder fluticasone fur. 100 mcg-umeclid 1 inh inhalation DAILY breathing 08/05/23 01/18/25 History 62.5 mcg-vilant 25 mcg inhalat.powder (Trelegy Ellipta) albuterol sulfate 90 mcg/actuation 1 inh inhalation Q6H PRN shortness 08/14/24 Unknown Rx aerosol inhaler of breath or wheezing #8.5 grams apixaban 2.5 mg tablet (Eliquis) 2.5 mg PO BID blood thinner 11/11/24 01/18/25 History furosemide 20 mg tablet 20 mg PO DAILY water pill 12/31/24 01/18/25 History furosemide 40 mg tablet 40 mg PO DAILY water pill 01/19/25 01/18/25 History Allergy/AdvReac Type Severity Reaction Status Date / Time No Known Allergies Allergy Verified 01/19/25 11:54 Family History Other Heart disease Hypertension Surgical History (Updated 01/19/25 @ 16:01 by Natalie Mesa) H/O cardiac catheterization History of coronary artery stent placement History of appendectomy History of bronchoscopy Social History household members: none housing: house Smoking Status: Former smoker ROS ROS ED Constitutional Constitutional ED: Denies chills or fever(s) Eyes Eyes: Denies change in vision or diplopia ENT ENT ED: Denies ear pain, epistaxis, facial pain or rhinorrhea Cardiovascular Cardiovascular: Denies chest pain or palpitations Respiratory/Chest Respiratory/Chest: Denies cough or dyspnea Gastrointestinal Gastrointestinal: Denies abdominal pain, diarrhea, melena, nausea or vomiting Genitourinary Genitourinary ED: Denies dysuria or hematuria Musculoskeletal Musculoskeletal: Reports back pain, extremity pain and neck pain Integumentary Denies abscess, Abrasions, laceration or rash Neurologic Neurologic: Denies confusion, headache(s), paresthesias or weakness EXAM Physical Exam Const Vital Signs: 01/19/25 11:52 01/19/25 12:04 01/19/25 12:45 Temperature 98.6 F Temperature Source Oral Pulse Rate 72 96 Respiratory Rate 16 20 H Respiratory Effort Normal Non-Labored Respiratory Depth Normal Respiratory Pattern Normal Blood Pressure 136/80 H 107/77 Blood Pressure Mean 98 87 Pulse Ox 98 98 Oxygen Delivery Method Nasal Cannula Nasal Cannula Nasal Cannula Oxygen Flow Rate (L/min) 3 3 2 01/19/25 13:00 01/19/25 14:30 Temperature Temperature Source Pulse Rate 95 69 Respiratory Rate 17 16 Respiratory Effort Respiratory Depth Respiratory Pattern Blood Pressure 137/88 H 125/74 H Blood Pressure Mean 104 91 Pulse Ox 95 99 Oxygen Delivery Method Nasal Cannula Room Air Oxygen Flow Rate (L/min) 2 Positive well nourished and well developed General Appearance ED: well developed and NAD HEENT Reports TM's clear and nasal mucous membranes and turbinates normal HEENT Narrative: No Khoury sign, no raccoon eyes, no CSF otorhinorrhea, no hemotympanum. atraumatic Face and Sinus: Negative for facial tenderness Tympanic Membrane ED: Yes TM's clear Eyes PERRL and EOMs intact bilaterally Visual Acuity: other Other Details: no entrapment or pain with extraocular movements Neck Neck Narrative: Mild diffuse midline tenderness no step-off or obvious signs of trauma. General: tenderness Chest Wall inspection of chest normal and palpation of chest normal Chest: symmetrical chest wall rise; Negative for crepitus or tenderness Resp normal respiratory effort and clear to auscultation bilaterally Percussion: other equal BS bilat Cardio no murmurs Rate: regular rate Rhythm: regular rhythm GI normal to inspection, nondistended, normoactive bowel sounds, soft to palpation and non-tender GI Narrative: Pelvis stable nontender to AP compression. Back/Spine Cervical Spine: cervical spine tenderness Thoracic Spine / Upper Back: Negative for thoracic spinal tenderness Lumbar Spine / Lower Back: Negative for lumbar spinal tenderness Extremity normal to inspection Extremity Narrative: Limited range of motion left lower extremity due to pain in the thigh/hip. There is no tenderness of the greater trochanter, he does have significant pain with logroll and trying to flex the knee which he is unable to do, there is no deformity or shortening but he does have significant swelling in the junction of the left middle and proximal thirds of the femur/thigh. Nontender at the knee and distal. No open wounds or bleeding. Compartments are all soft in the thigh. Full range of motion of the right lower and bilateral upper extremities without limitation or pain. General Extremety ED: Yes tenderness Neuro oriented x3, CN's II-XII intact bilaterally, moves all extremities, no focal motor deficits and no sensory deficits noted Lynn Coma Scale: document GCS findings Spontaneous Obeys Commands Oriented 15 Sensorium / Orientation: awake and alert Psych mental status grossly normal and thought process normal Skin no wounds Lesions: no lesions Rashes: no rashes MDM MDM MDM Narrative Medical decision making narrative: I obtained x-rays of the chest 1 view, femur 4 views, pelvis 1 view, and my interpretation there is an intertrochanteric fracture of the left femur. Otherwise negative. I obtained a CT of the head and cervical spine, I reviewed those images and the report which I agree with, they are negative for anything acute as far as injury. Patient was given pain control we placed a Parks because he is not able to urinate or move well, I discussed with orthopedics and hospitalist for admission. His CPK is not elevated so he is not a rhabdomyolysis. Lab Data Attestation: I reviewed the patient's lab results. Labs: Laboratory Results - last 24 hr 01/19/25 01/19/25 12:00 13:30 WBC 14.7 H RBC 4.09 L Hgb 12.6 L Hct 37.9 L MCV 92.7 MCH 30.8 MCHC 33.2 RDW Std Deviation 47.4 H RDW Coeff of [place] 14.0 Plt Count 243 MPV 9.8 Immature Gran % (Auto) 0.700 Neut % (Auto) 84.5 H Lymph % (Auto) 2.9 L Prentiss % (Auto) 11.5 H Eos % (Auto) 0.1 Baso % (Auto) 0.3 Absolute Neuts (auto) 12.4 H Absolute Lymphs (auto) 0.42 L Nucleated RBC % 0 Platelet Estimate A RBC Morphology NORM C+C Sodium 137 Potassium 3.6 Chloride 92 L Carbon Dioxide 30.0 Anion Gap 15 BUN 22 H Creatinine 1.24 H Estim Creat Clear Calc 42.76 L Est GFR (MDRD) Non-Af 57 L BUN/Creatinine Ratio 17.9 Glucose 170 H Calcium 9.5 Total Creatine Kinase 49 Urine Color Yellow Urine Clarity Clear Urine pH 6.0 Ur Specific Henderson 1.020 Urine Protein 30 H Urine Glucose (UA) Normal Urine Ketones Negative Urine Occult Blood 10 H Urine Nitrite Negative Urine Bilirubin 1 H Urine Urobilinogen 4 H Ur Leukocyte Esterase 25 H Urine RBC 0-5 SEEN Urine WBC 0-5 SEEN Ur Squamous Epith Cells 0-5 SEEN Urine Bacteria 0 SEEN Urine Mucus 0 SEEN Radiography Diagnostic Testing: Clinical Impression(s) from Imaging Studies Brain CT 01/19/25 12:14 IMPRESSION: CHRONIC CHANGES. NO ACUTE FINDINGS. Partial opacification of the right maxillary sinus. Reading Location: [place] [id number] 01/19/25 12:14 IMPRESSION: The lung apices show emphysema. There is postsurgical change in the mastoid air cells on the right. There is fluid density within a portion of the left mastoid air cells. Mucosal thickening is noted in the sphenoid sinus. There is no visible acute traumatic injury. Reading Location: [facility] Chest X-Ray 01/19/25 12:50 IMPRESSION: Mild residual blunting of the right costophrenic angle with right basilar atelectasis. There has been improvement as compared to prior study. The left lung is clear. Reading Location: [facility]- Femur X-Ray 01/19/25 12:50 IMPRESSION: Nondisplaced comminuted fracture of the left intertrochanteric region of the proximal left femur. Reading Location: [facility]- Pelvis X-Ray 01/19/25 12:50 IMPRESSION: Comminuted undisplaced fracture of the intertrochanteric region of the proximal left femur. Reading Location: [facility] Rhythm Strip Rhythm Strip: A-fib Rate: 90 Ectopy: None EKG Initial EKG: Attestation: I personally reviewed and interpreted this EKG as follows: Interpretation: No Acute Injury Pattern and Atrial Fibrillation Management Discussion w/another healthcare provider: Hospitalist and Supervisor Accounts Receivable (Ortho Dr. Galindo) Discharge Plan Dx/Rx/DC Orders Clinical Impression: Closed intertrochanteric fracture of left femur, Fall from slipping, Anticoagulated on Eliquis Disposition Disposition: Acute Care Hospital [facility] Discharge Date/Time: 01/19/25 15:29
[2025-01-19] MEDS: Morphine 4 MG/ML Syringe IV (12:30)
[2025-01-19] MEDS: 0.9% Normal Saline (500mL Bag) 500 ML 999 ML IV (12:30)
[2025-01-19] MEDS: Ondansetron 4 MG/2 ML Vial IV (12:30)
[2025-01-19 12:31] LABS: Absolute Lymphocyte Count 0.42 X10^3/uL (0.83-4.51); Absolute Neutrophil Count 12.4 X10^3/uL (2.0-7.7); Basophil# 0.04 X10^3/uL; Basophil% 0.3 % (0-1); Eosinophil# 0.01 X10^3/uL; Eosinophils% 0.1 % (0-5); Hematocrit 37.9 % (40-54); Hemoglobin 12.6 g/dL (13.0-16.5); Lymphocyte # 0.42 X10^3/ul (0.83-4.51); Lymphocyte % 2.9 % (19-41); Mean Corp Hgb Conc 33.2 g/dL (32-36); Mean Corpuscular Hgb 30.8 pg (27.0-32.0); Mean Corpuscular Volume 92.7 fL (80-94); Mean Platelet Vol. 9.8 fl (6.2-12.0); Monocyte# 1.68 X10^3/uL; Monocyte% 11.5 % (0-10); NRBC Flagged by Analyzer 0 % (0-5); Neutrophil # 12.41 X10^3/uL (2.7-7.7); Neutrophil % 84.5 % (47-70); POSITIVE DIFFERENTIAL YES; Platelet Count 243 K/mm3 (150-450); RBC Distribution Width SD 47.4 fl (35.1-43.9); Red Blood Count 4.09 M/mm3 (4.6-6.2); White Blood Count 14.7 K/mm3 (4.4-11.0)
[2025-01-19 12:36] LABS: Differential Indicated SCAN CRITERIA MET
--- NOTE | 2025-01-19 12:50 | RAD_ITS ---
PROCEDURE: CHEST 1 VIEW (PORTABLE) 01/19/2025 REASON FOR EXAM: FALL TECHNIQUE: Frontal view of the chest. COMPARISON: Prior study dated December 22, 2024. FINDINGS: Hardware: EKG electrodes are seen. Heart: The heart size is normal. Lungs: Blunting of the right costophrenic angle with right basilar atelectasis although this has improved as compared to prior study. Bones: Degenerative changes are identified within the thoracic spine. Other: RAD/Chest 1 View (Portable) IMPRESSION: Mild residual blunting of the right costophrenic angle with right basilar atele ctasis. There has been improvement as compared to prior study. The left lung is clear. Reading Location: [facility]-1
--- NOTE | 2025-01-19 12:50 | RAD_ITS ---
PROCEDURE: PELVIS 1 OR 2 VIEWS 01/19/2025 REASON FOR EXAM: FALL/LEFT HIP PAIN TECHNIQUE: 1 view(s) of the pelvis. COMPARISON: None FINDINGS: Hardware: None Bones: Comminuted fracture of the left intertrochanteric region of the proximal left femur. Cephalic migration of the distal fracture fragment. Joints: Joint space narrowing of both hip joints. soft tissues: Mild soft tissue swelling identified. Other: RAD/Pelvis 1 or 2 Views IMPRESSION: Comminuted undisplaced fracture of the intertrochanteric region of the proximal left femur. Reading Location: [place] [id number]
--- NOTE | 2025-01-19 12:50 | RAD_ITS ---
PROCEDURE: FEMUR MIN 2 VIEWS 01/19/2025 REASON FOR EXAM: INJURY TECHNIQUE: 4 view(s) of the left femur. COMPARISON: None FINDINGS: Bones: Comminuted fracture of the left intertrochanteric region of the proximal left femur. Nondisplaced. Joints: Normal alignment at the hip and knee. Soft tissues: Soft tissue swelling. Other: RAD/Femur Min 2 Views IMPRESSION: Nondisplaced comminuted fracture of the left intertrochanteric region of the pr oximal left femur. Reading Location: [place] [id number]
[2025-01-19 12:55] LABS: Anion Gap 15 (5-15); BUN 22 mg/dL (4-19); BUN/Creat Ratio 17.9 RATIO (10-20); CPK Total, Creatine Kinase 49 U/L (24-195); Calcium,Total 9.5 mg/dL (7.6-11.0); Chloride 92 mmol/L (98-108); Creatinine, Serum 1.24 mg/dL (0.70-1.20); EST Glomerular Filtration Rate 57 (>60); Estimated Creatinine Clearance 42.76 ml/min (50-250); Glucose 170 mg/dL (70-99); Potassium 3.6 mmol/L (3.3-5.1); Sodium Level 137 mmol/L (133-145)
[2025-01-19 13:11] LABS: Platelet Estimate A (ADEQ); Red Cell Morphology NORM C+C NORMAL (NORM C&C)
[2025-01-19 13:45] LABS: Bacteria 0 SEEN /hpf (None Seen); Mucous, Urine 0 SEEN /hpf (<or=2+)
[2025-01-19 13:53] LABS: Color, Urine Yellow (Yellow); Glucose, Dipstick Normal (Normal); Ketone-Dipstick Negative (Negative); Leukocyte Esterase-Dipstick 25 /ul (Negative); Nitrite-Dipstick Negative (Negative); Occult Blood-Urine 10 /ul (Negative); Protein-Dipstick 30 mg/dl (Negative); Urine Clarity Clear (Clear); Urine Urobilinogen 4 mg/dl (Normal)
[2025-01-19 14:08] LABS: Urine Bilirubin Dipstick 1 mg/dL (Negative)
[2025-01-19 14:29] LABS: Red Blood Cells-Urine 0-5 SEEN /hpf (0-5); Squamous Epithelial Cells - UA 0-5 SEEN /hpf (0-5); White Blood Cells 0-5 SEEN /hpf (0-5)
--- NOTE | 2025-01-19 14:50 | HP.PCM.HOS_ITS ---
[facility] - General General Date of Service: 01/19/25 Chief Complaint: Left hip pain HPI Narrative TAO CLARK, is a 84 M who presents with left hip pain. Is a 84-year-old male with a history of atrial fibrillation who was in his bathroom and then slipped landing on his left hip and hitting his head. Patient was on the floor for several hours until family stop by to check on him and noted that he was on the floor. Patient was brought to the hospital and had imaging. Head CT and CT of neck were negative. He was found to have a comminuted fracture of the left trochanteric region of the proximal left femur. Cephalic migration of the distal fracture fragment. Dr. Galindo of orthopedics was contacted when see the patient in consultation. [facility] Medical History On home oxygen therapy Bleeding tendency Anxiety Depression Sleep apnea Former smoker CPAP (continuous positive airway pressure) dependence Asthma COPD (chronic obstructive pulmonary disease) Myocardial infarct History of COPD History of lung cancer HLD (hyperlipidemia) Afib CAD (coronary artery disease) Lung cancer Atrial fibrillation CAD (coronary artery disease) Home Medications ?Medication ?Instructions ?Recorded ?Last Taken ?Type metoprolol succinate 25 mg 12.5 mg PO DAILY blood pres sure 01/26/19 01/18/25 History tablet,extended release 24 hr simvastatin 20 mg tablet 20 mg PO DAILY Cholesterol 0 01/26/19 01/18/25 History acidophilus 100 million 2 ea PO DAILY supplement 01/18/25 History cell-pectin, citrus 10 mg capsule ascorbic acid (vitamin C) 1,000 mg 1,000 mg PO DAILY v itamin c 04/13/20 01/18/25 History tablet,extended release calcium 315 mg (as 1 ea PO DAILY vitamin 01/18/25 History citrate)-vitamin D3 6.25 mcg (250 unit) tablet coenzyme Q10 200 mg capsule 200 mg PO DAILY supplement 04/13/20 01/18/25 History cyanocobalamin (vitamin B-12) 1,000 mcg PO DAILY vitam in 04/13/20 01/18/25 History 1,000 mcg capsule docosahexaenoic acid 450 mg capsule 450 mg PO BID supp lement 04/13/20 01/18/25 History folic acid 1 mg tablet 1 mg PO DAILY supplement 01/18/25 History glucosamine 750 [id number] 2 ea PO DAILY suppl ement 04/13/20 01/18/25 History no1 644 mg-C 30 mg-dionte 1 mg tablet magnesium oxide 400 mg (241.3 mg 400 mg PO MOFR supple ment 04/13/20 01/18/25 History magnesium) tablet multivitamin 1 ea PO MOFR vitamin 0 01/18/25 History nitroglycerin 0.4 mg sublingual 0.4 mg sublingual Q5M PRN Chest 04/13/20 Unknown History tablet Pain psyllium husk 3.4 gram/5.4 gram 660 g PO DAILY supplem ent 04/13/20 01/18/25 History oral powder fluticasone fur. 100 mcg-umeclid 1 inh inhalation LUKE Y breathing 08/05/23 01/18/25 History 62.5 mcg-vilant 25 mcg inhalat.powder (Trelegy Ellipta) albuterol sulfate 90 mcg/actuation 1 inh inhalation Q6 H PRN shortness 08/14/24 Unknown Rx aerosol inhaler of breath or wheezing #8.5 g jen apixaban 2.5 mg tablet (Eliquis) 2.5 mg PO BID blood t hinner 11/11/24 01/18/25 History furosemide 40 mg tablet 60 mg (1.5 x 40 mg) PO DAILY #90 12/23/24 01/18/25 Rx tabs furosemide 20 mg tablet 20 mg PO DAILY 12/31/2412/25 History Allergy/AdvReac Type Severity Reaction Status Date / Time No Known Allergies Allergy Verified 01/19/25 11:54 Family History Other Heart disease Hypertension Surgical History History of appendectomy History of bronchoscopy Social History household members: none housing: house Smoking Status: Former smoker ROS ROS Narrative On chronic oxygen. Does have dyspnea on exertion but it has been unchanged. Patient lives at home by himself and does furniture walk. Family's plan was to have him go to assisted living this Saturday. All review of systems were negative except as mentioned above in the history of present illness and the other review of systems. Vital Signs Vital Signs Vital Signs: 01/19/25 11:52 01/19/25 12:04 01/19/25 12:45 Temperature 37.0 C Temperature Source Oral Pulse Rate 72 96 Respiratory Rate 16 20 H Respiratory Effort Normal Non-Labored Respiratory Depth Normal Respiratory Pattern Normal Blood Pressure 136/80 H 107/77 Blood Pressure Mean 98 87 Pulse Ox 98 98 Oxygen Delivery Method Nasal Cannula Nasal Cannula Nasal Cannula Oxygen Flow Rate (L/min) 3 3 2 01/19/25 13:00 01/19/25 14:30 Temperature Temperature Source Pulse Rate 95 69 Respiratory Rate 17 16 Respiratory Effort Respiratory Depth Respiratory Pattern Blood Pressure 137/88 H 125/74 H Blood Pressure Mean 104 91 Pulse Ox 95 99 Oxygen Delivery Method Nasal Cannula Room Air Oxygen Flow Rate (L/min) 2 Weight Weight: 77.8 kg Body Mass Index (BMI) 25.3 Physical Exam Narrative - Physical Exam General: Alert, Oriented x3, Cooperative HEENT: Atraumatic, PERRLA, EOMI, Normocephalic Oral: Moist Mucosa, No Gingival or Mucosal Lesions/ Ulcerations Neck: Supple, No JVD, Negative Carotid Bruits Lungs: Clear to auscultation, Normal air movement Cardiovascular: Regular rate, Normal S1, Normal S2, No murmurs Abdomen: Bowel Sounds Present, Soft, Non Tender, Non-Distended, No Hepato- splenomegaly Extremities: No clubbing, No cyanosis, No edema, Capillary Refill Less than 3 Seconds shortened left lower extremity compared to his right. Pulses intact. Skin: No rashes, No breakdown Musculoskeletal: No Tenderness to Palpation of Joints or Extremities Neurological: Neuro grossly intact Psych/Mental Status: Normal Affect, Appropriate Results Lab / Micro Data Attestation: I reviewed the patient's lab results. 01/19/25 12:00 01/19/25 12:00 Labs: Laboratory Results - last 24 hr 01/19/25 12:00: WBC 14.7 H, RBC 4.09 L, Hgb 12.6 L, Hct 37.9 L, MCV 92.7, MCH 30.8, MCHC 33.2, RDW Std Deviation 47.4 H, RDW Coeff of [place]lyn 14.0, Plt Count 243, MPV 9.8, Immature Gran % (Auto) 0.700, Neut % (Auto) 84.5 H, Lymph % (Auto) 2.9 L, [place] % (Auto) 11.5 H, Eos % (Auto) 0.1, Baso % (Auto) 0.3, Absolute Neuts (auto) 12.4 H, Absolute Lymphs (auto) 0.42 L, Nucleated RBC % 0, Platelet Estimate A, RBC Morphology NORM C+C, Sodium 137, Potassium 3.6, Chloride 92 L, Carbon Dioxide 30.0, Anion Gap 15, BUN 22 H, Creatinine 1.24 H, Estim Creat Clear Calc 42.76 L, Est GFR (MDRD) Non-Af 57 L, BUN/Creatinine Ratio 17.9, G lucose 170 H, Calcium 9.5, Total Creatine Kinase 49 01/19/25 13:30: Urine Color Yellow, Urine Clarity Clear, Urine pH 6.0, Ur Specific [place] 1.020, Urine Protein 30 H, Urine Glucose (UA) Normal, Urine Ketones Negative, Urine Occult Blood 10 H, Urine Nitrite Negative, Urine Bilirubin 1 H, Urine Urobilinogen 4 H, Ur Leukocyte Esterase 25 H, Urine RBC 0-5 SEEN, Urine WBC 0-5 SEEN, Ur Squamous Epith Cells 0-5 SEEN, Urine Bacteria 0 SEEN, Urine Mucus 0 SEEN Rhythm Strip Rhythm Strip: A-fib Rate: 90 Ectopy: None Imaging Radiology Impression Brain CT 01/19/25 12:14 IMPRESSION: CHRONIC CHANGES. NO ACUTE FINDINGS. Partial opacification of the right maxillary sinus. Reading Location: [facility] 01/19/25 12:14 IMPRESSION: The lung apices show emphysema. There is postsurgical change in the mastoid air cells on the right. There is fluid density within a portion of the left mastoid air cells. Mucosal thickening is noted in the sphenoid sinus. There is no visible acute traumatic injury. [facility] Chest X-Ray 01/19/25 12:50 IMPRESSION: Mild residual blunting of the right costophrenic angle with right basilar atelectasis. There has been improvement as compared to prior study. The left lung is clear. Reading Location: [facility]-1 Femur X-Ray 01/19/25 12:50 IMPRESSION: Nondisplaced comminuted fracture of the left intertrochanteric region of the proximal left femur. Reading Location: [facility]-1 Pelvis X-Ray 01/19/25 12:50 IMPRESSION: Comminuted undisplaced fracture of the intertrochanteric region of the proximal left femur. Reading Location: [facility]-1 Assessment & Plan Assessment/Plan (1) Closed intertrochanteric fracture of left femur: PLAN: Status post mechanical fall. Patient is medically optimized and able to proceed with surgery if deemed appropriate by orthopedics. Patient is otherwise medically optimized. Patient's last dose of apixaban was on the evening of the . Patient be on bedrest. Check a 25-hydroxy vitamin D level. PLAN: Plan Chronic conditions * Atrial fibrillation: Holding off on apixaban given potential surgery. Continue with metoprolol succinate. * Lung cancer: Patient not active with palliative care but does have periodic thoracentesis performed. Not actively undergoing treatment for his lung cancer. VTE prophylaxis with SCDs for now. CODE STATUS: Addressed with the patient. Patient wishes to be DNR Comfort Care arrest no intubation. Patient advised that he can change his mind anytime Discussed with patient's son at bedside. Charges/Coding Visit Charges Inpatient E&M: 88863 Init Hosp L2
--- NOTE | 2025-01-19 15:11 | CM.ED ---
Social Work SW met with patient and patients son, introduced self and role at [facility]. Patient son stated that patient was due to move into [facility], an assisted living, on January 24. Son states he spoke with the organization this morning and explained what was going on with patient, son states that they agreed to admit patient to their SNF side of the organization at [facility]. Patients son also asked about Medicare coverage, SW explained how much Medicare covers and for how long. No further needs identified at this time. Candi Santillan, AUDIO/VIDEO ENGINEER, STRIP PICKER
--- NOTE | 2025-01-19 16:32 | CASEMGMT ---
Social Work- SW met with pt and pt son/ROSCOE Mcdonald to complete SDOH assessment. SW introduced self and role; pt and son agreeable to meeting. SDOH triggered in error. Pt had plans to move to [facility] in [facility] on January 24. Pt son has already been in communication with BEVERLY Washburn ) regarding pt discharging to SNF potion of facility prior to admittance to [facility]. SNF portion is [facility]. BEVERLY answered questions and provided education as to SNF process and MCR coverage. BEVERLY remains available to follow. DCA notified of referral request following surgery and therapy eval. Plan: [facility]; pend referral and acceptance GLORIA Mir
[2025-01-19 18:09] LABS: ALB/GLOB Ratio 1.3 RATIO (0.9-2.4); AST(SGOT) 30 U/L (<=37); Albumin, Serum 3.6 g/dL (3.4-4.8); BUN 24 mg/dL (4-19); Creatinine, Serum 1.32 mg/dL (0.70-1.20); EST Glomerular Filtration Rate 53 (>60); Estimated Creatinine Clearance 40.08 ml/min (50-250); Globulin 2.8 g/dL (2.2-4.2); Glucose 114 mg/dL (70-99); Protein, Total 6.4 g/dL (5.9-8.4)
[2025-01-19 18:10] LABS: Alanine Aminotransfer ALT/SGPT 13 U/L (<=46); Alkaline Phosphatase 102 U/L (40-129); Anion Gap 15 (5-15); Carbon Dioxide 28.1 mmol/L (21.0-32.0); Chloride 92 mmol/L (98-108); Potassium 3.7 mmol/L (3.3-5.1); Sodium Level 135 mmol/L (133-145); Total Bilirubin 0.85 mg/dL (0.00-1.30); Vitamin D,25 Hydroxy 23.2 ng/mL (30-100)
[2025-01-19] MEDS: Acetaminophen 325 MG Tablet 650 MG PO (20:04)
[2025-01-19] MEDS: Senna/Docusate Sodium 1 Tablet 2 TABLET PO (20:05)
[2025-01-19] MEDS: oxyCODONE 5 MG Tablet PO (20:05)
[2025-01-19] MEDS: Metoprolol(XL)Succ 25 MG Tablet 12.5 MG PO (20:41)
[2025-01-19] MEDS: Ipratropium/Albuterol Sulfate 3 ML AMPUL.NEB INHALATION (21:05)
[2025-01-19] MEDS: Budesonide Respules 0.5 MG/2 ML AMPUL.NEB. INHALATION (21:05)
[2025-01-20] VITALS (18 sets, daily range): BP systolic 90–116; BP diastolic 46–70; PULSE 64–119; RESP 16–18; TEMP 36.1–37; O2SAT 92–100; BMI 23.0
[2025-01-20 04:50] LABS: Absolute Lymphocyte Count 0.64 X10^3/uL (0.83-4.51); Absolute Neutrophil Count 7.1 X10^3/uL (2.0-7.7); Basophil# 0.02 X10^3/uL; Basophil% 0.2 % (0-1); Eosinophil# 0.19 X10^3/uL; Hematocrit 30.8 % (40-54); Hemoglobin 10.1 g/dL (13.0-16.5); Lymphocyte # 0.64 X10^3/ul (0.83-4.51); Lymphocyte % 6.6 % (19-41); Mean Corp Hgb Conc 32.8 g/dL (32-36); Mean Corpuscular Hgb 30.6 pg (27.0-32.0); Mean Corpuscular Volume 93.3 fL (80-94); Mean Platelet Vol. 10.1 fl (6.2-12.0); Monocyte# 1.59 X10^3/uL; Monocyte% 16.5 % (0-10); NRBC Flagged by Analyzer 0 % (0-5); Neutrophil # 7.14 X10^3/uL (2.7-7.7); Neutrophil % 74.2 % (47-70); POSITIVE DIFFERENTIAL YES; Platelet Count 194 K/mm3 (150-450); RBC Distribution Width CV 14.4 % (11.6-14.6); RBC Distribution Width SD 49.6 fl (35.1-43.9); White Blood Count 9.6 K/mm3 (4.4-11.0)
[2025-01-20 04:52] LABS: Differential Indicated SCAN CRITERIA MET
[2025-01-20 05:08] LABS: International Normalized Ratio 1.4; Prothrombin Time (Protime)PT. 17.1 SECONDS (11.7-14.9)
[2025-01-20 05:09] LABS: Partial Thromboplast Time 36.5 Seconds (24.1-36.2)
[2025-01-20 05:14] LABS: AST(SGOT) 39 U/L (<=37); Alanine Aminotransfer ALT/SGPT 13 U/L (<=46); Albumin, Serum 3.3 g/dL (3.4-4.8); Alkaline Phosphatase 91 U/L (40-129); Anion Gap 11 (5-15); BUN 29 mg/dL (4-19); BUN/Creat Ratio 18.2 RATIO (10-20); Bilirubin, Direct 0.41 mg/dL (0.00-0.30); Carbon Dioxide 31.7 mmol/L (21.0-32.0); Chloride 94 mmol/L (98-108); Creatinine, Serum 1.58 mg/dL (0.70-1.20); EST Glomerular Filtration Rate 42 (>60); Estimated Creatinine Clearance 33.48 ml/min (50-250); Globulin 2.5 g/dL (2.2-4.2); Glucose 128 mg/dL (70-99); Potassium 3.9 mmol/L (3.3-5.1); Protein, Total 5.8 g/dL (5.9-8.4); Sodium Level 136 mmol/L (133-145); Total Bilirubin 0.81 mg/dL (0.00-1.30)
[2025-01-20 06:02] LABS: Differential Comment SCANNED
[2025-01-20] MEDS: Ipratropium/Albuterol Sulfate 3 ML AMPUL.NEB INHALATION ×2 (07:22→12:50)
[2025-01-20] MEDS: Budesonide Respules 0.5 MG/2 ML AMPUL.NEB. INHALATION (07:22)
[2025-01-20] MEDS: Metoprolol(XL)Succ 25 MG Tablet 12.5 MG PO (09:58)
--- NOTE | 2025-01-20 11:16 | PCM.PN.HOSP ---
Reason for Visit Reason for Visit: Diagnoses Displaced intertrochanteric fracture of left femur, initial encounter for closed fracture (01/19/25) Subjective Subjective Saw patient at bedside this morning. Patient was laying back comfortably in bed, conversing normally, in no acute distress. Reported very mild hip pain at rest currently but does have significant hip pain with any movement. States that he currently feels hungry as he is n.p.o. for planned surgery this afternoon but otherwise has no acute concerns. Objective Data Objective Data Vital Signs: Vital Signs Temp Pulse Resp BP Pulse Ox O2 Del Method O2 Flow Rate 97.9 F 90 16 111/58 L 94 Nasal Cannula 4 01/20/25 09:34 01/20/25 09:58 01/20/25 09:34 01/20/25 09:54 01/20/25 09:34 01/20/25 09:40 01/20/25 09:40 Oxygen Flow Rate (L/min) 4 Oxygen Delivery Method Nasal Cannula Weight: 70.534 kg Body Mass Index (BMI) 22.9 Intake & Output: Intake and Output for Last 24 Hours 01/18/25 01/19/25 01/20/25 23:59 23:59 23:59 Intake Total 650 / 650 Output Total 200 / 200 100 / 100 Balance 450 / 450 -100 / -100 Lab / Micro Data 01/20/25 04:21 01/20/25 04:21 Labs: Laboratory Results - last 24 hr 01/19/25 12:00: WBC 14.7 H, RBC 4.09 L, Hgb 12.6 L, Hct 37.9 L, MCV 92.7, MCH 30.8, MCHC 33.2, RDW Std Deviation 47.4 H, RDW Coeff of Roslyn 14.0, Plt Count 243, MPV 9.8, Immature Gran % (Auto) 0.700, Neut % (Auto) 84.5 H, Lymph % (Auto) 2.9 L, [place] % (Auto) 11.5 H, Eos % (Auto) 0.1, Baso % (Auto) 0.3, Absolute Neuts (auto) 12.4 H, Absolute Lymphs (auto) 0.42 L, Nucleated RBC % 0, Platelet Estimate A, RBC Morphology NORM C+C, Sodium 137, Potassium 3.6, Chloride 92 L, Carbon Dioxide 30.0, Anion Gap 15, BUN 22 H, Creatinine 1.24 H, Estim Creat Clear Calc 42.76 L, Est GFR (MDRD) Non-Af 57 L, BUN/Creatinine Ratio 17.9, Glucose 170 H, Calcium 9.5, Total Creatine Kinase 49 01/19/25 13:30: Urine Color Yellow, Urine Clarity Clear, Urine pH 6.0, Ur Specific [place] 1.020, Urine Protein 30 H, Urine Glucose (UA) Normal, Urine Ketones Negative, Urine Occult Blood 10 H, Urine Nitrite Negative, Urine Bilirubin 1 H, Urine Urobilinogen 4 H, Ur Leukocyte Esterase 25 H, Urine RBC 0-5 SEEN, Urine WBC 0-5 SEEN, Ur Squamous Epith Cells 0-5 SEEN, Urine Bacteria 0 SEEN, Urine Mucus 0 SEEN 01/19/25 17:10: Sodium 135, Potassium 3.7, Chloride 92 L, Carbon Dioxide 28.1, Anion Gap 15, BUN 24 H, Creatinine 1.32 H, Estim Creat Clear Calc 40.08 L, Est GFR (MDRD) Non-Af 53 L, BUN/Creatinine Ratio 18.0, Glucose 114 H, Calcium 9.0, Total Bilirubin 0.85, AST 30, ALT 13, Alkaline Phosphatase 102, Total Protein 6.4, Albumin 3.6, Globulin 2.8, Albumin/Globulin Ratio 1.3, Vitamin D 25-Hydroxy 23.2 L 01/20/25 04:21: WBC 9.6, RBC 3.30 L, Hgb 10.1 L, Hct 30.8 L, MCV 93.3, MCH 30.6, MCHC 32.8, RDW Std Deviation 49.6 H, RDW Coeff of Roslyn 14.4, Plt Count 194, MPV 10.1, Immature Gran % (Auto) 0.500, Neut % (Auto) 74.2 H, Lymph % (Auto) 6.6 L, [place] % (Auto) 16.5 H, Eos % (Auto) 2.0, Baso % (Auto) 0.2, Absolute Neuts (auto) 7.1, Absolute Lymphs (auto) 0.64 L, Nucleated RBC % 0, Differential Comment SCANNED, PT 17.1 H, INR 1.4, APTT 36.5 H, Sodium 136, Potassium 3.9, Chloride 94 L, Carbon Dioxide 31.7, Anion Gap 11, BUN 29 H, Creatinine 1.58 H, Estim Creat Clear Calc 33.48 L, Est GFR (MDRD) Non-Af 42 L, BUN/Creatinine Ratio 18.2, Glucose 128 H, Calcium 9.0, Total Bilirubin 0.81, Direct Bilirubin 0.41 H, AST 39 H, ALT 13, Alkaline Phosphatase 91, Total Protein 5.8 L, Albumin 3.3 L, Globulin 2.5, Blood Type A POSITIVE, Antibody Screen NEGATIVE Radiography Diagnostic Testing: Radiology Impression Brain CT 01/19/25 12:14 IMPRESSION: CHRONIC CHANGES. NO ACUTE FINDINGS. Partial opacification of the right maxillary sinus. Reading Location: [facility] 01/19/25 12:14 IMPRESSION: The lung apices show emphysema. There is postsurgical change in the mastoid air cells on the right. There is fluid density within a portion of the left mastoid air cells. Mucosal thickening is noted in the sphenoid sinus. There is no visible acute traumatic injury. Reading Location: [facility] Chest X-Ray 01/19/25 12:50 IMPRESSION: Mild residual blunting of the right costophrenic angle with right basilar atelectasis. There has been improvement as compared to prior study. The left lung is clear. Reading Location: [facility] Femur X-Ray 01/19/25 12:50 IMPRESSION: Nondisplaced comminuted fracture of the left intertrochanteric region of the proximal left femur. Reading Location: [facility] Pelvis X-Ray 01/19/25 12:50 IMPRESSION: Comminuted undisplaced fracture of the intertrochanteric region of the proximal left femur. Reading Location: [facility]1 Rhythm Strip Rhythm Strip: A-fib Rate: 90 Ectopy: None Physical Exam Const alert, oriented x3, no apparent distress and average body habitus Constitutional Narrative: Pleasant elderly male, mildly fatigued appearing but otherwise sitting back comfortably in bed, conversing normally, in no acute distress. General Appearance: cooperative and comfortable HEENT normocephalic, head/scalp atraumatic, hearing grossly normal bilaterally, nasal mucous membranes and turbinates normal and moist oral mucous membranes Eyes PERRL, EOMs intact bilaterally and conjunctivae normal Neck full ROM Chest inspection of chest normal Resp normal respiratory effort and no use of accessory muscles Resp Narrative: Breathing comfortably on home 4 L nasal cannula at rest. Good air movement throughout with no wheezing or crackles noted. Cardio regular rate, regular rhythm, no murmurs and peripheral pulses 2+ throughout GI normal to inspection, nondistended, normoactive bowel sounds, soft to palpation, non-tender and non-distended Back/Spine normal ROM Extremity Extremity Narrative: Left lower extremity with no overt deformity or shortening. Localized swelling noted in the thigh. Did not attempt any movement. Skin no rashes or lesions noted Psych mental status grossly normal Assessment & Plan Assessment/Plan (1) Fracture, intertrochanteric, left femur: QUALIFIERS: Encounter type: initial encounter Fracture type: closed Fracture alignment: displaced Qualified Code(s): S72.142A - Displaced intertrochanteric fracture of left femur, initial encounter for closed fracture (2) Anticoagulated on Eliquis: PLAN: Plan Patient is an 84-year-old male who presented to [facility] ED on 01/19/2025 with left hip pain after a fall at home. 1. Left femur fracture after mechanical fall at home, acute on chronic debility ? Orthopedic surgery following. PT/OT/case management following. X-ray on admit showed a nondisplaced comminuted fracture of the left intertrochanteric region of the proximal left femur. Preoperative evaluation completed, patient optimized for surgery. Planning for surgery with orthopedics this afternoon, will follow patient postoperatively. Continue pain control with scheduled Tylenol, oxycodone as needed and IV Dilaudid as needed. Postoperative DVT prophylaxis per orthopedics. 2. Paroxysmal A-fib on Eliquis ? Stable and normal sinus rhythm on admit. Eliquis held for procedure; will discuss with orthopedics on timing of restarting this postoperatively. Continue home low-dose Toprol. 3. 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 Known history of lung cancer with last hospitalization in July 2024. Not on active treatment for cancer. Has had intermittent thoracentesis done for recurrent pleural effusions. Chest x-ray on admit with mild residual blunting of right costophrenic angle, improved from prior x-ray at the end of November. Patient stable on home 4 L nasal cannula on admit, not in acute exacerbation. Continue home inhalers. 4. Hyperlipidemia ? Continue home statin. 5. Chronic normocytic anemia ? Hemoglobin stable at baseline 10-11 on admit. Monitor CBC postoperatively. 6. Mild creatinine elevation ? Creatinine 1.58 on admit, baseline 1.2-1.3. Monitor BMP and urine output postoperatively. DVT prophylaxis: SCDs CODE STATUS: DNR CCA, DNI Expected disposition: TBD Total clinical time spent by myself addressing the patient's medical issues, reviewing all the data, and collaborating with patient's care team: 35 minutes. Charges/Coding Visit Charges Inpatient E&M: 00929 Subs Hosp L2
--- NOTE | 2025-01-20 13:45 | CASEMGMT ---
RN CM readmission note: Index admission: Admitted 12/22 w/increased SOB. D/C'd home 12/23. Pt wears home O2 @ 3 L/M continuously and did not qualify for any increase in home O2 needs @ discharge. Pt dc'd w/Rx for prednisone and for Lasix, as he was to increase Lasix to 60 mg daily. Discharge orders also stated to discontinue apple cider vinegar, cinnamon bark, and bee pollen. Appt was scheduled w/Dr Deven De Leon for 01/05 per pt/family request and the appt he had previously scheduled w/Dr Lisa De Leon was cancelled per pt/family request. Pt was also to schedule appt w/Dr Samson w/in 2 weeks. Pt has hx of COPD, CHF, paroxysmal A-fib, CAD, lung CA, HLD, TN, depression, anxiety, and sleep apnea. Current admission: Admitted 01/19 w/left hip fracture after falling @ home. RN CM to room to discuss readmission. Pt known to this RN CM from prior admission. Per pt, he states that when he was home that he got dizzy and then fell in the bathroom. He stated he was on the floor for about 5 hrs until his son found him. He stated his son checks on him frequently and voiced how thankful he was that his son came to check on him after not being able to reach him via phone. He states he was doing well @ home prior to this. He states, after the last admission, that he did get the new Rx for prednisone and he did take that as prescribed. He also states he was taking the increased dose of lasix as prescribed. Reviewed the medications that he was instructed to discontinue (apple cider vinegar, cinnamon bark, bee pollen). Pt states he did not stop taking these and does not plan to do so, stating he feels there are a lot of benefits to taking these. He states he did see DIRECTOR HRIS, Slim, for Dr Samson since last admission. He did not go see Dr Deven De Leon after last admission and he is not certain of the reason. Noted in pt's chart that the appt w/Dr Deven De Leon that was scheduled for 01/05 was cancelled. Pt verifies that the plan @ dc is to go to [facility] for therapy prior to going to [facility]. He denies having any further questions or concerns. Plan: See BEVERLY Garg, note 01/19 re: discharge plan to dc to [facility]. Navi ALCAZARN RN CM
--- NOTE | 2025-01-20 14:44 | CONS.ORTHO ---
HPI Consult Data Date of Consult: 01/20/25 HPI Narrative HPI Narrative: TAO CLARK, is a 84 M who presents with left hip femur fracture intertrochanteric fracture from a ground-level fall at home yesterday. Discussed with yesterday from the ER, patient was admitted yesterday with hospitalist and Eliquis was held. Last dose of Eliquis was Saturday evening per hospitalist. Patient has been using a cane or a walker at home and lives by himself. He was in the bathroom after the fall for many hours until family members were able to reach him and bring him in. He denies any other injuries. He was evaluated in the ER with x-rays of the pelvis and femur as well as brain CT which did not show any acute findings. Patient has a history of lung cancer which he was told to be terminal. He did undergo radiotherapy for it 2 years ago but no ongoing chemotherapy or radiation therapy or surgery that he mentions. He is on home oxygen therapy because of this. He was recently evaluated for metastasis of the lung cancer and was told that he does not have any metastasis. He has gotten periodic thoracocentesis. [facility] Medical History (Updated 01/20/25 @ 14:[address] John Galindo MD) Injury of head and neck Dyspnea Hearing loss, right Cancer On home oxygen therapy Bleeding tendency Anxiety Depression Sleep apnea Former smoker CPAP (continuous positive airway pressure) dependence Asthma COPD (chronic obstructive pulmonary disease) Myocardial infarct History of COPD History of lung cancer HLD (hyperlipidemia) Afib CAD (coronary artery disease) Lung cancer Atrial fibrillation CAD (coronary artery disease) Home Medications ?Medication ?Instructions ?Recorded ?Last Taken ?Type metoprolol succinate 25 mg 12.5 mg PO DAILY blood pressure 01/26/19 01/18/25 History tablet,extended release 24 hr simvastatin 20 mg tablet 20 mg PO DAILY Cholesterol 01/26/19 01/18/25 History acidophilus 100 million 2 ea PO DAILY supplement 04/13/20 01/18/25 History cell-pectin, citrus 10 mg capsule ascorbic acid (vitamin C) 1,000 mg 1,000 mg PO DAILY vitamin c 04/13/20 01/18/25 History tablet,extended release calcium 315 mg (as 1 ea PO DAILY vitamin 04/13/20 01/18/25 History citrate)-vitamin D3 6.25 mcg (250 unit) tablet coenzyme Q10 200 mg capsule 200 mg PO DAILY supplement 04/13/20 01/18/25 History cyanocobalamin (vitamin B-12) 1,000 mcg PO DAILY vitamin 04/13/20 01/18/25 History 1,000 mcg capsule docosahexaenoic acid 450 mg capsule 450 mg PO BID supplement 04/13/20 01/18/25 History folic acid 1 mg tablet 1 mg PO DAILY supplement 04/13/20 01/18/25 History glucosamine 750 [id number] 2 ea PO DAILY supplement 04/13/20 01/18/25 History no1 644 mg-C 30 mg-dionte 1 mg tablet magnesium oxide 400 mg (241.3 mg 400 mg PO MOFR supplement 04/13/20 01/18/25 History magnesium) tablet multivitamin 1 ea PO MOFR vitamin 04/13/20 01/18/25 History nitroglycerin 0.4 mg sublingual 0.4 mg sublingual Q5M PRN Chest 04/13/20 Unknown History tablet Pain psyllium husk 3.4 gram/5.4 gram 660 g PO DAILY supplement 04/13/20 01/18/25 History oral powder fluticasone fur. 100 mcg-umeclid 1 inh inhalation DAILY breathing 08/05/23 01/18/25 History 62.5 mcg-vilant 25 mcg inhalat.powder (Trelegy Ellipta) albuterol sulfate 90 mcg/actuation 1 inh inhalation Q6H PRN shortness 08/14/24 Unknown Rx aerosol inhaler of breath or wheezing #8.5 grams apixaban 2.5 mg tablet (Eliquis) 2.5 mg PO BID blood thinner 11/11/24 01/18/25 History furosemide 20 mg tablet 20 mg PO DAILY water pill 12/31/24 01/18/25 History furosemide 40 mg tablet 40 mg PO DAILY water pill 01/19/25 01/18/25 History Allergy/AdvReac Type Severity Reaction Status Date / Time No Known Allergies Allergy Verified 01/19/25 11:54 Family History Other Heart disease Hypertension Surgical History (Updated 01/19/25 @ 16:01 by Natalie Mesa) H/O cardiac catheterization History of coronary artery stent placement History of appendectomy History of bronchoscopy Social History household members: none housing: house Smoking Status: Former smoker Vital Signs Vital Signs Vital Signs: 01/19/25 15:06 01/19/25 15:06 01/19/25 15:40 Temperature 97.9 F Temperature Source Pulse Rate 103 H 105 H Pulse Strength Respiratory Rate 16 16 Respiratory Effort Normal Respiratory Depth Normal Respiratory Pattern Normal Blood Pressure 126/79 H 126/79 H Blood Pressure Mean 94 94 Blood Pressure Source Blood Pressure Position Blood Pressure Location Pulse Ox 96 94 Oxygen Delivery Method Room Air Nasal Cannula Oxygen Flow Rate (L/min) 4 01/19/25 15:40 01/19/25 20:11 01/19/25 20:41 Temperature 97.5 F L 97.8 F Temperature Source Oral Oral Pulse Rate 123 H 118 H 122 H Pulse Strength Respiratory Rate 17 16 Respiratory Effort Respiratory Depth Respiratory Pattern Blood Pressure 101/73 106/53 L 111/60 Blood Pressure Mean 82 70 Blood Pressure Source Monitor Monitor Blood Pressure Position Semi-Fowlers Sitting Blood Pressure Location Right Arm Right Arm Pulse Ox 94 94 Oxygen Delivery Method Nasal Cannula Nasal Cannula Oxygen Flow Rate (L/min) 4 4 01/19/25 20:44 01/19/25 22:00 01/19/25 22:57 Temperature Temperature Source Pulse Rate 122 H 93 Pulse Strength Normal (2+) Respiratory Rate 18 Respiratory Effort Normal Non-Labored Respiratory Depth Normal Respiratory Pattern Normal Normal Blood Pressure Blood Pressure Mean Blood Pressure Source Blood Pressure Position Blood Pressure Location Pulse Ox 95 Oxygen Delivery Method Nasal Cannula Oxygen Flow Rate (L/min) 4 01/19/25 22:57 01/19/25 23:27 01/20/25 02:21 Temperature 97.9 F 97.5 F L Temperature Source Oral Oral Pulse Rate 105 H 95 Pulse Strength Respiratory Rate 20 H 16 Respiratory Effort Respiratory Depth Respiratory Pattern Blood Pressure 95/49 L 93/55 L Blood Pressure Mean 64 67 Blood Pressure Source Monitor Monitor Blood Pressure Position Semi-Fowlers Semi-Fowlers Blood Pressure Location Right Arm Right Arm Pulse Ox 94 96 97 Oxygen Delivery Method Nasal Cannula Nasal Cannula Nasal Cannula Oxygen Flow Rate (L/min) 4 4 4 01/20/25 04:21 01/20/25 07:24 01/20/25 07:24 Temperature 97.8 F Temperature Source Oral Pulse Rate 82 79 Pulse Strength Respiratory Rate 16 16 Respiratory Effort Respiratory Depth Respiratory Pattern Normal Blood Pressure 103/54 L Blood Pressure Mean 70 Blood Pressure Source Monitor Blood Pressure Position Semi-Fowlers Blood Pressure Location Right Arm Pulse Ox 98 93 Oxygen Delivery Method Nasal Cannula Nasal Cannula Oxygen Flow Rate (L/min) 4 4 01/20/25 09:34 01/20/25 09:40 01/20/25 09:54 Temperature 97.9 F Temperature Source Temporal Pulse Rate 90 Pulse Strength Respiratory Rate 16 Respiratory Effort Respiratory Depth Respiratory Pattern Blood Pressure 91/48 L 111/58 L Blood Pressure Mean 62 75 Blood Pressure Source Monitor Monitor Blood Pressure Position Supine Semi-Fowlers Blood Pressure Location Right Arm Right Arm Pulse Ox 94 Oxygen Delivery Method Nasal Cannula Nasal Cannula Oxygen Flow Rate (L/min) 4 4 01/20/25 09:58 01/20/25 12:50 01/20/25 13:07 Temperature 98.6 F Temperature Source Temporal Pulse Rate 90 91 73 Pulse Strength Respiratory Rate 18 16 Respiratory Effort Respiratory Depth Respiratory Pattern Normal Blood Pressure 109/46 L Blood Pressure Mean 67 Blood Pressure Source Monitor Blood Pressure Position Semi-Fowlers Blood Pressure Location Right Arm Pulse Ox 94 Oxygen Delivery Method Nasal Cannula Oxygen Flow Rate (L/min) 4 Weight Weight: 155 lb 7.872 oz Body Mass Index (BMI) 23.0 Physical Exam Narrative Left hip shows tenderness along with pain with any movement. No swelling around the distal femur or knee. Distal neurovascular exam is intact. Right lower and bilateral upper extremities show full painless range of motion. Lab / Micro Data 01/20/25 04:21 01/20/25 04:21 Labs: Laboratory Results - last 24 hr 01/19/25 17:10: Sodium 135, Potassium 3.7, Chloride 92 L, Carbon Dioxide 28.1, Anion Gap 15, BUN 24 H, Creatinine 1.32 H, Estim Creat Clear Calc 40.08 L, Est GFR (MDRD) Non-Af 53 L, BUN/Creatinine Ratio 18.0, Glucose 114 H, Calcium 9.0, Total Bilirubin 0.85, AST 30, ALT 13, Alkaline Phosphatase 102, Total Protein 6.4, Albumin 3.6, Globulin 2.8, Albumin/Globulin Ratio 1.3, Vitamin D 25-Hydroxy 23.2 L 01/20/25 04:21: WBC 9.6, RBC 3.30 L, Hgb 10.1 L, Hct 30.8 L, MCV 93.3, MCH 30.6, MCHC 32.8, RDW Std Deviation 49.6 H, RDW Coeff of [place] 14.4, Plt Count 194, MPV 10.1, Immature Gran % (Auto) 0.500, Neut % (Auto) 74.2 H, Lymph % (Auto) 6.6 L, [place] % (Auto) 16.5 H, Eos % (Auto) 2.0, Baso % (Auto) 0.2, Absolute Neuts (auto) 7.1, Absolute Lymphs (auto) 0.64 L, Nucleated RBC % 0, Differential Comment SCANNED, PT 17.1 H, INR 1.4, APTT 36.5 H, Sodium 136, Potassium 3.9, Chloride 94 L, Carbon Dioxide 31.7, Anion Gap 11, BUN 29 H, Creatinine 1.58 H, Estim Creat Clear Calc 33.48 L, Est GFR (MDRD) Non-Af 42 L, BUN/Creatinine Ratio 18.2, Glucose 128 H, Calcium 9.0, Total Bilirubin 0.81, Direct Bilirubin 0.41 H, AST 39 H, ALT 13, Alkaline Phosphatase 91, Total Protein 5.8 L, Albumin 3.3 L, Globulin 2.5, Blood Type A POSITIVE, Antibody Screen NEGATIVE Rhythm Strip Rhythm Strip: A-fib Rate: 90 Ectopy: None Assessment & Plan Assessment/Plan (1) Fracture, intertrochanteric, left femur: QUALIFIERS: Encounter type: initial encounter Fracture type: closed Fracture alignment: displaced Qualified Code(s): S72.142A - Displaced intertrochanteric fracture of left femur, initial encounter for closed fracture PLAN: Plan X-rays of pelvis and femur done in the ER yesterday show displaced left intertrochanteric fracture. No obvious lytic lesions noticed. Discussed imaging findings. Explained to him that this is a surgical injury and I recommend ORIF with cephalomedullary nail to allow early return to mobility. All risk benefits and alternatives were discussed. Risks include but are not limited to infection, bleeding, hematoma formation, need for further surgery, limb length discrepancy, hardware failure, nonunion, malunion, need for replacement, DVT, pulm embolism, cardiopulmonary event, . Patient understands and agrees to proceed with surgery. Consent was signed. All questions were answered. Discussed possibility of metastasis, but no obvious lytic lesions were noticed on x-rays that would warrant further imaging prior to surgery. Charges/Coding Visit Charges Inpatient E&M: 36209 Init Hosp L3
--- NOTE | 2025-01-20 14:54 | PRE.ANES_ITS ---
ASA Classification* ASA Classification ASA Classification: 3 Assessment & Plan Anesthesia* Anesthesia Assessment Anesthesia Assessment: Discussed sedation and/or anesthesia options, risks, benefits, and alternatives with patient/parents/legal guardian/POA. Questions invited. The patient/parents/legal guardian/POA seems to understand and agrees to proceed with anesthesia plan. Reviewed the physical assessment, medical history, allergy history and patient home medications list prior to surgery/procedure/anesthetic and documented any changes. Performed airway and anesthesia risk assessments. Anesthesia Type Anesthesia Type: General History Source History Obtained from:: Patient and Chart Anesthesia Focused Assessment* Temperature: 98.6 F Pulse Rate: 73 Blood Pressure: 109/46 Respiratory Rate: 16 Pulse Ox: 94 Oxygen Delivery Method: Nasal Cannula Oxygen Flow Rate (L/min): 4 Airway Assessment Mouth opens: >3 cm Mallampati Score: I Teeth Condition: Chipped/Broken (Patient has multiple chipped and broken teeth.) and Dentures Neck Range of motion (ROM): Full ROM Focused Labs Anesthesia Preop lab: CBC WBC 9.6 K/mm3 (4.4-11.0) 01/20/25 04:21 01/20/25 RBC 3.30 M/mm3 (4.6-6.2) L 01/20/25 04:21 01/20/25 Hgb 10.1 g/dL (13.0-16.5) L 01/20/25 04:21 5 Hct 30.8 % (40-54) L 01/20/25 04:21 01/20/25 Plt Count 194 K/mm3 (150-450) 01/20/25 04:21 01/20/25 CHEMISTRY Potassium 3.9 mmol/L (3.3-5.1) 01/20/25 04:21 01/20/25 Sodium 136 mmol/L (133-145) 01/20/25 04:21 01/20/25 Magnesium 2.6 mg/dL (1.5-2.2) H 12/23/24 04:15 12/23/24 Phosphorus 4.1 mg/dL (2.7-4.5) 12/23/24 04:15 12/23/24 BUN 29 mg/dL (4-19) H 01/20/25 04:21 01/20/25 Creatinine 1.58 mg/dL (0.70-1.20) H 01/20/25 04:21 Glucose 128 mg/dL (70-99) H 01/20/25 04:21 01/20/25 COAG PT 17.1 SECONDS (11.7-14.9) H 01/20/25 04:21 12/25 04/19 Pre-Assessment Diagnosis/Proposed Procedure Planned Operative Procedure(s): ORIF left femur intertrochanteric fracture. Left femur cephalomedullary nailing. 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 When Was Last Pacemaker Check QUESTION #4 FULL TEXT: You/Your Family Experience fever (hyperthermia) with Anesthesia Last Oral Intake Last Oral intake: Last Oral Intake NPO since 00:00 01/20/25 13:07 Meds taken in AM with sips of Yes 01/20/25 13:07 water? 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 Female HX of Motion Sickness HX of N/V After Surgery Non-Smoker Duration of Surgery greater than 60 minutes Number of Risk Factors PONV Score Height & Weight Height & Weight: Anesthesia: Height & Weight Height 5 ft 8.9 in 01/20/25 13:07 Weight: 70.53 kg 01/20/25 13:07 Body Mass Index (BMI) 23.0 01/20/25 13:07 Respiratory Assessment Respiratory Assessment - thermospray operator: Respiratory Tract Infection Hx - thermospray operator Hx Respiratory Tract Infection Any additional information?: Yes Hx Respiratory Tract Infection: No STOP Sleep Apnea STOP Sleep Apnea - thermospray operator: STOP Sleep Apnea - thermospray operator Hx Hypertension Yes 01/19/25 15:40 Hx Sleep Apnea Yes 01/19/25 15:40 CPAP Yes: doesnt wear it at home 01/19/25 15:40 BIPAP No 01/19/25 15:40 Do you snore loudly (louder than talking or can be heard Do you often feel tired/ fatigued/ sleepy during daytime? Has anyone observed you stop breathing during sleep? STOP Results Positive 01/19/25 15:40 QUESTION #5 FULL TEXT : Do you snore loudly (louder than talking or can be heard through closed doors)? 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 Specify any problems Hx of Preganancy in last 3 N/A 01/19/25 15:40 Months Nurse Filling Out Transfusion [id number] 01/19/25 15:40 & Questions: Date: 01/19/25 01/19/25 15:40 Time: 15:50 01/19/25 15:40 Patient unable to answer at this time (ie. confused, unrespo /Reproduction History /Reproductive History - thermospray operator: /Reproductive Hx- thermospray operator Hx Now Gestational Age (in weeks): EDC: Hx Hx Para Hx Section SAB Active Medications Active Medications: Current Medications Generic Name Dose Route Start Last Admin Trade Name Freq PRN Reason Stop Dose Admin Acetaminophen 1,000 mg 01/20/25 14:00 Acetaminophen 500 Mg Tablet PO Q8 WALDO Albuterol Sulfate 2.5 mg 01/19/25 15:34 Albuterol 2.5 Mg/3 Ml Vial.Neb. INHALATION Q6H PRN shortness of breath or wheezing Albuterol/Ipratropium 3 ml 01/19/25 15:40 01/20/25 12:50 Ipratropium/Albuterol Sulfate 3 Ml Ampul.Neb INHALATION 3 ml Q6HWA.RT WALDO Administration Ascorbic Acid 1,000 mg 01/20/25 10:00 Ascorbic Acid 500 Mg Tablet PO DAILY WALDO Atorvastatin Calcium 10 mg 01/20/25 10:00 Atorvastatin Calcium 10 Mg Tablet PO DAILY WALDO Budesonide 0.5 mg 01/19/25 15:40 01/20/25 07:22 Budesonide Respules 0.5 Mg/2 Ml Ampul.Neb. INHALATION 0.5 mg Q12H.RT WALDO Administration Calcium/Vitamin D 1 tablet 01/20/25 10:00 Calcium Carb/Vitamin D 1 Tablet Tablet PO DAILY WALDO Cyanocobalamin 1,000 mcg 01/20/25 10:00 Cyanocobalamin 500 Mcg Tablet PO DAILY WALDO Folic Acid 1 mg 01/20/25 08:00 Folic Acid 1 Mg Tablet PO BREAKFAST WALDO Hydromorphone HCl 0.5 mg 01/20/25 08:30 Hydromorphone 0.5 Mg/0.5 Ml Syringe IV Q4H PRN PRN Pain Score 6-10 Sodium Chloride 250 mls @ 15 mls/hr 01/19/25 16:01 IV .[id number] PRN Saline Flush Sodium Chloride 250 mls @ 15 mls/hr 01/19/25 16:01 IV .[id number] PRN Additional IVPB Infusion Cefazolin Sodium 2 gm/ Sodium 110 mls @ 150 mls/hr 01/20/25 14:40 Chloride IV 01/20/25 15:23 X1 ONE Metoprolol Succinate 12.5 mg 01/20/25 10:00 01/20/25 09:58 Metoprolol(Xl)Succ 25 Mg Tablet PO 12.5 mg DAILY [facility] Administration Protocol Multivitamins 1 tablet 01/22/25 08:00 Multivitamins,Therapeutic Tablet PO MoFr@0800 WALDO Nitroglycerin 0.4 mg 01/19/25 15:36 Nitroglycerin (Inpatient Use) 0.4 Mg Tab.Subl SL Q5M PRN Chest Pain Ondansetron HCl 4 mg 01/19/25 15:32 Ondansetron 4 Mg/2 Ml Vial IV Q8H PRN PRN NAUSEA/VOMITING Oxycodone HCl 5 mg 01/19/25 15:32 01/19/25 20:05 Oxycodone 5 Mg Tablet PO 5 mg Q4H PRN PRN Administration Pain Score 4-10 Psyllium Hydrophilic Mucilloid 1 packet 01/20/25 10:00 Psyllium 1 Packet PO DAILY WALDO Senna/Docusate Sodium 1 tablet 01/20/25 10:00 Senna/Docusate Sodium 1 Tablet PO BID WALDO Sodium Chloride 10 - 40 ml 01/19/25 16:01 0.9% Saline Lock 10 Ml Syringe IV UD PRN SALINE FLUSH PFS Medical History Injury of head and neck Dyspnea Hearing loss, right Cancer On home oxygen therapy Bleeding tendency Anxiety Depression Sleep apnea Former smoker CPAP (continuous positive airway pressure) dependence Asthma COPD (chronic obstructive pulmonary disease) Myocardial infarct History of COPD History of lung cancer HLD (hyperlipidemia) Afib CAD (coronary artery disease) Lung cancer Atrial fibrillation CAD (coronary artery disease) Home Medications ?Medication ?Instructions ?Recorded ?Last Taken ?Type metoprolol succinate 25 mg 12.5 mg PO DAILY blood pres sure 01/26/19 01/18/25 History tablet,extended release 24 hr simvastatin 20 mg tablet 20 mg PO DAILY Cholesterol 0 01/26/19 01/18/25 History acidophilus 100 million 2 ea PO DAILY supplement 01/18/25 History cell-pectin, citrus 10 mg capsule ascorbic acid (vitamin C) 1,000 mg 1,000 mg PO DAILY v itamin c 04/13/20 01/18/25 History tablet,extended release calcium 315 mg (as 1 ea PO DAILY vitamin 01/18/25 History citrate)-vitamin D3 6.25 mcg (250 unit) tablet coenzyme Q10 200 mg capsule 200 mg PO DAILY supplement 04/13/20 01/18/25 History cyanocobalamin (vitamin B-12) 1,000 mcg PO DAILY vitam in 04/13/20 01/18/25 History 1,000 mcg capsule docosahexaenoic acid 450 mg capsule 450 mg PO BID supp lement 04/13/20 01/18/25 History folic acid 1 mg tablet 1 mg PO DAILY supplement 01/18/25 History glucosamine 750 [id number] 2 ea PO DAILY suppl ement 04/13/20 01/18/25 History no1 644 mg-C 30 mg-dionte 1 mg tablet magnesium oxide 400 mg (241.3 mg 400 mg PO MOFR supple ment 04/13/20 01/18/25 History magnesium) tablet multivitamin 1 ea PO MOFR vitamin 2 0 01/18/25 History nitroglycerin 0.4 mg sublingual 0.4 mg sublingual Q5M PRN Chest 04/13/20 Unknown History tablet Pain psyllium husk 3.4 gram/5.4 gram 660 g PO DAILY supplem ent 04/13/20 01/18/25 History oral powder fluticasone fur. 100 mcg-umeclid 1 inh inhalation LUKE Y breathing 08/05/23 01/18/25 History 62.5 mcg-vilant 25 mcg inhalat.powder (Trelegy Ellipta) albuterol sulfate 90 mcg/actuation 1 inh inhalation Q6 H PRN shortness 08/14/24 Unknown Rx aerosol inhaler of breath or wheezing #8.5 g jen apixaban 2.5 mg tablet (Eliquis) 2.5 mg PO BID blood t hinner 11/11/24 01/18/25 History furosemide 20 mg tablet 20 mg PO DAILY water pill 01/18/25 History furosemide 40 mg tablet 40 mg PO DAILY water pill 01/18/25 History Allergy/AdvReac Type Severity Reaction Status Date / Time No Known Allergies Allergy Verified 01/19/25 11:54 Family History Other Heart disease Hypertension Surgical History H/O cardiac catheterization History of coronary artery stent placement History of appendectomy History of bronchoscopy Social History household members: none housing: house Smoking Status: Former smoker Review of Systems (Anesthesia) ROS Narrative System reviewed and no additional complaints, except as documented.
--- NOTE | 2025-01-20 14:57 | CASEMGMT ---
Discharge Planning Referral sent via [facility] to [facility]. Bernadette Corrales DC Planning Asst.
[2025-01-20] MEDS: Lactated Ringers 1,000 ML 15 ML IV (15:00)
[2025-01-20] MEDS: Cefazolin 2 GM in 0.9% Normal Saline (100mL Bag) 100 ML IV (15:30)
--- NOTE | 2025-01-20 15:30 | RAD_ITS ---
PROCEDURE: FEMUR MIN 2 VIEWS 01/20/2025 REASON FOR EXAM: ORIF, HIP GAMMA NAIL TECHNIQUE: Fluoroscopic views of the left femur. COMPARISON: 01/19/2025. FINDINGS: Open reduction internal fixation of a left femoral fracture. Fluoroscopic time of 87.5 seconds. Cumulative dose of 15.44 mGy. RAD/Femur Min 2 Views IMPRESSION: Left femoral ORIF. Reading Location: [id number]
--- NOTE | 2025-01-20 17:41 | OP.PCM_ITS ---
Procedures Musculoskeletal 20xxx-29xxx: Other Procedure See Report Operative Report (Standard) Operative Information Date of Procedure: 01/20/25 Pre-Operative Diagnosis: Left femur intertrochanteric fracture displaced Post-Operative Diagnosis: Same Surgery/Procedure Performed: ORIF left femur intertrochanteric fracture, cephalomedullary nailing?long gamma nail spring coiler: Yes [place] Worker: Edna Navarrete Tasks completed by administrative services assistant: Closing, Implanting device, Hemostasis: Electrocautery and Retracting Type of Anesthesia: General RN Documented Start/Stop Times: Operation Date: 01/20/25 16:00 Case Time Into Pre-Op 01/20/25 14:34 Out of Pre-Op 01/20/25 15:17 Anesthesia Start 01/20/25 15:20 Into Room 01/20/25 15:20 Procedure Start 01/20/25 16:01 Procedure End 01/20/25 17:27 Anesthesia End 01/20/25 17:40 Out of Room 01/20/25 17:40 Procedure Start Time: 16:01 Procedure Stop Time: 17:27 Select all DRAINS/GRAFTS/IMPLANTS that apply: Implanted device Implanted device details: [place] gamma 4 trochanteric nail Estimated Blood Loss: 50 cc Specimen collected: No Description of surgery: Operative Report Pre-operative Diagnosis: Left displaced intertrochanteric Femur Fracture Post-operative Diagnosis: Same Procedure(s) Performed: Left femur Cephalmedullary Nailing?long gamma nail CPT 07837 Surgeon: Dr. John Galindo MD Grooming Assistant: None Estimated Blood Loss: 50 ml Anesthesia: General Drains: None Specimens: None Implants: [place] Gamma4 Trochanteric Nail 380 x 11 mm, 125 degree, 110 mm lag screw Complications: None Condition: stable Indications: 84-year-old female who had a ground-level fall and sustained a left intertrochanteric femur Fracture. We discussed the benefits and risks of the procedure including but not limited to infection, bleeding, injury to nerves and vessels, limb length discrepancy, nonunion, malunion, hardware failure, darius-implant fracture, hip and knee stiffness, persistent pain, difficulty to ambulate, DVT, pulmonary embolism, cardiopulmonary event, need for further surgeries. The patient concurred with the proposed plan, giving informed consent. Procedure Details: The patient was seen in the pre-operative preparation area. The site of surgery was verbally confirmed and marked by the surgical team. The patient was properly identified by the unique identifiers and was then at that time transported to the operative theater by [facility]. A Time Out was held and the above information confirmed. Both lower extremities were placed on the fracture table with the contralateral extremity extended down to allow C- arm to come in. Close reduction maneuver was applied and AP and lateral x-rays were taken. Reduction was acceptable. Posteromedial lesser trochanter fragment continued to look displaced on AP but was acceptable. Operative area was prepped and draped in a sterile fashion. Final timeout was performed. With the help of C-arm incision was marked. A 4 cm Incision was made proximal to the greater trochanter. An appropriate greater trochanter starting point was found using the starting wire under fluoroscopy. The wire was then drilled to the metadiaphyseal region of the femur. The opening reamer was then drilled into the metadiaphysis under fluoro. A ball tip guide wire was then placed down the femur. Sequential flexible reaming was performed up to 12.5 mm. Length of the long gamma nail was measured with the help of guidewire and measuring tool. 380 x 11 mm Gamma Nail was then placed into the intramedullary canal of the femur and placement was verified with fluoroscopy and advanced to an appropriate level to allow placement of the lag screw. Guidewire was removed. We then drilled the wire for the lag screw up the neck of the femur under fluoroscopic guidance. AP and lateral x-rays showed good positioning of the wire through the neck into the head with good tip apex distance. The wire was then measured. Cannulated drill was used to drill a channel for the lag screw and a 110 mm lag screw was placed up the neck of the femur. 2 distal static interlocking screws 45 and 50 mm was placed with the help of the C-arm with perfect [place] technique in the proximal and middle holes of the distal nail. Both interlocking screws had bicortical purchase. Final fluorscopic images were then taken and the placement of the intramedullary device and fracture was deemed appropriate. The wounds were irrigated copiously with sterile solution. The deep fascia was closed with 0 vicryl suture. The deep dermal layer was closed with 2-0 vicryl suture. Cedrick were used to close the skin. Aquacel dressing was used, the incisions. The patient was then awaken, extubated and taken to the PACU. I was present and scrubbed for the entire procedure. Postoperative plan: Patient will be WBAT. Recommend PT/OT evaluation Pain Control F/u Outpatient in 2 weeks Surgical Findings: See operative note Complications Complications: No
--- NOTE | 2025-01-20 17:50 | PCM.POST.ANE ---
Anesthesia: Postop Eval I Current Vital Signs Temperature: 97.2 F Pulse Rate: 113 Blood Pressure: 95/56 Respiratory Rate: 18 Pulse Ox: 93 Oxygen Delivery Method: Nasal Cannula Oxygen Flow Rate (L/min): 4 Assessment Airway patent: Yes Spontaneous unlabored respirations: Yes Mental status: Asleep nausea: No Vomiting: No Anesthesia Complication: No Fluid Hydration Crystalloid volume administer (ml): 1,300 Total IV fluid infused: 1,300 Progress Note Anesthesia document: Postop Eval 1 completed: Yes
--- NOTE | 2025-01-20 20:49 | PCM.POSTANE2 ---
Anesthesia Postop Eval I Sum Postop Eval Completion status Anesthesia document: Postop Eval 1 completed: Yes Anesthesia Postop Eval I Summary Anesthesia Postop Eval I Summary: Anesthesia Postop Eval I: Assessment Summary Airway patent Yes 01/20/25 18:00 Spontaneous unlabored Yes 01/20/25 18:00 respirations Mental status Asleep 01/20/25 18:00 nausea No 01/20/25 18:00 Vomiting No 01/20/25 18:00 Anesthesia Postop Eval I: Fluid Summary Crystalloid volume administer 1,300 01/20/25 18:00 (ml) Colloids volume administered ( ml) Blood Product volume administered (ml) Total IV fluid infused 1,300 01/20/25 18:00 Anesthesia Postop Eval I: Summary Notes Anesthesia Complication No 01/20/25 18:00 Anesthesia Complication Comment: Post-operative progress note Anesthesia: Postop Eval II Evaluation Mental status: Awake and Calm Pain Level: 1 nausea: No Vomiting: No Complications Anesthesia Complication: No
[2025-01-20] MEDS: Cefazolin 1 GM/50 ML BAG IV (22:23)
[2025-01-21 02:38] VITALS: BP 98/52; PULSE 82; RESP 18; TEMP 36.6; O2SAT 99; BMI 23.0
[2025-01-21] MEDS: Acetaminophen 500 MG Tablet 1000 MG PO ×3 (05:18→21:27)
[2025-01-21 05:37] LABS: Hematocrit 25.6 % (40-54); Hemoglobin 8.5 g/dL (13.0-16.5); Mean Corp Hgb Conc 33.2 g/dL (32-36); Mean Corpuscular Hgb 31.4 pg (27.0-32.0); Mean Corpuscular Volume 94.5 fL (80-94); Mean Platelet Vol. 10.2 fl (6.2-12.0); Platelet Count 163 K/mm3 (150-450); RBC Distribution Width CV 14.5 % (11.6-14.6); RBC Distribution Width SD 50.3 fl (35.1-43.9); Red Blood Count 2.71 M/mm3 (4.6-6.2); White Blood Count 11.3 K/mm3 (4.4-11.0)
[2025-01-21 06:28] VITALS: BMI 23.0
[2025-01-21 06:29] VITALS: BP 106/54; PULSE 67; RESP 18; TEMP 36.6; O2SAT 96
[2025-01-21 06:29] LABS: Anion Gap 11 (5-15); BUN 27 mg/dL (4-19); BUN/Creat Ratio 23.2 RATIO (10-20); Calcium,Total 8.6 mg/dL (7.6-11.0); Carbon Dioxide 30.7 mmol/L (21.0-32.0); Chloride 95 mmol/L (98-108); Creatinine, Serum 1.18 mg/dL (0.70-1.20); EST Glomerular Filtration Rate 60 (>60); Estimated Creatinine Clearance 43.47 ml/min (50-250); Glucose 137 mg/dL (70-99); Potassium 3.7 mmol/L (3.3-5.1); Sodium Level 137 mmol/L (133-145)
[2025-01-21] MEDS: Ipratropium/Albuterol Sulfate 3 ML AMPUL.NEB INHALATION (06:59)
[2025-01-21] MEDS: Budesonide Respules 0.5 MG/2 ML AMPUL.NEB. INHALATION (06:59)
[2025-01-21 07:00] VITALS: PULSE 86; RESP 16; O2SAT 93
[2025-01-21] MEDS: Sodium Ferric Gluconat/Sucrose 250 MG in 0.9% Normal Saline (250mL Bag) 250 ML 135 MG IV (08:45)
[2025-01-21] MEDS: Folic Acid 1 MG Tablet PO (08:46)
[2025-01-21 09:28] VITALS: BP 94/69; PULSE 87; RESP 16; TEMP 36.6; O2SAT 93
--- NOTE | 2025-01-21 09:37 | CASEMGMT ---
Discharge Planning Pt has been accepted at [facility]. Clinicals faxed per request. Bernadette Corrales DC Planning Asst.
--- NOTE | 2025-01-21 09:51 | NURSING ---
While attempting to get pt to chair, pt stood with walker and then passed out. Pt was lowered to bed and repositioned. Pt came back around moments later.
[2025-01-21 09:54] VITALS: PULSE 87
[2025-01-21] MEDS: Calcium Carb/Vitamin D 1 TABLET Tablet PO (09:57)
[2025-01-21] MEDS: Atorvastatin Calcium 10 MG Tablet PO (09:57)
[2025-01-21] MEDS: Ascorbic Acid 500 MG Tablet 1000 MG PO (09:57)
[2025-01-21] MEDS: Cyanocobalamin 500 MCG Tablet 1000 MCG PO (09:57)
[2025-01-21] MEDS: APIXABAN 2.5 MG TABLET (WCH) PO (10:00)
--- NOTE | 2025-01-21 10:36 | PN.HOSP_ITS ---
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 Patient was sitting back comfortably in bed, conversing normally, in no acute distress. Had good energy level this morning. Reported very mild hip pain currently that was controlled with medication. Had not got out of bed yet to work with therapy. No other new concerns today. Objective Data Objective Data Vital Signs: Vital Signs Temp Pulse Resp BP Pulse Ox O2 Del Method O2 Flow Rate 97.9 F 87 16 94/69 93 Room Air 4 01/21/25 09:28 01/21/25 09:54 01/21/25 09:28 01/21/25 09:28 01/21/25 09:28 01/21/25 09:28 01/21/25 09:30 Oxygen Flow Rate (L/min) 4 Oxygen Delivery Method Room Air Weight: 70.53 kg Body Mass Index (BMI) 23.0 Intake & Output: Intake and Output for Last 24 Hours 01/19/25 01/20/25 01/21/25 23:59 23:59 23:59 Intake Total 650 / 650 1160 / 1160 Output Total 200 / 200 250 / 450 450 / 450 Balance 450 / 450 910 / 710 -450 / -450 Lab / Micro Data 01/21/25 05:09 01/21/25 05:09 Labs: Laboratory Results - last 24 hr 01/21/25 05:09: WBC 11.3 H, RBC 2.71 L, Hgb 8.5 L, Hct 25.6 L, MCV 94.5 H, MCH 31.4, MCHC 33.2, RDW Std Deviation 50.3 H, RDW Coeff of Roslyn 14.5, Plt Count 163, MPV 10.2, Sodium 137, Potassium 3.7, Chloride 95 L, Carbon Dioxide 30.7, Anion Gap 11, BUN 27 H, Creatinine 1.18, Estim Creat Clear Calc 43.47 L, Est GFR (MDRD) Non-Af 60, BUN/Creatinine Ratio 23.2 H, Glucose 137 H, Calcium 8.6 Radiography Diagnostic Testing: Radiology Impression Femur X-Ray 01/20/25 15:30 IMPRESSION: Left femoral ORIF. Reading Location: [place] [address] Rhythm Strip Rhythm Strip: A-fib Rate: 90 Ectopy: None Physical Exam Const alert, oriented x3, no apparent distress and average body habitus Constitutional Narrative: Pleasant elderly male, mildly fatigued appearing but otherwise sitting back comfortably in bed, conversing normally, in no acute distress. Stable. General Appearance: cooperative and comfortable HEENT normocephalic, head/scalp atraumatic, hearing grossly normal bilaterally, nasal mucous membranes and turbinates normal and moist oral mucous membranes Eyes PERRL, EOMs intact bilaterally and conjunctivae normal Neck full ROM Chest inspection of chest normal Resp normal respiratory effort and no use of accessory muscles Resp Narrative: Breathing comfortably on home 4 L nasal cannula at rest. Good air movement throughout with no wheezing or crackles noted. Stable. Cardio regular rate, regular rhythm, no murmurs and peripheral pulses 2+ throughout GI normal to inspection, nondistended, normoactive bowel sounds, soft to palpation, non-tender and non-distended Back/Spine normal ROM Extremity Extremity Narrative: Dressing and ice pack in place over left hip area. Mild tenderness to palpation. Did not attempt movement with him. Skin no rashes or lesions noted Psych mental status grossly normal Assessment & Plan Assessment/Plan (1) Fracture, intertrochanteric, left femur: QUALIFIERS: Encounter type: initial encounter Fracture type: c losed Fracture alignment: displaced Qualified Code(s): S72.142A - Displaced intertrochanteric fracture of left femur, initial encounter for closed fracture (2) Anticoagulated on Eliquis: PLAN: Plan Patient is an 84-year-old male who presented to [facility] ED on 01/19/2025 with left hip pain after a fall at home. 1. Left femur fracture after mechanical fall at home, acute on chronic debility ? Orthopedic surgery following. PT/OT/case management following. X-ray on admit showed a nondisplaced comminuted fracture of the left intertrochanteric region of the proximal left femur. S/p left femur ORIF with cephalomedullary nail placement on 01/20. Patient tolerated procedure well, no intraoperative complications. Continue pain control with scheduled Tylenol, oxycodone as needed and IV Dilaudid as needed. Planning for SNF placement on discharge. 2. Paroxysmal A-fib on Eliquis ? Stable and normal sinus rhythm on admit. Eliquis held for procedure; okay to resume on 01/21 per orthopedics. Continue home low-dose Toprol. 3. 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 Known history of lung cancer with last hospitalization in July 2024. Not on active treatment for cancer. Has had intermittent thoracentesis done for recurrent pleural effusions. Chest x-ray on admit with mild residual blunting of right costophrenic angle, improved from prior x-ray at the end of November. Patient stable on home 4 L nasal cannula on admit, not in acute exacerbation. Continue home inhalers. 4. Hyperlipidemia ? Continue home statin. 5. Chronic normocytic anemia ? Hemoglobin stable at baseline 10-11 on admit. Hemoglobin 8.5 on postop day 1, consistent with appropriate loss from surgery. Will give doses of IV iron on 01/21 and 01/22. Continue to monitor CBC daily. 6. Mild creatinine elevation, improved ? Creatinine 1.58 on admit, baseline 1.2-1.3. Improved back to baseline by 01/21. DVT prophylaxis: Not indicated, on Eliquis CODE STATUS: DNR CCA, DNI Expected disposition: SNF, 1 to 2 days Total clinical time spent by myself addressing the patient's medical issues, reviewing all the data, and collaborating with patient's care team: 35 minutes. Charges/Coding Visit Charges Inpatient E&M: 97891 Subs Hosp L2
[2025-01-21] MEDS: 0.9% Normal Saline (250mL Bag) 250 ML 15 ML IV (11:08)
--- NOTE | 2025-01-21 12:32 | CASEMGMT ---
IGNACIO DORANTES into pt room, discussed with pt son pulmonology. Pt son states that initially they were going to switch pulmonologists but they missed the appt. He states at this time, he does not want pt to be scheduled as pt may be switching doctors as he will be relocating. He denies any need for help with establishing with new provider for pulm.
[2025-01-21] MEDS: Cefazolin 2 GM in 0.9% Normal Saline (100mL Bag) 100 ML IV ×2 (14:31→21:23)
--- NOTE | 2025-01-21 14:35 | CASEMGMT ---
Social Work Pt has been accepted at [facility]. [place] is stating pt must be to facility by 1030 on Saturday and they cannot accept later than that or on Saturday. Physician notified and is agreeable that pt will be ready for discharge at that time. BEVERLY met with pt and pt's son Harry and discussed discharge plan. After discussion regarding Alvarado's requests and explanation of transportation and payment responsibility, pt son is agreeable for pt to discharge tomorrow at 8am via [facility]. PASRR completed in [place]. DC logistics assistant notified and to arrange transportation and notify facility of dc time. Green sheet placed on chart to facilitate critical power install technician transfer. Nursing notified. PLAN: [facility] AT 0800 ON 01/22. TRANSPORT TIME NOT TO BE CHANGED PT NEEDS TO BE AT [facility] BY 1030 GLORIA Bloom
--- NOTE | 2025-01-21 15:25 | PN.ORTHO_ITS ---
Subjective Subjective POD 1 left gamma nail. Patient is doing well post operatively with his pain well managed. Therapy notes says that the patient had passed out with nursing and said that the patient almost passed out with them while attempting transfers. Upon arrival the patient was sitting comfortably in bed and was able to answer all questions. Seen with Dr. Galindo. Objective Data Objective Data Vital Signs: Vital Signs Temp Pulse Resp BP Pulse Ox O2 Del Method O2 Flow Rate 97.9 F 87 16 94/69 93 Room Air 4 01/21/25 09:28 01/21/25 09:54 01/21/25 09:28 01/21/25 09:28 01/21/25 09:28 01/21/25 09:28 01/21/25 12:40 Oxygen Flow Rate (L/min) 4 Oxygen Delivery Method Room Air Weight: 155 lb 7.872 oz Body Mass Index (BMI) 23.0 Intake & Output: Intake and Output for Last 24 Hours 01/19/25 01/20/25 01/21/25 23:59 23:59 23:59 Intake Total 650 / 650 1160 / 1160 270 / 270 Output Total 200 / 200 250 / 450 450 / 450 Balance 450 / 450 910 / 710 -180 / -180 Lab / Micro Data 01/22/25 04:50 01/22/25 04:50 Labs: Laboratory Results - last 24 hr 01/21/25 05:09: WBC 11.3 H, RBC 2.71 L, Hgb 8.5 L, Hct 25.6 L, MCV 94.5 H, MCH 31.4, MCHC 33.2, RDW Std Deviation 50.3 H, RDW Coeff of Roslyn 14.5, Plt Count 163, MPV 10.2, Sodium 137, Potassium 3.7, Chloride 95 L, Carbon Dioxide 30.7, Anion Gap 11, BUN 27 H, Creatinine 1.18, Estim Creat Clear Calc 43.47 L, Est GFR (MDRD) Non-Af 60, BUN/Creatinine Ratio 23.2 H, Glucose 137 H, Calcium 8.6 Radiography Diagnostic Testing: Radiology Impression Femur X-Ray 01/20/25 15:30 IMPRESSION: Left femoral ORIF. Reading Location: [place] [address] Rhythm Strip Rhythm Strip: A-fib Rate: 90 Ectopy: None Physical Exam Narrative Neurovascularly intact, left hip movements are painful. Physical examination of the left hip shows surgical dressings CDI. Patient has movement distally in the knee and ankle but no restriction. Const alert, oriented x3 and no apparent distress Assessment & Plan Assessment/Plan (1) Fracture, intertrochanteric, left femur: QUALIFIERS: Encounter type: initial encounter Fracture type: c losed Fracture alignment: displaced Qualified Code(s): S72.142A - Displaced intertrochanteric fracture of left femur, initial encounter for closed fracture (2) Status post hip surgery: PLAN: Plan Patient to be discharged to rehab unit, cleared from an orthopedic standpoint. Weight bearing as tolerated, continue OT/PT. Patient to restart home Eliquis. Start to decrease opioids to help prevent delirium. Reviewed and educated on the use of the incentive spirometer. Reviewed restrictions. The patient will follow-up in the clinic in 2 weeks. Patient is in agreement.
[2025-01-21 21:15] VITALS: BP 108/44; PULSE 77; RESP 18; TEMP 36.6; O2SAT 97
[2025-01-21] MEDS: 0.9% Saline Lock 10 ML Syringe IV (21:22)
[2025-01-21] MEDS: APIXABAN 5 MG TABLET PO (21:27)
[2025-01-21] MEDS: Senna/Docusate Sodium 1 Tablet PO (21:28)
[2025-01-21 22:38] VITALS: BMI 23.0
[2025-01-22 03:00] VITALS: BP 106/49; PULSE 84; RESP 16; TEMP 36.6; O2SAT 96
[2025-01-22] MEDS: Cefazolin 2 GM in 0.9% Normal Saline (100mL Bag) 100 ML IV ×3 (05:09→22:37)
[2025-01-22] MEDS: Acetaminophen 500 MG Tablet 1000 MG PO ×3 (05:10→22:30)
[2025-01-22] MEDS: 0.9% Saline Lock 10 ML Syringe IV ×2 (05:10→22:37)
[2025-01-22 05:27] LABS: Hematocrit 21.4 % (40-54); Hemoglobin 7.3 g/dL (13.0-16.5); Mean Corp Hgb Conc 34.1 g/dL (32-36); Mean Corpuscular Hgb 31.2 pg (27.0-32.0); Mean Corpuscular Volume 91.5 fL (80-94); Mean Platelet Vol. 10.1 fl (6.2-12.0); Platelet Count 183 K/mm3 (150-450); RBC Distribution Width CV 14.6 % (11.6-14.6); RBC Distribution Width SD 47.9 fl (35.1-43.9); Red Blood Count 2.34 M/mm3 (4.6-6.2)
[2025-01-22] MEDS: Sodium Ferric Gluconat/Sucrose 250 MG in 0.9% Normal Saline (250mL Bag) 250 ML 135 MG IV (06:00)
[2025-01-22 06:12] LABS: Anion Gap 9 (5-15); BUN 27 mg/dL (4-19); BUN/Creat Ratio 23.6 RATIO (10-20); Calcium,Total 8.2 mg/dL (7.6-11.0); Carbon Dioxide 28.9 mmol/L (21.0-32.0); Chloride 89 mmol/L (98-108); Creatinine, Serum 1.16 mg/dL (0.70-1.20); EST Glomerular Filtration Rate 61 (>60); Estimated Creatinine Clearance 44.22 ml/min (50-250); Glucose 100 mg/dL (70-99); Potassium 3.3 mmol/L (3.3-5.1); Sodium Level 127 mmol/L (133-145)
[2025-01-22] MEDS: Folic Acid 1 MG Tablet PO (06:31)
[2025-01-22] MEDS: Multivitamins,Therapeutic Tablet 1 TABLET PO (06:31)
--- NOTE | 2025-01-22 06:45 | NURSING ---
0645- report called to Beatrice from [facility].
[2025-01-22 07:17] VITALS: BP 112/61; PULSE 79; RESP 18; TEMP 36.6; O2SAT 99
[2025-01-22 07:30] VITALS: O2SAT 98
[2025-01-22] MEDS: 0.9% Normal Saline (1000mL) 1,000 ML 500 ML IV (07:53)
[2025-01-22] MEDS: APIXABAN 5 MG TABLET PO ×2 (07:54→22:30)
[2025-01-22] MEDS: Atorvastatin Calcium 10 MG Tablet PO (07:54)
[2025-01-22] MEDS: Psyllium 1 PACKET PO (07:55)
[2025-01-22] MEDS: Senna/Docusate Sodium 1 Tablet PO ×2 (07:55→22:30)
[2025-01-22] MEDS: Calcium Carb/Vitamin D 1 TABLET Tablet PO (07:55)
[2025-01-22] MEDS: Cyanocobalamin 500 MCG Tablet 1000 MCG PO (07:59)
[2025-01-22] MEDS: Ascorbic Acid 500 MG Tablet 1000 MG PO (07:59)
--- NOTE | 2025-01-22 09:37 | CASEMGMT ---
Discharge Planning Pts discharge has been cancelled. Per Tamia @ [facility], they can accept pt on Saturday anytime before 3p. SW updated. Bernadette Corrales DC Planning Asst.
--- NOTE | 2025-01-22 10:36 | PCM.PN.HOSP ---
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 Patient was mildly fatigued appearing but otherwise sitting back comfortably in bed and appeared similar to yesterday. He denied any worsening hip pain or bruising of the hip. He noted that he had not eaten or drank much since his procedure and was trying to eat more this morning. He specifically was asking if he could get high-protein Ensure with meals to help with this. He otherwise denied any new concerns this morning. Objective Data Objective Data Vital Signs: Vital Signs Temp Pulse Resp BP Pulse Ox O2 Del Method O2 Flow Rate 97.8 F 79 18 112/61 99 Nasal Cannula 3 01/22/25 07:17 01/22/25 07:17 01/22/25 07:17 01/22/25 07:17 01/22/25 07:17 01/22/25 09:48 01/22/25 09:48 Oxygen Flow Rate (L/min) 3 Oxygen Delivery Method Nasal Cannula Weight: 70.53 kg Body Mass Index (BMI) 23.0 Intake & Output: Intake and Output for Last 24 Hours 01/20/25 01/21/25 01/22/25 23:59 23:59 23:59 Intake Total 1160 / 1160 1028 / 1028 1380 / 1380 Output Total 250 / 450 950 / 1800 1450 / 1450 Balance 910 / 710 78 / -772 -70 / -70 Lab / Micro Data 01/22/25 12:39 01/22/25 12:39 Labs: Laboratory Results - last 24 hr 01/22/25 04:50: WBC 11.0, RBC 2.34 L, Hgb 7.3 L, Hct 21.4 L, MCV 91.5, MCH 31.2, MCHC 34.1, RDW Std Deviation 47.9 H, RDW Coeff of Roslyn 14.6, Plt Count 183, MPV 10.1, Sodium 127 L, Potassium 3.3, Chloride 89 L, Carbon Dioxide 28.9, Anion Gap 9, BUN 27 H, Creatinine 1.16, Estim Creat Clear Calc 44.22 L, Est GFR (MDRD) Non-Af 61, BUN/Creatinine Ratio 23.6 H, Glucose 100 H, Calcium 8.2 Rhythm Strip Rhythm Strip: A-fib Rate: 90 Ectopy: None Physical Exam Const alert, oriented x3, no apparent distress and average body habitus Constitutional Narrative: Pleasant elderly male, mildly fatigued appearing but otherwise sitting back comfortably in bed, conversing normally, in no acute distress. Stable. General Appearance: cooperative and comfortable HEENT normocephalic, head/scalp atraumatic, hearing grossly normal bilaterally, nasal mucous membranes and turbinates normal and moist oral mucous membranes Eyes PERRL, EOMs intact bilaterally and conjunctivae normal Neck full ROM Chest inspection of chest normal Resp normal respiratory effort and no use of accessory muscles Resp Narrative: Breathing comfortably on home 4 L nasal cannula at rest. Good air movement throughout with no wheezing or crackles noted. Stable. Cardio regular rate, regular rhythm, no murmurs and peripheral pulses 2+ throughout GI normal to inspection, nondistended, normoactive bowel sounds, soft to palpation, non-tender and non-distended Back/Spine normal ROM Extremity Extremity Narrative: Dressing and ice pack in place over left hip area. Stable. Skin no rashes or lesions noted Psych mental status grossly normal Assessment & Plan Assessment/Plan (1) Fracture, intertrochanteric, left femur: QUALIFIERS: Encounter type: initial encounter Fracture type: closed Fracture alignment: displaced Qualified Code(s): S72.142A - Displaced intertrochanteric fracture of left femur, initial encounter for closed fracture (2) Anticoagulated on Eliquis: PLAN: Plan Patient is an 84-year-old male who presented to [facility] ED on 01/19/2025 with left hip pain after a fall at home. 1. Left femur fracture after mechanical fall at home, acute on chronic debility ? Orthopedic surgery following. PT/OT/case management following. X-ray on admit showed a nondisplaced comminuted fracture of the left intertrochanteric region of the proximal left femur. S/p left femur ORIF with cephalomedullary nail placement on 01/20. Patient tolerated procedure well, no intraoperative complications. Continue pain control with scheduled Tylenol, oxycodone as needed and IV Dilaudid as needed. Planning for SNF placement on discharge. 2. Paroxysmal A-fib on Eliquis ? Stable and normal sinus rhythm on admit. Eliquis held for procedure; okay to resume on 01/21 per orthopedics. Continue home low-dose Toprol. 3. 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 Known history of lung cancer with last hospitalization in July 2024. Not on active treatment for cancer. Has had intermittent thoracentesis done for recurrent pleural effusions. Chest x-ray on admit with mild residual blunting of right costophrenic angle, improved from prior x-ray at the end of November. Patient stable on home 4 L nasal cannula on admit, not in acute exacerbation. Continue home inhalers. 4. Hyperlipidemia ? Continue home statin. 5. Acute on chronic anemia ? Hemoglobin stable at baseline 10-11 on admit. Hemoglobin 8.5 on postop day 1, then worsened to 7.3 on postop day 2. Recheck hemoglobin 7.4. No excessive bruising of the hip or concern for postoperative hematoma in the hip. Still remains consistent with appropriate blood loss from surgery. Given doses of IV iron on 01/21 and 01/22. Continue to monitor CBC daily. If hemoglobin remained stable tomorrow, will be medically ready for discharge. 6. Mild creatinine elevation, improved ? Creatinine 1.58 on admit, baseline 1.2-1.3. Improved back to baseline by 01/21. 7. Hyponatremia ? Sodium noted to drop from 137 on 01/21 to 127 on 01/22. Chloride decreased as well. Patient given normal saline bolus and recheck on 01/22 of sodium 133. Encouraged p.o. intake. Will monitor sodium level daily. DVT prophylaxis: Not indicated, on Eliquis CODE STATUS: DNR CCA, DNI Expected disposition: SNF, 1 to 2 days Total clinical time spent by myself addressing the patient's medical issues, reviewing all the data, and collaborating with patient's care team: 35 minutes. Charges/Coding Visit Charges Inpatient E&M: 22358 Subs Hosp L2
--- NOTE | 2025-01-22 11:10 | CASEMGMT ---
Social Work Per physician, pt is not medically ready for discharge today. Manager Qa cancelled transportation. Nursing notified pt and son. DC child welfare assistant notified [facility] who states pt cannot admit on Saturday but they can accept on Saturday before 3pm. BEVERLY placed phone call to pt son Harry and and informed that if medically ready, pt can be discharged to [facility] on Saturday. If not medically ready by Saturday, BEVERLY will follow up with [facility] on Saturday to work out discharge time. Per sons request, BEVERLY phoned [facility] to discuss payment. BEVERLY spoke with Katt in billing who confirms payment for ride has been processed and can be used for ride on Saturday or Saturday. Physician updated on time parameters set for discharge by SNF. Green Sheet on chart to facilitate discharge. PLAN: [facility] SNF. Pt CANNOT discharge on Saturday. If pt is medically ready on Saturday, pt needs to be to [place] by 3pm (facility is 1.25 hours away) GLORIA Bloom
--- NOTE | 2025-01-22 12:53 | PN.ORTHO_ITS ---
Subjective Subjective POD 2 left gamma nail. Patient is doing well post operatively with his pain well managed. Supposed to go to rehab today but continues to be here because of low hemoglobin, 7.3 this morning. Patient has mild confusion at baseline and asked questions again. He is able to do some movement of the knee and hip on the left side with pain. Objective Data Objective Data Vital Signs: Vital Signs Temp Pulse Resp BP Pulse Ox O2 Del Method O2 Flow Rate 97.8 F 79 18 112/61 99 Nasal Cannula 3 01/22/25 07:17 01/22/25 07:17 01/22/25 07:17 01/22/25 07:17 01/22/25 07:17 01/22/25 09:48 01/22/25 09:48 Oxygen Flow Rate (L/min) 3 Oxygen Delivery Method Nasal Cannula Weight: 155 lb 7.872 oz Body Mass Index (BMI) 23.0 Intake & Output: Intake and Output for Last 24 Hours 01/20/25 01/21/25 01/22/25 23:59 23:59 23:59 Intake Total 1160 / 1160 1028 / 1028 1380 / 1380 Output Total 250 / 450 950 / 1800 1450 / 1450 Balance 910 / 710 78 / -772 -70 / -70 Lab / Micro Data 01/22/25 04:50 01/22/25 04:50 Labs: Laboratory Results - last 24 hr 01/22/25 04:50: WBC 11.0, RBC 2.34 L, Hgb 7.3 L, Hct 21.4 L, MCV 91.5, MCH 31.2, MCHC 34.1, RDW Std Deviation 47.9 H, RDW Coeff of Roslyn 14.6, Plt Count 183, MPV 10.1, Sodium 127 L, Potassium 3.3, Chloride 89 L, Carbon Dioxide 28.9, Anion Gap 9, BUN 27 H, Creatinine 1.16, Estim Creat Clear Calc 44.22 L, Est GFR (MDRD) Non-Af 61, BUN/Creatinine Ratio 23.6 H, Glucose 100 H, Calcium 8.2 Rhythm Strip Rhythm Strip: A-fib Rate: 90 Ectopy: None Physical Exam Narrative Dressing CDI. Distal neurovascular exam is intact. Const alert, oriented x3 and no apparent distress Assessment & Plan Assessment/Plan (1) Status post hip surgery: (2) Fracture, intertrochanteric, left femur: QUALIFIERS: Encounter type: initial encounter Fracture type: c losed Fracture alignment: displaced Qualified Code(s): S72.142A - Displaced intertrochanteric fracture of left femur, initial encounter for closed fracture PLAN: Plan Patient to be discharged to rehab unit when medically cleared, cleared from an orthopedic standpoint. Weight bearing as tolerated, continue OT/PT. Start to decrease opioids to help prevent delirium. The patient will follow-up in the clinic in 2 weeks. Patient is in agreement.
[2025-01-22 13:01] LABS: Hematocrit 22.6 % (40-54); Hemoglobin 7.4 g/dL (13.0-16.5); Mean Corp Hgb Conc 32.7 g/dL (32-36); Mean Corpuscular Volume 94.6 fL (80-94); Mean Platelet Vol. 9.9 fl (6.2-12.0); Platelet Count 180 K/mm3 (150-450); RBC Distribution Width CV 14.6 % (11.6-14.6); RBC Distribution Width SD 49.5 fl (35.1-43.9); Red Blood Count 2.39 M/mm3 (4.6-6.2); White Blood Count 9.9 K/mm3 (4.4-11.0)
[2025-01-22 14:00] LABS: Anion Gap 10 (5-15); BUN 24 mg/dL (4-19); BUN/Creat Ratio 21.8 RATIO (10-20); Calcium,Total 8.1 mg/dL (7.6-11.0); Carbon Dioxide 28.2 mmol/L (21.0-32.0); Chloride 95 mmol/L (98-108); Creatinine, Serum 1.09 mg/dL (0.70-1.20); EST Glomerular Filtration Rate 66 (>60); Estimated Creatinine Clearance 47.06 ml/min (50-250); Glucose 132 mg/dL (70-99); Potassium 3.4 mmol/L (3.3-5.1); Sodium Level 133 mmol/L (133-145)
[2025-01-22 15:10] VITALS: BP 122/73; PULSE 86; RESP 17; TEMP 36.8; O2SAT 94
[2025-01-22] MEDS: 0.9% Normal Saline (250mL Bag) 250 ML 15 ML IV (22:43)
[2025-01-22 23:00] VITALS: BP 139/106; PULSE 69; RESP 18; TEMP 36.8; O2SAT 95
[2025-01-23] VITALS (8 sets, daily range): BP systolic 104–113; BP diastolic 47–60; PULSE 57–101; RESP 16–18; TEMP 36.2–37.1; O2SAT 86–98
[2025-01-23] MEDS: Cefazolin 2 GM in 0.9% Normal Saline (100mL Bag) 100 ML IV ×3 (05:35→21:23)
[2025-01-23 06:41] LABS: Hematocrit 22.1 % (40-54); Hemoglobin 7.2 g/dL (13.0-16.5); Mean Corp Hgb Conc 32.6 g/dL (32-36); Mean Corpuscular Hgb 31.2 pg (27.0-32.0); Mean Corpuscular Volume 95.7 fL (80-94); Platelet Count 196 K/mm3 (150-450); RBC Distribution Width CV 14.7 % (11.6-14.6); RBC Distribution Width SD 50.4 fl (35.1-43.9); Red Blood Count 2.31 M/mm3 (4.6-6.2)
[2025-01-23 07:42] LABS: Anion Gap 8 (5-15); BUN 21 mg/dL (4-19); BUN/Creat Ratio 21.3 RATIO (10-20); Calcium,Total 8.3 mg/dL (7.6-11.0); Carbon Dioxide 30.4 mmol/L (21.0-32.0); Chloride 100 mmol/L (98-108); Creatinine, Serum 0.97 mg/dL (0.70-1.20); EST Glomerular Filtration Rate 76 (>60); Estimated Creatinine Clearance 52.89 ml/min (50-250); Glucose 112 mg/dL (70-99); Potassium 3.6 mmol/L (3.3-5.1); Sodium Level 139 mmol/L (133-145)
--- NOTE | 2025-01-23 09:46 | PN.HOSP_ITS ---
Reason for Visit Reason for Visit: Diagnoses Displaced intertrochanteric fracture of left femur, initial encounter for closed fracture (01/19/25) supervisor intermediates (current) use of anticoagulants (01/19/25) Other specified postprocedural states (01/19/25) Subjective Subjective Saw patient at bedside this morning. Patient was laying back comfortably in bed. However, he was argumentative this morning and stating that he wanted to leave the hospital. He was alert and oriented x 3 on questioning but exhibited poor understanding into his medical condition. Was stating that he did not want any further testing or interventions done here and wanted to go home despite his functional status being very limited currently. Per nursing, patient's son was here yesterday and he was helpful in calming the patient down then. Son will be coming in today as well. Objective Data Objective Data Vital Signs: Vital Signs Temp Pulse Resp BP Pulse Ox O2 Del Method O2 Flow Rate 98.4 F 88 18 105/52 L 97 Nasal Cannula 4 01/23/25 04:33 01/23/25 04:33 01/23/25 04:33 01/23/25 04:33 01/23/25 06:47 01/23/25 06:47 01/23/25 06:47 Oxygen Flow Rate (L/min) 4 Oxygen Delivery Method Nasal Cannula Weight: 70.53 kg Body Mass Index (BMI) 23.0 Intake & Output: Intake and Output for Last 24 Hours 01/21/25 01/22/25 01/23/25 23:59 23:59 23:59 Intake Total 1028 / 1028 2400 / 2400 203.5 / 203.5 Output Total 950 / 1800 2049 / 2049 700 / 700 Balance 78 / -772 350 / 350 -496.5 / -496.5 Lab / Micro Data 01/23/25 05:15 01/23/25 05:15 Labs: Laboratory Results - last 24 hr 01/22/25 12:39: WBC 9.9, RBC 2.39 L, Hgb 7.4 L, Hct 22.6 L, MCV 94.6 H, MCH 31.0, MCHC 32.7, RDW Std Deviation 49.5 H, RDW Coeff of Roslyn 14.6, Plt Count 180, MPV 9.9, Sodium 133, Potassium 3.4, Chloride 95 L, Carbon Dioxide 28.2, Anion Gap 10, BUN 24 H, Creatinine 1.09, Estim Creat Clear Calc 47.06 L, Est GFR (MDRD) Non-Af 66, BUN/Creatinine Ratio 21.8 H, Glucose 132 H, Calcium 8.1 01/23/25 05:15: WBC 9.0, RBC 2.31 L, Hgb 7.2 L, Hct 22.1 L, MCV 95.7 H, MCH 31.2, MCHC 32.6, RDW Std Deviation 50.4 H, RDW Coeff of Roslyn 14.7 H, Plt Count 196, MPV 10.0, Sodium 139, Potassium 3.6, Chloride 100, Carbon Dioxide 30.4, Anion Gap 8, BUN 21 H, Creatinine 0.97, Estim Creat Clear Calc 52.89, Est GFR (MDRD) Non-Af 76, BUN/Creatinine Ratio 21.3 H, Glucose 112 H, Calcium 8.3 Rhythm Strip Rhythm Strip: A-fib Rate: 90 Ectopy: None Physical Exam Const alert, oriented x3, no apparent distress and average body habitus Constitutional Narrative: Elderly male, mildly fatigued appearing, A&Ox3 but argumentative this morning, not exhibiting good insight into his medical condition, otherwise laying back comfortably in bed. General Appearance: cooperative and comfortable HEENT normocephalic, head/scalp atraumatic, hearing grossly normal bilaterally, nasal mucous membranes and turbinates normal and moist oral mucous membranes Eyes PERRL, EOMs intact bilaterally and conjunctivae normal Neck full ROM Chest inspection of chest normal Resp normal respiratory effort and no use of accessory muscles Resp Narrative: Breathing comfortably on home 4 L nasal cannula at rest. Good air movement throughout with no wheezing or crackles noted. Stable. Cardio regular rate, regular rhythm, no murmurs and peripheral pulses 2+ throughout GI normal to inspection, nondistended, normoactive bowel sounds, soft to palpation, non-tender and non-distended Back/Spine normal ROM Extremity Extremity Narrative: Dressing and ice pack in place over left hip area. Stable. Skin no rashes or lesions noted Psych mental status grossly normal Assessment & Plan Assessment/Plan (1) Fracture, intertrochanteric, left femur: QUALIFIERS: Encounter type: initial encounter Fracture type: c losed Fracture alignment: displaced Qualified Code(s): S72.142A - Displaced intertrochanteric fracture of left femur, initial encounter for closed fracture (2) Anticoagulated on Eliquis: PLAN: Plan Patient is an 84-year-old male who presented to [facility] ED on 01/19/2025 with left hip pain after a fall at home. 1. Left femur fracture after mechanical fall at home, acute on chronic debility ? Orthopedic surgery following. PT/OT/case management following. X-ray on admit showed a nondisplaced comminuted fracture of the left intertrochanteric region of the proximal left femur. S/p left femur ORIF with cephalomedullary nail placement on 01/20. Patient tolerated procedure well, no intraoperative complications. Continue pain control with scheduled Tylenol, oxycodone as needed and IV Dilaudid as needed. Planning for SNF placement on discharge, likely tomorrow. 2. Paroxysmal A-fib on Eliquis ? Stable and normal sinus rhythm on admit. Eliquis held for procedure; okay to resume on 01/21 per orthopedics. Continue home low-dose Toprol. 3. 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 Known history of lung cancer with last hospitalization in July 2024. Not on active treatment for cancer. Has had intermittent thoracentesis done for recurrent pleural effusions. Chest x-ray on admit with mild residual blunting of right costophrenic angle, improved from prior x-ray at the end of November. Patient stable on home 4 L nasal cannula on admit, not in acute exacerbation. Continue home inhalers. 4. Hyperlipidemia ? Continue home statin. 5. Acute on chronic anemia, stable ? Hemoglobin stable at baseline 10-11 on admit. Hemoglobin 8.5 on postop day 1, then worsened to 7.3 on postop day 2. Recheck hemoglobin 7.4. No excessive bruising of the hip or concern for postoperative hematoma in the hip. Still remains consistent with appropriate blood loss from surgery. Given doses of IV iron on 01/21 and 01/22. Most recent hemoglobin 7.2 on 01/23. Continue to monitor CBC daily. If hemoglobin remains stable tomorrow, will be medically ready for discharge. 6. Mild creatinine elevation, improved ? Creatinine 1.58 on admit, baseline 1.2-1.3. Improved back to baseline by 01/21. 7. Hyponatremia ? Sodium noted to drop from 137 on 01/21 to 127 on 01/22. Chloride decreased as well. Patient given normal saline bolus and recheck on 01/22 of sodium 133. Encouraged p.o. intake. Will monitor sodium level daily. DVT prophylaxis: Not indicated, on Eliquis CODE STATUS: DNR CCA, DNI Expected disposition: SNF, 1 to 2 days Total clinical time spent by myself addressing the patient's medical issues, reviewing all the data, and collaborating with patient's care team: 35 minutes. Charges/Coding Visit Charges Inpatient E&M: 13568 Subs Hosp L2
[2025-01-23] MEDS: Folic Acid 1 MG Tablet PO (10:52)
[2025-01-23] MEDS: Menthol/Lanolin/Calamine/Znox 113 GM Tube 1 APPLIC TOPICAL ×2 (10:52→21:24)
[2025-01-23] MEDS: Calcium Carb/Vitamin D 1 TABLET Tablet PO (10:53)
[2025-01-23] MEDS: Psyllium 1 PACKET PO (10:53)
[2025-01-23] MEDS: Atorvastatin Calcium 10 MG Tablet PO (10:53)
[2025-01-23] MEDS: APIXABAN 5 MG TABLET PO ×2 (10:53→21:23)
[2025-01-23] MEDS: Senna/Docusate Sodium 1 Tablet PO (10:54)
[2025-01-23] MEDS: Cyanocobalamin 500 MCG Tablet 1000 MCG PO (10:54)
[2025-01-23] MEDS: Ascorbic Acid 500 MG Tablet 1000 MG PO (10:55)
[2025-01-23] MEDS: Acetaminophen 500 MG Tablet 1000 MG PO ×2 (12:58→21:23)
[2025-01-24 04:52] VITALS: BP 128/53; PULSE 84; RESP 20; TEMP 36.6; O2SAT 92
[2025-01-24] MEDS: Cefazolin 2 GM in 0.9% Normal Saline (100mL Bag) 100 ML IV (04:58)
[2025-01-24] MEDS: Acetaminophen 500 MG Tablet 1000 MG PO (04:58)
[2025-01-24 07:01] LABS: Hemoglobin 7.4 g/dL (13.0-16.5); Mean Corp Hgb Conc 32.2 g/dL (32-36); Mean Corpuscular Hgb 31.2 pg (27.0-32.0); Mean Platelet Vol. 10.1 fl (6.2-12.0); Platelet Count 212 K/mm3 (150-450); RBC Distribution Width CV 15.3 % (11.6-14.6); Red Blood Count 2.37 M/mm3 (4.6-6.2); White Blood Count 10.5 K/mm3 (4.4-11.0)
[2025-01-24 07:26] VITALS: O2SAT 94
[2025-01-24 07:38] LABS: Anion Gap 9 (5-15); BUN 19 mg/dL (4-19); BUN/Creat Ratio 20.1 RATIO (10-20); Calcium,Total 8.4 mg/dL (7.6-11.0); Chloride 101 mmol/L (98-108); Creatinine, Serum 0.96 mg/dL (0.70-1.20); EST Glomerular Filtration Rate 77 (>60); Estimated Creatinine Clearance 53.44 ml/min (50-250); Glucose 111 mg/dL (70-99); Potassium 3.5 mmol/L (3.3-5.1); Sodium Level 138 mmol/L (133-145)
--- NOTE | 2025-01-24 08:43 | TREXTCAR_ITS ---
Diet Diet Order/Speech Therapy: INPATIENT Hospital Diet / Speech Therapy Order(s) 01/21/25 06:52 Diet: Regular - General Type of Dietary Supplement:: Ensure Plus High Protein Routine Orders/Code Status Routine Lab Work: CBC (Repeat in 3 to 5 days to ensure hemoglobin remains stable) Code Status: DNRCC-A (DO NOT INTUBATE) DC O2, CPAP, BIPAP needs Home O2 Discharge instructions: No Wound(s) lt knee: Wound Type: scab Left wrist: Wound Type: Abrasion left hip: Wound Type: Surgical Incision left lateral thigh: Wound Type: Surgical Incision left lateral knee: Wound Type: Surgical Incision Therapies Weight Bearing: Full weight bearing Physical Therapy: Eval and Treat Occupational Therapy: Eval and Treat Problem/Diagnosis (1) Fracture, intertrochanteric, left femur: Status: Acute Code(s): S72.142A - Displaced intertrochanteric fracture of left femur, initial encounter for closed fracture (2) Anticoagulated on Eliquis: Status: Acute Code(s): 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 Hospital course as noted below. Patient discharged to SNF in stable condition on 01/24. 1. Left femur fracture after mechanical fall at home, acute on chronic debility ? Orthopedic surgery followed. PT/OT/case management followed. X-ray on admit showed a nondisplaced comminuted fracture of the left intertrochanteric region of the proximal left femur. S/p left femur ORIF with cephalomedullary nail placement on 01/20. Patient tolerated procedure well, no intraoperative c omplications. Treated with scheduled Tylenol, oxycodone as needed and IV Dilaudid as needed while inpatient. Continue scheduled Tylenol on discharge. Discharged to SNF in stable condition on 01/24. 2. Paroxysmal A-fib on Eliquis ? Stable and normal sinus rhythm on admit. Eliquis held for procedure; resumed on 01/21 per orthopedics. Continue home low-dose Toprol. 3. 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 Known history of lung cancer with last hospitalization in July 2024. Not on active treatment for cancer. Has had intermittent thoracentesis done for recurrent pleural effusions. Chest x-ray on admit with mild residual blunting of right costophrenic angle, improved from prior x-ray at the end of November. Pat ient stable on home 4 L nasal cannula on admit, not in acute exacerbation. Continue home inhalers. 4. Hyperlipidemia ? Continue home statin. 5. Acute on chronic anemia, stable ? Hemoglobin stable at baseline 10-11 on admit. Hemoglobin 8.5 on postop day 1, then worsened to 7.3 on postop day 2. Recheck hemoglobin 7.4. No excessive bruising of the hip or concern for postoperative hematoma in the hip. Still remains consistent with appropriate blood loss from surgery. Given doses of IV iron on 01/21 and 01/22. Hemoglobin remained stable in the low 7s for the last 3 days of of the hospitalization, most recent hemoglobin 7.4 on day of discharge. Recommend repeat CBC in 3 to 5 days to ensure hemoglobin remains stable. 6. Mild creatinine elevation, improved ? Creatinine 1.58 on admit, baseline 1.2-1.3. Improved back to baseline by 01/21. 7. Hyponatremia ? Sodium noted to drop from 137 on 01/21 to 127 on 01/22. Chloride decreased as well. Patient given normal saline bolus and recheck on 01/22 of sodium 133. Encouraged p.o. intake. Total clinical time spent by myself addressing the patient's medical issues, reviewing all the data, and collaborating with patient's care team: 35 minutes. Allergies/Procedures Done in Hospital Allergies No Known Allergies Allergy (Verified 01/19/25 11:54) Procedures: EKG and - (ORIF left femur intertrochanteric fracture with cephalomedullary nailing, CT brain and C-spine, chest x-ray, femur x-ray x 2, pelvis x-ray) Type of Care/Length of Stay Estimated LOS: Convalescent Care Less Than 30 days Type of Care Needed: Skilled Rehab Potential: Fair Prognosis: Fair Additional Orders/Day of Discharge H&P will serve as current which was dated: 01/19/25 Day of Discharge: 01/24/25 Dietary and Speech Recommendations Dietitian Recommendations/Changes: Recommend advanced diet as tolerated to regular. PO needs to be established, as diet is advanced. Will monitor weight trends. Discharge Plan Admission Admit Date/Time: 01/19/25 14:44 Primary Reason for Your Visit: Fall with hip pain Attending Provider: Fredi Torres Primary Care Provider: Lefty Samson Consulting Providers: John Galindo; Edwin Carlson Discharge Orders/Prescriptions Prescriptions: New acetaminophen 500 mg Tablet 1,000 mg PO Q8 Qty: 0 0RF Eliquis 5 mg Tablet 5 mg PO BID Qty: 0 0RF Continued simvastatin 20 MG tablet 20 mg PO DAILY metoprolol succinate 25 MG tablet extended release 24 hr 12.5 mg PO DAILY multivitamin 1 EACH tablet 1 ea PO MOFR ascorbic acid (vitamin C) 1,000 MG tablet extended release 1,000 mg PO DAILY magnesium oxide 400 MG tablet 400 mg PO MOFR nitroglycerin 0.4 MG tablet, sublingual 0.4 mg sublingual Q5M PRN (Reason: Chest Pain) folic acid 1 MG tablet 1 mg PO DAILY coenzyme Q10 200 MG capsule 200 mg PO DAILY calcium citrate-vitamin D3 1 EACH tablet 1 ea PO DAILY acidophilus-pectin, citrus 1 EACH capsule 2 ea PO DAILY docosahexaenoic acid 450 MG capsule 450 mg PO BID [id number] 1 EACH tablet 2 ea PO DAILY psyllium husk 660 GM powder 660 g PO DAILY cyanocobalamin (vitamin B-12) 1,000 MCG capsule 1,000 mcg PO DAILY Trelegy Ellipta 100-62.5-25 mcg blister with device 1 inh INHALATION DAILY albuterol sulfate 90 mcg/actuation HFA aerosol inhaler 1 inh inhalation Q6H PRN (Reason: shortness of breath or wheezing) Qty: 8.5 0RF furosemide 20 mg tablet 20 mg PO DAILY Patient Comments: PT TAKES A 40MG AND 20MG TAB ONCE DAILY furosemide 40 mg tablet 40 mg PO DAILY Patient Comments: PT VERIFIES HE TAKES A 40MG TAB AND A 20MG TAB ONCE DAILY. Discontinued Eliquis 2.5 mg tablet 2.5 mg PO BID Referrals / Follow Up: John Galindo MD [Med Staff - Active Staff] - Lefty Samson MD [Primary Care Provider] - Disposition Disposition (needs filled in before D/C Order can be placed): Intermediate Facility (1) Fracture, intertrochanteric, left femur Qualifiers: Encounter type: initial encounter Fracture alignment: displaced Fracture type: closed Qualified Code(s): S72.142A - Displaced intertrochanteric fracture of left femur, initial encounter for closed fracture
--- NOTE | 2025-01-24 08:43 | PCM.DC.SUM ---
Providers Date of Admission: 01/19/25 Date of Discharge: 01/24/25 Primary Care Physician: Dr. Lefty Samson MD Consultations 01/19/25 15:32 Consult: Orthopedics Routine Consulting Provider: John Galindo Reason for Consult: left hip fracture EMERGENT Consult: No MD Notified: Yes Date Notified: 01/19/25 Time Notified: 14:48 Method of Notification: ED Physician Initiated Reason For Visit: LEFT HIP FRACTURE Diagnosis Discharge Diagnosis (1) Fracture, intertrochanteric, left femur: Status: Acute Code(s): S72.142A - Displaced intertrochanteric fracture of left femur, initial encounter for closed fracture Qualifiers: Encounter type: initial encounter Fracture alignment: displaced Fracture type: closed Qualified Code(s): S72.142A - Displaced intertrochanteric fracture of left femur, initial encounter for closed fracture (2) Anticoagulated on Eliquis: Status: Acute Code(s): 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 Medications at Discharge Home Medications metoprolol succinate 25 mg tablet,extended release 24 hr 12.5 mg PO DAILY blood pressure 01/26/19 simvastatin 20 mg tablet 20 mg PO DAILY Cholesterol 01/26/19 acidophilus 100 million cell-pectin, citrus 10 mg capsule 2 ea PO DAILY supplement 04/13/20 ascorbic acid (vitamin C) 1,000 mg tablet,extended release 1,000 mg PO DAILY vitamin c 04/13/20 calcium 315 mg (as citrate)-vitamin D3 6.25 mcg (250 unit) tablet 1 ea PO DAILY vitamin 04/13/20 coenzyme Q10 200 mg capsule 200 mg PO DAILY supplement 04/13/20 cyanocobalamin (vitamin B-12) 1,000 mcg capsule 1,000 mcg PO DAILY vitamin 04/13/20 docosahexaenoic acid 450 mg capsule 450 mg PO BID supplement 04/13/20 folic acid 1 mg tablet 1 mg PO DAILY supplement 04/13/20 glucosamine 750 [id number] [id number] 644 mg-C 30 mg-dionte 1 mg tablet 2 ea PO DAILY supplement 04/13/20 magnesium oxide 400 mg (241.3 mg magnesium) tablet 400 mg PO MOFR supplement 04/13/20 multivitamin 1 ea PO MOFR vitamin 04/13/20 nitroglycerin 0.4 mg sublingual tablet 0.4 mg sublingual Q5M PRN Chest Pain 04/13/20 psyllium husk 3.4 gram/5.4 gram oral powder 660 g PO DAILY supplement 04/13/20 fluticasone fur. 100 mcg-umeclid 62.5 mcg-vilant 25 mcg inhalat.powder (Trelegy Ellipta) 1 inh inhalation DAILY breathing 08/05/23 albuterol sulfate 90 mcg/actuation aerosol inhaler 1 inh inhalation Q6H PRN shortness of breath or wheezing #8.5 grams 08/14/24 furosemide 20 mg tablet 20 mg PO DAILY water pill 12/31/24 furosemide 40 mg tablet 40 mg PO DAILY water pill 01/19/25 acetaminophen 500 mg tablet 1,000 mg (2 x 500 mg) PO Q8 #0 tabs 01/24/25 apixaban 5 mg tablet (Eliquis) 5 mg PO BID #0 tabs 01/24/25 Hospital Course Operations - (ORIF left femur intertrochanteric fracture with cephalomedullary nailing) Procedures EKG and - (CT brain and C-spine, chest x-ray, femur x-ray x 2, pelvis x-ray) Summary of Care Provided Minutes Spent on Discharge: 35 Hospital Course: Patient is an 84-year-old male who presented to [facility] ED on 01/19/2025 with left hip pain after a fall at home. Hospital course as noted below. Patient discharged to SNF in stable condition on 01/24. 1. Left femur fracture after mechanical fall at home, acute on chronic debility ? Orthopedic surgery followed. PT/OT/case management followed. X-ray on admit showed a nondisplaced comminuted fracture of the left intertrochanteric region of the proximal left femur. S/p left femur ORIF with cephalomedullary nail placement on 01/20. Patient tolerated procedure well, no intraoperative complications. Treated with scheduled Tylenol, oxycodone as needed and IV Dilaudid as needed while inpatient. Continue scheduled Tylenol on discharge. Discharged to SNF in stable condition on 01/24. 2. Paroxysmal A-fib on Eliquis ? Stable and normal sinus rhythm on admit. Eliquis held for procedure; resumed on 01/21 per orthopedics. Continue home low-dose Toprol. 3. 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 Known history of lung cancer with last hospitalization in July 2024. Not on active treatment for cancer. Has had intermittent thoracentesis done for recurrent pleural effusions. Chest x-ray on admit with mild residual blunting of right costophrenic angle, improved from prior x-ray at the end of November. Patient stable on home 4 L nasal cannula on admit, not in acute exacerbation. Continue home inhalers. 4. Hyperlipidemia ? Continue home statin. 5. Acute on chronic anemia, stable ? Hemoglobin stable at baseline 10-11 on admit. Hemoglobin 8.5 on postop day 1, then worsened to 7.3 on postop day 2. Recheck hemoglobin 7.4. No excessive bruising of the hip or concern for postoperative hematoma in the hip. Still remains consistent with appropriate blood loss from surgery. Given doses of IV iron on 01/21 and 01/22. Hemoglobin remained stable in the low 7s for the last 3 days of of the hospitalization, most recent hemoglobin 7.4 on day of discharge. Recommend repeat CBC in 3 to 5 days to ensure hemoglobin remains stable. 6. Mild creatinine elevation, improved ? Creatinine 1.58 on admit, baseline 1.2-1.3. Improved back to baseline by 01/21. 7. Hyponatremia ? Sodium noted to drop from 137 on 01/21 to 127 on 01/22. Chloride decreased as well. Patient given normal saline bolus and recheck on 01/22 of sodium 133. Encouraged p.o. intake. Total clinical time spent by myself addressing the patient's medical issues, reviewing all the data, and collaborating with patient's care team: 35 minutes. Physical Exam Const alert, oriented x3, no apparent distress and average body habitus Constitutional Narrative: Elderly male, mildly fatigued appearing, alert and oriented and conversing normally today with better mood noted, otherwise sitting back comfortably in bedside chair and in no acute distress. General Appearance: cooperative and comfortable HEENT normocephalic, head/scalp atraumatic, hearing grossly normal bilaterally, nasal mucous membranes and turbinates normal and moist oral mucous membranes Eyes PERRL, EOMs intact bilaterally and conjunctivae normal Neck full ROM Chest inspection of chest normal Resp normal respiratory effort and no use of accessory muscles Resp Narrative: Breathing comfortably on home 4 L nasal cannula at rest. Good air movement throughout with no wheezing or crackles noted. Stable. Cardio regular rate, regular rhythm, no murmurs and peripheral pulses 2+ throughout GI normal to inspection, nondistended, normoactive bowel sounds, soft to palpation, non-tender and non-distended Back/Spine normal ROM Extremity Extremity Narrative: Dressing and ice pack in place over left hip area. Stable. Skin no rashes or lesions noted Psych mental status grossly normal Weight / BMI Weight Weight: 70.53 kg Body Mass Index (BMI) 23.0 ABG / Lab / Microbiology Data 01/24/25 05:50 01/24/25 05:50 Laboratory: Laboratory Results - last 24 hr 01/24/25 05:50: WBC 10.5, RBC 2.37 L, Hgb 7.4 L, Hct 23.0 L, MCV 97.0 H, MCH 31.2, MCHC 32.2, RDW Std Deviation 52.0 H, RDW Coeff of [place] 15.3 H, Plt Count 212, MPV 10.1, Sodium 138, Potassium 3.5, Chloride 101, Carbon Dioxide 29.0, Anion Gap 9, BUN 19, Creatinine 0.96, Estim Creat Clear Calc 53.44, Est GFR (MDRD) Non-Af 77, BUN/Creatinine Ratio 20.1 H, Glucose 111 H, Calcium 8.4 D/C Instructions DC O2, CPAP, BIPAP Needs Home O2 Discharge instructions: No Meaningful Use Info Meaningful Use Meaningful Use Diagnoses (Choose all that apply): None applicable Ischemic Stroke Statin Dosing Therapy Reference: STATIN DOSE THERAPY REFERENCE: * Patients > 75 years receive moderate or high dose statin therapy. * Patients 75 years or YOUNGER should receive HIGH intensity statin dose unless contraindicated. You will be required to document reason for non-treatment if statin daily dose does not meet guidelines. HIGH DOSE STATIN THERAPY DAILY Atorvastatin > than or = to 40 mg Rosuvastatin > than or = to 20 mg Amlodipine + Atorvastatin > than or = to 2.5/40 mg Ezetimibe + Simvastatin 10/80 mg Simvastatin 80mg Discharge Plan Admission Admit Date/Time: 01/19/25 14:44 Primary Reason for Your Visit: Fall with hip pain Attending Provider: Fredi Torres Primary Care Provider: Lefty Samson Consulting Providers: John Galindo; Edwin Carlson Discharge Orders/Prescriptions Prescriptions: New acetaminophen 500 mg Tablet 1,000 mg PO Q8 Qty: 0 0RF Eliquis 5 mg Tablet 5 mg PO BID Qty: 0 0RF Continued simvastatin 20 MG tablet 20 mg PO DAILY metoprolol succinate 25 MG tablet extended release 24 hr 12.5 mg PO DAILY multivitamin 1 EACH tablet 1 ea PO MOFR ascorbic acid (vitamin C) 1,000 MG tablet extended release 1,000 mg PO DAILY magnesium oxide 400 MG tablet 400 mg PO MOFR nitroglycerin 0.4 MG tablet, sublingual 0.4 mg sublingual Q5M PRN (Reason: Chest Pain) folic acid 1 MG tablet 1 mg PO DAILY coenzyme Q10 200 MG capsule 200 mg PO DAILY calcium citrate-vitamin D3 1 EACH tablet 1 ea PO DAILY acidophilus-pectin, citrus 1 EACH capsule 2 ea PO DAILY docosahexaenoic acid 450 MG capsule 450 mg PO BID [id number] 1 EACH tablet 2 ea PO DAILY psyllium husk 660 GM powder 660 g PO DAILY cyanocobalamin (vitamin B-12) 1,000 MCG capsule 1,000 mcg PO DAILY Trelegy Ellipta 100-62.5-25 mcg blister with device 1 inh INHALATION DAILY albuterol sulfate 90 mcg/actuation HFA aerosol inhaler 1 inh inhalation Q6H PRN (Reason: shortness of breath or wheezing) Qty: 8.5 0RF furosemide 20 mg tablet 20 mg PO DAILY Patient Comments: PT TAKES A 40MG AND 20MG TAB ONCE DAILY furosemide 40 mg tablet 40 mg PO DAILY Patient Comments: PT VERIFIES HE TAKES A 40MG TAB AND A 20MG TAB ONCE DAILY. Discontinued Eliquis 2.5 mg tablet 2.5 mg PO BID Referrals / Follow Up: John Galindo MD [Med Staff - Active Staff] - Lefty Samson MD [Primary Care Provider] - Disposition Disposition (needs filled in before D/C Order can be placed): Half-Way Facility Charges/Coding Visit Charges Inpatient E&M: 77775 Disch Hosp >30min
[2025-01-24 09:28] VITALS: BP 104/50; PULSE 98; RESP 18; TEMP 36.7; O2SAT 93
[2025-01-24] MEDS: Calcium Carb/Vitamin D 1 TABLET Tablet PO (09:34)
[2025-01-24] MEDS: Psyllium 1 PACKET PO (09:34)
[2025-01-24] MEDS: APIXABAN 5 MG TABLET PO (09:34)
[2025-01-24] MEDS: Atorvastatin Calcium 10 MG Tablet PO (09:34)
[2025-01-24] MEDS: Folic Acid 1 MG Tablet PO (09:34)
[2025-01-24] MEDS: Senna/Docusate Sodium 1 Tablet PO (09:35)
[2025-01-24 09:36] VITALS: PULSE 98
[2025-01-24] MEDS: Metoprolol(XL)Succ 25 MG Tablet 12.5 MG PO (09:36)
[2025-01-24] MEDS: Cyanocobalamin 500 MCG Tablet 1000 MCG PO (09:36)
[2025-01-24] MEDS: Ascorbic Acid 500 MG Tablet 1000 MG PO (09:37)
--- NOTE | 2025-01-24 09:55 | PCA ---
discharge orders faxed to [facility], copies placed on chart, transportation arranged for [id number], call placed to son to notify of discharge plan
== END 2025-01-24 11:01 | disposition skilled nursing facility (03) | DRG 481 ==
LOC: ED 13:35 → MS3 15:08
PROVIDERS: Anesthesiology; Orthopaedic Surgery Orthopaedic Surgery of the Spine; Emergency Provider Emergency Medicine; PCP Family Medicine; Visit Provider Hospitalist
PROC: 0QS706Z Reposition Left Upper Femur with Intramedullary Internal Fixation Device, Open Approach (ICD-10-PCS; CPT 27245; principal; 2025-01-20 15:30)
DX: S72.142A Displaced intertrochanteric fracture of left femur, initial encounter for closed fracture (principal); C34.90 Malignant neoplasm of unspecified part of unspecified bronchus or lung; D68.9 Coagulation defect, unspecified; J96.10 Chronic respiratory failure, unspecified whether with hypoxia or hypercapnia; E87.1 Hypo-osmolality and hyponatremia; Z66 Do not resuscitate; Z99.81 Dependence on supplemental oxygen; J43.9 Emphysema, unspecified; F32.A Depression, unspecified; I48.0 Paroxysmal atrial fibrillation; I25.10 Atherosclerotic heart disease of native coronary artery without angina pectoris; E78.5 Hyperlipidemia, unspecified; F41.9 Anxiety disorder, unspecified; I25.2 Old myocardial infarction; W18.30XA Fall on same level, unspecified, initial encounter; S60.812A Abrasion of left wrist, initial encounter; D50.0 Iron deficiency anemia secondary to blood loss (chronic); Z87.891 Personal history of nicotine dependence; Z95.5 Presence of coronary angioplasty implant and graft; Z79.51 Long term (current) use of inhaled steroids; Z79.01 Long term (current) use of anticoagulants; H91.91 Unspecified hearing loss, right ear; Z79.02 Long term (current) use of antithrombotics/antiplatelets; Z98.890 Other specified postprocedural states; R53.81 Other malaise; Z75.1 Person awaiting admission to adequate facility elsewhere; R94.4 Abnormal results of kidney function studies
CPT/HCPCS: 36415; 51702; 70450; 71045; 72125; 72170; 73552; 76000; 80048; 80053; 80076; 81001; 82306; 82550; 85025; 85027; 85610; 85730; 86850; 86900; 86901; 93005; 94640; 97116; 97162; 97166; 97530; 97535; 99285; C1713; C1776; A4216; J2405; J2916